=== PATIENT | male | born 1950 | race Caucasian/White ===

== ENCOUNTER → 2016-08-06 | Outpatient (REF) | payer BC, MEDICARE ==
[2016-08-06 12:27] LABS: ALBUMIN 3.8 GM/DL (3.2-5.2); ALBUMIN/GLOBULIN RATIO 1.23 (1.00-1.93); ALKALINE PHOSPHATASE 74 U/L (45-117); ALT/SGPT 28 U/L (12-78); ANION GAP 8 MEQ/L (8-16); AST/SGOT 21 U/L (15-37); BILIRUBIN,TOTAL 0.7 MG/DL (0.2-1.0); BLOOD UREA NITROGEN 15 MG/DL (7-18); CALCIUM LEVEL 9.1 MG/DL (8.8-10.2); CARBON DIOXIDE LEVEL 28 MEQ/L (21-32); CHLORIDE LEVEL 107 MEQ/L (98-107); CHOLESTEROL LEVEL 176 MG/DL (<200); CREATININE FOR GFR 0.81 MG/DL (0.70-1.30); GLOMERULAR FILTRATION RATE > 60.0 (>49); GLUCOSE, FASTING 102 MG/DL (80-110); POTASSIUM SERUM 3.8 MEQ/L (3.5-5.1); SODIUM LEVEL 143 MEQ/L (136-145); TOTAL PROTEIN 6.9 GM/DL (6.4-8.2); TRIGLYCERIDES LEVEL 75 MG/DL (<150)
[2016-08-06 12:52] LABS: BASO % 0.4 % (0.0-1.0); EOS # 0.2 K/mm3 (0.0-0.50); LARGE UNSTAINED CELL # 0.1 K/mm3 (0.0-0.4); LARGE UNSTAINED CELL % 1.9 % (0.0-4.0); LYMPH # 2.1 K/mm3 (1.5-4.5); LYMPH % 29.8 % (24.0-44.0); MEAN CORPUSCULAR HGB CONC 32.8 g/dl (32.0-36.5); MEAN CORPUSCULAR VOLUME 94.5 fl (80.0-96.0); MONO # 0.4 K/mm3 (0.0-0.8); MONO % 6.6 % (0.0-5.0); NEUTROPHILS # 3.8 K/mm3 (1.8-7.7); NEUTROPHILS % 58.3 % (36.0-66.0); PLATELET COUNT, AUTOMATED 195 k/mm3 (150-450); RED CELL DISTRIBUTION WIDTH 12.9 % (11.5-14.5); WHITE BLOOD COUNT 6.5 K/mm3 (4.0-10.0)
== END ==
LOC: M LABDRAW1 11:55
PROVIDERS: ATTEND Family Medicine
DX: R73.01 Impaired fasting glucose (principal); E78.2 Mixed hyperlipidemia; Z12.5 Encounter for screening for malignant neoplasm of prostate
CPT/HCPCS: 36415; 80053; 80061; 82550; 83036; 85025; 86140; G0103

== ENCOUNTER → 2016-09-07 | Outpatient (CLI) | payer MEDICARE ==
[~2016-09-07] VITALS: Ht 175.3 cm; Wt 83.9 kg
[~2016-09-07] MED LIST: ALEV220C2 PO; LIDOCAINE 2% INJ 100 MG/5 ML SDV (FOR ANES.) As Ordered ONE; NS 1,000 ML IV SCH; PROPOFOL 200 MG/20 ML VIAL As Ordered ONE
--- NOTE | 2016-09-07 10:54 | ROOR ---
Patient Name: Efra Wray Procedure Date: 09/07/2016 10:36 AM Date of : 1950 Age: 66 Room: [facility] Gender: Male Note Status: Finalized Procedure: Colonoscopy Indications: High risk colon cancer surveillance: Personal history of colonic polyps, Last colonoscopy: October 2010 Providers: Lloyd NAPIER MD Referring MD: Chad Muniz MD Requesting Provider: Medicines: Monitored Anesthesia Care Complications: No immediate complications. Procedure: Pre-Anesthesia Assessment: - The heart rate, respiratory rate, oxygen saturations, blood pressure, adequacy of pulmonary ventilation, and response to care were monitored throughout the procedure. The Colonoscope was introduced through the anus and advanced to the cecum, identified by appendiceal orifice and ileocecal valve. The colonoscopy was performed without difficulty. The patient tolerated the procedure well. The quality of the bowel preparation was fair. Findings: The perianal and digital rectal examinations were normal. Two sessile polyps were found in the sigmoid colon and ascending colon. The polyps were 2 to 4 mm in size. These polyps were removed with a cold snare. Resection was complete, but the polyp tissue was only partially retrieved. Multiple medium-mouthed diverticula were found in the sigmoid colon. Internal hemorrhoids were found during retroflexion. The hemorrhoids were moderate. The exam was otherwise without abnormality on direct and retroflexion views. Impression: - Preparation of the colon was fair. - Two 2 to 4 mm polyps in the sigmoid colon and in the ascending colon, removed with a cold snare. Complete resection. Partial retrieval. - Moderate diverticulosis in the sigmoid colon. - Internal hemorrhoids. - The examination was otherwise normal on direct and retroflexion views. Recommendation: - Repeat colonoscopy in 3 years for surveillance. Lloyd Napier MD Lloyd NAPIER MD 09/07/2016 10:54:32 AM This report has been signed electronically. Number of Addenda: 0 Note Initiated On: 09/07/2016 10:36 AM Estimated Blood Loss: Estimated blood loss: none.
[2016-09-07 11:25] VITALS: BP 136/84
== END | disposition home or self-care (01) ==
LOC: M OPP 08:55
PROVIDERS: ATTEND Internal Medicine Gastroenterology
DX: Z12.11 Encounter for screening for malignant neoplasm of colon (principal); D12.5 Benign neoplasm of sigmoid colon; D12.2 Benign neoplasm of ascending colon; K57.30 Diverticulosis of large intestine without perforation or abscess without bleeding; K64.8 Other hemorrhoids; M16.0 Bilateral primary osteoarthritis of hip; M19.019 Primary osteoarthritis, unspecified shoulder; M17.0 Bilateral primary osteoarthritis of knee; F17.210 Nicotine dependence, cigarettes, uncomplicated; M51.9 Unspecified thoracic, thoracolumbar and lumbosacral intervertebral disc disorder; Z88.8 Allergy status to other drugs, medicaments and biological substances; Z88.0 Allergy status to penicillin; Z88.7 Allergy status to serum and vaccine

== ENCOUNTER 2016-12-18 16:23 | Emergency (ER) | payer MEDICARE ==
[~2016-12-18] VITALS: Ht 177.8 cm; Wt 86.4 kg
[2016-12-18 16:24] VITALS: BP 162/93
== END 2016-12-18 16:54 | disposition left against medical advice (07) ==
LOC: M ED 16:23
DX: S60.212A Contusion of left wrist, initial encounter (principal); X58.XXXA Exposure to other specified factors, initial encounter; Y93.9 Activity, unspecified; Y92.9 Unspecified place or not applicable; Y99.8 Other external cause status; Z53.29 Procedure and treatment not carried out because of patient's decision for other reasons

== ENCOUNTER → 2016-12-18 | Outpatient (CLI) | payer MEDICARE ==
[~2016-12-18] MED LIST changes: -LIDOCAINE 2% INJ 100 MG/5 ML SDV (FOR ANES.) As Ordered ONE; -NS 1,000 ML IV SCH; -PROPOFOL 200 MG/20 ML VIAL As Ordered ONE
--- NOTE | 2016-12-19 09:36 | REP ---
LEFT WRIST, COMPLETE: 12/18/2016. Comparison: 08/16/2003. Clinical history: Contusion left wrist. Findings: Four views show soft tissue swelling over the dorsal aspect of the wrist. There are minimal degenerative changes of the first CMC joint and some of the tarsal articulations. No subluxation or dislocation of the wrist. Question of a small lucency proximal pole of the hamate may reflect a small bone cyst. Minor degenerative changes first CMC joint. Impression: 1. Soft tissue swelling dorsal wrist with some degenerative changes at the wrist, but no definite acute fracture or avulsion. Signed by Angel Canales MD 12/19/2016 08:08 A
== END ==
LOC: M WUC 18:58
PROVIDERS: ATTEND Physician Assistant
DX: S60.212A Contusion of left wrist, initial encounter (principal); X58.XXXA Exposure to other specified factors, initial encounter; Y93.9 Activity, unspecified; Y92.9 Unspecified place or not applicable; Y99.8 Other external cause status

== ENCOUNTER 2017-05-04 21:07 | Emergency (ER) | payer MEDICARE ==
[~2017-05-04] VITALS: Ht 175.3 cm; Wt 84.1 kg
[2017-05-04 21:08] VITALS: BP 155/91
[2017-05-04] MEDS ORDERED: TYLE325T5 PO (21:14)
[2017-05-04] MEDS ORDERED: BENZONATATE 100 MG CAP PO ONE (23:30)
[2017-05-04] MEDS ORDERED: TESS100C PO (23:30)
== END 2017-05-04 23:48 | disposition home or self-care (01) ==
LOC: M ED 21:07
DX: J20.9 Acute bronchitis, unspecified (principal); Z88.0 Allergy status to penicillin; Z88.5 Allergy status to narcotic agent; Z88.7 Allergy status to serum and vaccine; F17.210 Nicotine dependence, cigarettes, uncomplicated

== ENCOUNTER 2017-05-10 22:54 | Emergency (ER) | payer MEDICARE ==
[2017-05-11] MEDS: TUSSICAPS ER 10/8MG CAPSULE PO (00:05)
[2017-05-11 00:07] LABS: BASO # 0.1 10^3/uL (0.0-0.2); BASO % 0.6 % (0.0-1.0); EOS # 0.5 10^3/uL (0.0-0.50); EOS % 6.2 % (0.0-3.0); IMMATURE GRANULOCYTE % 0.4 % (0-0); LYMPH # 1.8 10^3/uL (1.5-4.5); LYMPH % 22.7 % (24.0-44.0); MEAN CORPUSCULAR HEMOGLOBIN 30.8 pg (27.0-33.0); MEAN CORPUSCULAR VOLUME 90.7 fl (80.0-96.0); MONO # 0.9 10^3/uL (0.0-0.8); MONO % 10.8 % (0.0-5.0); NEUTROPHILS # 4.7 10^3/uL (1.8-7.7); NEUTROPHILS % 59.3 % (36.0-66.0); PLATELET COUNT, AUTOMATED 312 10^3/uL (150-450); RED CELL DISTRIBUTION WIDTH 12.3 % (11.5-14.5); WHITE BLOOD COUNT 7.9 10^3/uL (4.0-10.0)
[2017-05-11 00:30] LABS: ANION GAP 7 MEQ/L (8-16); BLOOD UREA NITROGEN 13 MG/DL (7-18); CALCIUM LEVEL 9.2 MG/DL (8.8-10.2); CARBON DIOXIDE LEVEL 28 MEQ/L (21-32); CHLORIDE LEVEL 106 MEQ/L (98-107); CREATININE FOR GFR 0.81 MG/DL (0.70-1.30); GLOMERULAR FILTRATION RATE > 60.0 (>49); GLUCOSE, FASTING 98 MG/DL (80-110); SODIUM LEVEL 141 MEQ/L (136-145)
[2017-05-11] MEDS ORDERED: ISOVUE-370 76% 100ML VIAL (Q9967) As Ordered (00:53)
[2017-05-11] MEDS: ACETAMINOPHEN 325 MG TAB PO (02:25)
== END 2017-05-11 03:07 | disposition home or self-care (01) ==
LOC: M ED 05-11 03:07
DX: R91.1 Solitary pulmonary nodule (principal); R91.8 Other nonspecific abnormal finding of lung field; Z79.2 Long term (current) use of antibiotics; Z79.899 Other long term (current) drug therapy; Z88.5 Allergy status to narcotic agent; Z88.0 Allergy status to penicillin; Z88.7 Allergy status to serum and vaccine; Z87.891 Personal history of nicotine dependence
CPT/HCPCS: Q9967

== ENCOUNTER → 2017-05-18 | Outpatient (REF) | payer MEDICARE | LOC: M LAB REF 16:58 | DX: R91.8 Other nonspecific abnormal finding of lung field (principal) | CPT/HCPCS: 87205 ==

== ENCOUNTER 2017-05-29 20:13 | Emergency (ER) | payer MEDICARE ==
[2017-05-29 23:06] LABS: BASO # 0.1 10^3/uL (0.0-0.2); BASO % 0.6 % (0.0-1.0); EOS # 0.2 10^3/uL (0.0-0.50); EOS % 2.5 % (0.0-3.0); HEMOGLOBIN 14.7 g/dl (14.0-18.0); IMMATURE GRANULOCYTE % 0.2 % (0-0); LYMPH # 2.4 10^3/uL (1.5-4.5); LYMPH % 28.7 % (24.0-44.0); MEAN CORPUSCULAR HEMOGLOBIN 31.3 pg (27.0-33.0); MEAN CORPUSCULAR HGB CONC 34.2 g/dl (32.0-36.5); MEAN CORPUSCULAR VOLUME 91.7 fl (80.0-96.0); MONO % 12.3 % (0.0-5.0); NEUTROPHILS # 4.7 10^3/uL (1.8-7.7); NEUTROPHILS % 55.7 % (36.0-66.0); PLATELET COUNT, AUTOMATED 230 10^3/uL (150-450); RED BLOOD COUNT 4.69 10^6/uL (4.30-6.10); RED CELL DISTRIBUTION WIDTH 12.6 % (11.5-14.5); WHITE BLOOD COUNT 8.4 10^3/uL (4.0-10.0)
[2017-05-29] MEDS: IPRATROPIUM 0.5MG/ALBUTEROL 2.5MG INH SOL UD 3ML (DUONEB)(J7620) NEB (23:10)
[2017-05-29 23:27] LABS: ANION GAP 8 MEQ/L (8-16); BLOOD UREA NITROGEN 11 MG/DL (7-18); CALCIUM LEVEL 9.4 MG/DL (8.8-10.2); CARBON DIOXIDE LEVEL 25 MEQ/L (21-32); CHLORIDE LEVEL 107 MEQ/L (98-107); CREATININE FOR GFR 0.77 MG/DL (0.70-1.30); GLOMERULAR FILTRATION RATE > 60.0 (>49); GLUCOSE, FASTING 88 MG/DL (80-110); POTASSIUM SERUM 3.7 MEQ/L (3.5-5.1); SODIUM LEVEL 140 MEQ/L (136-145)
[2017-05-29 23:42] LABS: TROPONIN I < 0.02 NG/ML (< 0.10)
[2017-05-30] MEDS: BENZONATATE 100 MG CAP PO (00:22)
== END 2017-05-30 00:30 | disposition home or self-care (01) ==
LOC: M ED 05-30 00:30
DX: J44.1 Chronic obstructive pulmonary disease with (acute) exacerbation (principal); Z79.899 Other long term (current) drug therapy; Z88.0 Allergy status to penicillin; Z88.5 Allergy status to narcotic agent; Z87.891 Personal history of nicotine dependence
CPT/HCPCS: 93005

== ENCOUNTER → 2017-06-10 | Outpatient (CLI) | payer MEDICARE | LOC: M RAD 17:11 | DX: R91.8 Other nonspecific abnormal finding of lung field (principal) | CPT/HCPCS: 71250 ==

== ENCOUNTER → 2017-06-21 | Outpatient (REF) | payer MEDICARE ==
[2017-06-21 18:08] LABS: PLATELET COUNT, AUTOMATED 260 10^3/uL (150-450)
[2017-06-21 18:30] LABS: INR 0.96; PROTHROMBIN TIME 12.9 SECONDS (12.4-14.5)
[2017-06-21 18:31] LABS: PARTIAL THROMBOPLASTIN TIME 32.7 SECONDS (26.8-37.9)
== END ==
LOC: M LAB REF 17:44
DX: R91.8 Other nonspecific abnormal finding of lung field (principal); Z79.01 Long term (current) use of anticoagulants
CPT/HCPCS: 85049

== ENCOUNTER → 2017-07-09 | Outpatient (CLI) | payer MEDICARE ==
[~2017-07-09] MED LIST changes: +ACETAMINOPHEN 325 MG TAB As Ordered; -ALEV220C2 PO; +LIDOCAINE 1% MDV 20ML VIAL As Ordered
== END ==
LOC: M RADPRO 09:24
DX: R91.8 Other nonspecific abnormal finding of lung field (principal); C34.90 Malignant neoplasm of unspecified part of unspecified bronchus or lung; Z88.5 Allergy status to narcotic agent; Z88.0 Allergy status to penicillin; Z79.899 Other long term (current) drug therapy
CPT/HCPCS: 32405

== ENCOUNTER → 2017-07-21 | Outpatient (CLI) | payer MEDICARE | LOC: M CARPUL 10:36 | DX: C34.12 Malignant neoplasm of upper lobe, left bronchus or lung (principal) ==

== ENCOUNTER → 2017-07-21 | Outpatient (CLI) | payer MEDICARE | LOC: M PLARAD 08:36 | DX: C34.12 Malignant neoplasm of upper lobe, left bronchus or lung (principal) | CPT/HCPCS: 78815 ==

== ENCOUNTER → 2017-08-12 | Outpatient (CLI) | payer MEDICARE ==
[2017-08-12 12:17] LABS: HEMATOCRIT 43.7 % (42.0-52.0); HEMOGLOBIN 14.3 g/dl (13.5-17.5); MEAN CORPUSCULAR HGB CONC 32.7 g/dl (32.0-36.5); MEAN CORPUSCULAR VOLUME 91.6 fl (80.0-96.0); PLATELET COUNT, AUTOMATED 274 10^3/uL (150-450); RED BLOOD COUNT 4.77 10^6/uL (4.30-6.10); RED CELL DISTRIBUTION WIDTH 12.7 % (11.5-14.5); WHITE BLOOD COUNT 7.7 10^3/uL (4.0-10.0)
[2017-08-12 12:20] LABS: APPEARANCE, URINE CLEAR (CLEAR); BACTERIA, URINE AUTO NEGATIVE (NEGATIVE); BILIRUBIN, URINE AUTO NEGATIVE (NEGATIVE); BLOOD, URINE BLOOD NEGATIVE (NEGATIVE); COLOR, URINE YELLOW (YELLOW); GLUCOSE, URINE (UA) AUTO NEGATIVE (NEGATIVE); KETONE, URINE AUTO NEGATIVE (NEGATIVE); LEUKOCYTE ESTERASE, URINE AUTO NEGATIVE (NEGATIVE); NITRITE, URINE AUTO NEGATIVE (NEGATIVE); PROTEIN, URINE AUTO NEGATIVE (NEGATIVE); RBC, URINE AUTO 2 /HPF (0-3); SPECIFIC GRAVITY URINE AUTO 1.013 (1.002-1.035); SQUAMOUS EPITHELIAL CELL UR AU 0 /HPF (0-6); UROBILINOGEN, URINE AUTO 0.2 mg/dL (0.0-2.0); WBC, URINE AUTO 0 /HPF (0-3)
[2017-08-12 12:29] LABS: PROTHROMBIN TIME 13.3 SECONDS (12.4-14.5)
[2017-08-12 12:30] LABS: PARTIAL THROMBOPLASTIN TIME 36.4 SECONDS (26.8-37.9)
[2017-08-12 12:32] LABS: ABG BASE EXCESS -1.6 (-2.0-2.0); ABG DEVICE ROOM AIR; ABG HCO3 21.6 MEQ/L (22.0-26.0); ABG O2 SATURATION 96.5 % (95.0-99.0); ABG PARTIAL PRESSURE CO2 32.2 mmHg (35.0-45.0); ABG PARTIAL PRESSURE O2 84.8 mmHg (75.0-100.0); ABG STANDARD HCO3 23.1 MEQ/L (22.0-26.0); ABG TOTAL CO2 22.6 MEQ/L (23.0-31.0); ABG pH (ARTERIAL) 7.444 UNITS (7.350-7.450)
[2017-08-12 12:44] LABS: ANION GAP 6 MEQ/L (8-16); BLOOD UREA NITROGEN 12 MG/DL (7-18); CALCIUM LEVEL 9.5 MG/DL (8.8-10.2); CARBON DIOXIDE LEVEL 29 MEQ/L (21-32); CHLORIDE LEVEL 109 MEQ/L (98-107); CREATININE FOR GFR 0.73 MG/DL (0.70-1.30); GLOMERULAR FILTRATION RATE > 60.0 (>49); GLUCOSE, FASTING 81 MG/DL (70-100); POTASSIUM SERUM 4.3 MEQ/L (3.5-5.1); SODIUM LEVEL 144 MEQ/L (136-145)
== END ==
LOC: M ADMPAT 10:57
DX: Z01.818 Encounter for other preprocedural examination (principal); C34.92 Malignant neoplasm of unspecified part of left bronchus or lung; R94.31 Abnormal electrocardiogram [ECG] [EKG]
CPT/HCPCS: 71046

== ENCOUNTER → 2017-08-30 | Outpatient (CLI) | payer MEDICARE | LOC: M SMT 11:04 | DX: J90 Pleural effusion, not elsewhere classified (principal); C34.12 Malignant neoplasm of upper lobe, left bronchus or lung | CPT/HCPCS: 71046 ==

== ENCOUNTER → 2017-09-08 | Outpatient (REF) | payer MEDICARE ==
[2017-09-08 17:57] LABS: INR 1.01; PROTHROMBIN TIME 13.4 SECONDS (12.4-14.5)
[2017-09-08 17:58] LABS: PARTIAL THROMBOPLASTIN TIME 34.2 SECONDS (26.8-37.9)
[2017-09-10 15:08] LABS: HEPATITIS C VIRUS ABY INDEX > 11.0 INDEX (<0.8)
== END ==
LOC: M LAB REF 16:24
DX: C34.90 Malignant neoplasm of unspecified part of unspecified bronchus or lung (principal); Z79.01 Long term (current) use of anticoagulants
CPT/HCPCS: 86803

== ENCOUNTER → 2017-09-20 | Outpatient (CLI) | payer MEDICARE | LOC: M SMT 08:16 | DX: C34.12 Malignant neoplasm of upper lobe, left bronchus or lung (principal) | CPT/HCPCS: 71046 ==

== ENCOUNTER 2017-09-25 20:08 | Emergency (ER) | payer MEDICARE ==
[2017-09-25] MEDS: MORPHINE 2 MG/ML 1ML SYRINGE (J2270) IV (22:27)
[2017-09-25 22:28] LABS: BASO % 0.4 % (0.0-1.0); EOS # 0.9 10^3/uL (0.0-0.50); EOS % 11.3 % (0.0-3.0); HEMATOCRIT 41.1 % (42.0-52.0); HEMOGLOBIN 14.1 g/dl (13.5-17.5); IMMATURE GRANULOCYTE % 0.1 % (0-3.0); LYMPH # 1.9 10^3/uL (1.5-4.5); LYMPH % 24.2 % (24.0-44.0); MEAN CORPUSCULAR HEMOGLOBIN 30.3 pg (27.0-33.0); MEAN CORPUSCULAR HGB CONC 34.3 g/dl (32.0-36.5); MEAN CORPUSCULAR VOLUME 88.4 fl (80.0-96.0); MONO # 0.1 10^3/uL (0.0-0.8); MONO % 1.7 % (0.0-5.0); NEUTROPHILS # 4.8 10^3/uL (1.8-7.7); NEUTROPHILS % 62.3 % (36.0-66.0); PLATELET COUNT, AUTOMATED 205 10^3/uL (150-450); RED BLOOD COUNT 4.65 10^6/uL (4.30-6.10); RED CELL DISTRIBUTION WIDTH 13.4 % (11.5-14.5); WHITE BLOOD COUNT 7.7 10^3/uL (4.0-10.0)
[2017-09-25] MEDS: NS 1,000 ML IV (22:28)
[2017-09-25 22:47] LABS: ANION GAP 6 MEQ/L (8-16); BLOOD UREA NITROGEN 17 MG/DL (7-18); CALCIUM LEVEL 8.8 MG/DL (8.8-10.2); CARBON DIOXIDE LEVEL 27 MEQ/L (21-32); CHLORIDE LEVEL 108 MEQ/L (98-107); CREATININE FOR GFR 0.73 MG/DL (0.70-1.30); GLOMERULAR FILTRATION RATE > 60.0 (>49); GLUCOSE, FASTING 139 MG/DL (70-100); POTASSIUM SERUM 4.1 MEQ/L (3.5-5.1); SODIUM LEVEL 141 MEQ/L (136-145)
[2017-09-25 23:00] LABS: INFLUENZA A AMPLIFICATION NEGATIVE (NEGATIVE); INFLUENZA B AMPLIFICATION NEGATIVE (NEGATIVE)
[2017-09-25] MEDS: MORPHINE 4 MG/ML 1ML VIAL/SYRINGE (J2270) IV (23:07)
== END 2017-09-26 00:17 | disposition home or self-care (01) ==
LOC: M ED 09-26 00:17
DX: M25.50 Pain in unspecified joint (principal); J44.9 Chronic obstructive pulmonary disease, unspecified; B19.20 Unspecified viral hepatitis C without hepatic coma; Z92.21 Personal history of antineoplastic chemotherapy; Z87.891 Personal history of nicotine dependence
CPT/HCPCS: J2270

== ENCOUNTER → 2017-10-28 | Outpatient (REF) | payer MEDICARE ==
[2017-11-05 00:09] LABS: HEPATITIS C QUANTITATION HCV Not Detected IU/mL (.)
== END ==
LOC: M SFHCPLAZ 13:21
DX: B18.2 Chronic viral hepatitis C (principal)
CPT/HCPCS: 84460; 87522

== ENCOUNTER → 2017-11-05 | Outpatient (REF) | payer MEDICARE ==
[2017-11-09 08:06] LABS: HEPATITIS A IgG TOTAL Positive (Negative)
[2017-11-09 08:06] LABS: ALPHA 2-MACROGLOBULIN 242 mg/dL (110-276); ALT 19 IU/L (0-55); APOLIPOPROTEIN A-1 124 mg/dL (101-178); FIBROSIS SCORE 0.26 (0.00-0.21); FIBROSIS STAGE F0-F1 (.); GGT 32 IU/L (0-65); HAPTOGLOBIN 199 mg/dL (34-200); NECROINFLAM SCORE 0.07 (0.00-0.17); NECROINFLAMM GRADE A0-No activity (.); TOTAL BILIRUBIN 0.2 mg/dL (0.0-1.2)
== END ==
LOC: M LABDRAWP 16:51
DX: B18.2 Chronic viral hepatitis C (principal)
CPT/HCPCS: 84460

== ENCOUNTER → 2018-02-18 | Outpatient (CLI) | payer MEDICARE ==
[~2018-02-18] MED LIST changes: -ACETAMINOPHEN 325 MG TAB As Ordered; -LIDOCAINE 1% MDV 20ML VIAL As Ordered; +PROHANCE 279.3MG/ML 15ML VIAL (A9576) As Ordered; +PROHANCE 279.3MG/ML 5ML VIAL (A9576) As Ordered
== END ==
LOC: M RAD 12:16
DX: R51 Headache (principal); C34.90 Malignant neoplasm of unspecified part of unspecified bronchus or lung; I67.82 Cerebral ischemia
CPT/HCPCS: A9576

== ENCOUNTER → 2018-02-23 | Outpatient (CLI) | payer MEDICARE ==
[~2018-02-23] MED LIST changes: +GASTROGRAFIN SOLUTION 30ML (Q9963) As Ordered; +ISOVUE-370 76% 100ML VIAL (Q9967) As Ordered; -PROHANCE 279.3MG/ML 15ML VIAL (A9576) As Ordered; -PROHANCE 279.3MG/ML 5ML VIAL (A9576) As Ordered
== END ==
LOC: M RAD 12:17
DX: C34.90 Malignant neoplasm of unspecified part of unspecified bronchus or lung (principal); R59.0 Localized enlarged lymph nodes; R91.8 Other nonspecific abnormal finding of lung field; N28.1 Cyst of kidney, acquired; K57.90 Diverticulosis of intestine, part unspecified, without perforation or abscess without bleeding; Z90.2 Acquired absence of lung [part of]
CPT/HCPCS: Q9963

== ENCOUNTER → 2018-03-08 | Outpatient (CLI) | payer MEDICARE ==
[2018-03-08 17:34] LABS: IONIZED CALCIUM 4.9 MG/DL (4.5-5.3)
== END ==
LOC: M SMT 15:53
DX: C34.12 Malignant neoplasm of upper lobe, left bronchus or lung (principal)
CPT/HCPCS: 82330

== ENCOUNTER → 2018-03-22 | Outpatient (CLI) | payer MEDICARE | LOC: M PLARAD 14:22 | DX: C34.12 Malignant neoplasm of upper lobe, left bronchus or lung (principal) | CPT/HCPCS: 78815 ==

== ENCOUNTER → 2018-04-04 | Outpatient (REF) | payer MEDICARE ==
[2018-04-04 13:08] LABS: PLATELET COUNT, AUTOMATED 280 10^3/uL (150-450)
[2018-04-04 13:27] LABS: INR 1.02; PROTHROMBIN TIME 13.5 SECONDS (12.1-14.4)
[2018-04-04 13:28] LABS: PARTIAL THROMBOPLASTIN TIME 32.3 SECONDS (25.4-37.6)
== END ==
LOC: M LAB REF 12:51
DX: R59.0 Localized enlarged lymph nodes (principal); C34.12 Malignant neoplasm of upper lobe, left bronchus or lung
CPT/HCPCS: 85049

== ENCOUNTER → 2018-04-14 | Outpatient (CLI) | payer MEDICARE ==
[~2018-04-14] MED LIST changes: -GASTROGRAFIN SOLUTION 30ML (Q9963) As Ordered; -ISOVUE-370 76% 100ML VIAL (Q9967) As Ordered; +LIDOCAINE 1% MDV 20ML VIAL As Ordered
== END ==
LOC: M RADPRO 09:08
DX: C34.90 Malignant neoplasm of unspecified part of unspecified bronchus or lung (principal); Z88.0 Allergy status to penicillin; Z88.5 Allergy status to narcotic agent
CPT/HCPCS: 32405

== ENCOUNTER → 2018-04-26 | Outpatient (CLI) | payer MEDICARE | LOC: M SMT 10:38 | DX: C34.12 Malignant neoplasm of upper lobe, left bronchus or lung (principal); Z98.890 Other specified postprocedural states | CPT/HCPCS: 71046 ==

== ENCOUNTER → 2018-04-28 | Outpatient (CLI) | payer MEDICARE | LOC: M ONCR 08:51 | DX: C34.92 Malignant neoplasm of unspecified part of left bronchus or lung (principal) | CPT/HCPCS: G0463 ==

== ENCOUNTER 2018-04-29 05:51 | Day surgery (SDC) | payer MEDICARE ==
[2018-04-29] MEDS: VANCOMYCIN HCL 1,000 MG, VIAL MATE ADAPTER 1 EACH in D5W 250 ML IV (06:35)
[2018-04-29] MEDS: LR 1,000 ML IV (06:45)
[2018-04-29] MEDS ORDERED: PROPOFOL 200 MG/20 ML VIAL As Ordered (07:15)
[2018-04-29] MEDS ORDERED: LIDOCAINE 2% INJ 100 MG/5 ML SDV (FOR ANES.) As Ordered (07:15)
[2018-04-29] MEDS ORDERED: PROPOFOL 500 MG/50 ML VIAL As Ordered (07:15)
[2018-04-29] MEDS ORDERED: fentaNYL 100 MCG/2 ML INJECTION (J3010) As Ordered (07:16)
[2018-04-29] MEDS ORDERED: MIDAZOLAM INJ 2 MG/2 ML VIAL (J2250) As Ordered (07:16)
[2018-04-29] MEDS: MUPIROCIN 2% OINT 22 GM TUBE TOP (07:45)
[2018-04-29] MEDS: HEPARIN SOD (PORCINE) 5000 UNITS/ML VIAL As Ordered (07:55)
[2018-04-29] MEDS: LIDOCAINE 1% SDV INJ 30 ML VIAL As Ordered (08:15)
[2018-04-29] MEDS: BUPIVACAINE LIPOSOME/PF 1.3% 20ML VIAL (13.3MG/ML)(EXPAREL)(C9290 PER1MG) As Ordered (08:15)
== END 2018-04-29 10:00 | disposition home or self-care (01) ==
LOC: M SDC 05:51
DX: C34.12 Malignant neoplasm of upper lobe, left bronchus or lung (principal); Z45.2 Encounter for adjustment and management of vascular access device; J44.9 Chronic obstructive pulmonary disease, unspecified; Z87.891 Personal history of nicotine dependence; Z92.21 Personal history of antineoplastic chemotherapy; Z88.8 Allergy status to other drugs, medicaments and biological substances; Z88.1 Allergy status to other antibiotic agents
CPT/HCPCS: 36561

== ENCOUNTER → 2018-05-05 | Outpatient (CLI) | payer MEDICARE ==
[~2018-05-05] MED LIST changes: +ACET1TAB55 PO; +ALEV220C2 PO; +BENZ200C70 PO; +CEFU1TAB20 PO; +HYDR5LIQ2 PO; +LEVO500T3 PO; -LIDOCAINE 1% MDV 20ML VIAL As Ordered; +NORCOTAB PO; +ONDA8TAB7 PO; +PACLITAXEL; +PRED10TA2 PO; +PROAAER10; +PROC10TA4 PO; +SPIR12.9 INH; +TESS100C PO; +TYLE325T5 PO; +TYLE500T78 PO; +carboplatin
--- NOTE | 2018-05-05 08:54 | REP ---
Chest two views HISTORY: [id number]-Mrle placement Comparison: 04/29/2018 An ill-defined mass is present in the left suprahilar area. The right lung is clear. The heart is normal in size. The pulmonary vasculature is normal in appearance. The bony structure is intact. An Wzijca-W-Kkcy catheter is present. IMPRESSION: There is an ill-defined left suprahilar mass. Electronically Signed by Jonatan Bonner MD 05/05/2018 08:45 A
== END ==
LOC: M SMT 08:18
PROVIDERS: ATTEND Thoracic Surgery (Cardiothoracic Vascular Surgery)
DX: C34.12 Malignant neoplasm of upper lobe, left bronchus or lung (principal); Z01.818 Encounter for other preprocedural examination; Z95.9 Presence of cardiac and vascular implant and graft, unspecified; R91.8 Other nonspecific abnormal finding of lung field

== ENCOUNTER → 2018-05-16 | Outpatient (RCR) | payer MEDICARE ==
[2018-05-03 10:45] LABS: MEAN CORPUSCULAR HEMOGLOBIN 29.8 pg (27.0-33.0); MEAN CORPUSCULAR HGB CONC 32.5 g/dl (32.0-36.5); MEAN CORPUSCULAR VOLUME 91.7 fl (80.0-96.0); PLATELET COUNT, AUTOMATED 227 10^3/uL (150-450); RED BLOOD COUNT 4.36 10^6/uL (4.30-6.10); WHITE BLOOD COUNT 7.3 10^3/uL (4.0-10.0)
--- NOTE | 2018-05-04 09:13 | RADONC ---
RADIATION ONCOLOGY SIMULATION NOTE DATE: 05/04/2018 CHART NUMBER: [id number] Mr. Wray was taken to the CT scan for CT simulation of his lung field. CT was accomplished without difficulty or discomfort. Radiation treatment planning is underway and radiation treatments will begin subsequently. An immobilization device was created without difficulty or discomfort. It will be used throughout the course of treatment. I was physically present for CT simulation.
--- NOTE | 2018-05-18 14:28 | RADONC ---
RADIATION ONCOLOGY PROGRESS NOTE: DATE: 05/16/2018 CHART NUMBER: [id number] Mr. Wray is presently at a dose of 800 cGy to his mediastinum and is tolerating treatments quite well at this point with no complaints related to his radiation therapy. He is having no increased difficulty swallowing or breathing. REVIEW OF SYSTEMS: The patient's review of systems is noncontributory. Denies nausea, vomiting, fevers, chills, night sweats, diplopia, headaches, anxiety or depression, anorexia, weight loss, visual disturbances, chest pain, urinary or bowel difficulties, bone pain, or neurological problems. PHYSICAL EXAMINATION: The patient's skin is in good condition with no evidence of moist or dry desquamation. The remainder of his physical exam remains unchanged. Mr. Wray is tolerating treatments quite well and radiation will continue as scheduled.
== END ==
LOC: M ONCR 05-03 10:19
PROVIDERS: ATTEND Radiology Radiation Oncology
DX: C78.1 Secondary malignant neoplasm of mediastinum (principal); C34.12 Malignant neoplasm of upper lobe, left bronchus or lung

== ENCOUNTER 2018-06-15 07:57 | Outpatient (RCR) | payer MEDICARE ==
--- NOTE | 2018-05-31 07:17 | RADONC ---
RADIATION ONCOLOGY PROGRESS NOTE DATE: 05/30/2018 CHART #: [id number] Mr. Wray is presently at a dose of 2400 cGy to his mediastinum and is tolerating treatments quite well at this point with no significant difficulties related to his radiation therapy other than a sore throat. REVIEW OF SYSTEMS: The patient's review of systems is positive for discomfort upon swallowing but is otherwise noncontributory. Denies nausea, vomiting, fevers, chills, night sweats, diplopia, headaches, anxiety or depression, anorexia, weight loss, visual disturbances, chest pain, urinary or bowel difficulties, bone pain, or neurological problems. PHYSICAL EXAMINATION: The patient's skin is in good condition with no evidence of moist or dry desquamation. The remainder of his physical exam remains largely unchanged. Mr. Wray is tolerating treatments quite well and radiation will continue as scheduled.
--- NOTE | 2018-06-07 10:51 | RADONC ---
RADIATION ONCOLOGY PROGRESS NOTE DATE: 06/06/2018 CHART NUMBER: [id number] PROGRESS NOTE: Mr. Wray is presently a dose of 3400 cGy to his mediastinum and is tolerating treatments quite well at this point with no complaints related to his radiation therapy. He is having no urinary or bowel difficulties. No bone pain. REVIEW OF SYSTEMS: The patient's review of systems is noncontributory. Denies nausea, vomiting, fevers, chills, night sweats, diplopia, headaches, anxiety or depression, anorexia, weight loss, visual disturbances, chest pain, urinary or bowel difficulties, bone pain, or neurological problems. PHYSICAL EXAMINATION: The patient's skin is in good condition with no evidence of moist or dry desquamation. The remainder of the physical exam remains unchanged. Mr. Wray is tolerating treatments quite well and radiation will continue as scheduled.
--- NOTE | 2018-06-13 12:03 | RADONC ---
RADIATION ONCOLOGY PROGRESS NOTE DATE: 06/13/2018 CHART #: [id number] Mr. Wray is presently at a dose of 4400 cGy to his mediastinum and is tolerating his treatments fairly well with no significant difficulties related to his radiation therapy other than some mild esophagitis as well as some erythema of the skin. REVIEW OF SYSTEMS: The patient's review of systems is positive for a new painful area in the central forehead region between his eyebrows. He says this is quite sensitive to touch. 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 They have ordered MRIs of the brain and central nervous system region. Other than that, the patient's review of systems is positive for some tenderness of the skin but is otherwise noncontributory. Denies nausea, vomiting, fevers, chills, night sweats, diplopia, headaches, anxiety or depression, anorexia, weight loss, visual disturbances, chest pain, urinary or bowel difficulties, bone pain, or neurological problems. PHYSICAL EXAMINATION: The patient is a well-developed, well-nourished white male in no acute distress. There is significant acute tenderness with touching of the patient's upper nose bridge and the forehead between the eyebrows. I do not appreciate any bulging or swelling. There is no color change of the skin in that area. The skin over his treated field does show erythema and tanning present. The remainder of the physical exam remains unchanged. Mr. Wray is tolerating his treatments quite well except for erythema of the skin. He reports that his esophagitis is largely resolved and was much worse following his chemotherapy. I have sent in a prescription for Silvadene to be applied topically to the areas of discomfort of the skin. I do not suspect malignancy in his scalp tenderness, but we will continue to follow this. In the meantime, he is being followed by neurology for that and an MRI is scheduled. He had many questions with regards to the insurance coverage for his MRI, but unfortunately I do not have the answers and I have referred him back to his neurology physicians to deal with those issues. In the meantime, radiation to the lung will continue as scheduled.
[~2018-06-15 07:57] MED LIST changes: +SILV40CR EXT
== END 2018-06-16 ==
LOC: M ONCR 07:57
PROVIDERS: ATTEND Radiology Radiation Oncology
DX: C78.1 Secondary malignant neoplasm of mediastinum (principal); C34.12 Malignant neoplasm of upper lobe, left bronchus or lung

== ENCOUNTER 2018-06-30 07:53 | Outpatient (RCR) | payer MEDICARE ==
--- NOTE | 2018-06-21 11:49 | RADONC ---
RADIATION ONCOLOGY PROGRESS NOTE DATE: 06/20/2018 CHART NUMBER: [id number] Mr. Pearson is presently at a dose of 5000 cGy to his mediastinum and is tolerating his treatments quite well with no significant difficulties related to his radiation therapy, other than some tenderness of the skin. The patient's review of systems is positive for skin reaction, but is otherwise generally noncontributory. He denies nausea, vomiting, fevers, chills, night sweats, diplopia, headaches, anxiety or depression, anorexia, weight loss, visual disturbances, chest pain, urinary or bowel difficulties, bone pain, or neurological problems. PHYSICAL EXAMINATION: The patient's skin shows erythema and tanning present but, overall, is in generally good condition with no evidence of moist desquamation. The remainder of his physical exam remains unchanged. Mr. Wray is tolerating treatments quite well, and radiation will continue as scheduled.
--- NOTE | 2018-06-28 13:45 | RADONC ---
PROGRESS NOTE DATE OF SERVICE: 06/27/2018 PROGRESS NOTE: Mr. Wray with a diagnosis of left upper lobe lung cancer stage IB, now recurrent, is currently at a dose of 6000 cGy of an anticipated 6600 cGy. He has only three more fractions to complete his entire prescribed dose of radiotherapy. He is also receiving concomitant chemotherapy. In general, he is tolerating his radiotherapy quite well. He does experience some weight loss and has also noted some muscle mass loss. He denies any current nausea, vomiting, odynophagia, or dysphagia. His energy level is diminished, but he is still able to maintain many day-to-day activities without any alteration of his lifestyle. His current weight is 185.6 pounds, and he was noted to be 203 pounds at the initiation of radiotherapy. REVIEW OF SYSTEMS: The remainder of the review of systems is noncontributory, as he denies any headaches, depression, neurologic dysfunction, or abdominal issues. EXAMINATION: The skin within the irradiated volume shows brisk erythema on the anterior chest wall and some focal dry desquamation on the posterior chest wall. There is no evidence of open or moist desquamation. No lymphadenopathy is appreciated, and the lungs are clear. The remainder of the physical examination is unchanged. IMPRESSION: Tolerating radiotherapy reasonably well. PLAN: Treatments to continue. MTDD
[~2018-06-30 07:53] MED LIST changes: +K-TA1TAB PO
--- NOTE | 2018-07-04 18:58 | RADONC ---
RADIATION ONCOLOGY TREATMENT SUMMARY DATE OF SERVICE: 06/30/2018 CHART NUMBER: [id number]. DIAGNOSIS: Left upper lobe lung cancer. STAGE: IB, [id number], recurrent. ECOG PERFORMANCE STATUS: Zero. PLAN OF RADIOTHERAPY: Local regional radiotherapy for local regional control. Date radiotherapy started 05/11. Date radiotherapy completed 06/30. Dose: The patient received a total of 6600 cGy administered in 33 fractions over 50 elapsed days. Prior to treatment delivery, localization was accomplished upon our CT simulator and treatment portals defined by the use of multiple leaf collimators. The patient did receive cisplatin and etoposide chemotherapy. He received his initial 5400 cGy in 27 fractions over 42 elapsed days and the entire 6600 cGy in 33 fractions over the aforementioned 50 elapsed days. Prior to treatment delivery, localization was accomplished upon our CT simulator, were obtained by the use of multiple leaf collimators. A 3D conformal radiotherapy technique was devised for treatment planning. STATUS OF TUMOR: There was no clinical evidence of distant metastatic spread during his course of radiotherapy nor was there clinical evidence of spread of tumor locally. He will be followed by appropriate radiographic studies in the future to determine his response to his radiotherapy and chemotherapy. TOLERANCE: In general, treatments are relatively well tolerated. He denied any significant nausea, vomiting, coughing, sputum production, or hemoptysis. A skin reaction was observed. He denied significant odynophagia or dysphagia. DISPOSITION: Return to clinic in 1 month or p.r.n., and he was advised to return to his referring physicians as per their directions and instructions. Thank you again for allowing us the opportunity of participation in the management of this very fine gentleman.
[2018-07-05] MEDS ORDERED: MORP10SO PO (10:00)
[2018-07-05] MEDS ORDERED: MEGA625S PO (10:00)
[2018-07-05] MEDS ORDERED: POTA20EL PO (10:00)
[2018-07-06] MEDS ORDERED: MAGN400C PO (08:58)
[2018-07-11] MEDS ORDERED: LEVO500T3 PO (10:42)
== END 2018-07-14 ==
LOC: M ONCR 07:53
PROVIDERS: ATTEND Radiology Radiation Oncology
DX: C34.12 Malignant neoplasm of upper lobe, left bronchus or lung (principal); C78.1 Secondary malignant neoplasm of mediastinum

== ENCOUNTER 2018-07-15 09:10 | Outpatient (CLI) | payer MEDICARE ==
[~2018-07-15] VITALS: Ht 170.2 cm; Wt 83.3 kg
[~2018-07-15 09:10] MED LIST changes: -LIDOCAINE 1% MDV 20ML VIAL As Ordered ONE; +SODIUM CHLORIDE 0.9% INJ 10 ML SYR IV SCH; -XANA0.5T PO
[2018-07-15 09:15] VITALS: BP 136/79
[2018-07-15] MEDS ORDERED: ACETAMINOPHEN TAB 650MG DOSE (2X325MG) PO ONE (09:30)
[2018-07-15] MEDS ORDERED: diphenhydrAMINE 25 MG CAP PO ONE (09:30)
[2018-07-15] MEDS ORDERED: dexameTHASONE 20 MG/5 ML VIAL (J1100) IV ONE (09:30)
[2018-07-15 10:05] VITALS: BP 119/73
[2018-07-15 11:15] VITALS: BP 128/75
== END 2018-07-15 11:25 | disposition home or self-care (01) ==
LOC: M INFU 09:10
PROVIDERS: ATTEND Internal Medicine Hematology & Oncology
DX: C34.12 Malignant neoplasm of upper lobe, left bronchus or lung (principal); C78.1 Secondary malignant neoplasm of mediastinum; J34.89 Other specified disorders of nose and nasal sinuses; Z88.0 Allergy status to penicillin; Z88.5 Allergy status to narcotic agent
CPT/HCPCS: 36430; 96375; J1100; P9036

== ENCOUNTER → 2018-07-15 | Outpatient (CLI) | payer MEDICARE ==
[~2018-07-15] MED LIST changes: +LIDOCAINE 1% MDV 20ML VIAL As Ordered ONE; +MAGN400C PO; +MEGA625S PO; +MORP10SO PO; +POTA20EL PO; +XANA0.5T PO
--- NOTE | 2018-07-15 14:47 | REP ---
SOFT TISSUE ULTRASOUND FRONTAL SCALP: HISTORY: History of squamous cell lung CA with enlarging mass in the midline frontal region. The patient is referred for ultrasound-guided needle biopsy. Comparison is made with recent MRI study. FINDINGS: Scanning of the mass midline demonstrates a 3.2 x 2.7 x 4.5 cm heterogeneous solid lesion with echogenic interstices and first sees and internal blood flow. Biopsy will proceed. Electronically Signed by Corey Mcwilliams MD 07/15/2018 03:52 P
--- NOTE | 2018-07-15 17:11 | REP ---
ULTRASOUND-GUIDED FRONTAL BONE MASS BIOPSY The procedure was performed under the direct supervision of Dr. Mcwilliams. Patient has a history of squamous cell carcinoma with enlarging mass in the midline frontal region seen on a previous MRI from [facility] performed on 06/24/2018. The risks and benefits of the procedure were explained to the patient and informed consent was obtained. The frontal bone mass was localized using ultrasound guidance. The skin was prepped and draped in a sterile fashion. 1% lidocaine was used as a local anesthetic. Using ultrasound guidance a 19/20 gauge coaxial needle biopsy system was inserted and advanced into the mass. Six core biopsy samples were obtained and sent to lab. The patient tolerated the procedure well and there were no immediate complications. After the appropriate amount of monitored convalescence the patient was discharged from the department. Reviewed by ZARA Deal 07/15/2018 04:02 P Electronically Signed by Corey Mcwilliams MD 07/15/2018 05:03 P
== END ==
LOC: M RADPRO 09:09
PROVIDERS: ATTEND Otolaryngology
DX: C31.2 Malignant neoplasm of frontal sinus (principal); Z85.118 Personal history of other malignant neoplasm of bronchus and lung; Z79.899 Other long term (current) drug therapy; Z88.0 Allergy status to penicillin; Z88.5 Allergy status to narcotic agent

== ENCOUNTER → 2018-07-21 | Outpatient (CLI) | payer MEDICARE ==
[~2018-07-21] MED LIST changes: -SODIUM CHLORIDE 0.9% INJ 10 ML SYR IV SCH; +XANA0.5T PO
== END ==
LOC: M RAD 12:33
PROVIDERS: ATTEND Internal Medicine Hematology & Oncology
DX: C34.92 Malignant neoplasm of unspecified part of left bronchus or lung (principal); D61.810 Antineoplastic chemotherapy induced pancytopenia; Z79.899 Other long term (current) drug therapy; M76.891 Other specified enthesopathies of right lower limb, excluding foot; R93.7 Abnormal findings on diagnostic imaging of other parts of musculoskeletal system

== ENCOUNTER → 2018-07-25 | Outpatient (CLI) | payer MEDICARE ==
[~2018-07-25] MED LIST changes: -XANA0.5T PO
--- NOTE | 2018-07-25 17:42 | REP ---
Whole body radionuclide bone scan: There are no comparisons. The study is performed with 21.9 mCi of technetium 99m radiolabeled MDP. There is focal increased uptake in the posterior arch of the right approximate 8th rib. This may be an expansile rib lesion. There is focal increased uptake in the distal shaft and distal metaphysis of the right femur. There is a bilaterally symmetric degenerative pattern of uptake in the shoulders. Radiotracer distribution is otherwise physiologic. Impression: Focal uptake in the posterior arch of the approximate right rib. This may be an expansile lesion. The focal increased uptake in the distal right femur. Electronically Signed by Reinaldo Covington MD 07/25/2018 05:34 P
== END ==
LOC: M RAD 10:27
PROVIDERS: ATTEND Radiology Radiation Oncology
DX: C79.51 Secondary malignant neoplasm of bone (principal); C34.12 Malignant neoplasm of upper lobe, left bronchus or lung; C78.1 Secondary malignant neoplasm of mediastinum
CPT/HCPCS: 78306; A9503

== ENCOUNTER → 2018-07-29 | Outpatient (CLI) | payer MEDICARE ==
[~2018-07-29] MED LIST changes: +XANA0.5T PO
--- NOTE | 2018-07-30 06:47 | REP ---
MAXILLOFACIAL CT WITHOUT CONTRAST: HISTORY: Neoplasm. COMPARISON: MR 06/24/2018. A destructive lesion is present in the frontal sinuses. There is disruption of cortex with anterior extension into the subgaleal soft tissues and and posterior extension into the anterior cranial fossa. There is destruction of the superomedial plascencia of the orbits with extension into the orbits, greater on the left than on the right. There is destruction of the anterior cribriform plate and ryan jigar with extension into the anterior ethmoid sinus. Minimal mucosal thickening is present in the ethmoid air cells and maxillary sinuses. The sphenoid sinus is clear. Mucosal thickening involves the ostiomeatal units. The middle and inferior nasal turbinates are partially paradoxical. There is minimal deviation of the nasal septum to the left superiorly and to the right inferiorly. The optic canals are intact. The carotid canals form a segment of the posterolateral plascencia of the sphenoid sinus. IMPRESSION: There is a destructive lesion in the frontal sinuses with extension into the subgaleal soft tissue and anterior cranial fossa, medial plascencia of the orbits and ethmoid sinus. This may represent a squamous cell carcinoma, adenoid cystic carcinoma, adenocarcinoma or possibly lymphoma or plasmacytoma. Electronically Signed by Jonatan Bonner MD 07/30/2018 08:09 A
== END ==
LOC: M RAD 15:31
PROVIDERS: ATTEND Otolaryngology
DX: D38.5 Neoplasm of uncertain behavior of other respiratory organs (principal); J34.2 Deviated nasal septum

== ENCOUNTER → 2018-08-01 | Outpatient (REF) | payer MEDICARE ==
[2018-08-01 19:22] LABS: BLOOD UREA NITROGEN 18 MG/DL (7-18); CREATININE FOR GFR 0.64 MG/DL (0.70-1.30); GLOMERULAR FILTRATION RATE > 60.0 (>49)
== END ==
LOC: M LABDRAW1 18:39
PROVIDERS: ATTEND Orthopaedic Surgery
DX: M79.651 Pain in right thigh (principal)

== ENCOUNTER → 2018-08-04 | Outpatient (CLI) | payer MEDICARE ==
[~2018-08-04] MED LIST changes: +GASTROGRAFIN SOLUTION 30ML (Q9963) As Ordered ONE; +ISOVUE-370 76% 125ML VIAL (Q9967 PER ML) As Ordered ONE
--- NOTE | 2018-08-04 15:07 | REP ---
CT study of the chest with IV contrast: History: Lung carcinoma. Bone metastasis. Comparison CT study is from February 23, 2018. Comparison bone scan imaging is from July 25, 2018. CT contrast dose: 100 mL of intravenous Isovue 370. CT findings: The known left mediastinal mass again demonstrates heterogeneous predominately peripheral contrast enhancement. It has enlarged further since the February 23, 2018 study and currently measures 5.7 cm in oblique craniocaudal span by 5.1 cm medial to lateral by 5.5 cm anterior to posterior. There is a new left perivascular mediastinal lymph nodes a little more superiorly located lateral to the left common carotid artery. This lymph node measures 2.2 cm in greatest diameter. No other hilar or mediastinal mass or adenopathy is observed. The previously noted right upper lobe peripheral pulmonary nodule is again seen unchanged. There is a new right posterior rib lesion. This involves destruction of a segment of the posterior right 8th rib and corresponds to the radionuclide bone scan findings. An expansile mass is seen in the area of rib destruction measuring at least 7 cm in length by 4.2 cm anterior to posterior by 4.4 cm in craniocaudal dimension. No other bony destructive lesion is seen. No new pulmonary nodule is seen. Impression: Large mass with destruction of an elongate segment of the right posterior 8th rib. This is new from February 23, 2018. Progressive mediastinal lymphadenopathy. Stable right upper lobe pulmonary nodule. Electronically Signed by Corey Mcwilliams MD 08/04/2018 03:15 P
--- NOTE | 2018-08-04 15:27 | REP ---
CT abdomen and pelvis without and with IV and oral contrast: History: Lung carcinoma with skeletal metastasis. CT contrast dose: 100 mL of intravenous Isovue 370. Comparison CT study is from February 23, 2018. CT findings: There is a small low density nodule in the right adrenal gland with mean Hounsfield unit density of -8.5 Hounsfield units. This is consistent with a benign adrenal adenoma. It is unchanged from February 23, 2018 prior study. No focal liver lesion is seen. The left adrenal gland is a little thicker today than it was previously, 2.2 x 1.8 cm versus 1.9 x 1.1 cm. An early metastasis to the left adrenal gland cannot be excluded. There is a new enlarged periportal or celiac axis lymph node in the midline of the upper abdomen. This measures 2.9 cm in greatest diameter. A metastatic focus is suspected here. Also noted is a 2 cm new soft tissue nodule in the pericolonic fat adjacent to and lateral to the splenic flexure of the colon in the left upper quadrant of the abdomen, this is suspicious for a intra-abdominal metastasis. There are stippled calcifications again noted throughout the pancreas consistent with chronic pancreatitis. No splenic lesion is seen. No renal mass lesion is observed. There is a cyst in the anterior cortex lower pole left kidney unchanged. No retroperitoneal mass or adenopathy is seen. No pelvic or inguinal adenopathy is seen. No pelvic mass lesion is seen. Urinary bladder is intact. Prostate is somewhat prominent. Seminal vesicles are unremarkable. There is a soft tissue nodule demonstrating heterogeneous enhancement in the subcutaneous fat of the right gluteal region. This is a new finding from February 23, 2018 and is consistent with a soft tissue metastasis. This measures 2.6 cm in greatest diameter. There is another soft tissue mass in the left inguinal soft tissues which is also new. This measures 3.6 cm in greatest diameter. There is a benign bone island on left side of the L4 vertebral body unchanged. The SI joints appear to be fused. Several other smaller bone islands are present. There is no other bony destructive lesion appreciated. The right posterior 8th rib lesion is seen at the top end of the imaging field of view. Impression: There is evidence of progression in that there is a new celiac axis lymph node, suspicious thickening of the left adrenal gland, a pericolonic intra-abdominal implant in the left upper quadrant, a soft tissue implant in the right gluteal soft tissues, and another soft tissue or andrew new mass in the left inguinal soft tissues. Electronically Signed by Corey Mcwilliams MD 08/04/2018 04:11 P
== END ==
LOC: M RAD 11:41
PROVIDERS: ATTEND Radiology Radiation Oncology
DX: C79.51 Secondary malignant neoplasm of bone (principal); C34.12 Malignant neoplasm of upper lobe, left bronchus or lung; C78.1 Secondary malignant neoplasm of mediastinum; N28.1 Cyst of kidney, acquired; K86.1 Other chronic pancreatitis; R59.0 Localized enlarged lymph nodes
CPT/HCPCS: 71260; 74178; Q9963; Q9967

== ENCOUNTER 2018-08-12 10:34 | Outpatient (RCR) | payer MEDICARE ==
--- NOTE | 2018-07-28 16:16 | RADONC ---
RADIATION ONCOLOGY SIMULATION NOTE DATE: 07/28/2018 CHART NUMBER: SIMULATION NOTE: Mr. Wray was taken to the CT scan for CT simulation of his sinus as well as his right leg [place]. CTs were accomplished without difficulty or discomfort. Radiation treatment planning is underway and radiation treatments will begin subsequently. An immobilization device was created and will be used throughout the course of treatment. It was created without difficulty or discomfort. I was physically present throughout the course of the CT simulation.
--- NOTE | 2018-08-08 11:49 | RADONC ---
RADIATION ONCOLOGY SIMULATION NOTE DATE: 08/04/2018 CHART NUMBER: [id number] SIMULATION NOTE: Mr. Wray was taken to the linear accelerator today for clinical setup of his electron beam rib field. Setup was accomplished without difficulty or discomfort. Radiation treatment planning is underway, and radiation treatments will begin subsequently. I was physically present during clinical simulation [facility]
--- NOTE | 2018-08-09 08:52 | RADONC ---
RADIATION ONCOLOGY PROGRESS NOTE DATE OF SERVICE: 08/08/2018 CHART NUMBER: [id number]. PROGRESS NOTE: Mr. Wray is presently a dose of 900 cGy to his right femur, 500 cGy to his skull, and has not yet begun his rib radiation. The patient presents today reporting that generally he is doing okay with no complaints at this time related to his radiation therapy. He reports that he has had viral-type symptoms with a cough and sinus issues. Other than that, he has no new complaints. REVIEW OF SYSTEMS: The patient's review of systems is positive for new cough and feeling of flu- or cold-like symptoms. It is otherwise noncontributory. He denies nausea, vomiting, fevers, chills, night sweats, diplopia, headaches, anxiety or depression, anorexia, weight loss, visual disturbances, chest pain, urinary or bowel difficulties, bone pain, or neurological problems. PHYSICAL EXAMINATION: The patient's skin is in good condition with no evidence of radiation change present. The remainder of his physical exam remains unchanged. ASSESSMENT: Mr. Wray is tolerating his treatments well. I have obtained his CT scan results, which show progression of disease. I have spoken with his about the possibility of hospice, but they do not seem interested in that at this point. In light of that, radiation will continue as scheduled.
[~2018-08-12 10:34] MED LIST changes: -GASTROGRAFIN SOLUTION 30ML (Q9963) As Ordered ONE; -ISOVUE-370 76% 125ML VIAL (Q9967 PER ML) As Ordered ONE
[2018-08-14] MEDS ORDERED: DOXY100C37 PO (02:38)
[2018-08-14] MEDS ORDERED: ALBU17IN2 INH (02:47)
== END 2018-08-14 ==
LOC: M ONCR 10:34
PROVIDERS: ATTEND Radiology Radiation Oncology
DX: C78.1 Secondary malignant neoplasm of mediastinum (principal); C79.51 Secondary malignant neoplasm of bone; C34.12 Malignant neoplasm of upper lobe, left bronchus or lung

== ENCOUNTER 2018-08-14 00:59 | Emergency (ER) | payer MEDICARE ==
[~2018-08-14] VITALS: Ht 175.3 cm; Wt 80.9 kg
[~2018-08-14 00:59] MED LIST changes: +HYDR-3715 PO; -NORCOTAB PO
[2018-08-14 02:31] LABS: INFLUENZA A AMPLIFICATION NEGATIVE (NEGATIVE); INFLUENZA B AMPLIFICATION NEGATIVE (NEGATIVE)
[2018-08-14] MEDS ORDERED: DOXY100C37 PO (02:38)
[2018-08-14] MEDS ORDERED: DOXYCYCLINE HYCLATE 100 MG TAB PO ONE (02:45)
[2018-08-14] MEDS ORDERED: ALBU17IN2 INH (02:47)
[2018-08-14] MEDS ORDERED: ALBUTEROL 90 MCG/ACT 8GM HFA INHALER INH ONE (03:00)
[2018-08-14 03:05] VITALS: BP 141/81
--- NOTE | 2018-08-14 09:15 | REP ---
Clinical: Cough . Comparison: 05/05/2018 . Technique: PA and lateral. Findings: The mediastinum and cardiac silhouette are normal. [id number] with tip in the SVC/right atrium remain stable. Postsurgical changes involving left hemithorax noted along with elevation to the left hemidiaphragm. No obvious acute consolidation, effusion, or pneumothorax. Skeletal structures intact. Impression: 1. No acute cardiopulmonary process. Electronically Signed by Mark Su MD 08/14/2018 09:07 A
== END 2018-08-14 03:06 | disposition home or self-care (01) ==
LOC: M ED 00:59
DX: J06.9 Acute upper respiratory infection, unspecified (principal); J44.9 Chronic obstructive pulmonary disease, unspecified; C34.90 Malignant neoplasm of unspecified part of unspecified bronchus or lung; C79.9 Secondary malignant neoplasm of unspecified site; Z87.891 Personal history of nicotine dependence; Z88.0 Allergy status to penicillin; Z88.5 Allergy status to narcotic agent

== ENCOUNTER 2018-08-24 11:57 | Outpatient (RCR) | payer MEDICARE ==
--- NOTE | 2018-08-16 14:50 | RADONC ---
RADIATION ONCOLOGY PROGRESS NOTE: DATE: 08/15/2018 CHART NUMBER: [id number] Mr. Wray has received a dose of 2000 cGy to his right ribs, 1750 cGy to his skull and 2400 cGy to his right femur. The patient reports marked improvement in the leg pain. He also has improvement in his vision today. The patient reports that he had been coughing and presented to the ER to be placed on antibiotics for bronchitis. This I believe has caused him to have no improvement in the rib pain. PHYSICAL EXAMINATION: The patient's skin is in good condition with no evidence of radiation change present. There is no moist or dry desquamation. The remainder of his physical exam remains unchanged. Mr. Wray is tolerating treatments quite well and radiation will continue as scheduled.
--- NOTE | 2018-08-22 11:44 | RADONC ---
RADIATION ONCOLOGY PROGRESS NOTE DATE: 08/22/2018 CHART NUMBER: [id number] Mr. Wray is thus far completed a course of 3000 cGy to his right femur in 2000 cGy to his right ribs. He is thus far at a dose of 3000 cGy to his skull mass. The patient has tolerated the treatments to the ribs and the femur and reports some improvement in the discomfort in both areas. With regards to the forehead the patient has some periorbital swelling and swelling of his eyelids, but no discomfort. He reports that his headaches have improved. The patient's review of systems is positive for some swelling of his eye lids and periorbital edema but is otherwise noncontributory except for some residual pain in the femur area and rib area. He denies nausea, vomiting, fevers, chills, night sweats, diplopia, headaches, anxiety or depression, anorexia, weight loss, visual disturbances, chest pain, urinary or bowel difficulties, bone pain, or neurological problems. PHYSICAL EXAMINATION: The patient's skin is in good condition with no evidence of moist or dry desquamation. The remainder of his physical exam remains unchanged. ASSESSMENT: The patient continues to overall deteriorate. I do believe we achieve some palliative effects to his femur and rib. His skull lesion had not visibly change much although he does report improvement in his headaches. I think these are some signs of optimism. A CT scan done in mid July however showed progression of his lung masses following radiation. This of course is quite worrisome. He is now however on immunotherapy and hopefully he can achieve some response with that. In the meantime I have set him up for a consultation with our palliative care service. Radiation will continue as scheduled.
[~2018-08-24 11:57] MED LIST changes: +ALBU17IN2 INH; +DOXY100C37 PO
--- NOTE | 2018-08-25 07:54 | RADONC ---
RADIATION ONCOLOGY TREATMENT SUMMARY: DATE: 08/24/2018 CHART NUMBER: [id number] DIAGNOSIS: Left upper lobe lung cancer. STAGE: I B, T2a, N0, M0 now metastatic. ECOG PERFORMANCE STATUS: 2 Mr. Wray is a 68-year-old white male with the diagnosis of widely metastatic moderate to poorly differentiated squamous cell carcinoma of the left upper lobe who presented to us for consideration of palliative radiation therapy to several spots. We treated the patient to his right ribs for a dose of 2000 cGy delivered in five fractions of 400 cGy each from 08/09/2018 through 08/15/2018. The patient's right ribs were treated on a linear accelerator utilizing a 9 MEV electron beam prescribed to the 90% isodose line via and en face technique. In addition, we treated the patient to his right distal femur for a dose of 3000 cGy delivered in 10 fractions of 300 cGy each over 13 elapsed days from 08/04/2018 through 08/17/2018. The patient's right femur was treated on a linear accelerator utilizing a 6 MV photon beam via anterior and posterior parallel opposed payton. In addition, we treated the patient's anterior skull and sinuses for a dose of 3500 cGy delivered in 14 fractions of 250 cGy each from 08/05/2018 through 08/24/2018. The patient's skull was treated on the linear accelerator utilizing a 6 MV photon beam via right anterior and left anterior oblique payton with 1 cm of tissue equivalent bolus placed over the payton. Mr. Wray tolerated his treatments quite well with a good response with regards to his pain in his right femur and ribs. He also seemed to have a response to the discomfort in his skull. The patient is scheduled to see me again in 1 month for further followup. She will also continue to be followed by her other physicians as well. Thank you for allowing us to participate in the care of this very pleasant gentleman. If I could be of any further assistance please free to contact me anytime. As always warm regards, cc: MD Paulie Anglin DO [facility] MD Chad Skinner MD
[2018-08-26] MEDS ORDERED: LEVA1TAB2 PO (20:24)
[2018-08-26] MEDS ORDERED: TESS100C PO (20:24)
[2018-08-26] MEDS ORDERED: MEDR4PAK PO (20:24)
[2018-09-08] MEDS ORDERED: DEXA2TA PO (13:44)
[2018-09-08] MEDS ORDERED: MAGN400T2 PO (20:28)
[2018-09-28] MEDS ORDERED: POTA20TA6 PO (11:08)
[2018-09-28] MEDS ORDERED: NITR0.4S14 SL (11:39)
[2018-09-28] MEDS ORDERED: SULF10SO13 OS (11:48)
== END 2018-09-13 ==
LOC: M ONCR 11:57
PROVIDERS: ATTEND Radiology Radiation Oncology
DX: C78.02 Secondary malignant neoplasm of left lung (principal); C79.51 Secondary malignant neoplasm of bone; C34.12 Malignant neoplasm of upper lobe, left bronchus or lung

== ENCOUNTER 2018-08-26 19:29 | Emergency (ER) | payer MEDICARE ==
[~2018-08-26] VITALS: Ht 177.8 cm; Wt 81.4 kg
[2018-08-26] MEDS ORDERED: methylPREDNISolone INJ 125 MG/2 ML VIAL (J2930) IV ONE (20:15)
[2018-08-26] MEDS ORDERED: MEDR4PAK PO (20:24)
[2018-08-26] MEDS ORDERED: TESS100C PO (20:24)
[2018-08-26] MEDS ORDERED: LEVA1TAB2 PO (20:24)
[2018-08-26] MEDS ORDERED: BENZONATATE 100 MG CAP PO ONE (20:30)
[2018-08-26] MEDS ORDERED: LevoFLOXacin 500 MG TABLET PO ONE (20:30)
[2018-08-26 21:00] VITALS: BP 114/68
== END 2018-08-26 21:20 | disposition home or self-care (01) ==
LOC: M ED 19:29
DX: J40 Bronchitis, not specified as acute or chronic (principal); J44.9 Chronic obstructive pulmonary disease, unspecified; Z85.118 Personal history of other malignant neoplasm of bronchus and lung; Z88.0 Allergy status to penicillin; Z88.5 Allergy status to narcotic agent
CPT/HCPCS: 93041; 94760; 96374; 99284; J2930

== ENCOUNTER → 2018-09-14 | Outpatient (CLI) | payer MEDICARE ==
[~2018-09-14] MED LIST changes: +DEXA2TA PO; +LEVA1TAB2 PO; +MAGN400T2 PO; +MEDR4PAK PO
--- NOTE | 2018-09-15 11:30 | RADONC ---
RADIATION ONCOLOGY FOLLOWUP NOTE DATE: 09/14/2018 CHART NUMBER: [id number] DIAGNOSIS: Left upper lobe lung cancer. STAGE: I B, T2a, N0, M0, now metastatic. ECOG PERFORMANCE STATUS: 2 FOLLOWUP NOTE: Mr. 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 The patient presents today reporting that he is doing quite well with no complaints at this time related to his radiation therapy or disease. His left femur pain has totally resolved as has his rib pain. Indeed, he is in no pain whatsoever at this point. The patient reports that his forehead lesion has decreased in size markedly, and although I have difficulty appreciating it, the patient feels a big difference. The pain is now gone. REVIEW OF SYSTEMS: The patient's review of systems is noncontributory except for difficulty opening his eyelid on the left side. Denies nausea, vomiting, fevers, chills, night sweats, diplopia, headaches, anxiety or depression, anorexia, weight loss, visual disturbances, chest pain, urinary or bowel difficulties, bone pain, or neurological problems. PHYSICAL EXAMINATION: The patient is a well-developed, well-nourished white male in no acute distress. HEENT: Exam is positive for the large mass over his frontal sinus region and the bridge of his nose, which does appear somewhat reduced in size. He continues have some swelling in his left upper eyelid, which is largely closed. There is no palpable cervical, supraclavicular, infraclavicular or axillary lymphadenopathy present. His lungs are clear to auscultation and percussion. His heart has regular rate and rhythm. His abdomen is benign with no evidence splenomegaly, masses or tenderness. Neurologic exam is grossly intact as is the remainder of the physical examination. ASSESSMENT: The patient has tolerated treatments quite well. He was seen by Reece Edward MD of orthopedic surgery to evaluate him on whether or not he needs to have stabilization of his right femur undertaken. The MRI done on 09/09/2018 showed a 5.8 cm x 3.9 cm x 6.1 cm mixed enhancing bone mass, which was causing a pathologic fracture as well as cortical and trabecular bone destruction. There was hypersignal in those muscles to varying degrees of enhancement. We have contacted Dr. Edward's office and apparently, he had already referred the patient to Dr. Randell Kyle of the orthopedic surgeon in [place]. We called Dr. Kyle's office to also expedite the appointment. Apparently, Dr. Kyle's office has had trouble reaching the gentleman to set up an appointment for possible pinning. I had a very lengthy discussion with this patient and reported to him clearly in no uncertain terms that he needs to keep weight off that leg and that he is at risk for a pathologic fracture. I let him know that once the bone fractures he will be laid up and his quality of life could deteriorate significantly. The patient is being seen every 3 weeks in medical oncology as well for his Keytruda treatments. In light of this, I have not set up a followup in our office at this time except on a p.r.n. basis. The patient has my cell phone number and office number. If he has any difficulty getting in to see Dr. Kyle or if I could be of any assistance in the meantime I have asked him to feel free and contact us. In addition, I let him know that this tumor is radiation responsive and should he develop new pain in any areas he can feel free to call and we would glad to evaluate him for further radiation. In addition, should his medical oncologist, Dr. Moore decide that we could be of benefit to him she will refer him back to us as well. cc: MD Reece Yadav MD Robert Johnson, MD Sara McGee, MD Rory Sears, [facility] Chad Muniz MD
== END ==
LOC: M ONCR 10:23
PROVIDERS: ATTEND Radiology Radiation Oncology
DX: M84.551A Pathological fracture in neoplastic disease, right femur, initial encounter for fracture (principal); C34.12 Malignant neoplasm of upper lobe, left bronchus or lung; C78.1 Secondary malignant neoplasm of mediastinum; C79.51 Secondary malignant neoplasm of bone

== ENCOUNTER → 2018-09-28 | Outpatient (REF) | payer MEDICARE ==
[~2018-09-28] MED LIST changes: +NITR0.4S14 SL; +POTA20TA6 PO; +SULF10SO13 OS
[2018-09-28 12:00] LABS: INR 1.13; PARTIAL THROMBOPLASTIN TIME 37.9 SECONDS (25.4-37.6); PROTHROMBIN TIME 14.7 SECONDS (12.1-14.4)
[2018-09-28 13:36] LABS: HEMOGLOBIN A1c 5.9 %
== END ==
LOC: M ONCM 11:21 → M LAB REF 11:21
PROVIDERS: ATTEND Family Medicine
DX: Z01.818 Encounter for other preprocedural examination (principal); C34.92 Malignant neoplasm of unspecified part of left bronchus or lung; E87.6 Hypokalemia; R73.01 Impaired fasting glucose

== ENCOUNTER → 2018-10-19 | Outpatient (CLI) | payer MEDICARE ==
[~2018-10-19] MED LIST changes: +AZIT-12 PO; +ISOVUE-370 76% 100ML VIAL (Q9967) As Ordered ONE; +METH8TAB4 PO
--- NOTE | 2018-10-19 15:24 | REP ---
CT ANGIOGRAM CHEST: TECHNIQUE: Axial contrast enhanced images from the thoracic inlet to the upper abdomen using 100 mL Isovue 370 intravenous contrast material with multiplanar reformations. COMPARISON: 08/04/2018 The study is limited by patient motion. I do not see evidence of a definite pulmonary embolism. There is no thoracic aortic aneurysm or dissection. The heart is normal in size. There is no pericardial effusion. There is a small left pleural effusion which has increased since prior study. There are new left upper lobe infiltrates diffusely. Left superior mediastinal mass has slightly decreased in size now measuring 5.2 x 4.3 cm, previously 5.9 x 4.7 cm. Right anterior mediastinal nodule measures 1.2 cm in diameter, essentially new. There is a right posterior chest wall mass invading and destroying the posterior right 8th rib. This appears slightly increased in size. A left subdiaphragmatic soft tissue mass has increased in size measuring approximately 3.2 cm in diameter, just lateral to the splenic flexure of the colon. At least two new liver nodules are present. One at the dome measures 2 cm in diameter and another in the posterior segment of the right lobe more inferiorly measures about 2.6 cm in maximum diameter. The patient has had a prior cholecystectomy. There is a left adrenal mass which has significantly increased in size since prior study measuring 4 cm in diameter. An oval right adrenal nodule is unchanged since the prior study. There is a soft tissue mass just above the head of the pancreas which has increased since prior study, now measuring 3.7 cm in diameter. There are degenerative changes of the spine. IMPRESSION: New diffuse patchy infiltrate left upper lobe with a small left pleural effusion. No evidence of pulmonary embolism. The study is somewhat limited due to patient motion. The previously noted left superior mediastinal mass has mildly decreased in size. However, there is a new right anterior mediastinal nodule. Also the right posterior chest wall mass has slightly increased in size. There is a left subdiaphragmatic soft tissue mass, a left adrenal mass and a soft tissue mass in the vijay hepatis just above the pancreatic head which have all increased in size. There are at least two new liver nodules present as described above. Electronically Signed by Reinaldo Castro MD 10/20/2018 09:14 A
== END ==
LOC: M RAD 13:45
PROVIDERS: ATTEND Internal Medicine Hematology & Oncology
DX: R06.02 Shortness of breath (principal); R00.0 Tachycardia, unspecified

== ENCOUNTER 2018-11-05 21:29 | Inpatient (IN) | payer MEDICARE ==
[~2018-11-05] VITALS: Ht 175.3 cm; Wt 77.6 kg
[~2018-11-05 21:29] MED LIST changes: -ISOVUE-370 76% 100ML VIAL (Q9967) As Ordered ONE
[2018-11-05] MEDS ORDERED: KEYT1INJ IV (21:48)
[2018-11-05] MEDS ORDERED: RA T500C2 PO (21:48)
[2018-11-05 22:19] LABS: BASO % 0.2 % (0.0-1.0); EOS % 0.5 % (0.0-3.0); HEMATOCRIT 26.9 % (42.0-52.0); HEMOGLOBIN 8.1 g/dl (13.5-17.5); LYMPH # 0.5 10^3/uL (1.5-4.5); LYMPH % 7.6 % (24.0-44.0); MEAN CORPUSCULAR HEMOGLOBIN 25.2 pg (27.0-33.0); MEAN CORPUSCULAR HGB CONC 30.1 g/dl (32.0-36.5); MEAN CORPUSCULAR VOLUME 83.8 fl (80.0-96.0); MONO # 0.7 10^3/uL (0.0-0.8); MONO % 9.9 % (0.0-5.0); NEUTROPHILS # 5.4 10^3/uL (1.8-7.7); NEUTROPHILS % 81.6 % (36.0-66.0); PLATELET COUNT, AUTOMATED 223 10^3/uL (150-450); RED BLOOD COUNT 3.21 10^6/uL (4.30-6.10); WHITE BLOOD COUNT 6.6 10^3/uL (4.0-10.0)
[2018-11-05 22:22] LABS: VENOUS BASE EXCESS -0.2 (-2.0-2.0); VENOUS HCO3 21.7 MEQ/L (23.0-27.0); VENOUS O2 SATURATION 96.3 % (60.0-80.0); VENOUS PARTIAL PRESSURE CO2 26.5 mmHg (38.0-50.0); VENOUS PH 7.532 UNITS (7.330-7.430); VENOUS STANDARD HCO3 24.3 MEQ/L; VENOUS TOTAL CO2 22.6 MEQ/L (24.0-28.0)
[2018-11-05 22:30] LABS: INR 1.26; PROTHROMBIN TIME 15.5 SECONDS (11.8-14.0)
[2018-11-05 22:31] LABS: PARTIAL THROMBOPLASTIN TIME 34.3 SECONDS (25.0-38.4)
[2018-11-05 22:36] LABS: ABG BASE EXCESS 0.1 (-2.0-2.0); ABG HCO3 21.8 MEQ/L (22.0-26.0); ABG O2 SATURATION 98.3 % (95.0-99.0); ABG PARTIAL PRESSURE CO2 25.6 mmHg (35.0-45.0); ABG PARTIAL PRESSURE O2 99.7 mmHg (75.0-100.0); ABG STANDARD HCO3 24.6 MEQ/L (22.0-26.0); ABG TOTAL CO2 22.6 MEQ/L (23.0-31.0); ABG pH (ARTERIAL) 7.549 UNITS (7.350-7.450)
[2018-11-05 22:51] LABS: BLOOD UREA NITROGEN 16 MG/DL (7-18); CARBON DIOXIDE LEVEL 22 MEQ/L (21-32); CHLORIDE LEVEL 102 MEQ/L (98-107); CK-MB VALUE MASS < 1.0 NG/ML (<3.6); CPK CREATINE PHOSPHOKINASE 14 U/L (39-308); GLOMERULAR FILTRATION RATE > 60.0 (>49); GLUCOSE, FASTING 188 MG/DL (70-100); MB/CK RELATIVE INDEX 7.14 (< OR =4); POTASSIUM SERUM 3.6 MEQ/L (3.5-5.1); SODIUM LEVEL 135 MEQ/L (136-145); TROPONIN I < 0.02 NG/ML (< 0.10)
[2018-11-05] MEDS ORDERED: NS 500 ML IV ONE (23:00)
[2018-11-05] MEDS ORDERED: KETOROLAC 30 MG/ML VIAL (J1885) IV ONE (23:00)
[2018-11-05] MEDS ORDERED: ISOVUE-370 76% 100ML VIAL (Q9967) As Ordered ONE (23:09)
[2018-11-05] MEDS ORDERED: ACET-683 PO (23:43)
[2018-11-05] MEDS ORDERED: ECOT81TA5 PO (23:43)
[2018-11-05] MEDS ORDERED: NITR0.4S14 SL (23:43)
[2018-11-05] MEDS ORDERED: MAGN400T2 PO (23:43)
[2018-11-05] MEDS ORDERED: PROL60SO SC (23:49)
[2018-11-06] VITALS (7 sets, daily range): BP systolic 112–139; BP diastolic 60–76
[2018-11-06] MEDS ORDERED: LevoFLOXacin IV 500 MG in APPROPRIATE DILUENT 1 EA IV ONE ×2
--- NOTE | 2018-11-06 00:57 | REPVR ---
EXAM: CT Angiography Chest With Contrast EXAM DATE/TIME: 11/05/2018 11:31 PM CLINICAL HISTORY: 68 years old, male; Dyspnea; Chest pain; Prior surgery; Surgery date: 6+ months TECHNIQUE: Imaging protocol: Axial computed tomographic angiography images of the chest with intravenous contrast using CT angiography protocol. Coronal and sagittal reformatted images were created and reviewed. 3D rendering: MIP reconstructed images were created and reviewed. Radiation optimization: All CT scans at this facility use at least one of these dose optimization techniques: automated exposure control; mA and/or kV adjustment per patient size (includes targeted exams where dose is matched to clinical indication); or iterative reconstruction. Contrast material: ISOVUE 370; Contrast volume: 75 ml; Contrast route: IV; COMPARISON: CT ANGIO CHEST 10/19/2018 2:28 PM FINDINGS: Pulmonary arteries: No pulmonary embolism is identified. Aorta: There is no thoracic aortic aneurysm, pseudoaneurysm, penetrating atherosclerotic ulcer, or dissection. There are moderate atherosclerotic calcifications. Lungs: There are surgical clips and suture material in the left hilar region related to a partial lung resection. There are air space opacities in the left upper lung, without significant change compared to the prior CT scan on 10/19/2018. There is mild dependent atelectasis in the right lower lobe. Pleural space: There is a trace water density left pleural effusion that is similar in size compared to the prior CT scan on 10/19/2018. Heart: No cardiomegaly. No pericardial effusion. The ratio of the diameter of the right ventricle to the diameter of the left ventricle measures less than 1, which is within normal limits and there is no evidence for a right ventricular strain. There are coronary artery calcifications. Mediastinum: There is a left superior mediastinal mass measuring up to 5.2 cm, which is unchanged compared to the prior CT scan on 10/19/2018. Liver: There are hypodense masses in the right hepatic lobe, which have increased in size compared to the prior CT scan on 10/19/2018, the largest measuring 3.7 cm. The liver was not fully imaged. Pancreas: There are multiple calcifications in the pancreas, which are the sequela of chronic pancreatitis. There is a 4.7 cm mass in the superior aspect of the body of the pancreas, which has increased in size from 3.7 cm since the prior CT scan on 10/19/2018. The pancreas was not fully imaged. Adrenals: There is a 4.6 cm left adrenal mass that has increased in size from 4 cm since the prior CT scan on 10/19/2018 and measures approximately 33 Hounsfield units. There is a 2 cm right adrenal nodule that measures -5 Hounsfield units and is compatible with a benign adrenal adenoma that is stable compared to the prior CT scan on 10/19/2018. The adrenal glands were not fully imaged in this study. Upper abdomen: There is a 3.2 cm mass in the left upper quadrant of the abdomen just lateral to the splenic flexure of the colon, which is unchanged compared to the prior CT scan on 10/19/2018. Lymph nodes: There is a 1.2 cm enlarged right paracardiac lymph node, which is unchanged compared to the prior CT scan on 10/19/2018. Bones/joints: There is a 10.1 cm lytic lesion destroying the right posterior eighth rib that has a soft tissue component that protudues into the right pleural space and is similar in appearance compared to the prior CT scan on 10/19/2018. No acute fracture is noted. There are endplate spurs in the thoracic spine. Soft tissues: Unremarkable. IMPRESSION: 1. No pulmonary embolism. 2. Left superior mediastinal mass measuring up to 5.2 cm, which is unchanged compared to the prior CT scan on 10/19/2018 and most compatible with malignancy 3. Air space opacities in the left upper lung, without significant change compared to the prior CT scan on 10/19/2018 and may represent neoplasm or pneumonia. 4. Hypodense masses in the right hepatic lobe, which have increased in size compared to the prior CT scan on 10/19/2018, the largest measuring 3.7 cm, which likely represent metastatic disease. 5. 4.7 cm mass in the superior aspect of the body of the pancreas, which has increased in size from 3.7 cm since the prior CT scan on 10/19/2018 and is suspicious for malignancy. 6. 4.6 cm left adrenal mass that has increased in size from 4 cm since the prior CT scan on 10/19/2018 and may represent a metastatic deposit. 7. 3.2 cm mass in the left upper quadrant of the abdomen just lateral to the splenic flexure of the colon, which is unchanged compared to the prior CT scan on 10/19/2018 and may represent a metastasis. 8. 10.1 cm lytic lesion destroying the right posterior eighth rib that has a soft tissue component that protudues into the right pleural space and is similar in appearance compared to the prior CT scan on 10/19/2018 and most compatible with a metastatic deposit. 9. 1.2 cm enlarged right paracardiac lymph node, which is unchanged compared to the prior CT scan on 10/19/2018. 10. Trace left pleural effusion that is similar in size compared to the prior CT scan on 10/19/2018. Electronically signed by: Brian Platt On 11/06/2018 00:56:30 AM
[2018-11-06] MEDS ORDERED: VANCOMYCIN HCL 1,000 MG, VIAL MATE ADAPTER 1 EACH in D5W 250 ML IV SCH (01:15)
[2018-11-06] MEDS: NS 1,000 ML IV SCH ×2 (01:38→11:15)
[2018-11-06] MEDS ORDERED: VANCOMYCIN HCL 1,000 MG, VIAL MATE ADAPTER 1 EACH in D5W 250 ML IV ONE (01:45)
[2018-11-06] MEDS ORDERED: VANCOMYCIN HCL 500 MG in D5W MINI-BAG PLUS 100 ML IV ONE (03:45)
--- NOTE | 2018-11-06 04:08 | HPEPDOC ---
General Date of Admission 11/06/18 Date of Service: Nov 06, 2018 Chief Complaint The patient is a 68-year-old male admitted with a reason for visit of SOB. Source: Patient, Family, RN/MD, Old records Exam Limitations: No limitations Severity: Moderate Associated Symptoms: Shortness of breath, Weakness History of Present Illness 68 year old male with metastatic squamous cell carcinoma of the lung diagnosed i n august 2017, with mets to bone ( ribs, femur, forehead bone)and lymph nodes, with liver masses, left adrenal mass , pancreatic body mass, s/p Left upper lobe lobectomy in August 2017 , RT, CT with recurrence, palliative RT to ribs and femur, Now on immunotherapy, had surgery of right femur with erika and cement placement for bone metastasis and prevent pathological fracture on 10/07 has been having progressively increasing exertional SOB for the past 3 weeks. He had a CT angio of the chest done on 10/19/18 which shows PAMELA infiltrates felt to be either pneumonia or radiation pneumonitis . He was treated with t 5 day course of antibiotics and steroids without improvement. Over the past 1 week his breathing has really worsened. It is exertional Dyspnea, when he is lying of sitting he is ok but minimal exertion like walking to the bathroom is making him become severely short of breath. This is not accompanied by any cough or phlegm production. He denied any orthopnea or PMD or chest pain. His ABG showed respiratory alkalosis, He Had CT angio of chest done which did not show any Pulmonary embolism but showed Left superior mediastinal mass measuring up to 5.2 cm, which is unchanged compared to the prior CT scan on 10/19/2018 and most compatible with malignancy. Air space opacities in the left upper lung, without significant change compared to the prior CT scan on 10/19/2018 and may represent neoplasm or pneumonia. He is admitted for pneumonia and possible sepsis. Home Medications Scheduled Aspirin (Ecotrin) 81 Mg Tablet.dr, 81 MG PO DAILY, (Reported) Denosumab Injection (Prolia) 60 Mg/1 Ml Syringe, 120 MG SC Q6WKS, (Reported) Magnesium Oxide (Magnesium Oxide) 400 Mg Tablet, 400 MG PO DAILY, (Reported) Nitroglycerin (Nitroglycerin) 0.4 Mg Tab.subl, 0.4 MG SL ASDIRECTED for chest pain, (Reported) 1st sign of attack; may repeat every 5 mins; if pain persists after 3 in 15 min, medical attention is recommended Pembrolizumab (Keytruda) 100 Mg/4 Ml Vial, 200 MG IV [id number], (Reported) Potassium Chloride (Potassium Chloride) 20 Meq Tab.er.prt, 20 MEQ PO DAILY, (Re ported) Turmeric Root Extract (Turmeric) 500 Mg Capsule, 500 MG PO DAILY, (Reported) Scheduled PRN Acetaminophen (Acetaminophen) 500 Mg Tablet, 1,000 MG PO Q6H PRN for PAIN / FEVER, (Reported) Allergies Coded Allergies: Penicillins (Verified Allergy, Intermediate, swelling, 08/10/18) codeine (Verified Adverse Reaction, Mild, abdominal pain, 08/10/18) Past Medical History Medical History BILATERAL KNEE OSTEOARTHRITIS HISTORY OF HEPATITIS C STATUS POST TREATMENT-DECEMBER 2005 DEPRESSION MIGRAINE HEADACHES, 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 2009 MRI OF THE BRAIN SMALL HIATAL HERNIA, MINIMAL GASTRITIS, H PYLORI in 2011 ADENOCARCINOMA OF LUNG, PAMELA SP LOBECTOMY/KEYTRUDA C RECURRENCE THEREFORE, XRT/CISPLAT/ETOPOSIDE STARTING 04/2018-06/2018 STOPPE 2 PENIAS Surgical History Left upper lobectomy in 2017 Femur surgery on september 2018 cholecystectomy appendectomy as a child double hernia surgery Family History Patient [place] so does not know any family history Social History * Smoker: former Smoker, quit greater than 1 year Alcohol: Denies Drugs: denies A-FIB/CHADSVASC A-FIB History Current/History of A-Fib/PAF?: No Review of Systems Constitutional: Reports: Weakness, Fatigue; Denies: Chills, Fever, Night Sweats Eyes: Denies: Pain, Vision change ENT: Denies: Head Aches, Ear Pain, Dysphagia Skin: Denies: Rash, Lesions, Breakdown Pulmonary: Reports: Dyspnea Cardiovascular: Denies: Chest Pain, Palpitations, Orthopnea, Paroxysmal Noc. Dyspnea, Lt Headedness Gastrointestinal: Denies: Nausea, Vomiting, Abdominal Pain, Diarrhea Genitourinary: Denies: Dysuria, Frequency, Incontinence, Retention Musculoskeletal: Reports: Leg Pain; Denies: Neck Pain, Back Pain, Joint Pain, Muscle Pain, Spasms Neurological: Reports: Weakness Physical Examination General Exam: Positive: Alert, Cooperative, Mild Distress Eye Exam: Positive: PERRLA, Conjunctiva & lids normal, EOMI; Negative: Sclera icteric ENT Exam: Positive: Atraumatic, Mucous membr. moist/pink, Pharynx Normal Chest Exam: Positive: Normal air movement, Rales (in te left upper part on the back) Heart Exam: Positive: Rate Normal, Regular Rhythm, Normal S1, Normal S2; Negative: Murmurs, Rubs Telemetry: Positive: No significant arrhythmia Abdomen Exam: Positive: Normal bowel sounds, Soft; Negative: Tenderness, Hepatospenomegaly Extremity Exam: Positive: Normal pulses; Negative: Clubbing, Cyanosis, Edema Skin Exam: Positive: Nl turgor and temperature; Negative: Breakdown, Lesion Psych Exam: Positive: Mental status NL, Mood NL, Oriented x 3 Vital Signs Vital Signs Date Time Temp Pulse Resp B/P (MAP) Pulse Ox O2 Delivery O2 Flow Rate FiO2 11/05/18 21:35 99.0 127 30 102/57 100 Room Air Laboratory Data Labs 24H Laboratory Tests 2 11/05/18 21:55: Prothrombin Time 15.5H, Prothromb Time International Ratio 1.26, Activated Partial Thromboplast Time 34.3, Anion Gap 11, Glomerular Filtration Rate > 60.0, Blood Urea Nitrogen 16, Creatinine 0.70, Sodium Level 135L, Potassium Level 3.6, Chloride Level 102, Carbon Dioxide Level 22, Calcium Level 9.0, Total Creatine Kinase 14L, Creatine Kinase MB < 1.0, Creatine Kinase MB Relative Index 7.14H, Troponin I < 0.02 11/05/18 21:57: Immature Granulocyte % (Auto) 0.2, White Blood Count 6.6, Red Blood Count 3.21L, Hemoglobin 8.1L, Hematocrit 26.9L, Mean Corpuscular Volume 83.8, Mean Corpuscular Hemoglobin 25.2L, Mean Corpuscular Hemoglobin Concent 30.1L, Red Cell Distribution Width 18.6H, Platelet Count 223, Neutrophils (%) (Auto) 81.6H, Lymphocytes (%) (Auto) 7.6L, Monocytes (%) (Auto) 9.9H, Eosinophils (%) (Auto) 0.5, Basophils (%) (Auto) 0.2, Neutrophils # (Auto) 5.4, Lymphocytes # (Auto) 0.5L, Monocytes # (Auto) 0.7, Eosinophils # (Auto) 0.0, Basophils # (Auto) 0.0, Nucleated Red Blood Cells % (auto) 0.0, Blood Gas Bicarbonate Standard 24.3, Venous Blood pH 7.532H, Venous Blood Partial Pressure CO2 26.5L, Venous Blood Partial Pressure O2 80.0H, Venous Blood Total Carbon Dioxide 22.6L, Venous Blood HCO3 21.7L, Venous Blood Oxygen Saturation 96.3H, Venous Blood Base Excess -0.2 11/05/18 22:21: Blood Gas Bicarbonate Standard 24.6, Arterial Blood pH 7.549H, Arterial Blood Partial Pressure CO2 25.6L, Arterial Blood Partial Pressure O2 99.7, Arterial Blood Total CO2 22.6L, Arterial Blood HCO3 21.8L, Arterial Blood Base Excess 0.1, Arterial Blood Oxygen Saturation 98.3 CBC/BMP Laboratory Tests 11/05/18 21:55 Calcium Level 9.0, Total Creatine Kinase 14 L 11/05/18 21:57 Red Blood Count 3.21 L, Mean Corpuscular Volume 83.8, Mean Corpuscular Hemoglobin 25.2 L, Mean Corpuscular Hemoglobin Concent 30.1 L, Red Cell Distribution Width 18.6 H, Neutrophils (%) (Auto) 81.6 H, Lymphocytes (%) (Auto) 7.6 L, Monocytes (%) (Auto) 9.9 H, Eosinophils (%) (Auto) 0.5, Basophils (%) (Auto) 0.2, Neutrophils # (Auto) 5.4, Lymphocytes # (Auto) 0.5 L, Monocytes # (Auto) 0.7, Eosinophils # (Auto) 0.0, Basophils # (Auto) 0.0 Microbiology Microbiology 11/05/18 Blood Culture, Received Pending Assessment/Plan 68 year old male with metastatic squamous cell carcinoma of the lung diagnosed in august 2017, with mets to bone ( ribs, femur, forehead bone)and lymph nodes, with liver masses, left adrenal mass , pancreatic body mass, s/p Left upper lobe lobectomy in August 2017 , RT, CT with recurrence, palliative RT to ribs and femur, Now on immunotherapy, had surgery of right femur with erika and cement placement for bone metastasis and prevent pathological fracture on 10/07 has been having progressively increasing exertional SOB for the past 3 weeks. He had a CT angio of the chest done on 10/19/18 which shows PAMELA infiltrates felt to be either pneumonia or radiation pneumonitis . He was treated with t 5 day course of antibiotics and steroids without improvement. Over the past 1 week his breathing has really worsened. It is exertional Dyspnea, when he is lying of sitting he is ok but minimal exertion like walking to the bathroom is making him become severely short of breath. This is not accompanied by any cough or phlegm production. He denied any orthopnea or PMD or chest pain. His ABG showed respiratory alkalosis, He Had CT angio of chest done which did not show any Pulmonary embolism but showed Left superior mediastinal mass measuring up to 5.2 cm, which is unchanged compared to the prior CT scan on 10/19/2018 and most compatible with malignancy. Air space opacities in the left upper lung, without significant change compared to the prior CT scan on 10/19/2018 and may represent neoplasm or pneumonia. He is admitted for pneumonia and possible sepsis. Pneumonia left upper lobe could be post obstructive will give zosyn and vanco his has documented penicillin allergy But i spoke with him and he said he took penicillin in his 20s when he had whole body swelling and redness. however he said he has taken amoxicillin before with no problem. Possible Sepsis patient was tachypneic, tachycardic on arrival will check lactate continue as above Possible Radiation pneumonitis This was a differential when last seen by oncologist and Dr Ingram about 2 weeks ago and the consideration is about starting steroids will place patient on methyl pred will consult Dr Ingram Metastatic SCC of the lung outpatient oncology follow up Hepatitis C treated Plan / VTE VTE Prophylaxis Ordered?: Yes SARAH BOB MD Nov 06, 2018 00:24
[2018-11-06 04:29] LABS: BASO % 0.2 % (0.0-1.0); EOS # 0.1 10^3/uL (0.0-0.50); EOS % 1.6 % (0.0-3.0); HEMATOCRIT 23.2 % (42.0-52.0); LYMPH # 0.5 10^3/uL (1.5-4.5); LYMPH % 10.3 % (24.0-44.0); MEAN CORPUSCULAR HEMOGLOBIN 24.7 pg (27.0-33.0); MEAN CORPUSCULAR HGB CONC 29.3 g/dl (32.0-36.5); MEAN CORPUSCULAR VOLUME 84.4 fl (80.0-96.0); MONO # 0.5 10^3/uL (0.0-0.8); MONO % 10.5 % (0.0-5.0); NEUTROPHILS # 3.9 10^3/uL (1.8-7.7); PLATELET COUNT, AUTOMATED 196 10^3/uL (150-450); RED BLOOD COUNT 2.75 10^6/uL (4.30-6.10)
[2018-11-06] MEDS: methylPREDNISolone INJ 40 MG/1 ML VIAL (J2920) IV SCH ×3 (04:29→20:01)
[2018-11-06 04:31] LABS: HEMOGLOBIN 6.8 g/dl (13.5-17.5)
[2018-11-06 04:50] LABS: BLOOD UREA NITROGEN 17 MG/DL (7-18); CALCIUM LEVEL 8.8 MG/DL (8.8-10.2); CARBON DIOXIDE LEVEL 26 MEQ/L (21-32); CHLORIDE LEVEL 102 MEQ/L (98-107); CREATININE FOR GFR 0.59 MG/DL (0.70-1.30); GLOMERULAR FILTRATION RATE > 60.0 (>49); GLUCOSE, FASTING 137 MG/DL (70-100); POTASSIUM SERUM 3.2 MEQ/L (3.5-5.1); SODIUM LEVEL 136 MEQ/L (136-145)
[2018-11-06] MEDS ORDERED: POTASSIUM CHLORIDE 10 MEQ SR TABLET PO ONE (05:15)
--- NOTE | 2018-11-06 05:31 | PHACANCOPD ---
PHARMACY VANCOMYCIN DOSING Pt Demographics Demographics Patient Age:68 , Weight:74.600 , Gender: male Adjusted Body Weight Date: 11/06/18, Adjusted Body Weight: 71.512 Events Past 24 Hours Events Past 24 Hours: YES: Other Vancomycin Vancomycin Target Ranges: 15-20 mcg/ml Vancomycin Load Y/N: Yes Load Dose Date Time Vancomycin Load Dose: 1500MG (1G GIVEN @0300 AND 500MG @0429) FOR TOTAL OF 8 DOSES Vancomycin Dose Date: 11/06/18. Current Vancomycin Dose: 1G Q12H Intermittent Dosing?: No Labs Micro Microbiology 11/06/18 Blood Culture, Received Pending 11/05/18 Blood Culture, Received Pending 11/06/18 MRSA Screen, Received Pending Creatinine Clearance Laboratory Tests 11/05/18 21:55 Calcium Level 9.0, Total Creatine Kinase 14 L 11/05/18 21:57 Red Blood Count 3.21 L, Mean Corpuscular Volume 83.8, Mean Corpuscular Hemoglobin 25.2 L, Mean Corpuscular Hemoglobin Concent 30.1 L, Red Cell Distribution Width 18.6 H, Neutrophils (%) (Auto) 81.6 H, Lymphocytes (%) (Auto) 7.6 L, Monocytes (%) (Auto) 9.9 H, Eosinophils (%) (Auto) 0.5, Basophils (%) (Auto) 0.2, Neutrophils # (Auto) 5.4, Lymphocytes # (Auto) 0.5 L, Monocytes # (Auto) 0.7, Eosinophils # (Auto) 0.0, Basophils # (Auto) 0.0 11/06/18 04:06 Calcium Level 8.8, Red Blood Count 2.75 L, Mean Corpuscular Volume 84.4, Mean Corpuscular Hemoglobin 24.7 L, Mean Corpuscular Hemoglobin Concent 29.3 L, Red Cell Distribution Width 18.8 H, Neutrophils (%) (Auto) 77.0 H, Lymphocytes (%) (Auto) 10.3 L, Monocytes (%) (Auto) 10.5 H, Eosinophils (%) (Auto) 1.6, Basophi ls (%) (Auto) 0.2, Neutrophils # (Auto) 3.9, Lymphocytes # (Auto) 0.5 L, Monocytes # (Auto) 0.5, Eosinophils # (Auto) 0.1, Basophils # (Auto) 0.0 Date:11/06/18. Creatinine Clearance: . Assessment and Plan Maintaining Current Dose?: Yes Reason for dose change: No Dose Change Pharmacist Note Pharmacist Note Date: 11/06/18. Pharmacist note: Patient has no prior history of vancomyicin here at [facility]. Patient admitted for pneumonia and sepsis. Also receiving zosyn 3.375 mg q6h. BC pending and MRSA screen pending. CrCl calculated to be 72.5. I loaded the patient with 1500mg IV vancomycin (1g at 0300 and 500mg @0429) and then placed the patient on a maintenance dose of 1g q12h starting at @1500. I scheduled trough before the 4th dose. I will continue to monitor the paitient and adjust as needed. GURINDER [facility] Nov 06, 2018 05:08
[2018-11-06] MEDS: PIPERACILLIN/TAZOBACTAM SOD 3.375 GM in D5W MINI-BAG PLUS 50 ML IV SCH ×3 (06:03→20:02)
[2018-11-06 06:58] LABS: HEMATOCRIT 24.4 % (42.0-52.0); HEMOGLOBIN 7.4 g/dl (13.5-17.5)
--- NOTE | 2018-11-06 07:05 | ECGEPIP ---
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
--- NOTE | 2018-11-06 08:03 | REP ---
Portable chest, 10:03 p.m., single AP view with the patient sitting: Comparison is 08/14/2018. There is a large left upper lobe infiltrate as an interval change. There is chronic elevation of the left hemidiaphragm, unchanged. Right lung is clear. Cardiac size appears normal. There is a left subclavian Ixjlnw-P-Fpgo catheter with the tip at the confluence of the superior vena cava and right atrium, unchanged. Impression: New large left upper lobe infiltrate. Electronically Signed by Reinaldo Covington MD 11/06/2018 07:55 A
[2018-11-06] MEDS: ASPIRIN 81 MG ENTERIC TAB PO SCH (08:07)
[2018-11-06] MEDS: MAGNESIUM OXIDE 400 MG TAB (MAG-OX) PO SCH (08:08)
[2018-11-06] MEDS: ACETAMINOPHEN 500 MG TAB PO PRN ×2 (08:09→20:59)
[2018-11-06] MEDS: ENOXAPARIN 40 MG/0.4 ML SYRINGE (J1650) SC SCH (08:10)
[2018-11-06] MEDS: VANCOMYCIN HCL 1,000 MG, VIAL MATE ADAPTER 1 EACH in D5W 250 ML IV SCH (15:43)
--- NOTE | 2018-11-06 22:55 | IPNPDOC ---
Subjective Date Seen The patient was seen on 11/06/18. Subjective Chief Complaint/HPI Reviewed chest CT with Dr. Ingram and Dr. Mehta, both of whom have been previously involved in the patient's care. Patient reports being fairly c omfortable until he is moving around, at which time he becomes dyspneic. He does note occasionally some RUQ discomfort, which comes and goes. Constitutional: Denies: Chills, Fever Pulmonary: Reports: Dyspnea, Cough Cardiovascular: Denies: Chest Pain Gastrointestinal: Reports: Abdominal Pain; Denies: Nausea, Vomiting, Diarrhea, Constipation Objective Physical Examination General Exam: Positive: Alert, Cooperative, Mild Distress Eye Exam: Positive: PERRLA, Conjunctiva & lids normal, EOMI; Negative: Sclera icteric ENT Exam: Positive: Atraumatic, Mucous membr. moist/pink, Pharynx Normal Chest Exam: Positive: Normal air movement, Rales (in te left upper part on the back) Heart Exam: Positive: Rate Normal, Regular Rhythm, Normal S1, Normal S2; Negative: Murmurs, Rubs Telemetry: Positive: No significant arrhythmia Abdomen Exam: Positive: Normal bowel sounds, Soft; Negative: Tenderness, Hepatospenomegaly Extremity Exam: Positive: Normal pulses; Negative: Clubbing, Cyanosis, Edema Skin Exam: Positive: Nl turgor and temperature; Negative: Breakdown, Lesion Psych Exam: Positive: Mental status NL, Mood NL, Oriented x 3 Assessment /Plan Problems (1) Dyspnea on exertion Problem Text: This is the chief complaint, and the etiology is currently somewhat unclear. Probably a portion of it is secondary to symptomatic anemia. Pneumonia vs pneumonitis remains in the differential, and he is currently being treated with vancomycin, Zosyn, and steroids. Dr. Ingram does request that rambo roids be continued until patient follows up with her in the office after discharge. (2) Anemia Problem Text: 2 units PRBCs ordered. This appears to be worsening of the patient's chronic anemia and likely secondary to cancer treatment, though I did check a stool for occult blood. (3) Cancer of upper lobe of left lung Status: Acute Problem Text: He follows with oncology and Dr. Ingram, status post partial pneumonectomy. He has known bony metastases. Imaging reviewed with Dr. Ingram, and she is confident that there is no postobstructive pneumonia. (4) Metastasis Problem Text: Patient has some known areas of bony metastasis, including his fe mur (recently tx with cement and erika to prevent pathologic fracture), posterior rib, and frontal sinuses. CT angio also notes some areas of possible or likely metastasis, including L superior mediastinal mass, R hepatic lobe, pancreatic lesion, adrenal mass, LUQ (close to splenic flexure). The right posterior rib was noted, but previously identified. The hepatic lesions, pancreatic lesion, and adrenal mass have increased in size since last CT 2.5 weeks ago. Patient denies previous knowledge of these, and when his condition improves these should at least be followed with oncology; some of them may be amenable to biopsy. Plan/VTE VTE Prophylaxis Ordered?: Yes VS, I&O, 24H, Fishbone Vital Signs/I&O Vital Signs Date Time Temp Pulse Resp B/P (MAP) Pulse Ox O2 Delivery O2 Flow Rate FiO2 11/06/18 20:00 96.8 91 18 123/71 (88) 99 11/05/18 21:35 Room Air Laboratory Data 24H LABS Laboratory Tests 2 11/06/18 01:14: Lactic Acid Level 1.0 11/06/18 04:06: Immature Granulocyte % (Auto) 0.4, White Blood Count 5.0, Red Blood Count 2.75L, Hemoglobin 6.8*L, Hematocrit 23.2L, Mean Corpuscular Volume 84.4, Mean Corpuscular Hemoglobin 24.7L, Mean Corpuscular Hemoglobin Concent 29.3L, Red Cell Distribution Width 18.8H, Platelet Count 196, Neutrophils (%) (Auto) 77.0H, Lymphocytes (%) (Auto) 10.3L, Monocytes (%) (Auto) 10.5H, Eosinophils (%) (Auto) 1.6, Basophils (%) (Auto) 0.2, Neutrophils # (Auto) 3.9, Lymphocytes # (Auto) 0.5L, Monocytes # (Auto) 0.5, Eosinophils # (Auto) 0.1, Basophils # (Auto) 0.0, Nucleated Red Blood Cells % (auto) 0.0, Anion Gap 8, Glomerular Filtration Rate > 60.0, Blood Urea Nitrogen 17, Creatinine 0.59L, Sodium Level 136, Potassium Level 3.2L, Chloride Level 102, Carbon Dioxide Level 26, Calcium Level 8.8, Procalcitonin 0.13 CBC/BMP Laboratory Tests 11/06/18 04:06 Red Blood Count 2.75 L, Mean Corpuscular Volume 84.4, Mean Corpuscular Hemoglobin 24.7 L, Mean Corpuscular Hemoglobin Concent 29.3 L, Red Cell Distribution Width 18.8 H, Neutrophils (%) (Auto) 77.0 H, Lymphocytes (%) (Auto) 10.3 L, Monocytes (%) (Auto) 10.5 H, Eosinophils (%) (Auto) 1.6, Basophils (%) (Auto) 0.2, Neutrophils # (Auto) 3.9, Lymphocytes # (Auto) 0.5 L, Monocytes # (Auto) 0.5, Eosinophils # (Auto) 0.1, Basophils # (Auto) 0.0, Calcium Level 8.8 11/06/18 06:48 Microbiology Microbiology 11/06/18 Blood Culture, Received Pending 11/05/18 Blood Culture - Preliminary, Resulted No growth after 24 hours . All specim... 11/06/18 Stool Occult Blood (ERICKA) - Final, Complete 11/06/18 MRSA Screen, Received Pending MELANY SMILEY DO Nov 06, 2018 22:55
[2018-11-07] MEDS: PIPERACILLIN/TAZOBACTAM SOD 3.375 GM in D5W MINI-BAG PLUS 50 ML IV SCH ×2 (00:42→05:53)
[2018-11-07] MEDS: methylPREDNISolone INJ 40 MG/1 ML VIAL (J2920) IV SCH ×2 (02:59→11:46)
[2018-11-07] MEDS: VANCOMYCIN HCL 1,000 MG, VIAL MATE ADAPTER 1 EACH in D5W 250 ML IV SCH (03:02)
[2018-11-07 04:00] VITALS: BP 121/77
[2018-11-07 06:17] LABS: BASO % 0.1 % (0.0-1.0); HEMATOCRIT 28.8 % (42.0-52.0); HEMOGLOBIN 8.9 g/dl (13.5-17.5); LYMPH # 0.3 10^3/uL (1.5-4.5); LYMPH % 2.2 % (24.0-44.0); MEAN CORPUSCULAR HEMOGLOBIN 25.6 pg (27.0-33.0); MEAN CORPUSCULAR HGB CONC 30.9 g/dl (32.0-36.5); MONO # 0.4 10^3/uL (0.0-0.8); MONO % 3.2 % (0.0-5.0); NEUTROPHILS # 11.3 10^3/uL (1.8-7.7); NEUTROPHILS % 93.8 % (36.0-66.0); PLATELET COUNT, AUTOMATED 200 10^3/uL (150-450); RED BLOOD COUNT 3.47 10^6/uL (4.30-6.10)
[2018-11-07 06:39] LABS: BLOOD UREA NITROGEN 13 MG/DL (7-18); CALCIUM LEVEL 9.3 MG/DL (8.8-10.2); CARBON DIOXIDE LEVEL 25 MEQ/L (21-32); CHLORIDE LEVEL 102 MEQ/L (98-107); CREATININE FOR GFR 0.56 MG/DL (0.70-1.30); GLOMERULAR FILTRATION RATE > 60.0 (>49); GLUCOSE, FASTING 261 MG/DL (70-100); POTASSIUM SERUM 3.8 MEQ/L (3.5-5.1); SODIUM LEVEL 134 MEQ/L (136-145)
[2018-11-07 08:00] VITALS: BP 122/73
[2018-11-07] MEDS: ASPIRIN 81 MG ENTERIC TAB PO SCH (08:02)
[2018-11-07] MEDS: MAGNESIUM OXIDE 400 MG TAB (MAG-OX) PO SCH (08:02)
[2018-11-07] MEDS: ENOXAPARIN 40 MG/0.4 ML SYRINGE (J1650) SC SCH (08:03)
[2018-11-07] MEDS ORDERED: PNEUMOCOCCAL VACCINE 0.5ML SYRINGE(90732) PNEUMOVAX 23 IM ONE (09:00)
[2018-11-07] MEDS ORDERED: LEVO750T13 PO (10:28)
[2018-11-07] MEDS ORDERED: MEDR10TA PO (10:28)
--- NOTE | 2018-11-07 18:58 | DSES ---
DATE OF ADMISSION: 11/06/2018 DATE OF DISCHARGE: 11/07/2018 REASON FOR ADMISSION: Efra was admitted by the hospitalist, Dr. Olsen, on 11/06/2017 with shortness of breath and weakness. CT angiogram of the chest in the emergency department (ED) did not show pulmonary embolus but did show a left superior mediastinal mass up to 5.2, cm unchanged, airspace opacities in the left upper lobe consistent with pneumonia. CT was reviewed by Dr. Ingram. She agreed that pneumonia was likely. However cultures were negative and in fact procalcitonin was also low arguing against a bacterial process. Nonetheless, he was treated with IV antibiotics initially with Zosyn and vancomycin. He improved clinically with reduction in heart rate. His white blood cell count was not elevated at 6.6 on admission and he was up to 12.0 at discharge, possibly the result of IV steroids. Hemoglobin was 8.1 when admitted, dropped to 6.8 on 11/06/2018, and then on 11/07/2018 at day of discharge he is 6.9 after receiving two units packed red blood cells (RBCs). Imaging studies included a CT angiography which showed evidence of metastatic disease in the right eighth rib, a 10.1 cm lytic lesion, and large right pericardiac lymph nodes unchanged compared to 10/19/2018 CT, 4.6 cm left adrenal mass which is larger than 10/19/2018 CT, 4.7 cm mass in the superior aspect of the pancreas which is increased in size by 1 cm from the study on 10/19/2018, hypodense masses in the right hepatic lobe which have also increased in size since 10/19/2018, and airspace opacities in the left upper lung which were interpreted as representing neoplasm or pneumonia. Because of his clinical improvement with steroids and IV antibiotics and despite the negative cultures and procalcitonin which was low, he will be sent home on oral levofloxacin 750 by mouth daily for five days. He will also be on methylprednisolone 20 mg daily for five days, then 10 mg daily for five days, then 5 mg daily for 10 more days with followup with his primary care provider in one week, followup as scheduled with his medical oncologist, and followup with Dr. Ingram per her recommendation. He currently has an appointment in four months and it might be reasonable for him to be seen sooner than that date. DISCHARGE DIAGNOSES: 1. Clinical impression consistent with left upper pneumonia versus neoplasm, clinical response to treatment suggestive of pneumonia. 2. Anemia, probably multifactorial, but certainly some contribution from iron deficiency. Iron was not measured during his hospital stay but he did have microcytic anemia and microcytic indices with mean corpuscular hemoglobin (MCH) of 25.6, mean corpuscular hemoglobin at 30.9, although mean corpuscular volume (MCV) was normal. It is also possible that he has chemotherapy-related anemia. White count was normal, platelet count was in normal range. Culture results negative methicillin-resistant Staphylococcus aureus (MRSA) screen, blood cultures negative, and hemoccult was negative. He will be discharged with diet as tolerated. Continue his usual preadmission medication including: - Tylenol for pain - aspirin 81 mg daily - Prolia 120 mg subcutaneous every six weeks - magnesium oxide 400 mg daily - nitroglycerin 0.4 mg sublingual as needed for chest pain - Keytruda 200 mg IV every three weeks - potassium chloride 20 mEq daily - turmeric root extract 500 mg daily NEW PRESCRIPTIONS: - levofloxacin 500 mg daily for five days - medroxyprogesterone tapering as mentioned above
== END 2018-11-07 12:12 | disposition home or self-care (01) | DRG 811 ==
LOC: M ED 21:29 → M ED INP 11-06 01:04 → M PCU 11-06 02:18
PROVIDERS: ADMIT Family Medicine; ATTEND Family Medicine
PROC: 30233N1 Transfusion of Nonautologous Red Blood Cells into Peripheral Vein, Percutaneous Approach (ICD-10-PCS; principal; 2018-11-06)
DX: D50.9 Iron deficiency anemia, unspecified (principal); J18.9 Pneumonia, unspecified organism; C34.12 Malignant neoplasm of upper lobe, left bronchus or lung; C79.51 Secondary malignant neoplasm of bone; C78.1 Secondary malignant neoplasm of mediastinum; C78.7 Secondary malignant neoplasm of liver and intrahepatic bile duct; C78.39 Secondary malignant neoplasm of other respiratory organs; C78.89 Secondary malignant neoplasm of other digestive organs; C79.70 Secondary malignant neoplasm of unspecified adrenal gland; D64.81 Anemia due to antineoplastic chemotherapy; Z79.82 Long term (current) use of aspirin; Z79.899 Other long term (current) drug therapy; Z88.0 Allergy status to penicillin; Z88.5 Allergy status to narcotic agent; G43.909 Migraine, unspecified, not intractable, without status migrainosus; K44.9 Diaphragmatic hernia without obstruction or gangrene; M17.2 Bilateral post-traumatic osteoarthritis of knee; B18.2 Chronic viral hepatitis C; F32.9 Major depressive disorder, single episode, unspecified

== ENCOUNTER → 2018-11-14 | Outpatient (CLI) | payer MEDICARE ==
[~2018-11-14] MED LIST changes: +ACET-683 PO; +ACET1TAB16 PO; -ALBU17IN2 INH; +ALBU83IN INH; +BUDE0.5S6 INH; +BUDE0.5S6 PO; +COLA100C5 PO; +ECOT81TA5 PO; +ERYT1OIN26 OD; +FLUC10TA PO; +ISOVUE-370 76% 100ML VIAL (Q9967) As Ordered ONE; +KEYT1INJ IV; +LEVO750T13 PO; +MAG400TA PO; +MEDR10TA PO; +METH4TAB8 PO; +MORP-69 PO; +MORP20SOL PO; +ONDA8TAB10 PO; -ONDA8TAB7 PO; +PROL60SO SC; +PROV108A INH; +RA T500C2 PO; +VENTAER INH
--- NOTE | 2018-11-14 09:30 | REP ---
Clinical: Lung cancer. Technique: Axial pre and postcontrast images from the skull base to the vertex using 100 ml Isovue 370 intravenous contrast material. Comparison: Maxillofacial CT dated 07/29/2018. Findings: Mass lesion arising from the region of the frontal sinuses extending into the visualized ethmoid sinuses, medial plascencia of the bilateral orbits, and anterior cranial fossa remains unchanged. The ventricles, sulci, and cisterns are symmetric and normal. Castro-white differentiation is maintained. Vasculature appears symmetric and normal including pilot station of Lewis and the visualized vertebrobasilar system. No evidence for intracranial hemorrhage or extraaxial fluid collection. No obvious enhancing mass lesion identified. Impression: 1. No new destructive soft tissue lesion presumed to arise from the frontal sinuses with extension along the medial orbital plascencia, ethmoid sinus and anterior cranial fossa unchanged compared to 07/29/2018. 2. No obvious acute intracranial hemorrhage, mass/mass effect or metastatic focus identified. If there is continued concern, MRI may be more sensitive for subtle lesions. 3. Intracranial vasculature appears to be within normal limits. Electronically Signed by Mark Su MD 11/14/2018 09:22 A
== END ==
LOC: M RAD 08:02
PROVIDERS: ATTEND Internal Medicine
DX: R93.7 Abnormal findings on diagnostic imaging of other parts of musculoskeletal system (principal); C31.2 Malignant neoplasm of frontal sinus; C34.92 Malignant neoplasm of unspecified part of left bronchus or lung; C79.51 Secondary malignant neoplasm of bone
CPT/HCPCS: 70470; Q9967

== ENCOUNTER → 2018-11-16 | Outpatient (REF) | payer MEDICARE ==
[~2018-11-16] MED LIST changes: -ACET1TAB16 PO; +ALBU17IN2 INH; -ALBU83IN INH; -BUDE0.5S6 INH; -BUDE0.5S6 PO; -COLA100C5 PO; -ERYT1OIN26 OD; -ISOVUE-370 76% 100ML VIAL (Q9967) As Ordered ONE; -MAG400TA PO; +METH4TAB28 PO; -METH4TAB8 PO; +MORP-38 PO; -MORP-69 PO; -ONDA8TAB10 PO; +ONDA8TAB7 PO; -PROV108A INH
[2018-11-16 12:24] LABS: IRON (FE) 23 UG/DL (65-175); MAGNESIUM LEVEL 1.4 MG/DL (1.8-2.4); PERCENT SATURATION 12.2 % (19.7-50.0); TOTAL IRON BINDING CAPACITY 189 UG/DL (250-450)
[2018-11-16 13:32] LABS: H PYLORI QUALITATIVE IgG NEGATIVE (NEGATIVE)
== END ==
LOC: M SFHCPLAZ 11:22
PROVIDERS: ATTEND Family Medicine
DX: N18.9 Chronic kidney disease, unspecified (principal); D63.1 Anemia in chronic kidney disease

== ENCOUNTER → 2018-11-29 | Outpatient (CLI) | payer MEDICARE ==
[~2018-11-29] MED LIST changes: +ALBU83IN INH; +BUDE0.5S6 PO
--- NOTE | 2018-11-29 13:55 | RADONC ---
RADIATION ONCOLOGY CONSULTATION NOTE DATE: 11/29/2018 CHART NUMBER: [id number] DIAGNOSIS: Left upper lobe lung cancer. STAGE: I B, T2a, N0, M0, recurrent, now widely metastatic. ECOG PERFORMANCE STATUS: 3. CONSULTATION NOTE: Mr. Wray is a 68-year-old white male with the diagnosis of widely metastatic moderate to poorly differentiated squamous cell carcinoma of the left upper lobe who is well-known to our department and has been treated with palliative radiation therapy to multiple sites in the past. The patient is now presenting to us complaining of right posterior rib pain with a recent CT scan done on 11/05/2018, which showed a large 10.1 cm lytic destructive mass in the right posterior 8th rib with a soft tissue component protruding into the right pleural space. Once again the patient is presenting to us for discussion of palliative radiation therapy to this area. PAST MEDICAL HISTORY: The patient's past medical history is positive for arthritis, bronchitis, hepatitis, and emphysema. He had a cholecystectomy and appendectomy in the past. The patient has had lung surgery and subsequent lymph node recurrence and radiation to multiple sites. He has also been seen by medical oncology and has been treated with Taxol and carboplatin in December of 2017. He has had CONTROL MANAGER-16 and cis-[place] and [place] [employer] from April 2018 to June 2018. ALLERGIES: The patient is allergic to PENICILLIN and CODEINE. SOCIAL HISTORY: The patient has smoked one pack of cigarettes per day for 53 years. He quit drinking alcohol in the 1970s. FAMILY HISTORY: The patient's family history is negative for lung cancer or other malignancies. REVIEW OF SYSTEMS: The patient's review of systems is positive for physical limitations secondary to end-stage cancer. He is quite weak and is having rib pain. He denies nausea, vomiting, fevers, chills, night sweats, diplopia, or neurological problems. PHYSICAL EXAMINATION: The patient is a chronically ill, cachectic male who is generally weak. HEENT exam is normocephalic, atraumatic. There is a marked improvement in his bulging upper nose frontal sinus mass, although there is still some radiation change of the skin and some slight bulging near the orbital areas. There is no palpable lymphadenopathy present. His lungs have diffuse rales bilaterally. Heart has regular rate and rhythm. ASSESSMENT: The patient is presenting for consideration of palliative radiation therapy to a huge posterior right rib mass. This is causing him a lot of pain. Clearly, he is a candidate for this treatment and I have so informed him. We have discussed with the patient in detail the potential benefits as well as possible acute and chronic sequelae of external beam radiation therapy. We discussed logistics of treatment planning, simulation and subsequent fractionated daily radiation treatments. I am planning 10 fractions of 300 cGy each for a dose of 3000 cGy. I have reviewed his previous [place] and there should be no overlap with the lung field, especially in the spinal cord. We will further follow that closely to make sure we are not passing tolerance limits on any of his normal structures. The patient is under palliative care at this time. Considering his overall condition I think palliative care is reasonable and I suspect we are approaching the time when hospice should be considered. The patient is scheduled to see medical oncology immediately after this consultation to discuss his options as well. Once again, after viewing this patient's overall condition, I think palliative treatment and perhaps hospice would be the most reasonable thing. However, I will defer to his choice with his medical oncologist. cc: MD Paulie Anglin DO [facility] Lorrie Brian MD
== END ==
LOC: M ONCR 08:46
PROVIDERS: ATTEND Radiology Radiation Oncology
DX: C34.12 Malignant neoplasm of upper lobe, left bronchus or lung (principal)

== ENCOUNTER 2018-11-30 10:57 | Outpatient (CLI) | payer MEDICARE ==
[~2018-11-30] VITALS: Ht 170.2 cm; Wt 72.8 kg
[~2018-11-30 10:57] MED LIST changes: +ACETAMINOPHEN TAB 650MG DOSE (2X325MG) PO SCH; -ALBU83IN INH; -BUDE0.5S6 PO; +SODIUM CHLORIDE 0.9% INJ 10 ML SYR IV SCH
[2018-11-30 11:15] VITALS: BP 119/74
[2018-11-30 15:30] VITALS: BP 113/70
[2018-11-30 16:00] VITALS: BP 108/66
== END 2018-11-30 16:05 | disposition home or self-care (01) ==
LOC: M INFU 10:57
PROVIDERS: ATTEND Internal Medicine Hematology & Oncology
DX: D64.9 Anemia, unspecified (principal)
CPT/HCPCS: 36430; 86920; P9016

== ENCOUNTER → 2018-12-02 | Outpatient (CLI) | payer MEDICARE ==
[~2018-12-02] MED LIST changes: -ACETAMINOPHEN TAB 650MG DOSE (2X325MG) PO SCH; +ALBU83IN INH; +BUDE0.5S6 PO; +PROHANCE 279.3MG/ML 15ML VIAL (A9576) As Ordered ONE; -SODIUM CHLORIDE 0.9% INJ 10 ML SYR IV SCH
== END ==
LOC: M RAD 16:07
PROVIDERS: ATTEND Internal Medicine
DX: C79.31 Secondary malignant neoplasm of brain (principal)

== ENCOUNTER → 2018-12-14 | Outpatient (RCR) | payer MEDICARE ==
--- NOTE | 2018-12-01 15:58 | MEDONC ---
OUTPATIENT CANCER CENTER PROGRESS NOTE DATE OF SERVICE: 11/29/2018 Date of : 1950 Age: 68 PRIMARY PHYSICIAN: Dr. Chad Muniz RADIATION ONCOLOGIST: Dr. Reinaldo Gross. REASON FOR VISIT Followup of metastatic non small cell lung cancer. Please see prior note from September 28, 2018 for details. The patient also was seen more recently on December 13, [address] Yordy Anderson. The patient has been Keytruda/pembrolizumab which was held by Dr. Dietrich and Dr. Anderson because of a question of pneumonitis. The patient came alone today. 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 PRIMARY DIAGNOSIS Moderate to poorly differentiated squamous cell carcinoma left upper lung with extensive necrosis within the tumor, status post left upper lobectomy August 2017. Pathological stage PT 2A, PN0, MX originally thought to be possibly stage I B. Received adjuvant chemotherapy with Carboplatin and Taxol through Dr. Zara Bolanos 4 cycles starting September 22, 2017 and completing them November 29, 2017. PET scan from March 2018 showed progression of disease, mediastinal adenopathy, biopsy consistent with the same primary tumor as above with a PD-L1 of 90% TPS. ALT, EGFR, BRAF mutations all negative. ROS1 very weak signal, could not be interpreted or read according to [facility]ology. Radiation with chemotherapy consisting of Cis-newhalen and Etoposide begun in April [address] Zara Bolanos, completed treatment June 27, 2018 with significant cytopenias. June 2018 the patient had lost a lot of weight, felt very weak and complained of pounding headache in the front of his face on the frontal bone area, like somebody was stapling or nailing a wooden board. The patient found to have large metastatic lesion in the same region, also had rib metastasis and the patient was palliated with radiation and begun on Keytruda and Xgeva. The protuberant tumor mass on the frontal bone midline did shrink significantly so it was felt that the combination of the radiation and the Keytruda had helped. Then the patient was found to have pain in the right femur lower lateral aspect and had a large lytic lesion there and had to have prophylactic stabilization, open biopsy, curettage and cementing at [facility] October 06, 2018 through [facility]. Since then patient is now independently ambulatory with a single prong cane and doing well with that. CURRENT THERAPY The patient got Keytruda September 28, 2018 and then November 02, 2018 and has not had any since. The Xgeva last dose patient received was September 29, 2018 of 120 mg. CONCURRENT DIAGNOSIS Other than the above, not much else has changed. FAMILY AND SOCIAL HISTORY: Are the same. ALLERGIES: PENICILLIN, CODEINE. No new allergies developed. REVIEW OF SYSTEMS The patient says he is depressed. He is in a lot of pain. He took his morphine, the extended release or the MS Contin around 7 o'clock this morning. It is supposed to work for 12 hours. The patient knows this and he says it is only 11:35 now in the morning and his pain is at level 7 already, and the pain is in the ribcage. The one that he already got radiated. There is some pain in the right femur, not much pain in the frontal bone. Apparently the patient thinks it is the rib, it could be the abdomen, he is not quite certain. The patient says he is getting tired and mixed up with all these medications and medication changes. The patient also complains of being more and more short of breath and feeling very weak and tired. No energy. No pep. No fever or any chills. No burning in the urine. No diarrhea. No swallowing problems. No mouth sores like he had before; all that has gone away, but his tongue is sore. Feels cruddy. The patient's appetite is fair. No headaches or double vision. PHYSICAL EXAMINATION: Mr. Martinez does look really run down, but he is awake and alert, oriented to place, person and time. Tachycardiac at 120 heart beats per minute at rest. Blood pressure 127 x 83, 99% oxygen saturation on room air. Weight is surprisingly stable. Patient's performance status would be 2 to 3 on a scale of 4 by ECOG. The patient has an ashen complexion almost today. Conjunctiva pale. Sclera do not appear icteric. The patient has slight protuberance just above the bridge of his nose where originally he literally he had a golf ball there. Buccal mucosa shows pallor and the tongue is full of kendell. The left buccal cheek is full of kendell and fungus yeast infection. No adenopathy neck. No jugular venous distension. No axillary adenopathy. Lungs: Appear emphysematous. There is some decreased air entry left upper and left lower lung, but no dullness to percussion of significance. Cardiovascular system with significant tachycardia and a soft systolic murmur heard today. Rhythm was sinus rhythm. No gallops or rubs. Abdomen: Examined as best as we could sitting in the chair. There was no guarding or rigidity. No ascites clinically. No pedal edema. No cyanosis. Skin: Turgor is very dry and speech is normal. The patient is ambulatory independently with the cane, single prong. LABS: Reviewed with Mr. Wray. The patient's CBC shows a hemoglobin of 8.6. MCV is 80, white count 7000, platelets adequate. Differential shows 86.5% neutrophils, stable at that level. Chemistry: Calcium is at 10.7 with an albumin of 3, so the corrected calcium is even higher. GFR is more than 60, fortunately. Blood sugar was 272. ALT is elevated at 32, AST is normal at 23, alk phos is normal. Total protein 7.3 but the albumin is down 3.0 and this is with the patient taking three protein cans a day of Ensure or Boost. He does not remember exactly the name. Thyroid function was checked because of the significant tachycardia and the TSH was 1.31. In the recent past we have already checked the patient's B12, folate, ferritin, iron TIBC; all of them have been checked this year and the B12 folate were normal. Ferritin was quite high in the range of 796 and the iron TIBC were both low along with the low saturation suggesting chronic disease. Recent CT angio suggested significant progression of disease, disease in the abdomen, in the chest, etc. We went over this with Mr. Hartman. Apparently Dr. Anderson must have discussed with him already because he knew about it. The patient called the on the phone, we shared all this with her also and suggested as below. IMPRESSION 1. Mr. Wray appears to have progression of his lung cancer, unfortunately. He has not received his Keytruda wince November 02, 2018 because of a question of possible pneumonitis. Clinically, the patient is not febrile, but he is very, very short of breath and he is very tachycardiac and very tired. He has symptomatic anemia, with a Hgb of 8 gms. We suggested hold off on the Keytruda today, but we would like to resume it and theoretically with a 90% PD-L1 TPS he is supposed to respond to it. he has only had 2 treatments. In the interim, we will get a PET scan as soon as possible and the patient to return next week day after the PET scan accompanied by his . The CT angio did not show any PE and it was done on November 05, 2018. The patient had a left superior mediastinal mass, which was unchanged. He had left upper lung mass air space opacities, unchanged from October 19 again. The 4.7 cm mass in the body of the pancreas, which was increasing in size and suspicious for cancer. There was also a mass in the left adrenal, a mass in the left upper quadrant, and a 10.1 cm lesion in the right 8th rib, enlarged right paracardiac nodes and a tiny left pleural effusion. 2. Hypercalcemia which needs addressed. The patient appears dehydrated also, so we ordered IV fluids today, asked the patient to stop his oral calcium supplements that he is on and resume the Xgeva today at 120 mg. He has not had any Xgeva since September 29, 2018 either. 3. The patient also has oral significant candidiasis probably as a result of the steroids that he was given on a trial basis for questionable pneumonitis from Keytruda. Anyway his sugars are elevated which the patient will followup with Dr. Chad Muniz for and we scripted Diflucan for the patient already and suggested switch over from Boost or Ensure to Glucerna and eat some more egg whites to improve his albumin. PLAN As above. IV fluids ordered. Diet changes made. Diflucan scripted. Blood transfusions ordered and because the pain was out of control the MS Contin was doubled up from 15 mg every 12 hours to 30 mg every 12 hours. The patient has enough adequate pain pills for breakthrough pain. Return in 1 week; have CBC diff, CMP done that day and come back with the . This was quite a complex visit with a lot of medical decision making. Electronically Signed by Lorrie Brian MD 12/04/2018 06:42 P DD: Lorrie Brian MD 11/30/2018 07:32 A DT: star 12/01/2018 03:10 P CC: MD Chad Colón MD
--- NOTE | 2018-12-05 10:02 | RADONC ---
RADIATION ONCOLOGY SIMULATION NOTE DATE: 12/01/2018 SIMULATION NOTE: Mr. Wray was taken to the CT scan for CT simulation of his spinal field. CT was accomplished without difficulty or discomfort. Radiation treatment planning is underway and radiation treatments will begin subsequently. An immobilization device was created without difficulty or discomfort. It will be used throughout the course of treatment. I was physically present throughout the course of CT simulation.
--- NOTE | 2018-12-13 11:25 | RADONC ---
RADIATION ONCOLOGY PROGRESS NOTE DATE: 12/12/2018 CHART #: [id number] Mr. Wray underwent his first fraction of radiation today to his right posterior ribs for a dose of 300 cGy. His radiation to the ribs was well tolerated without difficulty or discomfort. REVIEW OF SYSTEMS: The patient's review of systems remained unchanged with his right posterior rib pain. PHYSICAL EXAMINATION: The patient's skin clearly showed no evidence of radiation change present and the remainder of his physical exam remained unchanged as well. Mr. Wray tolerated his treatments without difficulty and radiation will continue as scheduled.
[~2018-12-14] MED LIST changes: +ACET1TAB16 PO; -ALBU17IN2 INH; +BUDE0.5S6 INH; +COLA100C5 PO; +ERYT1OIN26 OD; +MAG400TA PO; -METH4TAB28 PO; +METH4TAB8 PO; -MORP-38 PO; +MORP-69 PO; +ONDA8TAB10 PO; -ONDA8TAB7 PO; -PROHANCE 279.3MG/ML 15ML VIAL (A9576) As Ordered ONE; +PROV108A INH
== END ==
LOC: M ONCR 12-01 13:37
PROVIDERS: ATTEND Radiology Radiation Oncology
DX: C79.51 Secondary malignant neoplasm of bone (principal); C34.12 Malignant neoplasm of upper lobe, left bronchus or lung

== ENCOUNTER 2018-12-15 12:41 | Inpatient (IN) | payer MEDICARE ==
[~2018-12-15] VITALS: Ht 175.3 cm; Wt 70.4 kg
[~2018-12-15 12:41] MED LIST changes: -ACET1TAB16 PO; +ALBU17IN2 INH; -BUDE0.5S6 INH; -COLA100C5 PO; -ERYT1OIN26 OD; -MAG400TA PO; +METH4TAB28 PO; -METH4TAB8 PO; +MORP-38 PO; -MORP-69 PO; -ONDA8TAB10 PO; +ONDA8TAB7 PO; -PROV108A INH
--- NOTE | 2018-12-15 13:21 | REP ---
Clinical: Confusion Comparison: 11/14/2018 Findings: Mass involving the the frontal sinuses with extension into the visualized ethmoid sinuses, medial bilateral orbits, and anterior cranial fossa with destructive changes and scattered calcification is again identified and likely represents metastatic focus unchanged from prior examination. Castro-white differentiation is maintained. The ventricles, sulci, and cisterns are symmetric and normal. No acute intracranial hemorrhage or mass/mass effect noted. No extra-axial fluid collection. Excluding the above-mentioned mass lesion, the calvarium and osseous structures appear otherwise normal. Impression: 1. Large destructive mass lesion involving the frontal sinus and surrounding structures as described above and unchanged from prior examination consistent with metastatic focus. 2. No acute intracranial pathology otherwise appreciated. Electronically Signed by Mark Su MD 12/15/2018 01:11 P
[2018-12-15] MEDS ORDERED: NS 1,000 ML IV ONE (13:45)
--- NOTE | 2018-12-15 14:21 | REP ---
Clinical: Fatigue. Comparison: 11/05/2018. Findings: Pleuroparenchymal changes involving left hemithorax including large irregular area of opacity in the left upper lung zone with spiculated margins as well as tenting to the diaphragmatic surface are again noted. Superimposed acute process cannot be excluded. Right hemithorax is clear. Cardiac silhouette is stable. [id number]-Fcym again identified with tip in the SVC/right atrium. Impression: Pleuroparenchymal changes involving left hemithorax similar to prior examination. Subtle superimposed acute process cannot be excluded. Electronically Signed by Mark Su MD 12/15/2018 02:12 P
[2018-12-15] MEDS ORDERED: PRED10TA2 PO (15:09)
[2018-12-15] MEDS: SODIUM CHLORIDE 0.9% INJ 10 ML SYR IV PRN (15:19)
[2018-12-15] MEDS ORDERED: ALBUTEROL SULFATE 2.5 MG/0.5 ML INH NEB SOLN INH PRN (16:30)
[2018-12-15] MEDS ORDERED: MORPHINE 10MG/0.5ML ORAL CONCENTRATE SOLUTION U/D PO PRN (16:30)
[2018-12-15] MEDS ORDERED: ACETAMINOPHEN 500 MG TAB PO PRN (16:30)
--- NOTE | 2018-12-15 16:57 | HPEPDOC ---
General Date of Admission 12.15.18 Date of Service: Dec 15, 2018 Primary Care Physician: Chad Muniz M.D. Chief Complaint The patient is a 68-year-old male admitted with a reason for visit of Weakness. History of Present Illness 68m with hx of metastatic non small cell lung ca, currently on radiation and keytruda, who was sent to the ED by his oncologist for tachycardia. Pt states he has been more lethargic recently and not eating as much. He has been taking ensure. He also has been taking higher doses of his MS contin at home. He denies any constipation. His Keytruda was started two weeks ago after being off it for about 6 months. He remains independent, walking with a cane and reports voiding and moving his bowels regularly. Denies fevers, dysuria, diarrhea, cough. Home Medications Scheduled Budesonide (Budesonide) 0.5 Mg/2 Ml Ampul.neb, 0.5 MG PO BID, (Reported) Denosumab Injection (Prolia) 60 Mg/1 Ml Syringe, 120 MG SC Q6WKS, (Reported) Magnesium Oxide (Magnesium Oxide) 400 Mg Tablet, 400 MG PO DAILY, (Reported) Nitroglycerin (Nitroglycerin) 0.4 Mg Tab.subl, 0.4 MG SL ASDIRECTED for chest pain, (Reported) 1st sign of attack; may repeat every 5 mins; if pain persists after 3 in 15 min, medical attention is recommended Pembrolizumab (Keytruda) 100 Mg/4 Ml Vial, 200 MG IV Q1BPRVD, (Reported) Potassium Chloride (Potassium Chloride) 20 Meq Tab.er.prt, 20 MEQ PO DAILY, (Reported) Prednisone (Prednisone) 10 Mg Tablet, 10 MG PO DAILY, (Reported) Turmeric Root Extract (Turmeric) 500 Mg Capsule, 500 MG PO DAILY, (Reported) Scheduled PRN Acetaminophen (Acetaminophen) 500 Mg Tablet, 1,000 MG PO Q6H PRN for PAIN / FEVER, (Reported) Albuterol Sulf (Albuterol Sulfate) 2.5 Mg/3 Ml Vial.neb, 2.5 MG INH QID PRN for SHORTNESS OF BREATH, (Reported) Albuterol Sulfate (Ventolin Hfa) 18 Gm Hfa.aer.ad, 2 PUFF INH Q4-6HP PRN for SOB/WHEEZING, (Reported) Morphine Sulfate (Morphine Sulfate Concentrate) 100 Mg/5 Ml Solution, 0.25 ML PO Q4H PRN for PAIN, (Reported) Morphine Sulfate (Morphine Sulfate ER) 15 Mg Tablet.er, 30 MG PO BID PRN for PAIN, (Reported) Allergies Coded Allergies: Penicillins (Verified Allergy, Intermediate, swelling, 08/10/18) codeine (Verified Adverse Reaction, Mild, abdominal pain, 08/10/18) Past Medical History Medical History NSCLC-squamous type Surgical History NC Family History Significant Family History: No pertinent family hx Social History * Smoker: former Smoker Alcohol: Denies Drugs: denies A-FIB/CHADSVASC A-FIB History Current/History of A-Fib/PAF?: No Current PO Anticoag Therapy: No Age/Risk Factor Scoring CHADSVASC: CHADSVASC Response (Comments) Value Age Risk Factor Age 65-74 years old 1 Gender Risk Factor Male 0 Hx of CHF No 0 Hx of HTN No 0 Hx of Stroke/TIA/or VTE No 0 Hx of Diabetes No 0 Hx of Vascular Disease No 0 Total 1 Treatment Treatment ordered: NONE Review of Systems Constitutional: Reports: Weakness, Fatigue, Lethargy Eyes: Denies: Pain, Vision change ENT: Denies: Head Aches, Ear Pain, Dysphagia Skin: Denies: Rash, Lesions, Breakdown Pulmonary: Denies: Dyspnea, Cough Cardiovascular: Denies: Chest Pain, Palpitations, Orthopnea, Paroxysmal Noc. Dyspnea, Lt Headedness Gastrointestinal: Denies: Nausea, Vomiting, Abdominal Pain, Diarrhea Genitourinary: Denies: Dysuria, Frequency, Incontinence, Retention Hematologic: Denies: Bruising, Bleeding Excessively Neurological: Denies: Weakness, Numbness, Change in speech, Confusion Psych: Reports: Mood Normal; Denies: Depression, Memory Issues Physical Examination General Exam: Positive: Alert, Cooperative, No Acute Distress Eye Exam: Positive: PERRLA, Conjunctiva & lids normal, EOMI; Negative: Sclera icteric ENT Exam: Positive: Atraumatic, Mucous membr. moist/pink, Pharynx Normal Neck Exam: Positive: Supple; Negative: JVD, thyromegaly Chest Exam: Positive: Clear to auscultation, Normal air movement Heart Exam: Positive: Rate Normal, Regular Rhythm, Normal S1, Normal S2; Negative: Murmurs, Rubs Abdomen Exam: Positive: Normal bowel sounds, Soft; Negative: Tenderness, Hepatospenomegaly Extremity Exam: Positive: Normal pulses; Negative: Clubbing, Cyanosis, Edema Skin Exam: Positive: Nl turgor and temperature; Negative: Breakdown, Lesion Neuro Exam: Positive: Normal Gait, Normal Speech, Cranial Nerves 3-12 NL, Reflexes 2+ Psych Exam: Positive: Mental status NL, Mood NL, Oriented x 3 Vital Signs Vital Signs Date Time Temp Pulse Resp B/P (MAP) Pulse Ox O2 Delivery O2 Flow Rate FiO2 12/15/18 16:30 86 16 109/68 (82) 96 Room Air 12/15/18 12:57 96.3 Laboratory Data Labs 24H Laboratory Tests 2 12/15/18 15:26: Ammonia 25 Assessment/Plan 68m with metastatic NSCLC lethargy multifactorial mildly hypercalcemic dehydration metastatic lung ca radiation and keytruda increasing morphine usage not orthostatic no evidence of acute infection will continue iv hydration continue boost oncology to evaluate Lung Ca progression of disease while off keytruda per onc notes resuming keytruda and considering chemo oncology consulted pain will continue ms contin and IR morphine monitor for constipation continue prednisone Plan / VTE VTE Prophylaxis Ordered?: Yes TINY ZAMBRANO MD Dec 15, 2018 16:57
[2018-12-15] MEDS: NS 1,000 ML IV SCH (17:31)
[2018-12-15 18:46] VITALS: BP 133/84
[2018-12-15 22:00] VITALS: BP 112/59
[2018-12-15] MEDS: MORPHINE 30 MG SA TAB PO SCH (22:07)
[2018-12-16] MEDS: BUDESONIDE 0.5 MG/2 ML INHALATION SUSPENSION INH SCH ×3 (00:52→20:28)
[2018-12-16] MEDS: NS 1,000 ML IV SCH ×3 (03:47→22:45)
[2018-12-16 06:00] VITALS: BP 103/57
[2018-12-16 06:10] LABS: HEMATOCRIT 25.1 % (42.0-52.0); HEMOGLOBIN 7.3 g/dl (13.5-17.5); MEAN CORPUSCULAR HEMOGLOBIN 25.3 pg (27.0-33.0); MEAN CORPUSCULAR HGB CONC 29.1 g/dl (32.0-36.5); MEAN CORPUSCULAR VOLUME 86.9 fl (80.0-96.0); PLATELET COUNT, AUTOMATED 187 10^3/uL (150-450); RED BLOOD COUNT 2.89 10^6/uL (4.30-6.10); WHITE BLOOD COUNT 7.3 10^3/uL (4.0-10.0)
[2018-12-16 06:40] LABS: ALBUMIN 1.5 GM/DL (3.2-5.2); ALT/SGPT 54 U/L (12-78); BILIRUBIN,TOTAL 0.5 MG/DL (0.2-1.0); BLOOD UREA NITROGEN 15 MG/DL (7-18); CALCIUM LEVEL 10.1 MG/DL (8.8-10.2); CARBON DIOXIDE LEVEL 28 MEQ/L (21-32); CHLORIDE LEVEL 103 MEQ/L (98-107); CREATININE FOR GFR 0.38 MG/DL (0.70-1.30); GLOMERULAR FILTRATION RATE > 60.0 (>49); GLUCOSE, FASTING 94 MG/DL (70-100); POTASSIUM SERUM 3.4 MEQ/L (3.5-5.1); SODIUM LEVEL 138 MEQ/L (136-145); TOTAL PROTEIN 6.4 GM/DL (6.4-8.2)
[2018-12-16] MEDS: DOCUSATE SODIUM 100 MG CAP PO SCH ×2 (09:00→20:13)
--- NOTE | 2018-12-16 09:00 | IPNPDOC ---
Subjective Date Seen The patient was seen on 12/16/18. Subjective Chief Complaint/HPI Patient sitting upright in bed as I entered the room. He reports to be feeling about the same. He has continued fatigue and weakness. He reports decreased appetite Constitutional: Reports: Weakness, Fatigue; Denies: Chills, Fever Pulmonary: Reports: Dyspnea; Denies: Cough, Pleuritic Chest Pain Cardiovascular: Denies: Chest Pain, Palpitations, Orthopnea, Edema Gastrointestinal: Denies: Nausea, Vomiting, Abdominal Pain, Melena, Hematochezia Psych: Reports: Mood Normal Objective Physical Examination General Exam: Positive: Alert, Cooperative, No Acute Distress Eye Exam: Positive: PERRLA, Conjunctiva & lids normal, EOMI; Negative: Sclera icteric ENT Exam: Positive: Atraumatic, Mucous membr. moist/pink, Pharynx Normal Neck Exam: Positive: Supple; Negative: JVD, thyromegaly Chest Exam: Positive: Clear to auscultation, Diminished (Right lower lung ); Negative: Rales, Rhonchi Heart Exam: Positive: Rate Normal, Regular Rhythm, Normal S1, Normal S2; Negative: Murmurs, Rubs Abdomen Exam: Positive: Normal bowel sounds, Soft; Negative: Tenderness, Hepatospenomegaly Extremity Exam: Positive: Normal pulses; Negative: Clubbing, Cyanosis, Edema Skin Exam: Positive: Nl turgor and temperature, Other skin issue (Surgical scar noted left posterior chest ); Negative: Breakdown, Lesion Neuro Exam: Positive: Normal Gait, Normal Speech, Cranial Nerves 3-12 NL, Reflexes 2+ Psych Exam: Positive: Mental status NL, Mood NL, Oriented x 3 Assessment /Plan Problems (1) Hypercalcemia of malignancy Status: Acute Response to Treatment: Improving Problem Text: Seems to have corrected with hydration. He is on small prednisone dose. Consider bisphosphonate. (2) Dehydration Status: Acute Problem Text: 12/16/18: NS at 100/hr. We will continue to monitor. Appetite remains poor (3) Anemia Status: Acute Problem Text: 12/16/18: This is most likely anemia of chronic disease. Hgb 7.3. Baseline Hgb ~ 9-10. 7 Iron 23, TIBC 189. Repeat iron studies today. 2 units PRBC today. Consent signed (4) Metastatic lung carcinoma Status: Chronic Problem Specific Plan: Consult Specialist Problem Text: 12/16/18: Patient with left lung adenocarcinoma stage 4, metastatic disease. Oncology has been consulted. Oncology discussed restarting Keytruda at his sast visit to oncology on 12/08/18. Patient received radiation to his right posterior ribs on 12/12/18 (5) Lethargy Status: Acute Problem Text: 12/16/18: Most likely secondary to anemia, dehydration, metastatic disease (6) Pneumonitis Status: Acute Response to Treatment: Stable Problem Text: 12/16/18: Patient was seen by pulmonary on 11/28/18 and was started on Prednisone 10mg po daily. Office note from that visit placed in patient's chart (7) History of lobectomy of lung Status: Chronic Problem Text: 12/16/18: Left upper lobectomy 08/2017 (8) Nutritional deficiency Status: Chronic Problem Specific Plan: Monitor Clinically Problem Text: Low Albumin 1.5. Consider addition of nutritional supplements if acceptable. Plan/VTE VTE Prophylaxis Ordered?: Yes (Lovenox) VS, I&O, 24H, Fishbone Vital Signs/I&O Vital Signs Date Time Temp Pulse Resp B/P (MAP) Pulse Ox O2 Delivery O2 Flow Rate FiO2 12/16/18 06:00 98.0 91 18 103/57 (72) 95 12/15/18 18:30 Room Air I&O- Last 24 Hours up to 6 AM 12/16/18 06:00 Intake Total 2150 ml Output Total 0 ml Balance 2150 ml Laboratory Data 24H LABS Laboratory Tests 2 12/15/18 15:26: Ammonia 25 12/15/18 18:24: Parathyroid Hormone (Intact) 8.3L 12/16/18 05:47: Nucleated Red Blood Cells % (auto) 0.0, Anion Gap 7L, Glomerular Filtration Rate > 60.0, Blood Urea Nitrogen 15, Creatinine 0.38L, Sodium Level 138, Potassium Level 3.4L, Chloride Level 103, Carbon Dioxide Level 28, Calcium Level 10.1, Aspartate Amino Transf (AST/SGOT) 50H, Alanine Aminotransferase (ALT/SGPT) 54, Alkaline Phosphatase 116, Total Bilirubin 0.5, Total Protein 6.4, Albumin 1.5L, Albumin/Globulin Ratio 0.31L CBC/BMP Laboratory Tests 12/16/18 05:47 Red Blood Count 2.89 L, Mean Corpuscular Volume 86.9, Mean Corpuscular Hemoglobin 25.3 L, Mean Corpuscular Hemoglobin Concent 29.1 L, Red Cell Distribution Width 17.4 H, Calcium Level 10.1, Aspartate Amino Transf (AST/SGOT) 50 H, Alanine Aminotransferase (ALT/SGPT) 54, Alkaline Phosphatase 116, Total Bilirubin 0.5, Total Protein 6.4, Albumin 1.5 L STEPHANIE REHMAN Dec 16, 2018 09:00 Chalo Simmons MD Dec 16, 2018 12:31
[2018-12-16] MEDS: MAGNESIUM OXIDE 400 MG TAB (MAG-OX) PO SCH (09:30)
[2018-12-16] MEDS: POTASSIUM CHLORIDE 10 MEQ SR TABLET PO SCH (09:30)
[2018-12-16] MEDS: predniSONE 10 MG TAB PO SCH (09:30)
[2018-12-16] MEDS: MORPHINE 30 MG SA TAB PO SCH ×2 (09:31→20:15)
[2018-12-16] MEDS: ENOXAPARIN 40 MG/0.4 ML SYRINGE (J1650) SC SCH (09:31)
[2018-12-16 09:50] LABS: IRON (FE) 23 UG/DL (65-175); PERCENT SATURATION 21.1 % (19.7-50.0); TOTAL IRON BINDING CAPACITY 109 UG/DL (250-450)
[2018-12-16] MEDS ORDERED: POTASSIUM CHLORIDE 10 MEQ SR TABLET PO ONE (10:00)
[2018-12-16] MEDS ORDERED: MOM 30ML SUSPENSION UDC PO PRN (11:15)
--- NOTE | 2018-12-16 14:27 | REP ---
Clinical: Pain and swelling. Technique: AP and lateral views of right humerus. Findings: No acute fracture or dislocation. Skeletal structures, joint spaces, and surrounding soft tissues are normal. Impression: Normal right humerus. Electronically Signed by Mark Su MD 12/16/2018 02:19 P
--- NOTE | 2018-12-16 14:28 | REP ---
Clinical: Pain and swelling. Technique: AP and lateral views of the right forearm. Findings: No acute fracture or dislocation. Skeletal structures, joint spaces, and surrounding soft tissues are essentially normal for age. No subcutaneous emphysema or radiodense foreign body. Impression: No acute fracture dislocation. Electronically Signed by Mark Su MD 12/16/2018 02:19 P
--- NOTE | 2018-12-16 19:44 | REP ---
Clinical: Left upper extremity pain and swelling . Technique: Castro scale and color Doppler evaluation using linear high frequency transducer. Findings: Ultrasound examination of the left upper extremity deep venous structures from the including jugular, subclavian, axillary, brachial, basilic, and cephalic veins demonstrates normal compressibility flow and wave patterns in response to respiration and augmentation. There is no evidence for deep venous thrombosis. Impression: No evidence for deep venous thrombosis. Electronically Signed by Mark Su MD 12/16/2018 07:36 P
[2018-12-16 20:00] VITALS: BP 110/60
--- NOTE | 2018-12-16 21:50 | ECGEPIP ---
[facility] - ED Test Date: 2018-12-15 Pat Name: DORIS FRANCE Department: Room: - Gender: Male Operations Support Specialist: alize : 1950 Requested By: Chivo Pringle Order Number: [id number] Reading MD: Chivo Veronica Measurements Intervals Bryce Rate: 102 P: 21 CA: 129 QRS: -38 QRSD: 100 T: 59 QT: 313 QTc: 408 Interpretive Statements SINUS TACHYCARDIA LEFT AXIS DEVIATION PATTERN CONSISTENT WITH PULMONARY DISEASE SIMILAR TO 11/05/18 Electronically Signed on 12-16-2018 21:49:55 EDT by Chivo Veronica
[2018-12-17 06:00] VITALS: BP 104/68
[2018-12-17 06:49] LABS: HEMATOCRIT 30.5 % (42.0-52.0); MEAN CORPUSCULAR HEMOGLOBIN 26.6 pg (27.0-33.0); MEAN CORPUSCULAR HGB CONC 30.5 g/dl (32.0-36.5); MEAN CORPUSCULAR VOLUME 87.1 fl (80.0-96.0); PLATELET COUNT, AUTOMATED 178 10^3/uL (150-450); WHITE BLOOD COUNT 7.1 10^3/uL (4.0-10.0)
[2018-12-17 06:51] LABS: HEMOGLOBIN 9.3 g/dl (13.5-17.5)
[2018-12-17 07:14] LABS: ALBUMIN 1.5 GM/DL (3.2-5.2); ALT/SGPT 84 U/L (12-78); BILIRUBIN,TOTAL 2.1 MG/DL (0.2-1.0); BLOOD UREA NITROGEN 8 MG/DL (7-18); CALCIUM LEVEL 10.2 MG/DL (8.8-10.2); CARBON DIOXIDE LEVEL 31 MEQ/L (21-32); CHLORIDE LEVEL 100 MEQ/L (98-107); CREATININE FOR GFR 0.38 MG/DL (0.70-1.30); GLOMERULAR FILTRATION RATE > 60.0 (>49); GLUCOSE, FASTING 87 MG/DL (70-100); POTASSIUM SERUM 3.4 MEQ/L (3.5-5.1); SODIUM LEVEL 135 MEQ/L (136-145); TOTAL PROTEIN 6.3 GM/DL (6.4-8.2)
[2018-12-17] MEDS: BUDESONIDE 0.5 MG/2 ML INHALATION SUSPENSION INH SCH ×2 (07:30→21:06)
[2018-12-17] MEDS ORDERED: ACETAMINOPH W/CODEINE #3 TAB UD PO PRN (08:30)
--- NOTE | 2018-12-17 08:46 | IPNPDOC ---
Subjective Date Seen The patient was seen on 12/17/18. Subjective Chief Complaint/HPI no appetite, frequently confused per . ENT: Denies: Head Aches, Dysphagia Pulmonary: Denies: Dyspnea, Cough Cardiovascular: Denies: Chest Pain, Palpitations Gastrointestinal: Denies: Nausea, Abdominal Pain Hematologic: Denies: Bruising Objective Physical Examination General Exam: Positive: Alert, Cooperative, No Acute Distress Eye Exam: Positive: PERRLA, Conjunctiva & lids normal, EOMI; Negative: Sclera icteric ENT Exam: Positive: Atraumatic, Mucous membr. moist/pink, Pharynx Normal, Other ENT (frontal swelling creating Leonine facies. ) Neck Exam: Positive: Supple; Negative: JVD, thyromegaly Chest Exam: Positive: Clear to auscultation, Diminished (Right lower lung ); Negative: Rales, Rhonchi Heart Exam: Positive: Rate Normal, Regular Rhythm, Normal S1, Normal S2; Negative: Murmurs, Rubs Abdomen Exam: Positive: Normal bowel sounds, Soft; Negative: Tenderness, Hepatospenomegaly Extremity Exam: Positive: Normal pulses; Negative: Clubbing, Cyanosis, Edema Skin Exam: Positive: Nl turgor and temperature, Other skin issue (Surgical scar noted left posterior chest ); Negative: Breakdown, Lesion Neuro Exam: Positive: Normal Gait, Cranial Nerves 3-12 NL, Reflexes 2+, Other (he is slow and a bit clumsy but no deficit.) Psych Exam: Positive: Mental status NL, Mood NL, Oriented x 3 Assessment /Plan Problems (1) Hypercalcemia of malignancy Status: Acute Response to Treatment: Improving Problem Text: 12/17: still WNL but po intake inadequate, still on IV fluids which can be reduced a bit today. Waiting for consult from Oncology. Seems to have corrected with hydration. He is on small prednisone dose. Consider bisphosphonate. (2) Dehydration Status: Acute Problem Text: 12/17: po intake is poor. observes that since routine MS Contin was started about 2 weeks ago his appetite has plummeted and he has been less active and frequently confused and would like for us to reduce his dose. Will change to T#3, 1-2 q4h prn. Codeine is listed under allergy but he had nausea not "allergy". If side effects are recurrent, consider hydrocodone/apap. 12/16/18: NS at 100/hr. We will continue to monitor. Appetite remains poor (3) Anemia Status: Acute Problem Text: 12/17/18: stable since transfusion. no bruising or bleeding. 12/16/18: This is most likely anemia of chronic disease. Hgb 7.3. Baseline Hgb ~ 9-10. 11/16/18 Iron 23, TIBC 189. Repeat iron studies today. 2 units PRBC today. Consent signed (4) Metastatic lung carcinoma Status: Chronic Problem Specific Plan: Consult Specialist Problem Text: 12/16/18: Patient with left lung adenocarcinoma stage 4, metastatic disease. Oncology has been consulted. Oncology discussed restarting Keytruda at his sast visit to oncology on 12/08/18. Patient received radiation to his right posterior ribs on 12/12/18 (5) Lethargy Status: Acute Problem Text: 12/17: also likely significant contribution from narcotic analgesics 12/16/18: Most likely secondary to anemia, dehydration, metastatic disease (6) Pneumonitis Status: Acute Response to Treatment: Stable Problem Text: 12/17: reviewed status with Dr. Mccauley from pulmonary office yesterday. 12/16/18: Patient was seen by pulmonary on 11/28/18 and was started on Prednisone 10mg po daily. 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 Consider addition of nutritional supplements if acceptable. Plan/VTE VTE Prophylaxis Ordered?: Yes (Lovenox) Plan Anticipated Discharge: Home VS, I&O, 24H, Fishbone Vital Signs/I&O Vital Signs Date Time Temp Pulse Resp B/P (MAP) Pulse Ox O2 Delivery O2 Flow Rate FiO2 12/17/18 06:00 97.2 94 16 104/68 (80) 95 12/15/18 18:30 Room Air I&O- Last 24 Hours up to 6 AM 12/17/18 06:00 Intake Total 2760 ml Output Total 625 ml Balance 2135 ml Laboratory Data 24H LABS Laboratory Tests 2 12/16/18 10:01: Reticulocyte # (auto) 30.2, Differential Slide Review Report, Peripheral Blood Smear Path Consult PERIPHERAL SMEAR, Percent Reticulocyte Count 1.0, Reticulocyte Hemoglobin Equivalent 24.6, Haptoglobin 409H, Lactate Dehydrogenase 274H 12/17/18 05:54: Nucleated Red Blood Cells % (auto) 0.0, Anion Gap 4L, Glomerular Filtration Rate > 60.0, Blood Urea Nitrogen 8, Creatinine 0.38L, Sodium Level 135L, Potassium Level 3.4L, Chloride Level 100, Carbon Dioxide Level 31, Calcium Level 10.2, Aspartate Amino Transf (AST/SGOT) 82H, Alanine Aminotransferase (ALT/SGPT) 84H, Alkaline Phosphatase 129H, Total Bilirubin 2.1#H, Total Protein 6.3L, Albumin 1.5L, Albumin/Globulin Ratio 0.31L CBC/BMP Laboratory Tests 12/17/18 05:54 Red Blood Count 3.50 L, Mean Corpuscular Volume 87.1, Mean Corpuscular Hemoglobin 26.6 L, Mean Corpuscular Hemoglobin Concent 30.5 L, Red Cell Distribution Width 16.6 H, Calcium Level 10.2, Aspartate Amino Transf (AST/SGOT) 82 H, Alanine Aminotransferase (ALT/SGPT) 84 H, Alkaline Phosphatase 129 H, Total Bilirubin 2.1 #H, Total Protein 6.3 L, Albumin 1.5 L Chalo Simmons MD Dec 17, 2018 08:46
[2018-12-17] MEDS: POTASSIUM CHLORIDE 10 MEQ SR TABLET PO SCH (09:34)
[2018-12-17] MEDS: ENOXAPARIN 40 MG/0.4 ML SYRINGE (J1650) SC SCH (09:35)
[2018-12-17] MEDS: predniSONE 10 MG TAB PO SCH (09:35)
[2018-12-17] MEDS: DOCUSATE SODIUM 100 MG CAP PO SCH ×2 (09:35→22:14)
[2018-12-17] MEDS: MAGNESIUM OXIDE 400 MG TAB (MAG-OX) PO SCH (09:35)
[2018-12-17 10:00] VITALS: BP 120/70
[2018-12-17] MEDS: ACETAMINOPH W/CODEINE #3 TAB UD PO PRN (11:56)
[2018-12-17 14:00] VITALS: BP 122/64
--- NOTE | 2018-12-17 14:13 | CR ---
DATE OF CONSULTATION: 12/17/2018 REASON FOR CONSULTATION: 1. Follow-up in a patient with history of non-small cell lung cancer on Keytruda admitted to the hospital for altered mental status. 2. Squamous cell carcinoma of the lung. 3. Pembrolizumab therapy on hold due to questionable pneumonitis. HISTORY OF PRESENT ILLNESS: This is a 68-year-old male with a history of metastatic squamous cell carcinoma of the lung. Pembrolizumab therapy was on hold to rule out a pneumonitis. The patient performance status is 2-3. The patient was admitted to the hospital with altered mental status. It was suspected that either the patient was admitted for hypercalcemia or metastasis to the brain or overdose with morphine. The patient, upon presentation of the ER on 12/15/2018, was referred by oncologist for tachycardia. The patient stated that he was more lethargic recently and has not been eating. He has been two Ensure per day; however, he was on a high dose of MS Contin prescribed by palliative. He denies any constipation. His Keytruda was restarted two weeks ago after being off for a while. The patient remains independent and he was accompanied by his spouse. He is walking with a cane and he reports voiding and moving his bowels regularly. Denies any nausea or vomiting. No blood in his stool. No fever, dysuria, diarrhea or cough. Past medical, social and surgical history are reviewed. ALLERGIES: As per EMR: 1. PENICILLIN. 2. CODEINE. Family history and social history are unchanged. Medications reconciled, reviewed and updated in the EMR. PHYSICAL EXAMINATION: Patient on 12/17/2018 was awake, alert, oriented, not in acute distress. Vital signs: Temperature 96.7, heart rate reported 109, during the examination was 95, respiratory rate 20, blood pressure 120/70, pulse oximetry 95. Pulmonary: Bilaterally decreased breath sounds. HEENT: Conjunctiva injected, clear, anicteric. Neck: Supple. No jugular venous distention (JVD). Cardiac: S1, S2 regular rhythm and rate. No added sounds. Abdomen: Bowel sounds positive. Nontender. No organomegaly noted. Extremities: No cyanosis, clubbing or edema. Pulse normal. Skin: No rashes. No lesions. Neuro: Unremarkable. Cranial nerves, speech and motor exams were done. Gait was not checked. Psych: At the time of the examination on 12/17/2018 was unremarkable. LABORATORY DATA: 12/17/2018 CBC unremarkable except for a hemoglobin of 9.3. Haptoglobin 408. Peripheral blood smear was done on 12/16/2018. Peripheral blood smear noted chronic normocytic anemia with no abnormal immature leukocytes, normal platelets. Chemistries were unremarkable except for potassium of 3.4, direct bilirubin 2.1, AST 82, ALT 84, alkaline phosphatase 129, total protein 6.3 and PTH was 8.3. Ammonia level was 25. IMAGING: Vascular ultrasound was done. No evidence of deep vein thrombosis (DVT). US x-ray no evidence of DVT. 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 No acute intracranial pathology. ASSESSMENT/PLAN: This is a 68-year-old male with a history of metastatic squamous cell of the lung. The patient was on Keytruda, but it is on hold. 1. Altered mental status. The patient appeared to have an overdose of morphine. Morphine was stopped on 12/17/2018 and was switched to codeine and Tylenol. 2. Electrolyte. Previous hypercalcemia improved on hydration. 3. Hypokalemia. Recommend supplementation with potassium. 4. Anemia, normochromic, chronic. Likely due to anemia of inflammatory disease. Ordered iron studies, B12 and folate. 5. Metastatic lung carcinoma. The patient will upon his discharged. 6. Pulmonary. Pulmonary had seen the patient on 11/28/2018 and started the patient on prednisone 10 mg by mouth daily. 7. Other morbid conditions are managed by the hospitalist service. 8. 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 The patient's case will be discussed with radiation oncology should he be a candidate for radiation therapy to this lesion. 9. Radiation oncology has started radiation to the ribs and appears to have improvement of the pain. He will continue a total of 10 days of radiation. I spent 55 minutes doing this consultation with counseling the patient and his spouse face to face more than 50% of the time. The patient voiced understanding of the plan and agreed to proceed with the above.
[2018-12-17] MEDS: NS 1,000 ML IV SCH ×2 (16:30→18:45)
[2018-12-17 18:00] VITALS: BP 124/76
[2018-12-17 22:00] VITALS: BP 126/76
[2018-12-18] MEDS: ACETAMINOPH W/CODEINE #3 TAB UD PO PRN ×2 (01:37→19:49)
[2018-12-18] MEDS: NS 1,000 ML IV SCH ×2 (01:45→11:57)
[2018-12-18 06:00] VITALS: BP 120/70
[2018-12-18 06:37] LABS: HEMATOCRIT 32.7 % (42.0-52.0); MEAN CORPUSCULAR HEMOGLOBIN 25.8 pg (27.0-33.0); MEAN CORPUSCULAR HGB CONC 30.6 g/dl (32.0-36.5); MEAN CORPUSCULAR VOLUME 84.3 fl (80.0-96.0); PLATELET COUNT, AUTOMATED 197 10^3/uL (150-450); RED BLOOD COUNT 3.88 10^6/uL (4.30-6.10); WHITE BLOOD COUNT 8.8 10^3/uL (4.0-10.0)
[2018-12-18 06:57] LABS: ALBUMIN 1.5 GM/DL (3.2-5.2); ALT/SGPT 75 U/L (12-78); BILIRUBIN,TOTAL 1.1 MG/DL (0.2-1.0); BLOOD UREA NITROGEN 6 MG/DL (7-18); CALCIUM LEVEL 9.6 MG/DL (8.8-10.2); CARBON DIOXIDE LEVEL 29 MEQ/L (21-32); CHLORIDE LEVEL 100 MEQ/L (98-107); CREATININE FOR GFR 0.42 MG/DL (0.70-1.30); GLOMERULAR FILTRATION RATE > 60.0 (>49); GLUCOSE, FASTING 100 MG/DL (70-100); POTASSIUM SERUM 3.2 MEQ/L (3.5-5.1); SODIUM LEVEL 136 MEQ/L (136-145); TOTAL PROTEIN 6.6 GM/DL (6.4-8.2)
[2018-12-18] MEDS: BUDESONIDE 0.5 MG/2 ML INHALATION SUSPENSION INH SCH ×2 (07:09→19:46)
[2018-12-18] MEDS ORDERED: POTASSIUM CHLORIDE 10 MEQ SR TABLET PO ONE (08:00)
[2018-12-18] MEDS: POTASSIUM CHLORIDE 10 MEQ SR TABLET PO SCH (09:00)
[2018-12-18] MEDS: ENOXAPARIN 40 MG/0.4 ML SYRINGE (J1650) SC SCH (09:01)
[2018-12-18] MEDS: MAGNESIUM OXIDE 400 MG TAB (MAG-OX) PO SCH (09:01)
[2018-12-18] MEDS: predniSONE 10 MG TAB PO SCH (09:01)
[2018-12-18] MEDS: DOCUSATE SODIUM 100 MG CAP PO SCH ×2 (09:01→21:44)
--- NOTE | 2018-12-18 09:52 | IPNPDOC ---
Subjective Date Seen The patient was seen on 12/18/18. Subjective Chief Complaint/HPI more alert, able to drink and eat a little. Constitutional: Denies: Chills Pulmonary: Reports: Dyspnea (with exertion); Denies: Cough Cardiovascular: Denies: Chest Pain, Orthopnea Gastrointestinal: Denies: Vomiting, Abdominal Pain Hematologic: Denies: Bruising Neurological: Reports: Other Symptoms (more alert and improved mental clarity); Denies: Weakness Objective Physical Examination General Exam: Positive: Alert, Cooperative, No Acute Distress Eye Exam: Positive: PERRLA, Conjunctiva & lids normal, EOMI; Negative: Sclera icteric ENT Exam: Positive: Atraumatic, Mucous membr. moist/pink, Pharynx Normal, Other ENT (frontal swelling creating Leonine facies especiall prominent right) Neck Exam: Positive: Supple; Negative: JVD, thyromegaly Chest Exam: Positive: Clear to auscultation, Diminished (Right lower lung ); Negative: Rales, Rhonchi Heart Exam: Positive: Rate Normal, Regular Rhythm, Normal S1, Normal S2; Negative: Murmurs, Rubs Abdomen Exam: Positive: Normal bowel sounds, Soft; Negative: Tenderness, Hepatospenomegaly Extremity Exam: Positive: Normal pulses; Negative: Clubbing, Cyanosis, Edema Skin Exam: Positive: Nl turgor and temperature, Other skin issue (Surgical scar noted left posterior chest ); Negative: Breakdown, Lesion Neuro Exam: Positive: Normal Gait, Cranial Nerves 3-12 NL, Reflexes 2+, Other (more alert, speech clear) Psych Exam: Positive: Mental status NL, Mood NL, Oriented x 3 Assessment /Plan Problems (1) Hypercalcemia of malignancy Status: Resolved Response to Treatment: Improving Problem Text: 12/17: still WNL but po intake inadequate, still on IV fluids which can be reduced a bit today. Waiting for consult from Oncology. Seems to have corrected with hydration. He is on small prednisone dose. Consider bisphosphonate. (2) Dehydration Status: Resolved Problem Text: 12/17: po intake is poor. observes that since routine MS Contin was started about 2 weeks ago his appetite has plummeted and he has been less active and frequently confused and would like for us to reduce his dose. Will change to T#3, 1-2 q4h prn. Codeine is listed under allergy but he had nausea not "allergy". If side effects are recurrent, consider hydrocodone/apap. 12/16/18: NS at 100/hr. We will continue to monitor. Appetite remains poor (3) Anemia Status: Acute Response to Treatment: Improving Problem Text: 12/17/18: stable since transfusion. no bruising or bleeding. 12/16/18: This is most likely anemia of chronic disease. Hgb 7.3. Baseline Hgb ~ 9-10. 11/16/18 Iron 23, TIBC 189. Repeat iron studies today. 2 units PRBC today. Consent signed (4) Metastatic lung carcinoma Status: Chronic Problem Specific Plan: Consult Specialist Problem Text: 12/16/18: Patient with left lung adenocarcinoma stage 4, metastatic disease. Oncology has been consulted. Oncology discussed restarting Keytruda at his sast visit to oncology on 12/08/18. Patient received radiation to his right posterior ribs on 12/12/18 (5) Lethargy Status: Acute Problem Text: 12/18: improved. if po intake is adequate he can stop IV and be discharged in am. 12/17: also likely significant contribution from narcotic analgesics 12/16/18: Most likely secondary to anemia, dehydration, metastatic disease (6) Pneumonitis Status: Acute Response to Treatment: Stable Problem Text: 12/17: reviewed status with Dr. Mccauley from pulmonary office yesterday. 12/16/18: Patient was seen by pulmonary on 11/28/18 and was started on Prednisone 10mg po daily. 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 Low Albumin 1.5. Consider addition of nutritional supplements if acceptable. Plan/VTE VTE Prophylaxis Ordered?: Yes (Lovenox) Plan Anticipated Discharge: Home VS, I&O, 24H, Fishbone Vital Signs/I&O Vital Signs Date Time Temp Pulse Resp B/P (MAP) Pulse Ox O2 Delivery O2 Flow Rate FiO2 12/18/18 06:00 96.7 89 16 120/70 (87) 97 12/15/18 18:30 Room Air I&O- Last 24 Hours up to 6 AM 12/18/18 06:00 Intake Total 1500 ml Output Total 1795 ml Balance -295 ml Laboratory Data 24H LABS Laboratory Tests 2 12/18/18 06:21: Nucleated Red Blood Cells % (auto) 0.0, Anion Gap 7L, Glomerular Filtration Rate > 60.0, Blood Urea Nitrogen 6L, Creatinine 0.42L, Sodium Level 136, Potassium Level 3.2L, Chloride Level 100, Carbon Dioxide Level 29, Calcium Level 9.6, Aspartate Amino Transf (AST/SGOT) 64H, Alanine Aminotransferase (ALT/SGPT) 75, Alkaline Phosphatase 134H, Total Bilirubin 1.1H, Total Protein 6.6, Albumin 1.5L, Albumin/Globulin Ratio 0.29L CBC/BMP Laboratory Tests 12/18/18 06:21 Red Blood Count 3.88 L, Mean Corpuscular Volume 84.3, Mean Corpuscular Hemoglobin 25.8 L, Mean Corpuscular Hemoglobin Concent 30.6 L, Red Cell Distr ibution Width 16.7 H, Calcium Level 9.6, Aspartate Amino Transf (AST/SGOT) 64 H, Alanine Aminotransferase (ALT/SGPT) 75, Alkaline Phosphatase 134 H, Total Bilirubin 1.1 H, Total Protein 6.6, Albumin 1.5 L Chalo Simmons MD Dec 18, 2018 09:52
[2018-12-18 14:00] VITALS: BP 116/62
[2018-12-18 22:00] VITALS: BP 119/65
[2018-12-19] MEDS: NS 1,000 ML IV SCH (04:45)
[2018-12-19 05:33] LABS: HEMATOCRIT 34.3 % (42.0-52.0); HEMOGLOBIN 10.4 g/dl (13.5-17.5); MEAN CORPUSCULAR HEMOGLOBIN 25.6 pg (27.0-33.0); MEAN CORPUSCULAR HGB CONC 30.3 g/dl (32.0-36.5); MEAN CORPUSCULAR VOLUME 84.5 fl (80.0-96.0); PLATELET COUNT, AUTOMATED 208 10^3/uL (150-450); RED BLOOD COUNT 4.06 10^6/uL (4.30-6.10); WHITE BLOOD COUNT 8.8 10^3/uL (4.0-10.0)
[2018-12-19 06:00] VITALS: BP 121/67
[2018-12-19 06:01] LABS: ALBUMIN 1.7 GM/DL (3.2-5.2); ALT/SGPT 65 U/L (12-78); BILIRUBIN,TOTAL 0.9 MG/DL (0.2-1.0); BLOOD UREA NITROGEN 5 MG/DL (7-18); CALCIUM LEVEL 10.5 MG/DL (8.8-10.2); CARBON DIOXIDE LEVEL 29 MEQ/L (21-32); CHLORIDE LEVEL 99 MEQ/L (98-107); CREATININE FOR GFR 0.47 MG/DL (0.70-1.30); GLOMERULAR FILTRATION RATE > 60.0 (>49); GLUCOSE, FASTING 95 MG/DL (70-100); POTASSIUM SERUM 3.5 MEQ/L (3.5-5.1); SODIUM LEVEL 135 MEQ/L (136-145); TOTAL PROTEIN 7.1 GM/DL (6.4-8.2)
[2018-12-19] MEDS: BUDESONIDE 0.5 MG/2 ML INHALATION SUSPENSION INH SCH ×2 (07:49→20:01)
[2018-12-19] MEDS: predniSONE 10 MG TAB PO SCH (09:00)
[2018-12-19] MEDS: DOCUSATE SODIUM 100 MG CAP PO SCH ×2 (09:00→21:21)
[2018-12-19] MEDS: ENOXAPARIN 40 MG/0.4 ML SYRINGE (J1650) SC SCH (09:00)
[2018-12-19] MEDS: POTASSIUM CHLORIDE 10 MEQ SR TABLET PO SCH (09:01)
[2018-12-19] MEDS: ACETAMINOPH W/CODEINE #3 TAB UD PO PRN ×2 (09:01→21:21)
[2018-12-19] MEDS: MAGNESIUM OXIDE 400 MG TAB (MAG-OX) PO SCH (09:01)
--- NOTE | 2018-12-19 09:18 | IPNPDOC ---
Subjective Date Seen The patient was seen on 12/19/18. Subjective Chief Complaint/HPI hypercalcemia Events since last encounter Patient has improved with po intake. Remains with IVF at 60 cc per hour. No BM x several days. Denies n/v. pain controlled with Tylenol #3 Constitutional: Denies: Chills, Fever, Night Sweats Cardiovascular: Denies: Chest Pain, Palpitations, Orthopnea, Paroxysmal Noc. Dyspnea, Lt Headedness Gastrointestinal: Reports: Constipation; Denies: Nausea, Vomiting, Abdominal Pain, Diarrhea Psych: Reports: Mood Normal; Denies: Depression, Memory Issues Objective Physical Examination General Exam: Positive: Alert, Cooperative, No Acute Distress Eye Exam: Positive: PERRLA, EOMI; Negative: Conjunctiva & lids normal (drianage and mild swelling), Sclera icteric ENT Exam: Positive: Atraumatic, Mucous membr. moist/pink, Pharynx Normal, Other ENT (frontal swelling creating Leonine facies especiall prominent right) Neck Exam: Positive: Supple; Negative: JVD, thyromegaly Chest Exam: Positive: Clear to auscultation, Diminished (Right lower lung ); Negative: Rales, Rhonchi Heart Exam: Positive: Rate Normal, Regular Rhythm, Normal S1, Normal S2; Negative: Murmurs, Rubs Abdomen Exam: Positive: Normal bowel sounds, Soft; Negative: Tenderness, Hepatospenomegaly Extremity Exam: Positive: Normal pulses; Negative: Clubbing, Cyanosis, Edema Skin Exam: Positive: Nl turgor and temperature, Other skin issue (Surgical scar noted left posterior chest ); Negative: Breakdown, Lesion Neuro Exam: Positive: Normal Gait, Cranial Nerves 3-12 NL, Reflexes 2+, Other (more alert, speech clear) Psych Exam: Positive: Mental status NL, Mood NL, Oriented x 3 Assessment /Plan Problems (1) Hypercalcemia of malignancy Status: Resolved Response to Treatment: Improving Problem Text: 12/19/18: Ca back to 10.5; therefore, +ZA 4 x 1 remains stable. Will DC IVF and see how he does with po intake. Potential DC home in am. 12/17: still WNL but po intake inadequate, still on IV fluids which can be reduced a bit today. Waiting for consult from Oncology. Seems to have corrected with hydration. He is on small prednisone dose. Consider bisphosphonate. (2) Anemia Status: Acute Response to Treatment: Improving Problem Text: 12/17/18: stable since transfusion. no bruising or bleeding. 12/16/18: This is most likely anemia of chronic disease. Hgb 7.3. Baseline Hgb ~ 9-10. 11/16/18 Iron 23, TIBC 189. Repeat iron studies today. 2 units PRBC today. Consent signed (3) Metastatic lung carcinoma Status: Chronic Problem Specific Plan: Consult Specialist Problem Text: 12/16/18: Patient with left lung adenocarcinoma stage 4, metastatic disease. Oncology has been consulted. Oncology discussed restarting Keytruda at his sast visit to oncology on 12/08/18. Patient received radiation to his right posterior ribs on 12/12/18 (4) Lethargy Status: Acute Problem Text: 12/19/18: DC IVF. Anticipate DC home in am. 12/18: improved. if po intake is adequate he can stop IV and be discharged in am. 12/17: also likely significant contribution from narcotic analgesics 12/16/18: Most likely secondary to anemia, dehydration, metastatic disease (5) Pneumonitis Status: Acute Response to Treatment: Stable Problem Text: 12/17: reviewed status with Dr. Mccauley from pulmonary office yesterday. 12/16/18: Patient was seen by pulmonary on 11/28/18 and was started on Prednisone 10mg po daily. 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 Low Albumin 1.5. Consider addition of nutritional supplements if acceptable. (8) Dehydration Status: Resolved Problem Text: 12/17: po intake is poor. observes that since routine MS Contin was started about 2 weeks ago his appetite has plummeted and he has been less active and frequently confused and would like for us to reduce his dose. Will change to T#3, 1-2 q4h prn. Codeine is listed under allergy but he had nausea not "allergy". If side effects are recurrent, consider hydrocodone/apap. 12/16/18: NS at 100/hr. We will continue to monitor. Appetite remains poor Plan/VTE VTE Prophylaxis Ordered?: Yes (Lovenox) Plan Anticipated Discharge: Home VS, I&O, 24H, Fishbone Vital Signs/I&O Vital Signs Date Time Temp Pulse Resp B/P (MAP) Pulse Ox O2 Delivery O2 Flow Rate FiO2 12/19/18 09:01 20 12/19/18 06:00 97.9 71 121/67 (85) 99 12/15/18 18:30 Room Air I&O- Last 24 Hours up to 6 AM 12/19/18 06:00 Intake Total 2250 ml Output Total 1750 ml Balance 500 ml Laboratory Data 24H LABS Laboratory Tests 2 12/19/18 05:13: Nucleated Red Blood Cells % (auto) 0.0, Anion Gap 7L, Glomerular Filtration Rate > 60.0, Blood Urea Nitrogen 5L, Creatinine 0.47L, Sodium Level 135L, Potassium Level 3.5, Chloride Level 99, Carbon Dioxide Level 29, Calcium Level 10.5H, Aspartate Amino Transf (AST/SGOT) 45H, Alanine Aminotransferase (ALT/SGPT) 65, Alkaline Phosphatase 131H, Total Bilirubin 0.9, Total Protein 7.1, Albumin 1.7L, Albumin/Globulin Ratio 0.31L CBC/BMP Laboratory Tests 12/19/18 05:13 Red Blood Count 4.06 L, Mean Corpuscular Volume 84.5, Mean Corpuscular Hemoglobin 25.6 L, Mean Corpuscular Hemoglobin Concent 30.3 L, Red Cell Distribution Width 17.0 H, Calcium Level 10.5 H, Aspartate Amino Transf (AST/SGOT) 45 H, Alanine Aminotransferase (ALT/SGPT) 65, Alkaline Phosphatase 131 H, Total Bilirubin 0.9, Total Protein 7.1, Albumin 1.7 L Tricia Wolfe Dec 19, 2018 09:18 Chad Muniz M.D. Dec 19, 2018 17:31
[2018-12-19] MEDS: ERYTHROMYCIN OPHTH OINT OD SCH ×3 (10:30→23:45)
[2018-12-19 14:00] VITALS: BP 110/77
[2018-12-19] MEDS ORDERED: ZOLEDRONIC ACID 5 MG in APPROPRIATE DILUENT 1 EA IV ONE (20:00)
[2018-12-19 22:00] VITALS: BP 127/79
[2018-12-20 06:00] VITALS: BP 120/75
[2018-12-20] MEDS: BUDESONIDE 0.5 MG/2 ML INHALATION SUSPENSION INH SCH (07:31)
[2018-12-20] MEDS: ENOXAPARIN 40 MG/0.4 ML SYRINGE (J1650) SC SCH (09:00)
[2018-12-20] MEDS ORDERED: ERYT1OIN26 OD (09:18)
[2018-12-20] MEDS ORDERED: ACET1TAB16 PO (09:18)
[2018-12-20] MEDS: DOCUSATE SODIUM 100 MG CAP PO SCH (09:28)
[2018-12-20] MEDS: ERYTHROMYCIN OPHTH OINT OD SCH (09:28)
[2018-12-20] MEDS: predniSONE 10 MG TAB PO SCH (09:28)
[2018-12-20] MEDS: MAGNESIUM OXIDE 400 MG TAB (MAG-OX) PO SCH (09:28)
[2018-12-20] MEDS: POTASSIUM CHLORIDE 10 MEQ SR TABLET PO SCH (09:28)
[2018-12-20 10:13] VITALS: BP 124/62
[2018-12-20] MEDS: SODIUM CHLORIDE 0.9% INJ 10 ML SYR IV PRN (12:55)
--- NOTE | 2018-12-20 15:07 | DSES ---
DATE OF ADMISSION: 12/19/2018 DATE OF DISCHARGE: 12/20/2018 PRIMARY CARE PROVIDER: Chad Muniz MD ATTENDING PHYSICIAN: Chad Muniz MD HISTORY OF PRESENT ILLNESS: This is a 68-year-old gentleman with a history of metastatic non small lung cancer, who presented to the emergency department as recommended by his oncologist for tachycardia at his appointment. The patient had noted to have significant lethargy and poor oral intake and had been using higher doses of MS-Contin at home, which his contributed to constipation and poor oral intake. The patient was subsequently admitted to family medicine service. HOSPITAL COURSE: Mr. Wray was noted to have some hypokalemia, which was subsequently corrected. His medications for pain were adjusted from MS-Contin to Tylenol #3 with relief of his pain, as well as improvement in his oral intake. The patient was also noted to have some mild hypercalcemia, however, that corrected with IV hydration. The patient passed physical therapy (PT) evaluation due to some weakness and has been deemed safe for discharge to home. PHYSICAL EXAMINATION: Vital signs are stable. HEENT: Neck is supple without lymphadenopathy or jugular venous distention (JVD). CARDIOVASCULAR: Heart rate and rhythm are regular. PULMONARY: Lungs are clear to auscultation bilaterally. ABDOMEN: Soft and nontender. EXTREMITIES: Bilateral lower extremities without any edema. Positive pedal pulses bilaterally. ASSESSMENT: 1. Hypercalcemia. 2. Non small cell lung cancer. 3. Debility and weakness. 4. Chronic anemia. 5. History of pneumonitis. 6. Hypoalbuminemia. 7. Right eye acute conjunctivitis. PLAN: The patient will be discharged to home. Diet is as tolerated. Activity is as tolerated. The patient will take Tylenol with codeine one tablet every 4 hours as needed for pain. He also will take erythromycin ophthalmic ointment to the right eye three times a day for some conjunctivitis that developed during the hospitalization. Other medications include: - albuterol nebulizer four times a day as needed - albuterol HFA two puffs every 4 to 6 hours as needed - budesonide 0.5 mg per 2 mL inhalation twice a day - Prolia 120 mg subcutaneous every 6 weeks - magnesium oxide 400 mg by mouth daily - Roxanol 0.25 mL by mouth every 4 hours as needed for pain - nitroglycerin tablet as needed for chest pain - Keytruda continued per oncology recommendations - potassium chloride 20 mEq by mouth daily - prednisone 10 mg by mouth daily - tumeric 500 mg by mouth daily The patient is status post oncology consultation with Dr. Anderson from the oncology service as well. The patient is discharged in stable and satisfactory condition with no further questions at the time of discharge.
== END 2018-12-20 12:59 | disposition home health service (06) | DRG 641 ==
LOC: M ED 12:41 → M ED INP 12:42 → M MSPAV 18:46 → OBSVTOIN 12-19 16:53
PROVIDERS: ADMIT Hospitalist; ATTEND Family Medicine
PROC: 30233N1 Transfusion of Nonautologous Red Blood Cells into Peripheral Vein, Percutaneous Approach (ICD-10-PCS; principal; 2018-12-16)
DX: E83.52 Hypercalcemia (principal); C34.92 Malignant neoplasm of unspecified part of left bronchus or lung; E86.0 Dehydration; R53.83 Other fatigue; D63.0 Anemia in neoplastic disease; G89.3 Neoplasm related pain (acute) (chronic); E88.09 Other disorders of plasma-protein metabolism, not elsewhere classified; E87.6 Hypokalemia; H10.31 Unspecified acute conjunctivitis, right eye; R41.82 Altered mental status, unspecified; T40.2X1A Poisoning by other opioids, accidental (unintentional), initial encounter; Z79.52 Long term (current) use of systemic steroids; Z79.899 Other long term (current) drug therapy; Z88.0 Allergy status to penicillin; Z88.5 Allergy status to narcotic agent; Z87.891 Personal history of nicotine dependence; Z90.2 Acquired absence of lung [part of]; Z79.891 Long term (current) use of opiate analgesic

== ENCOUNTER 2018-12-22 11:08 | Inpatient (IN) | payer MEDICARE ==
[~2018-12-22] VITALS: Ht 177.8 cm; Wt 68.2 kg
[~2018-12-22 11:08] MED LIST changes: +ACET1TAB16 PO; -ALBU17IN2 INH; +ERYT1OIN26 OD; -METH4TAB28 PO; +METH4TAB8 PO; -MORP-38 PO; +MORP-69 PO; +ONDA8TAB10 PO; -ONDA8TAB7 PO; +PROV108A INH
[2018-12-22 11:57] LABS: BASO % 0.3 % (0.0-1.0); EOS % 0.3 % (0.0-3.0); HEMATOCRIT 33.4 % (42.0-52.0); HEMOGLOBIN 10.4 g/dl (13.5-17.5); LYMPH % 2.4 % (24.0-44.0); MEAN CORPUSCULAR HEMOGLOBIN 26.8 pg (27.0-33.0); MEAN CORPUSCULAR HGB CONC 31.1 g/dl (32.0-36.5); MEAN CORPUSCULAR VOLUME 86.1 fl (80.0-96.0); MONO # 0.7 10^3/uL (0.0-0.8); MONO % 8.7 % (0.0-5.0); NEUTROPHILS # 6.7 10^3/uL (1.8-7.7); NEUTROPHILS % 87.9 % (36.0-66.0); PLATELET COUNT, AUTOMATED 171 10^3/uL (150-450); RED BLOOD COUNT 3.88 10^6/uL (4.30-6.10); WHITE BLOOD COUNT 7.6 10^3/uL (4.0-10.0)
[2018-12-22] MEDS ORDERED: NS 1,000 ML IV ONE (12:00)
[2018-12-22 12:09] LABS: INR 1.33; PROTHROMBIN TIME 16.2 SECONDS (11.8-14.0)
[2018-12-22 12:27] LABS: LYMPH # 0.2 10^3/uL (1.5-4.5)
[2018-12-22 12:36] LABS: ALBUMIN 1.8 GM/DL (3.2-5.2); ALT/SGPT 54 U/L (12-78); BILIRUBIN,DIRECT 0.3 MG/DL (0.0-0.2); BILIRUBIN,TOTAL 0.6 MG/DL (0.2-1.0); BLOOD UREA NITROGEN 19 MG/DL (7-18); CALCIUM LEVEL 9.9 MG/DL (8.8-10.2); CARBON DIOXIDE LEVEL 23 MEQ/L (21-32); CHLORIDE LEVEL 99 MEQ/L (98-107); CK-MB VALUE MASS < 1.0 NG/ML (<3.6); CPK CREATINE PHOSPHOKINASE 9 U/L (39-308); CREATININE FOR GFR 0.59 MG/DL (0.70-1.30); GLOMERULAR FILTRATION RATE > 60.0 (>49); GLUCOSE, FASTING 223 MG/DL (70-100); LIPASE 62 U/L (73-393); MAGNESIUM LEVEL 1.1 MG/DL (1.8-2.4); MB/CK RELATIVE INDEX 11.11 (< OR =4); NT-PRO BNP 306 PG/ML (<125); PHOSPHORUS LEVEL 1.5 MG/DL (2.5-4.9); POTASSIUM SERUM 3.9 MEQ/L (3.5-5.1); SODIUM LEVEL 133 MEQ/L (136-145); TOTAL PROTEIN 5.9 GM/DL (6.4-8.2); TROPONIN I < 0.02 NG/ML (< 0.10)
[2018-12-22] MEDS ORDERED: MAG SULF 1GM/100ML (MAG RUN) 1 GM in IV 1 EA IV ONE ×2 (13:15→14:30)
--- NOTE | 2018-12-22 13:21 | REP ---
CHEST, PORTABLE: AP portable of the chest is performed and compared to a prior study of 12/15/2018. Pleural and parenchymal densities on the left are stable. There are no new parenchymal opacities identified. The cardiomediastinal silhouette is unchanged. A central venous catheter is seen with the tip in the right atrium. IMPRESSION: Stable exam. Electronically Signed by Reinaldo Castro MD 12/22/2018 03:20 P
[2018-12-22 13:58] LABS: OSMOLALITY SERUM 285 MOSM/KG (280-301)
[2018-12-22] MEDS ORDERED: ACETAMINOPH W/CODEINE #3 TAB UD PO ONE (14:00)
[2018-12-22] MEDS ORDERED: ONDANSETRON 4MG/2ML VIAL (J2405) IV ONE (14:00)
[2018-12-22] MEDS ORDERED: MORPHINE 2 MG/ML 1ML VIAL (J2270) IV PRN (14:00)
--- NOTE | 2018-12-22 14:15 | REP ---
CT HEAD WITHOUT CONTRAST: HISTORY: Altered mental status. COMPARISON: 12/15/2018. Areas of decreased attentuation are present in the periventricular white matter. This represents small vessel ischemic disease. There is no intraparenchymal hemorrhage or midline shift. The ventricular system and cortical sulci are dilated consistent with mild volume loss. There is no extracerebral collection. A mass lesion is present in the frontal sinuses. There is destruction of the anterior and posterior cortex of the frontal sinuses. There is posterior extension into the ethmoid sinuses and anterior cranial fossa. There is lateral extension into the medial aspects of the orbits. The mass appears unchanged compared to the previous study. IMPRESSION: 1. Small vessel ischemic disease. 2. Mild volume loss. 3. There has been no change in size of the destructive lesion present in the frontal sinuses_. Electronically Signed by Jonatan Bonner MD 12/22/2018 02:46 P
[2018-12-22] MEDS: NS 1,000 ML IV SCH (14:30)
[2018-12-22] MEDS ORDERED: ALBUTEROL 90 MCG/ACT 8GM HFA INHALER INH PRN (14:30)
--- NOTE | 2018-12-22 14:52 | HPEPDOC ---
General Date of Admission Dec 22, 2018 at 14:28 Date of Service: Dec 22, 2018 Attending Physician: Chad Muniz M.D. Chief Complaint The patient is a 68-year-old male admitted with a reason for visit of Lethargy. 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 Apparently, the patient's heart rate was noted to be in the 150s at the cancer center. He was sent to the ER for further evaluation. At this time, he denies any complaints of fevers, chills, chest pain, palpitations, abdominal pain, or any nausea/vomiting/diarrhea. The patient does endorse that he has had a si gnificant decrease in his by mouth intake during this time, and has been generally weak. He will be admitted to the [facility] for further evaluation and management. Home Medications Scheduled Budesonide (Budesonide) 0.5 Mg/2 Ml Ampul.neb, 0.5 MG PO BID, (Reported) Denosumab Injection (Prolia) 60 Mg/1 Ml Syringe, 120 MG SC Q6WKS, (Reported) DUE TO RECEIVE NEXT DOSE 12/29/18 Erythromycin Base (Erythromycin) 1 Gm Oint...g., 1 DOSE OD TID Magnesium Oxide (Magnesium Oxide) 400 Mg Tablet, 400 MG PO DAILY, (Reported) Pembrolizumab (Keytruda) 100 Mg/4 Ml Vial, 200 MG IV [id number], (Reported) DUE TO RECEIVE 12/29/18 Potassium Chloride (Potassium Chloride) 20 Meq Tab.er.prt, 20 MEQ PO DAILY, (Reported) Prednisone (Prednisone) 10 Mg Tablet, 10 MG PO DAILY, (Reported) Turmeric Root Extract (Turmeric) 500 Mg Capsule, 500 MG PO DAILY, (Reported) Scheduled PRN Acetaminophen with Codeine (Acetaminophen-Cod #3 Tablet) 1 Each Tablet, 1 EA PO Q4HP PRN for MILD PAIN (PS 1-4) Albuterol Sulf (Albuterol Sulfate) 2.5 Mg/3 Ml Vial.neb, 2.5 MG INH QID PRN for SHORTNESS OF BREATH, (Reported) Albuterol Sulfate (Ventolin Hfa) 18 Gm Hfa.aer.ad, 2 PUFF INH Q4-6HP PRN for SOB/WHEEZING, (Reported) Nitroglycerin (Nitroglycerin) 0.4 Mg Tab.subl, 0.4 MG SL Q5MP PRN for CHEST PAIN, (Reported) Allergies Coded Allergies: Penicillins (Verified Allergy, Intermediate, swelling, 08/10/18) codeine (Verified Adverse Reaction, Mild, abdominal pain, 12/22/18) SPOKE WITH PATIENT - STATED ABOUT 30 TO 35 YEARS AGO HE EXPERIENCED ABDOMINAL PAIN. HE IS CURRENTLY TAKING TYLENOL #3 AND HASN'T HAD ANY ISSUES. Past Medical History Medical History As noted in HPI. Social History * Smoker: former Smoker Alcohol: Denies Drugs: denies Review of Systems Other systems 10 point review of systems negative unless otherwise specified in HPI. Physical Examination General Exam: Positive: Cooperative, Other (patient cachectic appearing with bitemporal wasting.) ENT Exam: Positive: Atraumatic; Negative: Mucous membr. moist/pink (dry mucous membranes) Chest Exam: Positive: Diminished; Negative: Rales Heart Exam: Positive: Tachycardic, Normal S1, Normal S2 Telemetry: Positive: Sinus Abdomen Exam: Positive: Soft; Negative: Tenderness Extremity Exam: Negative: Tenderness, Swelling Psych Exam: Positive: Oriented x 3 Vital Signs Vital Signs Date Time Temp Pulse Resp B/P (MAP) Pulse Ox O2 Delivery O2 Flow Rate FiO2 12/22/18 14:15 111 18 112/68 (83) 98 Room Air 12/22/18 11:28 98.2 Laboratory Data Labs 24H Laboratory Tests 2 12/22/18 11:29: Immature Granulocyte % (Auto) 0.4, White Blood Count 7.6, Red Blood Count 3.88L, Hemoglobin 10.4L, Hematocrit 33.4L, Mean Corpuscular Volume 86.1, Mean Corpuscu lar Hemoglobin 26.8L, Mean Corpuscular Hemoglobin Concent 31.1L, Red Cell Distribution Width 17.0H, Platelet Count 171, Neutrophils (%) (Auto) 87.9H, Lymphocytes (%) (Auto) 2.4L, Monocytes (%) (Auto) 8.7H, Eosinophils (%) (Auto) 0.3, Basophils (%) (Auto) 0.3, Neutrophils # (Auto) 6.7, Lymphocytes # (Auto) 0.2L, Monocytes # (Auto) 0.7, Eosinophils # (Auto) 0.0, Basophils # (Auto) 0.0, Nucleated Red Blood Cells % (auto) 0.0, Prothrombin Time 16.2H, Prothromb Time International Ratio 1.33, Anion Gap 11, Glomerular Filtration Rate > 60.0, Osmolality 285, Calcium Level 9.9, Phosphorus Level 1.5L, Magnesium Level 1.1L, Aspartate Amino Transf (AST/SGOT) 49H, Alanine Aminotransferase (ALT/SGPT) 54, Alkaline Phosphatase 132H, Total Bilirubin 0.6, Direct Bilirubin 0.3H, Total Creatine Kinase 9L, Creatine Kinase MB < 1.0, Creatine Kinase MB Relative Index 11.11H, Troponin I < 0.02, CW-Nnt-X-Type Natriuretic Peptide 306H, Total Protein 5.9L, Albumin 1.8L, Albumin/Globulin Ratio 0.44L, Lipase 62L, Thyroid Stimulating Hormone (TSH) 1.540 12/22/18 13:00: Ammonia 25 12/22/18 13:01: Whole Blood Ionized Calcium 5.3 CBC/BMP Laboratory Tests 12/22/18 11:29 Red Blood Count 3.88 L, Mean Corpuscular Volume 86.1, Mean Corpuscular Hemoglobin 26.8 L, Mean Corpuscular Hemoglobin Concent 31.1 L, Red Cell Distribution Width 17.0 H, Neutrophils (%) (Auto) 87.9 H, Lymphocytes (%) (Auto) 2.4 L, Monocytes (%) (Auto) 8.7 H, Eosinophils (%) (Auto) 0.3, Basophils (%) (Auto) 0.3, Neutrophils # (Auto) 6.7, Lymphocytes # (Auto) 0.2 L, Monocytes # (Auto) 0.7, Eosinophils # (Auto) 0.0, Basophils # (Auto) 0.0 Plan / VTE VTE Prophylaxis Ordered?: Yes Plan Plan Failure to Thrive, Dehydration, and Electrolyte Abnormalities 2/2 Decreased PO Intake, underlying Malignancy IVF Hydration ordered PO Intake encouraged I 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
[2018-12-22 15:58] LABS: BLOOD UREA NITROGEN 17 MG/DL (7-18); CALCIUM LEVEL 9.8 MG/DL (8.8-10.2); CARBON DIOXIDE LEVEL 30 MEQ/L (21-32); CHLORIDE LEVEL 102 MEQ/L (98-107); CREATININE FOR GFR 0.35 MG/DL (0.70-1.30); GLOMERULAR FILTRATION RATE > 60.0 (>49); GLUCOSE, FASTING 107 MG/DL (70-100); POTASSIUM SERUM 4.2 MEQ/L (3.5-5.1); SODIUM LEVEL 135 MEQ/L (136-145)
[2018-12-22] MEDS: ACETAMINOPHEN TAB 650MG DOSE (2X325MG) PO PRN (16:08)
[2018-12-22] MEDS: K-PHOS NEUTRAL 250MG TABLET (SOD.PHOSPHATE/POT.PHOSPHATE) PO SCH ×2 (17:56→20:50)
[2018-12-22] MEDS: HEPARIN SOD (PORCINE) 5000 UNITS/ML VIAL SQ SCH (20:23)
[2018-12-22 21:16] LABS: BLOOD UREA NITROGEN 16 MG/DL (7-18); CALCIUM LEVEL 10.3 MG/DL (8.8-10.2); CARBON DIOXIDE LEVEL 29 MEQ/L (21-32); CHLORIDE LEVEL 101 MEQ/L (98-107); CREATININE FOR GFR 0.44 MG/DL (0.70-1.30); GLOMERULAR FILTRATION RATE > 60.0 (>49); GLUCOSE, FASTING 153 MG/DL (70-100); POTASSIUM SERUM 3.7 MEQ/L (3.5-5.1); SODIUM LEVEL 135 MEQ/L (136-145)
[2018-12-23] MEDS: NS 1,000 ML IV SCH (00:31)
[2018-12-23 03:12] LABS: BLOOD UREA NITROGEN 14 MG/DL (7-18); CALCIUM LEVEL 9.6 MG/DL (8.8-10.2); CARBON DIOXIDE LEVEL 27 MEQ/L (21-32); CHLORIDE LEVEL 101 MEQ/L (98-107); CREATININE FOR GFR 0.38 MG/DL (0.70-1.30); GLOMERULAR FILTRATION RATE > 60.0 (>49); GLUCOSE, FASTING 105 MG/DL (70-100); POTASSIUM SERUM 3.7 MEQ/L (3.5-5.1); SODIUM LEVEL 135 MEQ/L (136-145)
[2018-12-23 06:54] LABS: HEMATOCRIT 29.3 % (42.0-52.0); MEAN CORPUSCULAR HEMOGLOBIN 26.8 pg (27.0-33.0); MEAN CORPUSCULAR HGB CONC 30.7 g/dl (32.0-36.5); MEAN CORPUSCULAR VOLUME 87.2 fl (80.0-96.0); PLATELET COUNT, AUTOMATED 168 10^3/uL (150-450); RED BLOOD COUNT 3.36 10^6/uL (4.30-6.10); WHITE BLOOD COUNT 6.9 10^3/uL (4.0-10.0)
[2018-12-23 07:14] LABS: MAGNESIUM LEVEL 1.3 MG/DL (1.8-2.4)
[2018-12-23 07:50] LABS: BLOOD UREA NITROGEN 12 MG/DL (7-18); CALCIUM LEVEL 8.8 MG/DL (8.8-10.2); CARBON DIOXIDE LEVEL 27 MEQ/L (21-32); CHLORIDE LEVEL 102 MEQ/L (98-107); CREATININE FOR GFR 0.33 MG/DL (0.70-1.30); GLOMERULAR FILTRATION RATE > 60.0 (>49); GLUCOSE, FASTING 99 MG/DL (70-100); POTASSIUM SERUM 3.5 MEQ/L (3.5-5.1); SODIUM LEVEL 136 MEQ/L (136-145)
[2018-12-23] MEDS: predniSONE 10 MG TAB PO SCH (09:36)
[2018-12-23] MEDS: K-PHOS NEUTRAL 250MG TABLET (SOD.PHOSPHATE/POT.PHOSPHATE) PO SCH ×2 (09:36→19:42)
[2018-12-23] MEDS: MAGNESIUM OXIDE 400 MG TAB (MAG-OX) PO SCH (09:36)
[2018-12-23] MEDS: POTASSIUM CHLORIDE 10 MEQ SR TABLET PO SCH (09:37)
[2018-12-23] MEDS: HEPARIN SOD (PORCINE) 5000 UNITS/ML VIAL SQ SCH ×2 (09:50→21:35)
--- NOTE | 2018-12-23 10:37 | IPNPDOC ---
Subjective Date Seen The patient was seen on 12/23/18. Subjective Chief Complaint/HPI Pt this morning states that he is feeling alright. He is discouraged. He states that he was told by Dr Anderson yesterday that he has about 2 weeks to live. Pt would like to cont with immunotherapy. He isn't really sure what Dr Anderson's thoughts are on that. He states that he would like to get recommendations from another oncologist about his treatment. His is in agreement. General: Reports: Fatigue Constitutional: Denies: Chills, Fever Pulmonary: Denies: Dyspnea, Cough Cardiovascular: Denies: Chest Pain, Palpitations Gastrointestinal: Denies: Nausea, Vomiting Neurological: Reports: Weakness Psych: Reports: Mood Normal Objective Physical Examination General Exam: Positive: Alert, Cooperative, No Acute Distress, Other (patient cachectic appearing with bitemporal wasting.) ENT Exam: Positive: Atraumatic, Mucous membr. moist/pink Chest Exam: Positive: Diminished; Negative: Rales Heart Exam: Positive: Tachycardic (90s at rest, mininal exertion in bed rate increased to 120s.), Normal S1, Normal S2 Telemetry: Positive: Sinus Abdomen Exam: Positive: Soft; Negative: Tenderness Extremity Exam: Negative: Edema, Tenderness, Swelling Psych Exam: Positive: Mood NL, Oriented x 3 Assessment /Plan Problems (1) Metastatic lung carcinoma Status: Chronic Response to Treatment: Stable Problem Specific Plan: Consult Specialist, Monitor Clinically Problem Text: 12/22/18 long dw patient who prefers to build up strength and restart Keytruda/XRT on 12/2612/08/18 Dr. Brian offered retry of Keytruda given high PD expression and good response to only 2 treatments (held 2 ? 2 pneumonitis) T3 q4H prn pain 12/06/18 CT/PET: The previously identified uptake in mediastinal lymph nodes has decreased and some of these nodes now demonstrate central necrosis. However, there is new uptake in the chest in an expansile lesion in the posterior arch of the right eighth rib and in a mediastinal node anterior to the heart. In the abdomen, there are multiple new hypermetabolic foci in the liver, left adrenal, head of the pancreas, adjacent to the spleen, precaval mesenteric nodes. In the pelvis. There is new uptake in internal iliac nodes bilaterally and in enlarged left femoral nodes. 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 (6) Hypercalcemia of malignancy Status: Resolved Problem Text: 12/23 Ca 9.7 12/18 sp ZA 4 mg x 1 Plan/VTE VTE Prophylaxis Ordered?: Yes VS, I&O, 24H, Fishbone Vital Signs/I&O Vital Signs Date Time Temp Pulse Resp B/P (MAP) Pulse Ox O2 Delivery O2 Flow Rate FiO2 12/23/18 09:02 116/79 (91) 12/23/18 08:15 107 18 95 Room Air 12/23/18 07:30 97.9 Laboratory Data 24H LABS Laboratory Tests 2 12/22/18 11:29: Immature Granulocyte % (Auto) 0.4, White Blood Count 7.6, Red Blood Count 3.88L, Hemoglobin 10.4L, Hematocrit 33.4L, Mean Corpuscular Volume 86.1, Mean Corpuscular Hemoglobin 26.8L, Mean Corpuscular Hemoglobin Concent 31.1L, Red Cell Distribution Width 17.0H, Platelet Count 171, Neutrophils (%) (Auto) 87.9H, Lymphocytes (%) (Auto) 2.4L, Monocytes (%) (Auto) 8.7H, Eosinophils (%) (Auto) 0.3, Basophils (%) (Auto) 0.3, Neutrophils # (Auto) 6.7, Lymphocytes # (Auto) 0.2L, Monocytes # (Auto) 0.7, Eosinophils # (Auto) 0.0, Basophils # (Auto) 0.0, Nucleated Red Blood Cells % (auto) 0.0, Prothrombin Time 16.2H, Prothromb Time International Ratio 1.33, Anion Gap 11, Glomerular Filtration Rate > 60.0, Osmolality 285, Calcium Level 9.9, Phosphorus Level 1.5L, Magnesium Level 1.1L, Aspartate Amino Transf (AST/SGOT) 49H, Alanine Aminotransferase (ALT/SGPT) 54, Alkaline Phosphatase 132H, Total Bilirubin 0.6, Direct Bilirubin 0.3H, Total Creatine Kinase 9L, Creatine Kinase MB < 1.0, Creatine Kinase MB Relative Index 11.11H, Troponin I < 0.02, UX-Ajq-M-Type Natriuretic Peptide 306H, Total Protein 5.9L, Albumin 1.8L, Albumin/Globulin Ratio 0.44L, Lipase 62L, Thyroid Stimul ating Hormone (TSH) 1.540 12/22/18 13:00: Ammonia 25 12/22/18 13:01: Whole Blood Ionized Calcium 5.3 12/22/18 15:23: Anion Gap 3L, Glomerular Filtration Rate > 60.0, Calcium Level 9.8, Blood Urea Nitrogen 17, Creatinine 0.35L, Sodium Level 135L, Potassium Level 4.2, Chloride Level 102, Carbon Dioxide Level 30 12/22/18 20:13: Anion Gap 5L, Glomerular Filtration Rate > 60.0, Blood Urea Nitrogen 16, Creatinine 0.44L, Sodium Level 135L, Potassium Level 3.7, Chloride Level 101, Carbon Dioxide Level 29, Calcium Level 10.3H 12/23/18 02:36: Anion Gap 7L, Glomerular Filtration Rate > 60.0, Blood Urea Nitrogen 14, Creatinine 0.38L, Sodium Level 135L, Potassium Level 3.7, Chloride Level 101, Carbon Dioxide Level 27, Calcium Level 9.6 12/23/18 06:40: Anion Gap 7L, Glomerular Filtration Rate > 60.0, Blood Urea Nitrogen 12, Creatinine 0.33L, Sodium Level 136, Potassium Level 3.5, Chloride Level 102, Carbon Dioxide Level 27, Calcium Level 8.8, Nucleated Red Blood Cells % (auto) 0.0, Magnesium Level 1.3L CBC/BMP Laboratory Tests 12/22/18 11:29 Red Blood Count 3.88 L, Mean Corpuscular Volume 86.1, Mean Corpuscular Hemoglobin 26.8 L, Mean Corpuscular Hemoglobin Concent 31.1 L, Red Cell Distribution Width 17.0 H, Neutrophils (%) (Auto) 87.9 H, Lymphocytes (%) (Auto) 2.4 L, Monocytes (%) (Auto) 8.7 H, Eosinophils (%) (Auto) 0.3, Basophils (%) (Auto) 0.3, Neutrophils # (Auto) 6.7, Lymphocytes # (Auto) 0.2 L, Monocytes # (Auto) 0.7, Eosinophils # (Auto) 0.0, Basophils # (Auto) 0.0 12/22/18 15:23 Calcium Level 9.8 12/22/18 20:13 Calcium Level 10.3 H 12/23/18 02:36 Calcium Level 9.6 12/23/18 06:40 Red Blood Count 3.36 L, Mean Corpuscular Volume 87.2, Mean Corpuscular H emoglobin 26.8 L, Mean Corpuscular Hemoglobin Concent 30.7 L, Red Cell Distribution Width 17.2 H, Calcium Level 8.8 MARCIO GABRIEL PA-C Dec 23, 2018 10:37 Chad Muniz M.D. Dec 23, 2018 16:26
[2018-12-23 13:01] VITALS: BP 163/78
[2018-12-23] MEDS: MAG SULF 1GM/100ML (MAG RUN) 1 GM in IV 1 EA IV SCH ×2 (13:08→14:49)
[2018-12-23] MEDS: ALBUTEROL SULFATE 2.5 MG/0.5 ML INH NEB SOLN INH PRN ×2 (13:17→17:41)
[2018-12-23 14:10] LABS: BLOOD UREA NITROGEN 10 MG/DL (7-18); CALCIUM LEVEL 9.7 MG/DL (8.8-10.2); CARBON DIOXIDE LEVEL 26 MEQ/L (21-32); CHLORIDE LEVEL 99 MEQ/L (98-107); CREATININE FOR GFR 0.39 MG/DL (0.70-1.30); GLOMERULAR FILTRATION RATE > 60.0 (>49); GLUCOSE, FASTING 153 MG/DL (70-100); POTASSIUM SERUM 3.7 MEQ/L (3.5-5.1); SODIUM LEVEL 132 MEQ/L (136-145)
[2018-12-23 16:00] VITALS: BP 114/80
[2018-12-23] MEDS: ACETAMINOPHEN TAB 650MG DOSE (2X325MG) PO PRN ×2 (19:42→23:37)
[2018-12-23 20:00] VITALS: BP 110/57
[2018-12-23 20:52] LABS: BLOOD UREA NITROGEN 9 MG/DL (7-18); CALCIUM LEVEL 9.5 MG/DL (8.8-10.2); CARBON DIOXIDE LEVEL 28 MEQ/L (21-32); CHLORIDE LEVEL 98 MEQ/L (98-107); CREATININE FOR GFR 0.42 MG/DL (0.70-1.30); GLOMERULAR FILTRATION RATE > 60.0 (>49); GLUCOSE, FASTING 177 MG/DL (70-100); POTASSIUM SERUM 3.6 MEQ/L (3.5-5.1); SODIUM LEVEL 132 MEQ/L (136-145)
[2018-12-23 23:59] VITALS: BP 137/62
[2018-12-24 02:50] LABS: HEMATOCRIT 29.5 % (42.0-52.0); HEMOGLOBIN 9.1 g/dl (13.5-17.5); MEAN CORPUSCULAR HEMOGLOBIN 26.8 pg (27.0-33.0); MEAN CORPUSCULAR HGB CONC 30.8 g/dl (32.0-36.5); PLATELET COUNT, AUTOMATED 170 10^3/uL (150-450); RED BLOOD COUNT 3.39 10^6/uL (4.30-6.10); WHITE BLOOD COUNT 7.7 10^3/uL (4.0-10.0)
[2018-12-24 03:07] LABS: BLOOD UREA NITROGEN 7 MG/DL (7-18); CALCIUM LEVEL 9.2 MG/DL (8.8-10.2); CARBON DIOXIDE LEVEL 30 MEQ/L (21-32); CHLORIDE LEVEL 99 MEQ/L (98-107); CREATININE FOR GFR 0.35 MG/DL (0.70-1.30); GLOMERULAR FILTRATION RATE > 60.0 (>49); GLUCOSE, FASTING 102 MG/DL (70-100); POTASSIUM SERUM 3.6 MEQ/L (3.5-5.1); SODIUM LEVEL 134 MEQ/L (136-145)
[2018-12-24 04:00] VITALS: BP 133/59
--- NOTE | 2018-12-24 07:41 | ECGEPIP ---
[facility] - ED Test Date: 2018-12-22 Pat Name: DORIS FRANCE Department: Room: - Gender: Male [employer]: alize : 1950 Requested By: Susan Dukes Order Number: [id number] Reading MD: Susan Dukes Measurements Intervals [place] Rate: 125 P: 22 [place]: 123 QRS: -31 QRSD: 79 T: 68 QT: 285 QTc: 412 Interpretive Statements SINUS TACHYCARDIA MARKED LEFT AXIS DEVIATION PATTERN CONSISTENT WITH PULMONARY DISEASE INCREASED RATE 12/15/18 Electronically Signed on 12-24-2018 7:41:31 EDT by Susan Dukes
[2018-12-24] MEDS: ACETAMINOPHEN TAB 650MG DOSE (2X325MG) PO PRN (07:53)
[2018-12-24 08:00] VITALS: BP 130/75
[2018-12-24] MEDS: predniSONE 10 MG TAB PO SCH (09:19)
[2018-12-24] MEDS: POTASSIUM CHLORIDE 10 MEQ SR TABLET PO SCH ×2 (09:19→21:45)
[2018-12-24] MEDS: MAGNESIUM OXIDE 400 MG TAB (MAG-OX) PO SCH ×2 (09:20→21:45)
[2018-12-24] MEDS: HEPARIN SOD (PORCINE) 5000 UNITS/ML VIAL SQ SCH ×2 (09:20→21:46)
[2018-12-24 10:00] LABS: BLOOD UREA NITROGEN 8 MG/DL (7-18); CALCIUM LEVEL 8.9 MG/DL (8.8-10.2); CARBON DIOXIDE LEVEL 26 MEQ/L (21-32); CHLORIDE LEVEL 100 MEQ/L (98-107); CREATININE FOR GFR 0.26 MG/DL (0.70-1.30); GLOMERULAR FILTRATION RATE > 60.0 (>49); GLUCOSE, FASTING 111 MG/DL (70-100); MAGNESIUM LEVEL 1.4 MG/DL (1.8-2.4); POTASSIUM SERUM 3.6 MEQ/L (3.5-5.1); SODIUM LEVEL 134 MEQ/L (136-145)
[2018-12-24 12:00] VITALS: BP 126/81
--- NOTE | 2018-12-24 12:11 | IPNPDOC ---
Subjective Date Seen The patient was seen on 12/24/18. Subjective Chief Complaint/HPI improved weakness Constitutional: Denies: Chills Eyes: Denies: Pain ENT: Denies: Head Aches Skin: Denies: Rash Pulmonary: Denies: Dyspnea, Cough Cardiovascular: Denies: Chest Pain, Palpitations Gastrointestinal: Denies: Nausea, Vomiting Objective Physical Examination General Exam: Positive: Alert, Cooperative, No Acute Distress, Other (patient cachectic appearing with bitemporal wasting.) ENT Exam: Positive: Atraumatic, Mucous membr. moist/pink Chest Exam: Positive: Diminished; Negative: Rales Heart Exam: Positive: Tachycardic (90s at rest, mininal exertion in bed rate i ncreased to 120s.), Normal S1, Normal S2 Telemetry: Positive: Sinus Abdomen Exam: Positive: Soft; Negative: Tenderness Extremity Exam: Negative: Edema, Tenderness, Swelling Psych Exam: Positive: Mood NL, Oriented x 3 Assessment /Plan Problems (1) Metastatic lung carcinoma Status: Chronic Response to Treatment: Stable Problem Specific Plan: Consult Specialist, Monitor Clinically Problem Text: 12/22/18 long dw patient who prefers to build up strength and restart Keytruda/XRT on 12/2612/08/18 Dr. Brian offered retry of Keytruda given high PD expression and good response to only 2 treatments (held 2 ? 2 pneumonitis) T3 q4H prn pain 12/06/18 CT/PET: The previously identified uptake in mediastinal lymph nodes has decreased and some of these nodes now demonstrate central necrosis. However, there is new uptake in the chest in an expansile lesion in the posterior arch of the right eighth rib and in a mediastinal node anterior to the heart. In the abdomen, there are multiple new hypermetabolic foci in the liver, left adrenal, head of the pancreas, adjacent to the spleen, precaval mesenteric nodes. In the pelvis. There is new uptake in internal iliac nodes bilaterally and in enlarged left femoral nodes. 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 (6) Hypercalcemia of malignancy Status: Resolved Problem Text: 12/24 8.9 12/22 11.2, 12/19 sp ZA 4 mg x 1 Plan/VTE VTE Prophylaxis Ordered?: Yes VS, I&O, 24H, Fishbone Vital Signs/I&O Vital Signs Date Time Temp Pulse Resp B/P (MAP) Pulse Ox O2 Delivery O2 Flow Rate FiO2 12/24/18 08:00 98.1 115 18 130/75 (93) 96 12/23/18 12:32 Room Air I&O- Last 24 Hours up to 6 AM 12/24/18 06:00 Intake Total 1740 ml Output Total 0 ml Balance 1740 ml Laboratory Data 24H LABS Laboratory Tests 2 12/23/18 13:39: Anion Gap 7L, Glomerular Filtration Rate > 60.0, Blood Urea Nitrogen 10, Creatinine 0.39L, Sodium Level 132L, Potassium Level 3.7, Chloride Level 99, Carbon Dioxide Level 26, Calcium Level 9.7 12/23/18 20:16: Anion Gap 6L, Glomerular Filtration Rate > 60.0, Blood Urea Nitrogen 9, Creatinine 0.42L, Sodium Level 132L, Potassium Level 3.6, Chloride Level 98, Carbon Dioxide Level 28, Calcium Level 9.5 12/24/18 02:44: Anion Gap 5L, Glomerular Filtration Rate > 60.0, Blood Urea Nitrogen 7, Creatinine 0.35L, Sodium Level 134L, Potassium Level 3.6, Chloride Level 99, Carbon Dioxide Level 30, Calcium Level 9.2, Nucleated Red Blood Cells % (auto) 0.0 12/24/18 09:12: Anion Gap 8, Glomerular Filtration Rate > 60.0, Blood Urea Nitrogen 8, Creatinine 0.26L, Sodium Level 134L, Potassium Level 3.6, Chloride Level 100, Carbon Dioxide Level 26, Calcium Level 8.9, Magnesium Level 1.4L CBC/BMP Laboratory Tests 12/23/18 13:39 Calcium Level 9.7 12/23/18 20:16 Calcium Level 9.5 12/24/18 02:44 Calcium Level 9.2, Red Blood Count 3.39 L, Mean Corpuscular Volume 87.0, Mean Corpuscular Hemoglobin 26.8 L, Mean Corpuscular Hemoglobin Concent 30.8 L, Red Cell Distribution Width 17.1 H 12/24/18 09:12 Calcium Level 8.9 Chad Muniz M.D. Dec 24, 2018 12:11
[2018-12-24 16:00] VITALS: BP 130/77
[2018-12-24] MEDS ORDERED: SODIUM CHLORIDE 0.9% INJ 10 ML SYR IV PRN (16:45)
[2018-12-24 20:00] VITALS: BP 135/84
[2018-12-24] MEDS: ACETAMINOPH W/CODEINE #3 TAB UD PO PRN (21:44)
[2018-12-24 23:59] VITALS: BP 131/81
[2018-12-25 04:00] VITALS: BP 102/54
[2018-12-25 06:08] LABS: HEMATOCRIT 30.9 % (42.0-52.0); HEMOGLOBIN 9.5 g/dl (13.5-17.5); MEAN CORPUSCULAR HEMOGLOBIN 26.8 pg (27.0-33.0); MEAN CORPUSCULAR HGB CONC 30.7 g/dl (32.0-36.5); MEAN CORPUSCULAR VOLUME 87.3 fl (80.0-96.0); PLATELET COUNT, AUTOMATED 190 10^3/uL (150-450); RED BLOOD COUNT 3.54 10^6/uL (4.30-6.10); WHITE BLOOD COUNT 7.8 10^3/uL (4.0-10.0)
[2018-12-25 06:28] LABS: ALBUMIN 1.7 GM/DL (3.2-5.2); BLOOD UREA NITROGEN 9 MG/DL (7-18); CALCIUM LEVEL 8.9 MG/DL (8.8-10.2); CARBON DIOXIDE LEVEL 26 MEQ/L (21-32); CHLORIDE LEVEL 101 MEQ/L (98-107); CREATININE FOR GFR 0.34 MG/DL (0.70-1.30); GLOMERULAR FILTRATION RATE > 60.0 (>49); GLUCOSE, FASTING 100 MG/DL (70-100); MAGNESIUM LEVEL 1.3 MG/DL (1.8-2.4); SODIUM LEVEL 136 MEQ/L (136-145)
[2018-12-25 08:00] VITALS: BP 133/81
[2018-12-25] MEDS: MAG SULF 1GM/100ML (MAG RUN) 1 GM in IV 1 EA IV SCH ×2 (08:13→09:23)
[2018-12-25] MEDS: predniSONE 10 MG TAB PO SCH (08:13)
[2018-12-25] MEDS: POTASSIUM CHLORIDE 10 MEQ SR TABLET PO SCH ×2 (08:14→20:37)
[2018-12-25] MEDS: SODIUM CHLORIDE 0.9% INJ 10 ML SYR IV SCH (08:14)
[2018-12-25] MEDS: HEPARIN SOD (PORCINE) 5000 UNITS/ML VIAL SQ SCH ×2 (08:14→20:36)
[2018-12-25] MEDS: MAGNESIUM OXIDE 400 MG TAB (MAG-OX) PO SCH ×2 (08:14→20:37)
--- NOTE | 2018-12-25 10:22 | IPNPDOC ---
Subjective Date Seen The patient was seen on 12/25/18. Subjective Chief Complaint/HPI slowly improving strength Constitutional: Denies: Chills Eyes: Denies: Pain ENT: Denies: Head Aches, Ear Pain Skin: Denies: Rash, Lesions Pulmonary: Denies: Dyspnea, Cough Cardiovascular: Denies: Chest Pain, Palpitations Gastrointestinal: Denies: Nausea, Vomiting Objective Physical Examination General Exam: Positive: Alert, Cooperative, No Acute Distress, Other (patient cachectic appearing with bitemporal wasting.) ENT Exam: Positive: Atraumatic, Mucous membr. 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 Ingram-who agreed c restarting pembrolizumab) 12/22 stable CXR (2) Metastatic lung carcinoma Status: Chronic Response to Treatment: Stable Problem Specific Plan: Consult Specialist, Monitor Clinically Problem Text: 12/22/18 long dw patient who prefers to build up strength and restart Keytruda/XRT inpatient 12/08/18 Dr. Brian offered retry of pembrolizumab given high PD expression and good response to only 2 treatments (held 2 ? 2 pneumonitis) 12/01/[address] performed CT mapping for further XRT T3 q4H prn pain 12/06/18 CT/PET: The previously identified uptake in mediastinal lymph nodes has decreased and some of these nodes now demonstrate central necrosis. However, there is new uptake in the chest in an expansile lesion in the posterior arch of the right eighth rib and in a mediastinal node anterior to the heart. In the abdomen, there are multiple new hypermetabolic foci in the liver, left adrenal, head of the pancreas, adjacent to the spleen, precaval mesenteric nodes. In the pelvis. There is new uptake in internal iliac nodes bilaterally and in enlarged left femoral nodes. (3) Hypomagnesemia Status: Acute Problem Text: chronic hypoK/Mg 12/25 4.0/1.3 + Mg runs x 2 12/24 3.6/1.4; increased to K 20 BID, MOX 800 BID 12/17 3.5, 1.3 on HD K 20, MOX 400 (4) Dehydration Status: Resolved Response to Treatment: Stable Problem Specific Plan: Monitor Clinically Problem Text: resolved c IVF (5) Physical deconditioning Status: Chronic Problem Text: 12/23 PT not safe to dc home (6) Hypercalcemia of malignancy Status: Resolved Problem Text: 12/25 8.9 12/22 11.2, 12/19 sp ZA 4 mg x 1 (7) Protein calorie malnutrition Status: Chronic Problem Text: continue Boost TID 12/25 alb 1.7 Plan/VTE VTE Prophylaxis Ordered?: Yes VS, I&O, 24H, Fishbone Vital Signs/I&O Vital Signs Date Time Temp Pulse Resp B/P (MAP) Pulse Ox O2 Delivery O2 Flow Rate FiO2 12/25/18 08:00 97.6 100 18 133/81 (98) 95 12/23/18 12:32 Room Air I&O- Last 24 Hours up to 6 AM 12/25/18 06:00 Intake Total 1480 ml Output Total 100 ml Balance 1380 ml Laboratory Data 24H LABS Laboratory Tests 2 12/25/18 05:23: Nucleated Red Blood Cells % (auto) 0.0, Blood Urea Nitrogen 9, Creatinine 0.34L, Sodium Level 136, Potassium Level 4.0, Chloride Level 101, Carbon Dioxide Level 26, Anion Gap 9, Glomerular Filtration Rate > 60.0, Calcium Level 8.9, Phosphoru s Level 2.0#L, Magnesium Level 1.3L, Albumin 1.7L CBC/BMP Laboratory Tests 12/25/18 05:23 Red Blood Count 3.54 L, Mean Corpuscular Volume 87.3, Mean Corpuscular Hemoglobin 26.8 L, Mean Corpuscular Hemoglobin Concent 30.7 L, Red Cell Distribution Width 17.0 H, Anion Gap 9 Chad Muniz M.D. Dec 25, 2018 10:22
[2018-12-25 14:45] VITALS: BP 150/91
[2018-12-25] MEDS: ALBUTEROL SULFATE 2.5 MG/0.5 ML INH NEB SOLN INH PRN (15:22)
[2018-12-25] MEDS: ERYTHROMYCIN OPHTH OINT OD SCH ×2 (18:02→20:38)
[2018-12-25] MEDS: ACETAMINOPH W/CODEINE #3 TAB UD PO PRN (20:38)
[2018-12-25 22:00] VITALS: BP 141/87
[2018-12-26 06:00] VITALS: BP 132/81
[2018-12-26 06:34] LABS: HEMATOCRIT 31.2 % (42.0-52.0); HEMOGLOBIN 9.4 g/dl (13.5-17.5); MEAN CORPUSCULAR HEMOGLOBIN 26.2 pg (27.0-33.0); MEAN CORPUSCULAR HGB CONC 30.1 g/dl (32.0-36.5); MEAN CORPUSCULAR VOLUME 86.9 fl (80.0-96.0); PLATELET COUNT, AUTOMATED 197 10^3/uL (150-450); RED BLOOD COUNT 3.59 10^6/uL (4.30-6.10); WHITE BLOOD COUNT 8.1 10^3/uL (4.0-10.0)
[2018-12-26 07:04] LABS: ALBUMIN 1.6 GM/DL (3.2-5.2); BLOOD UREA NITROGEN 12 MG/DL (7-18); CARBON DIOXIDE LEVEL 27 MEQ/L (21-32); CHLORIDE LEVEL 100 MEQ/L (98-107); CREATININE FOR GFR 0.38 MG/DL (0.70-1.30); GLOMERULAR FILTRATION RATE > 60.0 (>49); GLUCOSE, FASTING 115 MG/DL (70-100); MAGNESIUM LEVEL 1.6 MG/DL (1.8-2.4); PHOSPHORUS LEVEL 1.7 MG/DL (2.5-4.9); POTASSIUM SERUM 4.1 MEQ/L (3.5-5.1); SODIUM LEVEL 134 MEQ/L (136-145)
[2018-12-26] MEDS ORDERED: MAG SULF 1GM/100ML (MAG RUN) 1 GM in IV 1 EA IV ONE (08:45)
--- NOTE | 2018-12-26 08:45 | IPNPDOC ---
Subjective Date Seen The patient was seen on 12/26/18. Subjective Chief Complaint/HPI Pt this morning without new concerns. He states that his breathing feels alright, he is sleeping alright and he feels steady when out of bed. He states Dr Muniz told him he would be starting Ketuda today. General: Reports: Night Sweats, Fatigue; Denies: Normal Appetite Constitutional: Denies: Chills, Fever Pulmonary: Reports: Dyspnea; Denies: Cough Cardiovascular: Denies: Chest Pain, Palpitations Gastrointestinal: Denies: Nausea, Vomiting, Abdominal Pain Neurological: Reports: Weakness Psych: Reports: Mood Normal Objective Physical Examination General Exam: Positive: Alert, Cooperative, No Acute Distress, Other (patient cachectic appearing with bitemporal wasting.) ENT Exam: Positive: Atraumatic, Mucous membr. moist/pink Chest Exam: Positive: Diminished; Negative: Rales, Wheezing Heart Exam: Positive: Rate Normal, Normal S1, Normal S2 Abdomen Exam: Positive: Normal bowel sounds, Soft; Negative: Tenderness Extremity Exam: Negative: Edema, Tenderness, Swelling Psych Exam: Positive: Mood NL, Oriented x 3 Assessment /Plan Problems (1) Metastatic lung carcinoma Status: Chronic Response to Treatment: Stable Problem Specific Plan: Consult Specialist, Monitor Clinically Problem Text: 12/26 Pt would like to be able to return home, not yet safe per PT. He would like to restart Keytruda while inpt. Will address with attending. I put in call to med onc requesting f/u 12/22/18 long dw patient who prefers to build up strength and restart Keytruda/XRT inpatient 12/08/18 Dr. Brian offered retry of pembrolizumab given high PD expression and good response to only 2 treatments (held 2 ? 2 pneumonitis) 12/01/[address] performed [address] mapping for further XRT T3 q4H prn pain 12/06/18 CT/PET: The previously identified uptake in mediastinal lymph nodes has decreased and some of these nodes now demonstrate central necrosis. However, there is new uptake in the chest in an expansile lesion in the posterior arch of the right eighth rib and in a mediastinal node anterior to the heart. In the abdomen, there are multiple new hypermetabolic foci in the liver, left adrenal, head of the pancreas, adjacent to the spleen, precaval mesenteric nodes. In the pelvis. There is new uptake in internal iliac nodes bilaterally and in enlarged left femoral nodes. (2) Radiation pneumonitis Status: Acute Response to Treatment: Controlled Problem Text: 12/26 Resp status stable. 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 Ingram-who agreed c restarting pembrolizumab) 12/22 stable CXR (3) Hypomagnesemia Status: Acute Problem Text: 12/26 Mag 1.6, Magrun x1 today, cont with PO replacement chronic hypoK/Mg 12/25 4.0/1.3 + Mg runs x 2 12/24 3.6/1.4; increased to K 20 BID, MOX 800 BID 12/17 3.5, 1.3 on HD K 20, MOX 400 (4) Dehydration Status: Resolved Response to Treatment: Stable Problem Specific Plan: Monitor Clinically Problem Text: resolved c IVF (5) Physical deconditioning Status: Chronic Problem Text: 12/23 PT not safe to dc home (6) Hypercalcemia of malignancy Status: Resolved Problem Text: 12/25 8.9 12/22 11.2, 12/19 sp ZA 4 mg x 1 (7) Protein calorie malnutrition Status: Chronic Problem Text: continue Boost TID 12/25 alb 1.7 Plan/VTE VTE Prophylaxis Ordered?: Yes VS, I&O, 24H, Fishbone Vital Signs/I&O Vital Signs Date Time Temp Pulse Resp B/P (MAP) Pulse Ox O2 Delivery O2 Flow Rate FiO2 12/26/18 06:00 99.7 108 18 132/81 (98) 94 12/23/18 12:32 Room Air I&O- Last 24 Hours up to 6 AM 12/26/18 06:00 Intake Total 1340 ml Output Total 0 ml Balance 1340 ml Laboratory Data 24H LABS Laboratory Tests 2 12/26/18 06:09: Nucleated Red Blood Cells % (auto) 0.0, Blood Urea Nitrogen 12, Creatinine 0.38L, Sodium Level 134L, Potassium Level 4.1, Chloride Level 100, Carbon Dioxide Level 27, Anion Gap 7L, Glomerular Filtration Rate > 60.0, Calcium Level 10.0, Phosphorus Level 1.7L, Magnesium Level 1.6L, Albumin 1.6L CBC/BMP Laboratory Tests 12/26/18 06:09 Red Blood Count 3.59 L, Mean Corpuscular Volume 86.9, Mean Corpuscular Hemoglobin 26.2 L, Mean Corpuscular Hemoglobin Concent 30.1 L, Red Cell Distribution Width 17.1 H, Anion Gap 7 L MARCIO GABRIEL PA-C Dec 26, 2018 08:44 Chalo Simmons MD Dec 26, 2018 13:11
[2018-12-26] MEDS: POTASSIUM CHLORIDE 10 MEQ SR TABLET PO SCH ×2 (10:13→20:46)
[2018-12-26] MEDS: predniSONE 10 MG TAB PO SCH (10:14)
[2018-12-26] MEDS: SODIUM CHLORIDE 0.9% INJ 10 ML SYR IV SCH (10:14)
[2018-12-26] MEDS: HEPARIN SOD (PORCINE) 5000 UNITS/ML VIAL SQ SCH ×2 (10:14→20:45)
[2018-12-26] MEDS: MAGNESIUM OXIDE 400 MG TAB (MAG-OX) PO SCH ×2 (10:14→20:46)
[2018-12-26] MEDS: ERYTHROMYCIN OPHTH OINT OD SCH ×3 (10:15→20:45)
[2018-12-26 14:00] VITALS: BP 127/83
[2018-12-26] MEDS: ACETAMINOPHEN TAB 650MG DOSE (2X325MG) PO PRN (15:08)
[2018-12-26 17:27] LABS: APPEARANCE, URINE CLEAR (CLEAR); BACTERIA, URINE AUTO NEGATIVE (NEGATIVE); BILIRUBIN, URINE AUTO NEGATIVE (NEGATIVE); BLOOD, URINE BLOOD NEGATIVE (NEGATIVE); COLOR, URINE YELLOW (YELLOW); GLUCOSE, URINE (UA) AUTO NEGATIVE (NEGATIVE); KETONE, URINE AUTO NEGATIVE (NEGATIVE); LEUKOCYTE ESTERASE, URINE AUTO NEGATIVE (NEGATIVE); MUCUS, URINE SMALL (NEGATIVE); NITRITE, URINE AUTO NEGATIVE (NEGATIVE); PROTEIN, URINE AUTO 1+ mg/dL (NEGATIVE); RBC, URINE AUTO 4 /HPF (0-3); SPECIFIC GRAVITY URINE AUTO 1.015 (1.002-1.035); SQUAMOUS EPITHELIAL CELL UR AU 0 /HPF (0-6); WBC, URINE AUTO 1 /HPF (0-3)
[2018-12-26] MEDS: ACETAMINOPH W/CODEINE #3 TAB UD PO PRN (18:37)
[2018-12-26 22:00] VITALS: BP 117/79
[2018-12-27] MEDS: ACETAMINOPHEN TAB 650MG DOSE (2X325MG) PO PRN (04:38)
[2018-12-27 06:00] VITALS: BP 117/77
[2018-12-27 06:41] LABS: HEMATOCRIT 31.3 % (42.0-52.0); HEMOGLOBIN 9.6 g/dl (13.5-17.5); MEAN CORPUSCULAR HEMOGLOBIN 25.9 pg (27.0-33.0); MEAN CORPUSCULAR HGB CONC 30.7 g/dl (32.0-36.5); MEAN CORPUSCULAR VOLUME 84.4 fl (80.0-96.0); PLATELET COUNT, AUTOMATED 215 10^3/uL (150-450); RED BLOOD COUNT 3.71 10^6/uL (4.30-6.10)
[2018-12-27] MEDS: ALBUTEROL SULFATE 2.5 MG/0.5 ML INH NEB SOLN INH PRN ×2 (08:16→17:34)
[2018-12-27] MEDS: HEPARIN SOD (PORCINE) 5000 UNITS/ML VIAL SQ SCH ×2 (08:48→21:46)
[2018-12-27] MEDS: SODIUM CHLORIDE 0.9% INJ 10 ML SYR IV SCH (08:48)
[2018-12-27] MEDS: POTASSIUM CHLORIDE 10 MEQ SR TABLET PO SCH ×2 (08:49→21:47)
[2018-12-27] MEDS: MAGNESIUM OXIDE 400 MG TAB (MAG-OX) PO SCH ×2 (08:49→21:47)
[2018-12-27] MEDS: ERYTHROMYCIN OPHTH OINT OD SCH ×3 (08:49→21:47)
[2018-12-27] MEDS: predniSONE 10 MG TAB PO SCH (08:49)
--- NOTE | 2018-12-27 09:12 | IPNPDOC ---
Subjective Date Seen The patient was seen on 12/27/18. Subjective Chief Complaint/HPI Pt states that someone from [facility] came to see him yesterday, he isn't sure who it was. There are no notes on the chart. He states that he was told he wouldn't be able to restart Keytruda until he was d/c. He refused PT yesterday bc he wanted to be available to start Keytruda. He states that for the last several weeks he hasn't really been eating much. States that eating solid food made him nauseous and he has difficulty swallowing them. He is drinking liquids, including 2-3 cans of a drink supplement daily, eats some applesauce and ice cream. General: Reports: Fatigue Constitutional: Denies: Chills, Fever ENT: Denies: Head Aches Pulmonary: Denies: Dyspnea, Cough Cardiovascular: Denies: Chest Pain, Palpitations Gastrointestinal: Reports: Nausea (when eating); Denies: Vomiting, Abdominal Pain Neurological: Reports: Weakness Psych: Reports: Mood Normal Objective Physical Examination General Exam: Positive: Alert, Cooperative, No Acute Distress, Other (patient cachectic appearing with bitemporal wasting.) ENT Exam: Positive: Atraumatic, Mucous membr. moist/pink Chest Exam: Positive: Diminished; Negative: Rales, Wheezing Heart Exam: Positive: Rate Normal, Normal S1, Normal S2 Abdomen Exam: Positive: Normal bowel sounds, Soft; Negative: Tenderness Extremity Exam: Negative: Edema, Tenderness, Swelling Psych Exam: Positive: Mood NL, Oriented x 3 Assessment /Plan Problems (1) Metastatic lung carcinoma Status: Chronic Response to Treatment: Stable Problem Specific Plan: Consult Specialist, Monitor Clinically Problem Text: 12/27 pt reports Onc came to see him yest, no notes on the chart. We talked about our goal needs to be to get him home safely as soon as possible for f/u with cancer treatment. He expressed understanding. Today he tells me that he has been having increased diffficulty swallowing recently and therefore a ST eval has been ordered. I also enc him to participate with PT. 12/26 Pt would like to be able to return home, not yet safe per PT. He would like to restart Keytruda while inpt. Will address with attending. I put in call to med onc requesting f/u 12/22/18 long dw patient who prefers to build up strength and restart Keytruda/XRT inpatient 12/08/18 Dr. Brian offered retry of pembrolizumab given high PD expression and good response to only 2 treatments (held 2 ? 2 pneumonitis) 12/01/[address] performed CT mapping for further XRT T3 q4H prn pain 12/06/18 CT/PET: The previously identified uptake in mediastinal lymph nodes has decreased and some of these nodes now demonstrate central necrosis. However, there is new uptake in the chest in an expansile lesion in the posterior arch of the right eighth rib and in a mediastinal node anterior to the heart. In the abdomen, there are multiple new hypermetabolic foci in the liver, left adrenal, head of the pancreas, adjacent to the spleen, precaval mesenteric nodes. In the pelvis. There is new uptake in internal iliac nodes bilaterally and in enlarged left femoral nodes. (2) Radiation pneumonitis Status: Acute Response to Treatment: Controlled Problem Text: 12/26 Resp status stable. 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 Ingram-who agreed c restarting pembrolizumab) 12/22 stable CXR (3) Hypomagnesemia Status: Acute Problem Text: 12/26 Mag 1.6, Magrun x1 today, cont with PO replacement chronic hypoK/Mg 12/25 4.0/1.3 + Mg runs x 2 12/24 3.6/1.4; increased to K 20 BID, MOX 800 BID 12/17 3.5, 1.3 on HD K 20, MOX 400 (4) Dehydration Status: Resolved Response to Treatment: Stable Problem Specific Plan: Monitor Clinically Problem Text: resolved c IVF (5) Physical deconditioning Status: Chronic Problem Text: 12/23 PT not safe to dc home (6) Hypercalcemia of malignancy Status: Resolved Problem Text: 12/25 8.9 12/22 11.2, 12/19 sp ZA 4 mg x 1 (7) Protein calorie malnutrition Status: Chronic Problem Text: continue Boost TID 12/25 alb 1.7 (8) Fever Status: Acute Response to Treatment: Stable Problem Text: elevated temp to 101 yesterday. cultures of venous and port blood sampled, urine negative. no new cough, no increased dyspnea. Plan/VTE VTE Prophylaxis Ordered?: Yes VS, I&O, 24H, Fishbone Vital Signs/I&O Vital Signs Date Time Temp Pulse Resp B/P (MAP) Pulse Ox O2 Delivery O2 Flow Rate FiO2 12/27/18 06:00 100.1 114 16 117/77 (90) 95 12/23/18 12:32 Room Air I&O- Last 24 Hours up to 6 AM 12/27/18 05:59 Intake Total 1320 ml Output Total 350 ml Balance 970 ml Laboratory Data 24H LABS Laboratory Tests 2 12/26/18 17:04: Urine Appearance CLEAR, Urine Color YELLOW, Urine pH 9.0, Urine Specific Henderson 1.015, Urine Protein 1+H, Urine Glucose (UA) NEGATIVE, Urine Ketones NEGATIVE, Urine Urobilinogen 2.0H, Urine Bilirubin NEGATIVE, Urine Leukocyte Esterase NEGATIVE, Urine Blood NEGATIVE, Urine Nitrite NEGATIVE, Urine WBC (Auto) 1, Urine RBC (Auto) 4H, Urine Hyaline Casts (Auto) 0, Urine Bacteria (Auto) NEGATIVE, Urine Squamous Epithelial Cells 0, Urine Mucus (Auto) SMALL, Urine Sperm (Auto) 12/27/18 06:26: Nucleated Red Blood Cells % (auto) 0.0 12/27/18 08:46: CBC/BMP Laboratory Tests 12/27/18 06:26 Red Blood Count 3.71 L, Mean Corpuscular Volume 84.4, Mean Corpuscular Hemoglobin 25.9 L, Mean Corpuscular Hemoglobin Concent 30.7 L, Red Cell Distribution Width 17.1 H Microbiology Microbiology 12/26/18 Blood Culture, Received Pending 12/26/18 Blood Culture, Received Pending 12/26/18 Urine Culture, Received Pending MARCIO GABRIEL PA-C Dec 27, 2018 09:12 Chalo Simmons MD Dec 27, 2018 12:44
[2018-12-27 09:48] LABS: ALBUMIN 1.8 GM/DL (3.2-5.2); BLOOD UREA NITROGEN 16 MG/DL (7-18); CALCIUM LEVEL 10.1 MG/DL (8.8-10.2); CARBON DIOXIDE LEVEL 26 MEQ/L (21-32); CHLORIDE LEVEL 99 MEQ/L (98-107); CREATININE FOR GFR 0.43 MG/DL (0.70-1.30); GLOMERULAR FILTRATION RATE > 60.0 (>49); GLUCOSE, FASTING 119 MG/DL (70-100); PHOSPHORUS LEVEL 2.3 MG/DL (2.5-4.9); POTASSIUM SERUM 4.3 MEQ/L (3.5-5.1); SODIUM LEVEL 135 MEQ/L (136-145)
[2018-12-27 11:21] LABS: MAGNESIUM LEVEL 1.4 MG/DL (1.8-2.4)
[2018-12-27 14:30] VITALS: BP 131/91
[2018-12-27 22:00] VITALS: BP 130/90
[2018-12-28 05:32] LABS: HEMOGLOBIN 9.8 g/dl (13.5-17.5); MEAN CORPUSCULAR HEMOGLOBIN 25.9 pg (27.0-33.0); MEAN CORPUSCULAR HGB CONC 30.6 g/dl (32.0-36.5); MEAN CORPUSCULAR VOLUME 84.7 fl (80.0-96.0); PLATELET COUNT, AUTOMATED 242 10^3/uL (150-450); RED BLOOD COUNT 3.78 10^6/uL (4.30-6.10); WHITE BLOOD COUNT 10.3 10^3/uL (4.0-10.0)
[2018-12-28 05:58] VITALS: BP 130/89
[2018-12-28 06:00] VITALS: BP 130/89
[2018-12-28] MEDS: MAGNESIUM OXIDE 400 MG TAB (MAG-OX) PO SCH ×2 (10:00→20:00)
[2018-12-28] MEDS: POTASSIUM CHLORIDE 10 MEQ SR TABLET PO SCH ×2 (10:00→20:00)
[2018-12-28] MEDS ORDERED: PROMETHAZINE 25 MG TAB PO PRN (10:00)
[2018-12-28] MEDS: predniSONE 10 MG TAB PO SCH (10:00)
[2018-12-28] MEDS: ONDANSETRON 4MG/2ML VIAL (J2405) IV PRN ×2 (10:01→14:39)
[2018-12-28] MEDS: SODIUM CHLORIDE 0.9% INJ 10 ML SYR IV SCH (10:01)
[2018-12-28] MEDS: ERYTHROMYCIN OPHTH OINT OD SCH ×3 (10:01→20:07)
[2018-12-28] MEDS: HEPARIN SOD (PORCINE) 5000 UNITS/ML VIAL SQ SCH ×2 (10:01→20:00)
--- NOTE | 2018-12-28 10:34 | IPNPDOC ---
Subjective Date Seen The patient was seen on 12/28/18. Subjective Chief Complaint/HPI nausea this am. he reports this is a problem that he has from time to time. ENT: Denies: Head Aches Pulmonary: Reports: Dyspnea (after emesis he was transiently breathless. ); Denies: Pleuritic Chest Pain Cardiovascular: Denies: Chest Pain, Orthopnea Gastrointestinal: Reports: Nausea, Vomiting (emesis X1 this am); Denies: Abdominal Pain Psych: Reports: Mood Normal Objective Physical Examination General Exam: Positive: Alert, Cooperative, No Acute Distress, Other (patient cachectic appearing with bitemporal wasting.) ENT Exam: Positive: Atraumatic, Mucous membr. moist/pink Chest Exam: Positive: Diminished; Negative: Rales, Wheezing Heart Exam: Positive: Rate Normal, Normal S1, Normal S2 Abdomen Exam: Positive: Normal bowel sounds, Soft; Negative: Tenderness Extremity Exam: Negative: Edema, Tenderness, Swelling Skin Exam: Positive: Nl turgor and temperature Psych Exam: Positive: Mood NL, Oriented x 3 Assessment /Plan Problems (1) Metastatic lung carcinoma Status: Chronic Response to Treatment: Stable Problem Specific Plan: Consult Specialist, Monitor Clinically Problem Text: 12/28 had localized radiotherapy yesterday. if PT performance is adequate then home today. 12/27 pt reports Onc came to see him yest, no notes on the chart. We talked about our goal needs to be to get him home safely as soon as possible for f/u with cancer treatment. He expressed understanding. Today he tells me that he has been having increased diffficulty swallowing recently and therefore a ST eval has been ordered. I also enc him to participate with PT. 12/26 Pt would like to be able to return home, not yet safe per PT. He would like to restart Keytruda while inpt. Will address with attending. I put in call to med onc requesting f/u 12/22/18 long dw patient who prefers to build up strength and restart Keytruda/XRT inpatient 12/08/18 Dr. Brian offered retry of pembrolizumab given high PD expression and good response to only 2 treatments (held 2 ? 2 pneumonitis) 12/01/[address] performed CT mapping for further XRT T3 q4H prn pain 12/06/18 CT/PET: The previously identified uptake in mediastinal lymph nodes has decreased and some of these nodes now demonstrate central necrosis. However, there is new uptake in the chest in an expansile lesion in the posterior arch of the right eighth rib and in a mediastinal node anterior to the heart. In the abdomen, there are multiple new hypermetabolic foci in the liver, left adrenal, head of the pancreas, adjacent to the spleen, precaval mesenteric nodes. In the pelvis. There is new uptake in internal iliac nodes bilaterally and in enlarged left femoral nodes. (2) Radiation pneumonitis Status: Acute Response to Treatment: Controlled Problem Text: 12/26 Resp status stable. 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 Ingram-who agreed c restarting pembrolizumab) 12/22 stable CXR (3) Hypomagnesemia Status: Acute Problem Text: 12/26 Mag 1.6, Magrun x1 today, cont with PO replacement chronic hypoK/Mg 12/25 4.0/1.3 + Mg runs x 2 12/24 3.6/1.4; increased to K 20 BID, MOX 800 BID 12/17 3.5, 1.3 on HD K 20, MOX 400 (4) Dehydration Status: Resolved Response to Treatment: Stable Problem Specific Plan: Monitor Clinically Problem Text: resolved c IVF (5) Physical deconditioning Status: Chronic Problem Text: 12/28: yesterday's Pt note still reports "not safe" 12/23 PT not safe to dc home (6) Hypercalcemia of malignancy Status: Resolved Problem Text: 12/28 with today's nausea will repeat BMP to see if his Ca is higher. 12/25 8.9 12/22 11.2, 12/19 sp ZA 4 mg x 1 (7) Protein calorie malnutrition Status: Chronic Problem Text: continue Boost TID 12/25 alb 1.7 (8) Fever Status: Resolved Response to Treatment: Stable Problem Text: elevated temp to 101 yesterday. cultures of venous and port blood sampled, urine negative. no new cough, no increased dyspnea. Plan/VTE VTE Prophylaxis Ordered?: Yes VS, I&O, 24H, Fishbone Vital Signs/I&O Vital Signs Date Time Temp Pulse Resp B/P (MAP) Pulse Ox O2 Delivery O2 Flow Rate FiO2 12/28/18 06:00 98.1 117 17 130/89 (103) 96 12/23/18 12:32 Room Air I&O- Last 24 Hours up to 6 AM 12/28/18 06:00 Intake Total 720 ml Output Total 100 ml Balance 620 ml Laboratory Data 24H LABS Laboratory Tests 2 12/28/18 05:03: Nucleated Red Blood Cells % (auto) 0.0, Magnesium Level 1.7L CBC/BMP Laboratory Tests 12/28/18 05:03 Red Blood Count 3.78 L, Mean Corpuscular Volume 84.7, Mean Corpuscular Hemoglobin 25.9 L, Mean Corpuscular Hemoglobin Concent 30.6 L, Red Cell Distribution Width 17.2 H Microbiology Microbiology 12/26/18 Blood Culture - Preliminary, Resulted No growth after 24 hours . All specim... 12/26/18 Blood Culture - Preliminary, Resulted No growth after 24 hours . All specim... 12/26/18 Urine Culture - Final, Complete Chalo Simmons MD Dec 28, 2018 10:34
[2018-12-28 11:57] LABS: BLOOD UREA NITROGEN 18 MG/DL (7-18); CARBON DIOXIDE LEVEL 26 MEQ/L (21-32); CHLORIDE LEVEL 99 MEQ/L (98-107); GLOMERULAR FILTRATION RATE > 60.0 (>49); GLUCOSE, FASTING 128 MG/DL (70-100); POTASSIUM SERUM 4.3 MEQ/L (3.5-5.1); SODIUM LEVEL 134 MEQ/L (136-145)
[2018-12-28 14:32] VITALS: BP 157/92
[2018-12-28 14:34] VITALS: BP 157/92
[2018-12-28 22:31] VITALS: BP 149/85
[2018-12-28] MEDS: ACETAMINOPH W/CODEINE #3 TAB UD PO PRN (23:01)
[2018-12-29 07:06] VITALS: BP 126/90
[2018-12-29 07:59] LABS: ALBUMIN 1.8 GM/DL (3.2-5.2); ALT/SGPT 55 U/L (12-78); BILIRUBIN,TOTAL 0.8 MG/DL (0.2-1.0); BLOOD UREA NITROGEN 19 MG/DL (7-18); CALCIUM LEVEL 10.8 MG/DL (8.8-10.2); CARBON DIOXIDE LEVEL 27 MEQ/L (21-32); CHLORIDE LEVEL 99 MEQ/L (98-107); GLOMERULAR FILTRATION RATE > 60.0 (>49); GLUCOSE, FASTING 109 MG/DL (70-100); MAGNESIUM LEVEL 1.7 MG/DL (1.8-2.4); POTASSIUM SERUM 4.2 MEQ/L (3.5-5.1); SODIUM LEVEL 133 MEQ/L (136-145); TOTAL PROTEIN 7.3 GM/DL (6.4-8.2)
[2018-12-29 08:07] LABS: HEMATOCRIT 30.9 % (42.0-52.0); HEMOGLOBIN 9.2 g/dl (13.5-17.5); MEAN CORPUSCULAR HEMOGLOBIN 26.2 pg (27.0-33.0); MEAN CORPUSCULAR HGB CONC 29.8 g/dl (32.0-36.5); PLATELET COUNT, AUTOMATED 209 10^3/uL (150-450); RED BLOOD COUNT 3.51 10^6/uL (4.30-6.10); WHITE BLOOD COUNT 8.8 10^3/uL (4.0-10.0)
--- NOTE | 2018-12-29 08:49 | IPNPDOC ---
Subjective Date Seen The patient was seen on 12/29/18. Subjective Chief Complaint/HPI Pt this morning without new concerns. He states that he has resumed RT with his first treatment in hospital yesterday, scheduled for today again. He is also scheduled for Endoscopy this morning. General: Reports: Fatigue Constitutional: Denies: Chills, Fever Pulmonary: Denies: Dyspnea, Cough Cardiovascular: Denies: Chest Pain, Palpitations Gastrointestinal: Denies: Nausea, Vomiting Neurological: Reports: Weakness Psych: Reports: Mood Normal Objective Physical Examination General Exam: Positive: Alert, Cooperative, No Acute Distress, Other (patient cachectic appearing with bitemporal wasting.) ENT Exam: Positive: Atraumatic, Mucous membr. moist/pink Chest Exam: Positive: Diminished; Negative: Rales, Wheezing Heart Exam: Positive: Rate Normal, Normal S1, Normal S2 Abdomen Exam: Positive: Normal bowel sounds, Soft; Negative: Tenderness Extremity Exam: Negative: Edema, Tenderness, Swelling Skin Exam: Positive: Nl turgor and temperature Psych Exam: Positive: Mood NL, Oriented x 3 Assessment /Plan Problems (1) Metastatic lung carcinoma Status: Chronic Response to Treatment: Stable Problem Specific Plan: Consult Specialist, Monitor Clinically Problem Text: 12/29 RT D#3 in hospital. Refused PT yesterday again x2, stressed importance of participation to get home. 12/28 had localized radiotherapy yesterday. if PT performance is adequate then home today. 12/27 pt reports Onc came to see him yest, no notes on the chart. We talked abo ut our goal needs to be to get him home safely as soon as possible for f/u with cancer treatment. He expressed understanding. Today he tells me that he has been having increased diffficulty swallowing recently and therefore a ST eval has been ordered. I also enc him to participate with PT. 12/26 Pt would like to be able to return home, not yet safe per PT. He would like to restart Keytruda while inpt. Will address with attending. I put in call to med onc requesting f/u 12/22/18 long dw patient who prefers to build up strength and restart Keytruda/XRT inpatient 12/08/18 Dr. Brian offered retry of pembrolizumab given high PD expression and good response to only 2 treatments (held 2 ? 2 pneumonitis) 12/01/[address] performed CT mapping for further XRT T3 q4H prn pain 12/06/18 CT/PET: The previously identified uptake in mediastinal lymph nodes has decreased and some of these nodes now demonstrate central necrosis. However, there is new uptake in the chest in an expansile lesion in the posterior arch of the right eighth rib and in a mediastinal node anterior to the heart. In the abdomen, there are multiple new hypermetabolic foci in the liver, left adrenal, head of the pancreas, adjacent to the spleen, precaval mesenteric nodes. In the pelvis. There is new uptake in internal iliac nodes bilaterally and in enlarged left femoral nodes. (2) Protein calorie malnutrition Status: Chronic Problem Text: 12/29 ST evaluation on 12/27, pt tolerated thin liquids, refused to try any food beyond pureed. Rec diet is Pureed with thin liquids. Has endoscopy scheduled for today. continue Boost TID 12/25 alb 1.7 (3) Radiation pneumonitis Status: Acute Response to Treatment: Controlled Problem Text: 12/26 Resp status stable. 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 Ingram-who agreed c restarting pembrolizumab) 12/22 stable CXR (4) Hypomagnesemia Status: Acute Problem Text: 12/26 Mag 1.6, Magrun x1 today, cont with PO replacement chronic hypoK/Mg 12/25 4.0/1.3 + Mg runs x 2 12/24 3.6/1.4; increased to K 20 BID, MOX 800 BID 12/17 3.5, 1.3 on HD K 20, MOX 400 (5) Dehydration Status: Resolved Response to Treatment: Stable Problem Specific Plan: Monitor Clinically Problem Text: resolved c IVF (6) Physical deconditioning Status: Chronic Problem Text: 12/28: yesterday's Pt note still reports "not safe" 12/23 PT not safe to dc home (7) Hypercalcemia of malignancy Status: Resolved Problem Text: 12/28 with today's nausea will repeat BMP to see if his Ca is higher. 12/25 8.9 12/22 11.2, 12/19 sp ZA 4 mg x 1 (8) Fever Status: Resolved Response to Treatment: Stable Problem Text: elevated temp to 101 yesterday. cultures of venous and port blood sampled, urine negative. no new cough, no increased dyspnea. Plan/VTE VTE Prophylaxis Ordered?: Yes VS, I&O, 24H, Fishbone Vital Signs/I&O Vital Signs Date Time Temp Pulse Resp B/P (MAP) Pulse Ox O2 Delivery O2 Flow Rate FiO2 12/29/18 07:06 97.6 126 20 126/90 (102) 96 12/23/18 12:32 Room Air I&O- Last 24 Hours up to 6 AM 12/29/18 06:00 Intake Total 860 ml Output Total 0 ml Balance 860 ml Laboratory Data 24H LABS Laboratory Tests 2 12/28/18 11:03: Anion Gap 9, Glomerular Filtration Rate > 60.0, Blood Urea Nitrogen 18, Creatinine 0.40L, Sodium Level 134L, Potassium Level 4.3, Chloride Level 99, Carbon Dioxide Level 26, Calcium Level 10.0 12/29/18 05:27: Anion Gap 7L, Glomerular Filtration Rate > 60.0, Blood Urea Nitrogen 19H, Creatinine 0.40L, Sodium Level 133L, Potassium Level 4.2, Chloride Level 99, Carbon Dioxide Level 27, Calcium Level 10.8H, Nucleated Red Blood Cells % (auto) 0.0, Aspartate Amino Transf (AST/SGOT) 40H, Alanine Aminotransferase (ALT/SGPT) 55, Alkaline Phosphatase 138H, Total Bilirubin 0.8, Total Protein 7.3, Albumin 1.8L, Magnesium Level 1.7L, Albumin/Globulin Ratio 0.33L CBC/BMP Laboratory Tests 12/28/18 11:03 Calcium Level 10.0 12/29/18 05:27 Calcium Level 10.8 H, Red Blood Count 3.51 L, Mean Corpuscular Volume 88.0, Mean Corpuscular Hemoglobin 26.2 L, Mean Corpuscular Hemoglobin Concent 29.8 L, Red Cell Distribution Width 17.2 H, Aspartate Amino Transf (AST/SGOT) 40 H, Alanine Aminotransferase (ALT/SGPT) 55, Alkaline Phosphatase 138 H, Total Bilirubin 0.8, Total Protein 7.3, Albumin 1.8 L Microbiology Microbiology 12/26/18 Blood Culture - Preliminary, Resulted No Growth after 48 hours. All Specime... 12/26/18 Blood Culture - Preliminary, Resulted No Growth after 48 hours. All Specime... 12/26/18 Urine Culture - Final, Complete MARCIO GABRIEL PA-C Dec 29, 2018 08:48
[2018-12-29] MEDS: predniSONE 10 MG TAB PO SCH (08:54)
[2018-12-29] MEDS: ERYTHROMYCIN OPHTH OINT OD SCH ×3 (08:54→21:38)
[2018-12-29] MEDS: POTASSIUM CHLORIDE 10 MEQ SR TABLET PO SCH ×2 (08:54→21:38)
[2018-12-29] MEDS: HEPARIN SOD (PORCINE) 5000 UNITS/ML VIAL SQ SCH ×2 (08:54→21:38)
[2018-12-29] MEDS: MAGNESIUM OXIDE 400 MG TAB (MAG-OX) PO SCH ×2 (08:54→21:38)
[2018-12-29] MEDS: SODIUM CHLORIDE 0.9% INJ 10 ML SYR IV SCH (08:55)
[2018-12-29] MEDS ORDERED: OXYMETAZOLINE NASAL SPRAY (AFRIN) PRN (09:00)
[2018-12-29] MEDS ORDERED: E-Z-PAQUE 96% w/w SUSP 176GM BTL As Ordered ONE (11:15)
[2018-12-29] MEDS ORDERED: VARIBAR PUDDING 40% w/v 230ML TUBE As Ordered ONE (11:15)
[2018-12-29] MEDS ORDERED: VARIBAR NECTAR 40% w/v 240ML SUSP BTL As Ordered ONE (11:15)
[2018-12-29] MEDS ORDERED: BARIUM SULFATE 700 MG TABLET (E-Z-DISK) As Ordered ONE (11:16)
[2018-12-29] MEDS ORDERED: NS 1,000 ML IV SCH (14:15)
[2018-12-29 14:26] VITALS: BP 128/88
[2018-12-29] MEDS: ACETAMINOPH W/CODEINE #3 TAB UD PO PRN (14:29)
[2018-12-29 14:50] VITALS: BP 128/88
--- NOTE | 2018-12-29 15:57 | REP ---
Examination Requested: Cookie Swallow Reason For Exam: Difficulty swallowing The procedure was performed by ZARA Blake, under the direct supervision of Dr. Anderson. The procedure was performed with Rupinder Cosme from speech pathology present. 5 ml aliquots of thin, pudding, mixed fruit, nectar and pill consistency barium was administered. Penetration was visualized with thin consistency barium, and flash penetration was visualized with nectar thick consistency barium. The detailed report of this examination will be provided by speech pathology. 1.7 minutes of fluoroscopy time was utilized for this procedure. Reviewed by ZARA Mobley 12/29/2018 12:00 P Electronically Signed by Vaughn Anderson DO 12/29/2018 03:49 P
[2018-12-29 21:50] VITALS: BP 120/72
[2018-12-30 06:55] LABS: BASO % 0.1 % (0.0-1.0); HEMATOCRIT 29.2 % (42.0-52.0); HEMOGLOBIN 8.9 g/dl (13.5-17.5); LYMPH % 2.6 % (24.0-44.0); MEAN CORPUSCULAR HGB CONC 30.5 g/dl (32.0-36.5); MEAN CORPUSCULAR VOLUME 85.4 fl (80.0-96.0); MONO # 0.9 10^3/uL (0.0-0.8); MONO % 10.1 % (0.0-5.0); NEUTROPHILS # 7.9 10^3/uL (1.8-7.7); NEUTROPHILS % 86.5 % (36.0-66.0); PLATELET COUNT, AUTOMATED 193 10^3/uL (150-450); RED BLOOD COUNT 3.42 10^6/uL (4.30-6.10); WHITE BLOOD COUNT 9.1 10^3/uL (4.0-10.0)
[2018-12-30 07:00] VITALS: BP 96/60
[2018-12-30 07:13] LABS: LYMPH # 0.2 10^3/uL (1.5-4.5)
[2018-12-30 07:22] LABS: BLOOD UREA NITROGEN 17 MG/DL (7-18); CALCIUM LEVEL 11.2 MG/DL (8.8-10.2); CARBON DIOXIDE LEVEL 26 MEQ/L (21-32); CHLORIDE LEVEL 99 MEQ/L (98-107); CREATININE FOR GFR 0.44 MG/DL (0.70-1.30); GLOMERULAR FILTRATION RATE > 60.0 (>49); GLUCOSE, FASTING 124 MG/DL (70-100); POTASSIUM SERUM 3.9 MEQ/L (3.5-5.1); SODIUM LEVEL 133 MEQ/L (136-145)
[2018-12-30] MEDS: HEPARIN SOD (PORCINE) 5000 UNITS/ML VIAL SQ SCH ×2 (09:14→20:59)
[2018-12-30] MEDS: MAGNESIUM OXIDE 400 MG TAB (MAG-OX) PO SCH ×2 (09:14→20:58)
[2018-12-30] MEDS: predniSONE 10 MG TAB PO SCH (09:15)
[2018-12-30] MEDS: ERYTHROMYCIN OPHTH OINT OD SCH ×3 (09:15→20:59)
[2018-12-30] MEDS: SODIUM CHLORIDE 0.9% INJ 10 ML SYR IV SCH (09:15)
[2018-12-30] MEDS: POTASSIUM CHLORIDE 10 MEQ SR TABLET PO SCH ×2 (09:15→20:59)
[2018-12-30] MEDS ORDERED: ZOLEDRONIC ACID 4 MG in D5W 100 ML IV ONE (11:00)
[2018-12-30 14:00] VITALS: BP_SYST 117; BP_SYST 126; BP_DIAS 71; BP_DIAS 82
[2018-12-30] MEDS: guaiFENesin DM LIQ 10ML UD PO PRN (16:51)
[2018-12-30] MEDS: ACETAMINOPH W/CODEINE #3 TAB UD PO PRN (21:00)
[2018-12-30 22:00] VITALS: BP 131/85
[2018-12-30] MEDS: ALBUTEROL SULFATE 2.5 MG/0.5 ML INH NEB SOLN INH PRN ×2 (22:01→22:54)
[2018-12-31 06:00] VITALS: BP 130/70
[2018-12-31] MEDS: ACETAMINOPHEN TAB 650MG DOSE (2X325MG) PO PRN (06:35)
[2018-12-31] MEDS: guaiFENesin DM LIQ 10ML UD PO PRN ×2 (06:43→13:29)
[2018-12-31] MEDS: POTASSIUM CHLORIDE 10 MEQ SR TABLET PO SCH (08:52)
[2018-12-31] MEDS: MAGNESIUM OXIDE 400 MG TAB (MAG-OX) PO SCH (08:52)
[2018-12-31] MEDS: predniSONE 10 MG TAB PO SCH (08:53)
[2018-12-31] MEDS: ERYTHROMYCIN OPHTH OINT OD SCH (08:53)
[2018-12-31] MEDS: SODIUM CHLORIDE 0.9% INJ 10 ML SYR IV SCH (08:53)
[2018-12-31] MEDS: HEPARIN SOD (PORCINE) 5000 UNITS/ML VIAL SQ SCH (08:53)
[2018-12-31 11:37] LABS: ALBUMIN 1.7 GM/DL (3.2-5.2); BLOOD UREA NITROGEN 15 MG/DL (7-18); CALCIUM LEVEL 9.9 MG/DL (8.8-10.2); CARBON DIOXIDE LEVEL 28 MEQ/L (21-32); CHLORIDE LEVEL 96 MEQ/L (98-107); CREATININE FOR GFR 0.45 MG/DL (0.70-1.30); GLOMERULAR FILTRATION RATE > 60.0 (>49); GLUCOSE, FASTING 140 MG/DL (70-100); PHOSPHORUS LEVEL 2.2 MG/DL (2.5-4.9); POTASSIUM SERUM 4.3 MEQ/L (3.5-5.1); SODIUM LEVEL 132 MEQ/L (136-145)
--- NOTE | 2018-12-31 12:03 | IPN ---
DATE: 12/31/2018 Efra is seen on [address]. He was cleared yesterday by physical therapy to go home. His calcium was elevated. I do not have his note back yet from yesterday, but it looks like he received Zometa 5 mg IV. He had previously received this on 12/19/2018 also. On physical exam, vital signs are stable. Lungs clear. Heart regular rhythm. Abdomen soft and nontender. IMPRESSION: Hypercalcemia. PLAN: I will get a calcium level and will proceed from there to figure out disposition.
[2018-12-31] MEDS: ALBUTEROL SULFATE 2.5 MG/0.5 ML INH NEB SOLN INH PRN (13:57)
--- NOTE | 2019-01-20 14:58 | DSES ---
DATE OF ADMISSION: 12/22/2018 DATE OF DISCHARGE: 12/31/2018 PRINCIPAL DIAGNOSES: 1. Left-sided lung cancer with malignant hypercalcemia. 2. Hypomagnesemia. 3. Radiation pneumonitis. 4. Protein calorie malnutrition. 5. Dehydration. 6. Fever secondary to malignancy. HISTORY: The patient has metastatic lung cancer receiving therapy as an outpatient with poor progress. He was admitted severe hypercalcemia. HOSPITAL COURSE: The patient was admitted to a medical bed. He was hydrated, treated with Zometa times two with a good response to treatment. His calcium on admission 11.2. It was 9.9 on discharge. The patient had consultations with his oncologist and the family wanted him discharged on 12/31/2018 so he could get a chemo treatment. Day of discharge, vital signs were stable. Lungs clear. Heart regular rate and rhythm. Abdomen soft, nontender. Complete blood count (CBC) was unremarkable. His calcium was down to 9.9. DISPOSITION: The patient was discharged home. Followup with primary care provider in a week. Followup with oncology on the day of discharge. Medicines were Keytruda and albuterol inhaler. Regular diet and activity as tolerated.
== END 2018-12-31 14:35 | disposition home or self-care (01) | DRG 641 ==
LOC: M ED 11:08 → M ED INP 14:28 → M PCU 12-23 12:42 → M MS5PR 12-25 14:20
PROVIDERS: ADMIT Internal Medicine; ATTEND Family Medicine
DX: E83.51 Hypocalcemia (principal); C34.12 Malignant neoplasm of upper lobe, left bronchus or lung; J70.0 Acute pulmonary manifestations due to radiation; E46 Unspecified protein-calorie malnutrition; J44.1 Chronic obstructive pulmonary disease with (acute) exacerbation; C79.9 Secondary malignant neoplasm of unspecified site; Z79.899 Other long term (current) drug therapy; Z88.0 Allergy status to penicillin; Z88.5 Allergy status to narcotic agent; E83.52 Hypercalcemia; E86.0 Dehydration; E83.42 Hypomagnesemia; Z87.891 Personal history of nicotine dependence

== ENCOUNTER 2018-12-30 11:15 | Outpatient (RCR) | payer MEDICARE ==
[2019-01-02] MEDS ORDERED: ACET1TAB16 PO (12:38)
[2019-01-02] MEDS ORDERED: ERYT1OIN26 OD (12:38)
--- NOTE | 2019-01-04 08:36 | RADONC ---
RADIATION ONCOLOGY THERAPY TREATMENT SUMMARY DATE: 12/30/2018 CHART NUMBER: [id number]. DIAGNOSIS: Left upper lobe lung cancer. STAGE: I B, T2a, N0, M0, recurrent and now widely metastatic. ECOG PERFORMANCE STATUS: 3. SUMMARY: Plan of radiotherapy palliative local regional radiotherapy to involve the right posterior rib with a recent CT scan performed on 11/05/2018 showing a large 10.1 cm lytic destructive mass in the right posterior 8th rib with a soft tissue component protruding into the pleural space. The plan of radiotherapy was primarily palliation of pain. Date radiotherapy started 12/12/2018. Date radiotherapy completed 12/30/2018. Dose: The patient received a total of 3000 centigray administered in 10 fractions over 19 elapsed days. Combination of a 6 and 10 MV photon beam 100 cm SAD via three-dimensional conformal technique. Prior to treatment delivery localization was accomplished upon our CT simulator and treatment portals defined by the use of multileaf collimators. Status of tumor: The patient had an excellent palliative response in the area which was treated. He did have clinical evidence of progressive disease in areas which have already been treated and could not receive additional therapy, including the area of the skull. Tolerance: In general, the treatments were quite well tolerated, denying any nausea, vomiting, coughing, sputum production, but he experienced multiple comorbidities not related to the radiation such as renal disease requiring hospitalization. I believe the patient had other comorbidities as well again related to overall general infectious processes and unrelated to his radiation therapy requiring hospitalization. These hospitalizations resulted in significant interruptions of the treatment and delaying the overall completion of his radiotherapy. DISPOSITION: Return to clinic in 1 month for post radiotherapy visitation and skin check, and he was requested to return to his referring physicians as per their directions and instructions. Thank you for allowing us the opportunity of participation in the management of this patient. cc: MD Paulie Anglin, [facility]
[2019-01-06] MEDS ORDERED: MAG400TA PO (09:43)
[2019-01-06] MEDS ORDERED: BUDE0.5S6 INH (09:43)
[2019-01-06] MEDS ORDERED: POTA20EL PO ×2 (09:43→13:22)
[2019-01-06] MEDS ORDERED: COLA100C5 PO (09:43)
[2019-01-06] MEDS ORDERED: PRED10TA2 PO (09:43)
== END 2019-01-14 ==
LOC: M ONCR 11:15
PROVIDERS: ATTEND Radiology Radiation Oncology
DX: C79.51 Secondary malignant neoplasm of bone (principal)

== ENCOUNTER 2019-01-02 11:34 | Inpatient (IN) | payer MEDICARE ==
[~2019-01-02] VITALS: Ht 175.3 cm; Wt 70.5 kg
[2019-01-02] MEDS: predniSONE 10 MG TAB PO SCH (09:00)
[~2019-01-02 11:34] MED LIST changes: +METH4TAB28 PO; -METH4TAB8 PO; -ONDA8TAB10 PO; +ONDA8TAB7 PO; +POTASSIUM CHLORIDE 10 MEQ SR TABLET PO SCH
[2019-01-02 12:30] LABS: BASO % 0.1 % (0.0-1.0); HEMOGLOBIN 10.2 g/dl (13.5-17.5); LYMPH % 2.3 % (24.0-44.0); MEAN CORPUSCULAR HEMOGLOBIN 25.6 pg (27.0-33.0); MEAN CORPUSCULAR VOLUME 85.2 fl (80.0-96.0); MONO # 0.9 10^3/uL (0.0-0.8); MONO % 9.1 % (0.0-5.0); NEUTROPHILS # 8.9 10^3/uL (1.8-7.7); NEUTROPHILS % 87.8 % (36.0-66.0); PLATELET COUNT, AUTOMATED 218 10^3/uL (150-450); RED BLOOD COUNT 3.99 10^6/uL (4.30-6.10); WHITE BLOOD COUNT 10.1 10^3/uL (4.0-10.0)
[2019-01-02] MEDS ORDERED: ACET1TAB16 PO (12:38)
[2019-01-02] MEDS ORDERED: ERYT1OIN26 OD (12:38)
[2019-01-02 12:49] LABS: LYMPH # 0.2 10^3/uL (1.5-4.5)
[2019-01-02 12:58] LABS: ALBUMIN 1.9 GM/DL (3.2-5.2); ALT/SGPT 70 U/L (12-78); BILIRUBIN,DIRECT 0.4 MG/DL (0.0-0.2); BILIRUBIN,TOTAL 0.9 MG/DL (0.2-1.0); CK-MB VALUE MASS < 1.0 NG/ML (<3.6); CPK CREATINE PHOSPHOKINASE 13 U/L (39-308); MB/CK RELATIVE INDEX 7.69 (< OR =4); NT-PRO BNP 707 PG/ML (<125); TOTAL PROTEIN 8.3 GM/DL (6.4-8.2); TROPONIN I < 0.02 NG/ML (< 0.10)
[2019-01-02] MEDS ORDERED: ISOVUE-370 76% 100ML VIAL (Q9967) As Ordered ONE (13:16)
[2019-01-02] MEDS ORDERED: NS 1,000 ML IV ONE (13:30)
[2019-01-02 13:56] LABS: PHOSPHORUS LEVEL 1.3 MG/DL (2.5-4.9)
--- NOTE | 2019-01-02 15:11 | REP ---
CT of the chest with IV contrast, pulmonary embolus protocol for chest pain and dyspnea. Comparison is 11/05/2018. There are no emboli in the pulmonary trunk or central pulmonary arteries. There are no emboli in the pulmonary lobe or segment branches. The thoracic aorta is unremarkable. Cardiac size is upper normal. There is no pericardial effusion. There is a 1.5 cm pericardial lymph node on the right measuring short axis. This measured 1.1 cm short axis previously. There is a superior mediastinal mass. to the left of midline today measuring up to 5.5 centimeters. This previously measured up to 5.2 cm. There is increased radiodensity in the left hilus. This is unchanged and could represent tumor extension or confluent adenopathy. This is unchanged. There is diffuse pleural thickening in the apex of the left hemithorax adjacent to the mediastinal mass. This is unchanged. There is a small left pleural effusion. This has increased slightly. There is an infiltrate in the upper lobe of the left lung. This is unchanged. No mediastinal or right hilar adenopathy is identified. This is unchanged. There is a large expansile lytic lesion in the posterior arch of the right eighth rib. This is unchanged. There are multiple hypodense masses in the visualized hepatic parenchyma that have increased in size, compatible with metastases. There is a mass in the head of the pancreas as previously. There are multiple pancreatic calcifications as previously. There is a large left adrenal mass measuring up to 6.0 cm and has increased in size. This measured 4.6 cm on the prior study. There is a 5.2 cm mass anterior to the splenic upper pole . This measured 3.2 cm previously. Electronically Signed by Reinaldo Covington MD 01/02/2019 03:02 P
[2019-01-02 15:27] LABS: BLOOD UREA NITROGEN 22 MG/DL (7-18); CALCIUM LEVEL 11.9 MG/DL (8.8-10.2); CARBON DIOXIDE LEVEL 22 MEQ/L (21-32); CHLORIDE LEVEL 96 MEQ/L (98-107); CREATININE FOR GFR 0.67 MG/DL (0.70-1.30); GLOMERULAR FILTRATION RATE > 60.0 (>49); GLUCOSE, FASTING 136 MG/DL (70-100); POTASSIUM SERUM 3.8 MEQ/L (3.5-5.1); SODIUM LEVEL 131 MEQ/L (136-145)
[2019-01-02] MEDS ORDERED: AZITHROMYCIN INJ 500 MG, VIAL MATE ADAPTER 1 EACH in D5W 250 ML IV ONE (15:30)
[2019-01-02] MEDS ORDERED: AZTREONAM 2 GM in D5W MINI-BAG PLUS 50 ML IV ONE (15:30)
--- NOTE | 2019-01-02 15:44 | REP ---
CT of the abdomen and pelvis with IV contrast, without bowel contrast: Comparison is the abdomen pelvis CT dated 08/04/2018. Within the visualized lung payton there is an expansile lytic lesion in the posterior arch of the right eighth rib that has increased in size. There is a small left pleural effusion, not present previously. There is increased density in the visualized portion of the left hilus, compatible with confluent adenopathy or tumor extension. There are multiple hypodense hepatic lesions involving both lobes of the liver, not present previously, compatible with metastatic disease. There are surgical clips in the gallbladder fossa. This is unchanged. There is a 5.7 cm mass in the head of the pancreas as an interval change. There are multiple pancreatic calcifications compatible with previous pancreatitis, unchanged. There is a left adrenal mass measuring 6.1 the centimeters. This previously measured 2.2 cm. There is a right adrenal mass measuring 2.1 cm. This previously measured 2.0 cm. There is a mesenteric mass anterior to the splenic upper pole measuring 5.6 cm. This previously measured 1.4 cm. There is a 1.9 cm Bosniak type 1 left renal cyst anteriorly at the lower pole, not significantly changed. There is a low-density left renal mass at the mid pole medially measuring 2.7 cm. This measured 1.5 cm previously. There is no periaortic adenopathy or mass. There is a 3.1 cm mesenteric mass extending to the peritoneum posterior to the lower pole of the right kidney. There is a smaller mesenteric mass measuring 0.8 cm medial to this. Pelvis: There is a mesenteric mass on the right measuring 4.2 cm and the second mesenteric mass on the right measuring 4.0 cm. These were not present previously. There is a 5.7 cm subcutaneous mass in the right gluteal area. This measured 2.6 cm previously. There are two midline pelvic masses, one measuring 3.2 cm and the other 3.7 cm, not deftly present previously. There is confluent right iliac adenopathy measuring up to 3.4 cm, not present previously. There is a 2.0 cm mass left lateral to the rectosigmoid colon, not present previously. There is confluent left inguinal adenopathy measuring up to 4.7 cm. This measured 2.8 cm previously. There is internal fixation of the right hip as an interval change. There are hyper densities in the L4-L5 vertebral bodies. These were also present previously and may represent blastic metastases or bone islands. There are also unchanged from 02/23/2018. Impression: Multiple masses and lymphadenopathy compatible with progressive metastatic disease. There has been interim internal fixation of the right hip. Electronically Signed by Reinaldo Covington MD 01/02/2019 03:35 P
[2019-01-02] MEDS: KCL 20MEQ in NS 1000ML 1,000 ML IV SCH (16:59)
--- NOTE | 2019-01-02 17:12 | HPEPDOC ---
General Date of Admission 01/02/19 Date of Service: Jan 02, 2019 Primary Care Physician: Chad Muniz M.D. Attending Physician: MERLINE REEVES DO Chief Complaint The patient is a 68-year-old male admitted with a reason for visit of Gen [facility]. 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 Hospital patient was recently admitted a few days ago with dehydration. Patient receiving treatment for lung cancer with Keytruda every 3 weeks. Today in oncology office patient developed tachycardia wheezing and shortness of breath. Patient was transferred emergency room and he was found to have a white blood count of 10.1. Chest CTA was negative for PE, positive for multiple metastasis and lymphadenopathy. Patient received IV fluid resuscitation and antibiotic therapy. Patient signed MOLST for DNR/DNI. Home Medications Scheduled Budesonide (Budesonide) 0.5 Mg/2 Ml Ampul.neb, 0.5 MG PO BID, (Reported) Denosumab Injection (Prolia) 60 Mg/1 Ml Syringe, 120 MG SC Q6WKS, (Reported) PATIENT WAS DUE TO RECEIVE NEXT DOSE 12/29/18. PATIENT DID NOT RECEIVE. Erythromycin Base (Erythromycin) 1 Gm Oint...g., 1 APLCT OD TID, (Reported) TO USE X 10 DAYS. PICKED UP FROM PHARMACY ON 12/20/18. PATIENT STATES HE STILL USES. Magnesium Oxide (Magnesium Oxide) 400 Mg Tablet, 400 MG PO DAILY, (Reported) Pembrolizumab (Keytruda) 100 Mg/4 Ml Vial, 200 MG IV [id number], (Reported) PATIENT WAS DUE TO RECEIVE 12/29/18. PATIENT DID NOT RECEIVE. Potassium Chloride (Potassium Chloride) 20 Meq Tab.er.prt, 20 MEQ PO DAILY, (Reported) Prednisone (Prednisone) 10 Mg Tablet, 10 MG PO DAILY, (Reported) Turmeric Root Extract (Turmeric) 500 Mg Capsule, 500 MG PO DAILY, (Reported) Scheduled PRN Acetaminophen with Codeine (Acetaminophen-Cod #3 Tablet) 1 Each Tablet, 1 TAB PO Q4H PRN for PAIN, (Reported) Albuterol Sulf (Albuterol Sulfate) 2.5 Mg/3 Ml Vial.neb, 2.5 MG INH QID PRN for SHORTNESS OF BREATH, (Reported) Allergies Coded Allergies: Penicillins (Verified Allergy, Intermediate, swelling, 08/10/18) Past Medical History Medical History Metastatic lung squamous cell carcinoma, radiation pneumonitis, COPD, cachexia, malignant hypercalcemia Family History Significant Family History: No pertinent family hx Social History * Smoker: former Smoker Alcohol: Denies Drugs: denies A-FIB/CHADSVASC A-FIB History Current/History of A-Fib/PAF?: No Current PO Anticoag Therapy: No Review of Systems Constitutional: Reports: Malaise, Weakness, Fatigue, Weight Loss Eyes: Denies: Vision change, Conjunctivae inflammation ENT: Denies: Sinus Congestion Skin: Denies: Rash, Lesions Pulmonary: Reports: Dyspnea, Cough Cardiovascular: Denies: Chest Pain, Palpitations Gastrointestinal: Denies: Nausea, Vomiting, Abdominal Pain Genitourinary: Denies: Dysuria Hematologic: Denies: Bruising Endocrine: Denies: Polydipsia, Polyphagia Musculoskeletal: Denies: Neck Pain Neurological: Denies: Weakness, Numbness Psych: Reports: Mood Normal Physical Examination General Exam: Positive: Alert, Cooperative Eye Exam: Positive: PERRLA, Conjunctiva & lids normal ENT Exam: Positive: Atraumatic Neck Exam: Positive: Supple; Negative: JVD Chest Exam: Positive: Diminished Heart Exam: Positive: Tachycardic; Negative: Rate Normal Telemetry: Positive: Tachycardia Abdomen Exam: Positive: BS Hypoactive Extremity Exam: Negative: Edema Skin Exam: Negative: Nl turgor and temperature Neuro Exam: Positive: Cranial Nerves 3-12 NL Psych Exam: Positive: Mental status NL Vital Signs Vital Signs Date Time Temp Pulse Resp B/P (MAP) Pulse Ox O2 Delivery O2 Flow Rate FiO2 01/02/19 12:46 96.7 127 34 86/51 (63) 98 Room Air 01/02/19 12:46 15.0 100 Laboratory Data Labs 24H Laboratory Tests 2 01/02/19 12:11: Immature Granulocyte % (Auto) 0.7, White Blood Count 10.1H, Red Blood Count 3.99L, Hemoglobin 10.2L, Hematocrit 34.0L, Mean Corpuscular Volume 85.2, Mean Corpuscular Hemoglobin 25.6L, Mean Corpuscular Hemoglobin Concent 30.0L, Red Cell Distribution Width 17.2H, Platelet Count 218, Neutrophils (%) (Auto) 87.8H, Lymphocytes (%) (Auto) 2.3L, Monocytes (%) (Auto) 9.1H, Eosinophils (%) (Auto) 0.0, Basophils (%) (Auto) 0.1, Neutrophils # (Auto) 8.9H, Lymphocytes # (Auto) 0.2L, Monocytes # (Auto) 0.9H, Eosinophils # (Auto) 0.0, Basophils # (Auto) 0.0, Nucleated Red Blood Cells % (auto) 0.0, D-Dimer, Quantitative 3674.46H, Anion Gap 13, Glomerular Filtration Rate > 60.0, Lactic Acid Level 3.6*H, Calcium Level 11.9#H, Phosphorus Level 1.3#L, Aspartate Amino Transf (AST/SGOT) 74H, Alanine Aminotransferase (ALT/SGPT) 70, Alkaline Phosphatase 174H, Total Bilirubin 0.9, Direct Bilirubin 0.4H, Total Creatine Kinase 13L, Creatine Kinase MB < 1.0, Creatine Kinase MB Relative Index 7.69H, Troponin I < 0.02, MB-Opf-M-Type Natriuretic Peptide 707H, Total Protein 8.3H, Albumin 1.9L, Albumin/Globulin Ratio 0.30L, Thyroid Stimulating Hormone (TSH) 1.700 01/02/19 13:56: Whole Blood Ionized Calcium 5.2 01/02/19 15:03: Urine Color YELLOW, Urine Appearance CLEAR, Urine pH 6.0, Urine Specific Coy 1.053, Urine Protein NEGATIVE, Urine Glucose (UA) NEGATIVE, Urine Ketones NEGATIVE, Urine Blood NEGATIVE, Urine Nitrite NEGATIVE, Urine Bilirubin NEGATIVE, Urine Urobilinogen 0.2, Urine Leukocyte Esterase NEGATIVE, Urine WBC (Auto) 1, Urine RBC (Auto) 2, Urine Hyaline Casts (Auto) 0, Urine Bacteria (Auto) NEGATIVE, Urine Squamous Epithelial Cells 0, Urine Mucus (Auto) SMALL, Urine Sperm (Auto) 01/02/19 16:40: CBC/BMP Laboratory Tests 01/02/19 12:11 Red Blood Count 3.99 L, Mean Corpuscular Volume 85.2, Mean Corpuscular Hemoglobin 25.6 L, Mean Corpuscular Hemoglobin Concent 30.0 L, Red Cell Distribution Width 17.2 H, Neutrophils (%) (Auto) 87.8 H, Lymphocytes (%) (Auto) 2.3 L, Monocytes (%) (Auto) 9.1 H, Eosinophils (%) (Auto) 0.0, Basophils (%) (Auto) 0.1, Neutrophils # (Auto) 8.9 H, Lymphocytes # (Auto) 0.2 L, Monocytes # (Auto) 0.9 H, Eosinophils # (Auto) 0.0, Basophils # (Auto) 0.0 Microbiology Microbiology 01/02/19 Blood Culture, Received Pending 01/02/19 Blood Culture, Received Pending 01/02/19 Respiratory Virus Panel (PCR) (ERICKA) - Final, Complete Assessment/Plan Patient is 68 years old male with past medical history 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 Patient was transferred emergency room and he was found to have a white blood count of 10.1. Chest CTA was negative for PE, positive for multiple metastasis and lymphadenopathy. Patient received IV fluid resuscitation and antibiotic therapy. Patient signed MOLST for DNR/DNI. Problems (1) COPD exacerbation Status: Acute Problem Text: Patient has long-standing COPD Steroids Azithromycin IV Incentive spirometry (2) Dehydration Status: Resolved Problem Text: Secondary to poor oral intake IV fluid (3) Tachycardia Status: Acute Problem Text: Most likely secondary to dehydration Continue volume expansion (4) Lung cancer Problem Text: Follow-up with oncologist Palliative care consult to define goals of treatment (5) Metastatic lung carcinoma Status: Chronic Problem Text: See above (6) Radiation pneumonitis Status: Acute Problem Text: continue treatment with steroids (7) Nutritional deficiency Status: Chronic Problem Text: Special Education Assistant consult High-protein diet Plan / VTE VTE Prophylaxis Ordered?: Yes MERLINE REEVES DO Jan 02, 2019 17:12
[2019-01-02] MEDS ORDERED: ALBUTEROL SULFATE 2.5 MG/0.5 ML INH NEB SOLN INH PRN (17:15)
[2019-01-02] MEDS: MAGNESIUM OXIDE 400 MG TAB (MAG-OX) PO SCH (17:26)
--- NOTE | 2019-01-02 18:06 | REP ---
REASON: Chest pain. PRIORS: Multiple, the latest 12/22/2018. The large abnormal irregular left upper lobe opacity seen on multiple prior examinations is essentially unchanged. Acute disease superimposed over this chronic area can not be ruled out. The left upper lobe postoperative change is status quo. Tenting of the left and the diaphragm status quo. Left sided subclavian central venous catheter unchanged. No new abnormal findings in the right lung. The right pleural angles are again seen to be sharp. The technique utilized in obtaining the radiograph has magnified the cardiac silhouette and accentuated the interstitial markings. No change in the osseous structures. IMPRESSION: Essentially stable appearing chronic changes. Electronically Signed by Vaughn Anderson DO 01/03/2019 11:22 A
[2019-01-02] MEDS: D5W/0.9% SODIUM CHLORIDE 1,000 ML IV SCH (20:11)
[2019-01-02] MEDS: DOCUSATE SODIUM 100 MG CAP PO SCH (21:18)
[2019-01-02] MEDS: HEPARIN SOD (PORCINE) 5000 UNITS/ML VIAL SC SCH (21:18)
[2019-01-02 21:53] VITALS: BP 142/92
[2019-01-03] MEDS: KCL 20MEQ in NS 1000ML 1,000 ML IV SCH ×4 (00:01→18:15)
[2019-01-03 05:40] VITALS: BP 102/69
[2019-01-03] MEDS: D5W/0.9% SODIUM CHLORIDE 1,000 ML IV SCH (06:00)
[2019-01-03 06:51] LABS: ALBUMIN 1.3 GM/DL (3.2-5.2); ALT/SGPT 76 U/L (12-78); BILIRUBIN,TOTAL 0.7 MG/DL (0.2-1.0); BLOOD UREA NITROGEN 9 MG/DL (7-18); CALCIUM LEVEL 8.6 MG/DL (8.8-10.2); CARBON DIOXIDE LEVEL 24 MEQ/L (21-32); CHLORIDE LEVEL 104 MEQ/L (98-107); CREATININE FOR GFR 0.37 MG/DL (0.70-1.30); GLOMERULAR FILTRATION RATE > 60.0 (>49); GLUCOSE, FASTING 139 MG/DL (70-100); MAGNESIUM LEVEL 1.5 MG/DL (1.8-2.4); POTASSIUM SERUM 2.9 MEQ/L (3.5-5.1); SODIUM LEVEL 137 MEQ/L (136-145); TOTAL PROTEIN 5.7 GM/DL (6.4-8.2)
[2019-01-03] MEDS: BUDESONIDE 180MCG INHALER (PULMICORT FLEXHALER) INH SCH ×2 (08:00→20:00)
--- NOTE | 2019-01-03 08:28 | IPNPDOC ---
Subjective Date Seen The patient was seen on 01/03/19. Subjective Chief Complaint/HPI No SOB today. No new complaints other than poor appetite and generalized weakness Constitutional: Denies: Chills, Fever Pulmonary: Denies: Dyspnea, Cough Cardiovascular: Denies: Chest Pain, Palpitations Gastrointestinal: Denies: Nausea, Vomiting, Abdominal Pain, Diarrhea, Constipation Objective Physical Examination General Exam: Positive: Alert, Cooperative, Other (Thin) Neck Exam: Positive: Supple; Negative: JVD Chest Exam: Positive: Diminished, Other (Right CTA, Left diminished breath sounds at base.); Negative: Rhonchi, Wheezing Heart Exam: Positive: Tachycardic (HR 100 - 110), Regular Rhythm; Negative: Rate Normal, Murmurs Telemetry: Positive: Tachycardia Abdomen Exam: Positive: Soft; Negative: Tenderness Extremity Exam: Negative: Edema Skin Exam: Negative: Nl turgor and temperature Neuro Exam: Positive: Normal Speech Psych Exam: Positive: Mental status NL Assessment /Plan Problems (1) COPD (chronic obstructive pulmonary disease) Status: Chronic Response to Treatment: Stable Problem Text: Dyspnea mostly chronic related, COPD, Lung cancer with Left lung mass/adenopathy/chronic infiltrate (post-obstructive - causingdiminished lung sounds left base on exam) Also related to deconditioning cont usual inhalers Cont Azactam and Zithromax for now (2) Hypercalcemia Status: Resolved Problem Text: Improved with IVF s/p Zometa lat admission on 12/29 (3) Dehydration Status: Resolved Problem Text: Secondary to poor oral intake IV fluid Had Dysphagia evaluated with Cookie Swallow last admission showing some penetration - I am unable to find ST note to determine recommendations regarding safe liquid/food consistency I will ask them to give recommendations also give Ensure if possible as this is something he states he likes (4) Tachycardia Status: Acute Problem Text: Most likely secondary to dehydration Continue volume expansion (5) Lung cancer Problem Text: Need to d/w Oncology plan for further tx - states she is not ready for palliative care - She wants to try to build up his strength so he can continue with Keytruda (6) Metastatic lung carcinoma Status: Chronic Problem Text: See above (7) Radiation pneumonitis Status: Acute Problem Text: continue treatment with steroids (8) Hypomagnesemia Status: Acute Problem Text: Give mag runs (9) Hypokalemia Status: Acute Problem Text: Give K runs (10) Severe protein-calorie malnutrition Status: Chronic Problem Text: Get nutrition consult Plan/VTE VTE Prophylaxis Ordered?: Yes (SQ heparin) Plan Therapy: PT, OT Disposition MOLST completed DNR/DNI VS, I&O, 24H, Fishbone Vital Signs/I&O Vital Signs Date Time Temp Pulse Resp B/P (MAP) Pulse Ox O2 Delivery O2 Flow Rate FiO2 01/03/19 05:40 99.1 114 18 102/69 (80) 95 01/02/19 18:19 Room Air 01/02/19 12:46 15.0 100 I&O- Last 24 Hours up to 6 AM 01/03/19 06:00 Intake Total 1680 ml Output Total 675 ml Balance 1005 ml Laboratory Data 24H LABS Laboratory Tests 2 01/02/19 12:11: Immature Granulocyte % (Auto) 0.7, White Blood Count 10.1H, Red Blood Count 3.99L, Hemoglobin 10.2L, Hematocrit 34.0L, Mean Corpuscular Volume 85.2, Mean Corpuscular Hemoglobin 25.6L, Mean Corpuscular Hemoglobin Concent 30.0L, Red Cell Distribution Width 17.2H, Platelet Count 218, Neutrophils (%) (Auto) 87.8H, Lymphocytes (%) (Auto) 2.3L, Monocytes (%) (Auto) 9.1H, Eosinophils (%) (Auto) 0.0, Basophils (%) (Auto) 0.1, Neutrophils # (Auto) 8.9H, Lymphocytes # (Auto) 0.2L, Monocytes # (Auto) 0.9H, Eosinophils # (Auto) 0.0, Basophils # (Auto) 0.0, Nucleated Red Blood Cells % (auto) 0.0, D-Dimer, Quantitative 3674.46H, Anion Gap 13, Glomerular Filtration Rate > 60.0, Lactic Acid Level 3.6*H, Calcium Level 11.9#H, Phosphorus Level 1.3#L, Aspartate Amino Transf (AST/SGOT) 74H, Alanine Aminotransferase (ALT/SGPT) 70, Alkaline Phosphatase 174H, Total Bilirubin 0.9, Direct Bilirubin 0.4H, Total Creatine Kinase 13L, Creatine Kinase MB < 1.0, Creatine Kinase MB Relative Index 7.69H, Troponin I < 0.02, UU-Xte-T-Type Natriuretic Peptide 707H, Total Protein 8.3H, Albumin 1.9L, Albumin/Globulin Ratio 0.30L, Thyroid Stimulating Hormone (TSH) 1.700 01/02/19 13:56: Whole Blood Ionized Calcium 5.2 01/02/19 15:03: Urine Color YELLOW, Urine Appearance CLEAR, Urine pH 6.0, Urine Specific [place] 1.053, Urine Protein NEGATIVE, Urine Glucose (UA) NEGATIVE, Urine Ketones NEGATIVE, Urine Blood NEGATIVE, Urine Nitrite NEGATIVE, Urine Bilirubin NEGATIVE, Urine Urobilinogen 0.2, Urine Leukocyte Esterase NEGATIVE, Urine WBC (Auto) 1, Urine RBC (Auto) 2, Urine Hyaline Casts (Auto) 0, Urine Bacteria (Auto) NEGATIVE, Urine Squamous Epithelial Cells 0, Urine Mucus (Auto) SMALL, Urine Sperm (Auto) 01/02/19 16:40: Lactic Acid Followup at 4 Hours 1.1 01/02/19 20:13: Lactic Acid Level 1.4 01/03/19 05:52: Anion Gap 9, Glomerular Filtration Rate > 60.0, Blood Urea Nitrogen 9#, Creatinine 0.37L, Sodium Level 137, Potassium Level 2.9#*L, Chloride Level 104, Carbon Dioxide Level 24, Calcium Level 8.6#L, Aspartate Amino Transf (AST/SGOT) 96H, Alanine Aminotransferase (ALT/SGPT) 76, Alkaline Phosphatase 136H, Total Bilirubin 0.7, Total Protein 5.7#L, Albumin 1.3#L, Magnesium Level 1.5L, Albumin/Globulin Ratio 0.30L CBC/BMP Laboratory Tests 01/02/19 12:11 Red Blood Count 3.99 L, Mean Corpuscular Volume 85.2, Mean Corpuscular Hemoglobin 25.6 L, Mean Corpuscular Hemoglobin Concent 30.0 L, Red Cell Distribution Width 17.2 H, Neutrophils (%) (Auto) 87.8 H, Lymphocytes (%) (Auto) 2.3 L, Monocytes (%) (Auto) 9.1 H, Eosinophils (%) (Auto) 0.0, Basophils (%) (Auto) 0.1, Neutrophils # (Auto) 8.9 H, Lymphocytes # (Auto) 0.2 L, Monocytes # (Auto) 0.9 H, Eosinophils # (Auto) 0.0, Basophils # (Auto) 0.0 01/03/19 05:52 Calcium Level 8.6 #L, Aspartate Amino Transf (AST/SGOT) 96 H, Alanine Aminotransferase (ALT/SGPT) 76, Alkaline Phosphatase 136 H, Total Bilirubin 0.7, Total Protein 5.7 #L, Albumin 1.3 #L Microbiology Microbiology 01/02/19 Blood Culture, Received Pending 01/02/19 Blood Culture, Received Pending 01/02/19 Respiratory Virus Panel (PCR) (ERICKA) - Final, Complete FRANCIA DUFF PA-C Jan 03, 2019 08:28
[2019-01-03 08:48] LABS: HEMATOCRIT 24.1 % (42.0-52.0); MEAN CORPUSCULAR HEMOGLOBIN 26.3 pg (27.0-33.0); MEAN CORPUSCULAR HGB CONC 29.5 g/dl (32.0-36.5); MEAN CORPUSCULAR VOLUME 89.3 fl (80.0-96.0); PLATELET COUNT, AUTOMATED 160 10^3/uL (150-450); WHITE BLOOD COUNT 7.5 10^3/uL (4.0-10.0)
[2019-01-03 08:59] LABS: HEMOGLOBIN 7.1 g/dl (13.5-17.5)
[2019-01-03] MEDS: HEPARIN SOD (PORCINE) 5000 UNITS/ML VIAL SC SCH ×2 (09:00→20:34)
[2019-01-03] MEDS: DOCUSATE SODIUM 100 MG CAP PO SCH ×2 (09:00→20:34)
[2019-01-03] MEDS ORDERED: MAG SULF 1GM/100ML (MAG RUN) 1 GM in APPROPRIATE DILUENT 1 EA IV ONE (09:00)
--- NOTE | 2019-01-03 10:19 | ECGEPIP ---
[facility] - ED Test Date: 2019-01-02 Pat Name: DORIS FRANCE Department: Room: - Gender: Male Manager Legal: PMO : 1950 Requested By: ANGELIKA Madison Order Number: [id number] Reading MD: Susan Dukes Measurements Intervals Clubb Rate: 132 P: 37 TX: 128 QRS: -10 QRSD: 89 T: 94 QT: 267 QTc: 397 Interpretive Statements SINUS TACHYCARDIA NONSPECIFIC ST & T-WAVE ABNORMALITY LOW VOLTAGE LIMB PRWP DECREASED RATE 12/22/18 Electronically Signed on 01-03-2019 10:18:39 EDT by Susan Dukes
[2019-01-03] MEDS: predniSONE 10 MG TAB PO SCH (11:39)
[2019-01-03] MEDS: MAGNESIUM OXIDE 400 MG TAB (MAG-OX) PO SCH (11:39)
[2019-01-03] MEDS: ERYTHROMYCIN OPHTH OINT OU SCH ×3 (11:40→17:22)
[2019-01-03] MEDS: KCL 10MEQ/100ML SWI (KRUN) 10 MEQ in APPROPRIATE DILUENT 1 EA IV SCH ×4 (11:41→21:00)
[2019-01-03 14:00] VITALS: BP 107/71
[2019-01-03] MEDS: AZITHROMYCIN INJ 500 MG, VIAL MATE ADAPTER 1 EACH in D5W 250 ML IV SCH (17:22)
[2019-01-03] MEDS ORDERED: KCL 10MEQ/100ML SWI (KRUN) 10 MEQ in APPROPRIATE DILUENT 1 EA IV SCH (20:30)
[2019-01-03 20:57] VITALS: BP 117/75
[2019-01-03] MEDS: ACETAMINOPH W/CODEINE #3 TAB UD PO PRN (21:51)
[2019-01-04 05:37] LABS: HEMATOCRIT 23.2 % (42.0-52.0); MEAN CORPUSCULAR HEMOGLOBIN 25.9 pg (27.0-33.0); MEAN CORPUSCULAR HGB CONC 30.2 g/dl (32.0-36.5); MEAN CORPUSCULAR VOLUME 85.9 fl (80.0-96.0); PLATELET COUNT, AUTOMATED 145 10^3/uL (150-450); WHITE BLOOD COUNT 6.8 10^3/uL (4.0-10.0)
[2019-01-04 06:02] LABS: ALBUMIN 1.4 GM/DL (3.2-5.2); ALT/SGPT 82 U/L (12-78); BILIRUBIN,TOTAL 0.7 MG/DL (0.2-1.0); BLOOD UREA NITROGEN 6 MG/DL (7-18); CALCIUM LEVEL 8.1 MG/DL (8.8-10.2); CARBON DIOXIDE LEVEL 26 MEQ/L (21-32); CHLORIDE LEVEL 103 MEQ/L (98-107); CREATININE FOR GFR 0.24 MG/DL (0.70-1.30); GLOMERULAR FILTRATION RATE > 60.0 (>49); GLUCOSE, FASTING 99 MG/DL (70-100); MAGNESIUM LEVEL 1.5 MG/DL (1.8-2.4); POTASSIUM SERUM 3.4 MEQ/L (3.5-5.1); SODIUM LEVEL 136 MEQ/L (136-145)
[2019-01-04 06:07] VITALS: BP 136/61
--- NOTE | 2019-01-04 08:19 | CR.PDOC ---
General Date of Consultation: Jan 04, 2019 Referring Provider: Michel Nielson MD Consultation I&O- Last 24 Hours up to 6 AM 01/04/19 06:00 Intake Total 1560 ml Output Total 1275 ml Balance 285 ml REASON FOR CONSULTATION/CHIEF COMPLAINT: . The patient is here on [address] with extensive NSCLCA with osseous mets . His is at the bedside He was admitted with COPD exacerbation as well as hypomagnesemia , anemia and hypokalemia . This is a 68-year-old male with the above diagnosis. The patient has left upper lobectomy in August 2017 with adjuvant carboplatin four cycles given in December 2017. The concurrent chemo RT on cisplatin from April 2018 to June 2017. Palliative radiation to the ribs and femur in October 2017. The patient has been on pembrolizumab and Xgeva. The pembrolizumab was on hold. The patient h as recently been hospitalized and he was discharged. He has been readmitted since for the second time. The patient did not have any ASE ( adverse side effects ) from the pembrolizumab . Of concern is the expanding bone met in the frontal area of the skull no visual defects are reported. He reports generalized weakness fatigue and has been OOB in to the chair . He now present s with anemia as well as electrolyte imbalance Allergies Coded Allergies Penicillins (Verified Allergy, Intermediate, swelling, 08/10/18) Current Medications Medications (Trade) Dose Ordered Sig/Juanis Route PRN Reason Start Time Stop Time Status Last Admin Dose Admin Acetaminophen/ Codeine Phosphate (Tylenol/Codeine #3 Tablet) 1 ea Q4H PRN PO PAIN 01/02/19 17:15 01/03/19 21:51 Albuterol Sulfate (Proventil Neb) 2.5 mg QID PRN INH SHORTNESS OF BREATH 01/02/19 17:15 Azithromycin 500 mg/IV Miscellaneous Supplies 1 each/ Dextrose 255 ml @ 255 mls/hr Q24H IV 01/03/19 17:00 01/03/19 17:22 Budesonide (Pulmicort Flexhaler) 2 puff RBID INH 01/03/19 08:00 Denosumab (Prolia) 120 mg Q6WKS SC 02/13/19 09:00 02/13/19 09:00 DC Dextrose/Sodium Chloride 1,000 ml @ 100 mls/hr Q10H IV 01/02/19 17:30 01/03/19 08:28 DC 01/03/19 06:00 Docusate Sodium (Colace) 100 mg BID PO 01/02/19 21:00 01/03/19 20:34 Erythromycin (Ilotycin) 1 CM RIBBON TID OU 01/03/19 09:00 01/03/19 17:22 Heparin Sodium (Porcine) (Heparin) 5,000 units Q12H SC 01/02/19 21:00 01/03/19 20:34 Home Med (Med Rec Complete!) ASDIRECTED XX 01/02/19 12:45 01/02/19 12:45 DC Magnesium Oxide (Mag-Ox) 400 mg DAILY PO 01/02/19 09:00 01/03/19 11:39 Potassium Chloride 10 meq/ IV Miscellaneous Supplies 100 ml @ 100 mls/hr Q1H IV 01/03/19 10:00 01/03/19 13:59 DC 01/03/19 15:56 Potassium Chloride 10 meq/ IV Miscellaneous Supplies 100 ml @ 100 mls/hr Q1H IV 01/03/19 20:30 01/03/19 21:29 DC 01/03/19 20:26 Potassium Chloride/Sodium Chloride 1,000 ml @ 100 mls/hr Q10H IV 01/03/19 08:15 01/03/19 11:39 Potassium Chloride/Sodium Chloride 1,000 ml @ 125 mls/hr Q8H IV 01/02/19 15:45 01/03/19 08:28 DC 01/03/19 00:01 Potassium Chloride (Micro-K Extencaps) 20 meq DAILY PO 01/02/19 09:00 01/03/19 08:28 DC Prednisone (Deltasone) 10 mg DAILY PO 01/02/19 09:00 01/03/19 11:39 I&O- Last 24 Hours up to 6 AM 01/04/19 06:00 Intake Total 1560 ml Output Total 1275 ml Balance 285 ml Laboratory Tests 2 01/04/19 05:05: Nucleated Red Blood Cells % (auto) 0.0, Anion Gap 7L, Glomerular Filtration Rate > 60.0, Blood Urea Nitrogen 6L, Creatinine 0.24L, Sodium Level 136, Potassium Level 3.4L, Chloride Level 103, Carbon Dioxide Level 26, Calcium Level 8.1L, Aspartate Amino Transf (AST/SGOT) 68H, Alanine Aminotransferase (ALT/SGPT) 82H, Alkaline Phosphatase 129H, Total Bilirubin 0.7, Total Protein 5.0L, Albumin 1.4L, Magnesium Level 1.5L, Albumin/Globulin Ratio 0.39L Assessment 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 the patient has had an interruption in his therapy After discussions with the patient and the , they would like to proceed with immunotherapy . They are not open to palliative or hospice care at this time. Plan COrrect electrolyte abnormalities , transfuse 2 untis of PRBC's if all corrected , then will give Keytruda in the hosptial thank you Alla Moore MD Vital Signs/I&O Laboratory Tests 01/02/19 12:11 Red Blood Count 3.99 L, Mean Corpuscular Volume 85.2, Mean Corpuscular Hemoglobin 25.6 L, Mean Corpuscular Hemoglobin Concent 30.0 L, Red Cell Distribution Width 17.2 H, Neutrophils (%) (Auto) 87.8 H, Lymphocytes (%) (Auto) 2.3 L, Monocytes (%) (Auto) 9.1 H, Eosinophils (%) (Auto) 0.0, Basophils (%) (Auto) 0.1, Neutrophils # (Auto) 8.9 H, Lymphocytes # (Auto) 0.2 L, Monocytes # (Auto) 0.9 H, Eosinophils # (Auto) 0.0, Basophils # (Auto) 0.0 01/03/19 05:47 Red Blood Count 2.70 L, Mean Corpuscular Volume 89.3, Mean Corpuscular Hemoglobin 26.3 L, Mean Corpuscular Hemoglobin Concent 29.5 L, Red Cell Distribution Width 17.3 H 01/03/19 05:52 Calcium Level 8.6 #L, Aspartate Amino Transf (AST/SGOT) 96 H, Alanine Aminotransferase (ALT/SGPT) 76, Alkaline Phosphatase 136 H, Total Bilirubin 0.7, Total Protein 5.7 #L, Albumin 1.3 #L 01/04/19 05:05 Red Blood Count 2.70 L, Mean Corpuscular Volume 85.9, Mean Corpuscular Hemoglobin 25.9 L, Mean Corpuscular Hemoglobin Concent 30.2 L, Red Cell Distribution Width 17.6 H, Calcium Level 8.1 L, Aspartate Amino Transf (AST/SGOT) 68 H, Alanine Aminotransferase (ALT/SGPT) 82 H, Alkaline Phosphatase 129 H, Total Bilirubin 0.7, Total Protein 5.0 L, Albumin 1.4 L Vital Signs Date Time Temp Pulse Resp B/P (MAP) Pulse Ox O2 Delivery O2 Flow Rate FiO2 01/04/19 06:07 99.1 107 16 136/61 (86) 94 01/02/19 18:19 Room Air 01/02/19 12:46 15.0 100 I&O- Last 24 Hours up to 6 AM 01/04/19 06:00 Intake Total 1560 ml Output Total 1275 ml Balance 285 ml Laboratory Data Labs 24H Laboratory Tests 2 01/04/19 05:05: Nucleated Red Blood Cells % (auto) 0.0, Anion Gap 7L, Glomerular Filtration Rate > 60.0, Blood Urea Nitrogen 6L, Creatinine 0.24L, Sodium Level 136, Potassium Level 3.4L, Chloride Level 103, Carbon Dioxide Level 26, Calcium Level 8.1L, Aspartate Amino Transf (AST/SGOT) 68H, Alanine Aminotransferase (ALT/SGPT) 82H, Alkaline Phosphatase 129H, Total Bilirubin 0.7, Total Protein 5.0L, Albumin 1.4L, Magnesium Level 1.5L, Albumin/Globulin Ratio 0.39L CBC/BMP Laboratory Tests 01/04/19 05:05 Red Blood Count 2.70 L, Mean Corpuscular Volume 85.9, Mean Corpuscular Hemoglobin 25.9 L, Mean Corpuscular Hemoglobin Concent 30.2 L, Red Cell Distribution Width 17.6 H, Calcium Level 8.1 L, Aspartate Amino Transf (AST/SGOT) 68 H, Alanine Aminotransferase (ALT/SGPT) 82 H, Alkaline Phosphatase 129 H, Total Bilirubin 0.7, Total Protein 5.0 L, Albumin 1.4 L Microbiology Microbiology 01/02/19 Blood Culture - Preliminary, Resulted No growth after 24 hours . All specim... 01/02/19 Blood Culture - Preliminary, Resulted No growth after 24 hours . All specim... 01/02/19 Respiratory Virus Panel (PCR) ([facility]) - Final, Complete Allergies Coded Allergies: Penicillins (Verified Allergy, Intermediate, swelling, 08/10/18) Home Medications Scheduled Budesonide (Budesonide) 0.5 Mg/2 Ml Ampul.neb, 0.5 MG PO BID, (Reported) Denosumab Injection (Prolia) 60 Mg/1 Ml Syringe, 120 MG SC Q6WKS, (Reported) PATIENT WAS DUE TO RECEIVE NEXT DOSE 12/29/18. PATIENT DID NOT RECEIVE. Erythromycin Base (Erythromycin) 1 Gm Oint...g., 1 APLCT OD TID, (Reported) TO USE X 10 DAYS. PICKED UP FROM PHARMACY ON 12/20/18. PATIENT STATES HE STILL USES. Magnesium Oxide (Magnesium Oxide) 400 Mg Tablet, 400 MG PO DAILY, (Reported) Pembrolizumab (Keytruda) 100 Mg/4 Ml Vial, 200 MG IV [id number], (Reported) PATIENT WAS DUE TO RECEIVE 12/29/18. PATIENT DID NOT RECEIVE. Potassium Chloride (Potassium Chloride) 20 Meq Tab.er.prt, 20 MEQ PO DAILY, (Reported) Prednisone (Prednisone) 10 Mg Tablet, 10 MG PO DAILY, (Reported) Turmeric Root Extract (Turmeric) 500 Mg Capsule, 500 MG PO DAILY, (Reported) Scheduled PRN Acetaminophen with Codeine (Acetaminophen-Cod #3 Tablet) 1 Each Tablet, 1 TAB PO Q4H PRN for PAIN, (Reported) Albuterol Sulf (Albuterol Sulfate) 2.5 Mg/3 Ml Vial.neb, 2.5 MG INH QID PRN for SHORTNESS OF BREATH, (Reported) Alla Moore MD Jan 04, 2019 08:10
[2019-01-04] MEDS: predniSONE 10 MG TAB PO SCH (08:49)
[2019-01-04] MEDS: ACETAMINOPH W/CODEINE #3 TAB UD PO PRN (08:49)
[2019-01-04] MEDS: DOCUSATE SODIUM 100 MG CAP PO SCH ×2 (08:50→22:03)
[2019-01-04] MEDS: MAGNESIUM OXIDE 400 MG TAB (MAG-OX) PO SCH ×2 (08:50→22:03)
[2019-01-04] MEDS: HEPARIN SOD (PORCINE) 5000 UNITS/ML VIAL SC SCH ×2 (08:50→22:03)
[2019-01-04] MEDS: ERYTHROMYCIN OPHTH OINT OU SCH ×3 (08:50→22:04)
[2019-01-04] MEDS ORDERED: diphenhydrAMINE 25 MG CAP PO ONE ×2 (09:00→13:30)
[2019-01-04] MEDS ORDERED: FUROSEMIDE 20 MG/2 ML VIAL (J1940) IV ONE ×2 (09:00→13:30)
[2019-01-04] MEDS ORDERED: ACETAMINOPHEN TAB 650MG DOSE (2X325MG) PO ONE ×2 (09:00→13:30)
[2019-01-04] MEDS: BUDESONIDE 180MCG INHALER (PULMICORT FLEXHALER) INH SCH (09:15)
--- NOTE | 2019-01-04 09:35 | IPNPDOC ---
Subjective Date Seen The patient was seen on 01/04/19. Subjective Chief Complaint/HPI Still SOB at times with any exertion. no CP. Drinking liquids well and taking Ensure Constitutional: Denies: Chills, Fever Pulmonary: Reports: Dyspnea, Cough Cardiovascular: Denies: Chest Pain, Palpitations Gastrointestinal: Denies: Nausea, Vomiting, Abdominal Pain, Diarrhea, Constipation Objective Physical Examination General Exam: Positive: Alert, Cooperative, Other (Thin) Eye Exam: Positive: Other Eye Symptoms (Both eyes crusted- slight drainage BL) Neck Exam: Positive: Supple; Negative: JVD Chest Exam: Positive: Diminished, Other (Right CTA, Left diminished breath sounds at base.); Negative: Rhonchi, Wheezing Heart Exam: Positive: Tachycardic (HR 100 - 110), Regular Rhythm; Negative: Rate Normal, Murmurs Telemetry: Positive: Tachycardia Abdomen Exam: Positive: Soft; Negative: Tenderness Extremity Exam: Negative: Edema Skin Exam: Negative: Nl turgor and temperature Neuro Exam: Positive: Normal Speech Psych Exam: Positive: Mental status NL Assessment /Plan Problems (1) Anemia Status: Acute Problem Text: hgb has dropped - may be related to dilution and acute illness Get iron studies, B12, etc check occult blood Transfusion ordered by Oncology (2) Acute and chronic respiratory failure with hypoxia Status: Acute Response to Treatment: Improving Problem Text: O2 sats improved. Cont nebs and oxygen Encourage IS On chronic prednisone Resp panel neg B/C neg (3) COPD (chronic obstructive pulmonary disease) Status: Chronic Response to Treatment: Stable Problem Text: Dyspnea mostly chronic related, COPD, Lung cancer with Left lung mass/adenopathy/chronic infiltrate/s/p left lobectomy - (Also related to deconditioning and anemia) cont usual inhalers Not sure there is a role for antibiotics at this time - Azactam stopped Stop Zithromax? cont Prednisone (4) Hypercalcemia Status: Resolved Problem Text: Improved with IVF s/p Zometa lat admission on 12/29 (5) Dehydration Status: Resolved Problem Text: 01/04 - d/c IVF today - taking po liquids fairly well now Cont ensure Secondary to poor oral intake IV fluid Had Dysphagia evaluated with Cookie Swallow last admission showing some penetration - I am unable to find ST note to determine recommendations regarding safe liquid/food consistency I will ask them to give recommendations also give Ensure if possible as this is something he states he likes (6) Tachycardia Status: Acute Problem Text: Most likely secondary to dehydration & anemia Continue volume expansion, blood transfusion ordered (7) Lung cancer Problem Text: Need to d/w Oncology plan for further tx - states she is not ready for palliative care - She wants to try to build up his strength so he can continue with Keytruda (8) Metastatic lung carcinoma Status: Chronic Problem Text: See above (9) Radiation pneumonitis Status: Acute Problem Text: continue treatment with steroids (10) Hypomagnesemia Status: Acute Problem Text: Give mag runs (11) Hypokalemia Status: Acute Response to Treatment: Improving Problem Text: Give K runs (12) Severe protein-calorie malnutrition Status: Chronic Problem Text: Per nutrition consult, cont Ensure TID Plan/VTE VTE Prophylaxis Ordered?: Yes (SQ heparin) Plan Therapy: PT, OT VS, I&O, 24H, Fishbone Vital Signs/I&O Vital Signs Date Time Temp Pulse Resp B/P (MAP) Pulse Ox O2 Delivery O2 Flow Rate FiO2 01/04/19 08:49 18 01/04/19 06:07 99.1 107 136/61 (86) 94 01/02/19 18:19 Room Air 01/02/19 12:46 15.0 100 I&O- Last 24 Hours up to 6 AM 01/04/19 06:00 Intake Total 1560 ml Output Total 1275 ml Balance 285 ml Laboratory Data 24H LABS Laboratory Tests 2 01/04/19 05:05: Nucleated Red Blood Cells % (auto) 0.0, Anion Gap 7L, Glomerular Filtration Rate > 60.0, Blood Urea Nitrogen 6L, Creatinine 0.24L, Sodium Level 136, Potassium Level 3.4L, Chloride Level 103, Carbon Dioxide Level 26, Calcium Level 8.1L, Aspartate Amino Transf (AST/SGOT) 68H, Alanine Aminotransferase (ALT/SGPT) 82H, Alkaline Phosphatase 129H, Total Bilirubin 0.7, Total Protein 5.0L, Albumin 1.4L, Magnesium Level 1.5L, Albumin/Globulin Ratio 0.39L CBC/BMP Laboratory Tests 01/04/19 05:05 Red Blood Count 2.70 L, Mean Corpuscular Volume 85.9, Mean Corpuscular H emoglobin 25.9 L, Mean Corpuscular Hemoglobin Concent 30.2 L, Red Cell Distribution Width 17.6 H, Calcium Level 8.1 L, Aspartate Amino Transf (AST/SGOT) 68 H, Alanine Aminotransferase (ALT/SGPT) 82 H, Alkaline Phosphatase 129 H, Total Bilirubin 0.7, Total Protein 5.0 L, Albumin 1.4 L Microbiology Microbiology 01/02/19 Blood Culture - Preliminary, Resulted No growth after 24 hours . All specim... 01/02/19 Blood Culture - Preliminary, Resulted No growth after 24 hours . All specim... 01/02/19 Respiratory Virus Panel (PCR) ([facility]) - Final, Complete FRANCIA DUFF PA-C Jan 04, 2019 09:35
[2019-01-04] MEDS ORDERED: MAG SULF 1GM/100ML (MAG RUN) 1 GM in APPROPRIATE DILUENT 1 EA IV ONE (10:00)
[2019-01-04] MEDS: KCL 10MEQ/100ML SWI (KRUN) 10 MEQ in APPROPRIATE DILUENT 1 EA IV SCH ×4 (10:27→11:40)
[2019-01-04 11:19] LABS: FOLATE 7.5 NG/ML (>5.4); PERCENT SATURATION 14.2 % (19.7-50.0)
[2019-01-04] MEDS: BUDESONIDE 0.5 MG/2 ML INHALATION SUSPENSION INH SCH ×2 (11:57→21:04)
[2019-01-04] MEDS: NS 1,000 ML IV SCH (13:29)
[2019-01-04 14:00] VITALS: BP 124/76
[2019-01-04] MEDS ORDERED: MAGNESIUM OXIDE 400 MG TAB (MAG-OX) PO SCH (14:00)
[2019-01-04] MEDS: AZITHROMYCIN INJ 500 MG, VIAL MATE ADAPTER 1 EACH in D5W 250 ML IV SCH (16:57)
[2019-01-04 22:00] VITALS: BP 118/70
[2019-01-05 06:00] VITALS: BP 125/77
[2019-01-05 07:02] LABS: HEMATOCRIT 30.1 % (42.0-52.0); HEMOGLOBIN 9.8 g/dl (13.5-17.5); MEAN CORPUSCULAR HEMOGLOBIN 27.8 pg (27.0-33.0); MEAN CORPUSCULAR HGB CONC 32.6 g/dl (32.0-36.5); MEAN CORPUSCULAR VOLUME 85.3 fl (80.0-96.0); PLATELET COUNT, AUTOMATED 145 10^3/uL (150-450); RED BLOOD COUNT 3.53 10^6/uL (4.30-6.10); WHITE BLOOD COUNT 9.6 10^3/uL (4.0-10.0)
[2019-01-05 07:28] LABS: ALBUMIN 1.5 GM/DL (3.2-5.2); ALT/SGPT 69 U/L (12-78); BILIRUBIN,TOTAL 1.5 MG/DL (0.2-1.0); BLOOD UREA NITROGEN 6 MG/DL (7-18); CALCIUM LEVEL 8.9 MG/DL (8.8-10.2); CARBON DIOXIDE LEVEL 26 MEQ/L (21-32); CHLORIDE LEVEL 98 MEQ/L (98-107); CREATININE FOR GFR 0.34 MG/DL (0.70-1.30); GLOMERULAR FILTRATION RATE > 60.0 (>49); GLUCOSE, FASTING 103 MG/DL (70-100); MAGNESIUM LEVEL 1.4 MG/DL (1.8-2.4); SODIUM LEVEL 133 MEQ/L (136-145); TOTAL PROTEIN 6.2 GM/DL (6.4-8.2)
[2019-01-05] MEDS: BUDESONIDE 0.5 MG/2 ML INHALATION SUSPENSION INH SCH ×2 (07:35→20:39)
[2019-01-05] MEDS ORDERED: POTASSIUM CHLORIDE 10 MEQ SR TABLET PO SCH (07:45)
[2019-01-05] MEDS ORDERED: MAG SULF 1GM/100ML (MAG RUN) 1 GM in APPROPRIATE DILUENT 1 EA IV ONE (08:00)
[2019-01-05] MEDS: ACETAMINOPH W/CODEINE #3 TAB UD PO PRN ×2 (08:20→18:01)
[2019-01-05 09:00] VITALS: BP 127/79
[2019-01-05] MEDS: DOCUSATE SODIUM 100 MG CAP PO SCH ×2 (10:07→21:22)
[2019-01-05] MEDS: predniSONE 10 MG TAB PO SCH (10:08)
[2019-01-05] MEDS: MAGNESIUM OXIDE 400 MG TAB (MAG-OX) PO SCH ×2 (10:08→21:22)
[2019-01-05] MEDS: KCL 10MEQ/100ML SWI (KRUN) 10 MEQ in APPROPRIATE DILUENT 1 EA IV SCH ×4 (10:09→13:48)
[2019-01-05] MEDS: HEPARIN SOD (PORCINE) 5000 UNITS/ML VIAL SC SCH ×2 (10:09→21:23)
[2019-01-05] MEDS: ERYTHROMYCIN OPHTH OINT OU SCH ×3 (10:11→21:23)
--- NOTE | 2019-01-05 11:08 | IPNPDOC ---
Subjective Date Seen The patient was seen on 01/05/19. Subjective Chief Complaint/HPI Taking liquids and Ensure well. Still does not eat much solid food - only jello and cream of wheat Constitutional: Denies: Chills, Fever Pulmonary: Denies: Dyspnea, Cough Cardiovascular: Denies: Chest Pain Gastrointestinal: Denies: Nausea, Vomiting, Abdominal Pain, Diarrhea, Constipation Objective Physical Examination General Exam: Positive: Alert, Cooperative, Other (Thin) Eye Exam: Positive: Other Eye Symptoms (Both eyes crusted- slight drainage BL) Neck Exam: Positive: Supple; Negative: JVD Chest Exam: Positive: Diminished, Other (Right CTA, Left diminished breath sounds at base.); Negative: Rhonchi, Wheezing Heart Exam: Positive: Tachycardic (HR 100 - 110), Regular Rhythm; Negative: Rate Normal, Murmurs Telemetry: Positive: Tachycardia Abdomen Exam: Positive: Soft; Negative: Tenderness Extremity Exam: Negative: Edema Skin Exam: Negative: Nl turgor and temperature Neuro Exam: Positive: Normal Speech Psych Exam: Positive: Mental status NL Assessment /Plan Problems (1) Anemia Status: Acute Problem Text: 01/05 - Hgb improved after 2 units PRBCs 01/04. Wkup suggests ACD (2) Acute and chronic respiratory failure with hypoxia Status: Resolved Response to Treatment: Improving Problem Text: O2 sats improved. Cont nebs and oxygen Encourage IS On chronic prednisone Resp panel neg B/C neg D/C Zithromax as I don't see any reason for this - patient refused yesterday and today due to hope of getting Keytruda (3) COPD (chronic obstructive pulmonary disease) Status: Chronic Response to Treatment: Stable Problem Text: Dyspnea mostly chronic related, COPD, Lung cancer with Left lung mass/adenopathy/chronic infiltrate/s/p left lobectomy - (Also related to deconditioning and anemia) cont usual inhalers Not sure there is a role for antibiotics at this time - Azactam stopped Stop Zithromax? cont Prednisone (4) Hypercalcemia Status: Resolved Problem Text: 01/05 - will monitor trend with d/c of IVF. s/p Zometa lat admission on 12/29 (5) Dehydration Status: Resolved Problem Text: 01/04 - d/c IVF today - taking po liquids fairly well now Cont ensure Secondary to poor oral intake IV fluid Had Dysphagia evaluated with Cookie Swallow last admission showing some penetration - I am unable to find ST note to determine recommendations regarding safe liquid/food consistency I will ask them to give recommendations also give Ensure if possible as this is something he states he likes (6) Tachycardia Status: Acute Problem Text: Most likely secondary to dehydration & anemia Continue volume expansion, blood transfusion ordered (7) Lung cancer Problem Text: Need to d/w Oncology plan for further tx - states she is not ready for palliative care - She wants to try to build up his strength so he can continue with Keytruda (8) Metastatic lung carcinoma Status: Chronic Problem Text: See above (9) Radiation pneumonitis Status: Acute Problem Text: continue treatment with steroids (10) Hypomagnesemia Status: Acute Problem Text: Give mag runs (11) Hypokalemia Status: Acute Response to Treatment: Improving Problem Text: Give K runs (12) Severe protein-calorie malnutrition Status: Chronic Problem Text: Per nutrition consult, cont Ensure TID Plan/VTE VTE Prophylaxis Ordered?: Yes (SQ heparin) Plan Therapy: PT, OT Disposition Probable d/c home tomorrow so patient can get Keytruda at 12:45 at oncology ( wants him discharged to restart Keytruda) We will try to get electrolytes normalized by then VS, I&O, 24H, Fishbone Vital Signs/I&O Vital Signs Date Time Temp Pulse Resp B/P (MAP) Pulse Ox O2 Delivery O2 Flow Rate FiO2 01/05/19 09:55 16 01/05/19 09:00 98.6 105 127/79 (95) 94 01/02/19 18:19 Room Air 01/02/19 12:46 15.0 100 I&O- Last 24 Hours up to 6 AM 01/05/19 06:00 Intake Total 1810 ml Output Total 1920 ml Balance -110 ml Laboratory Data 24H LABS Laboratory Tests 2 01/05/19 06:38: Nucleated Red Blood Cells % (auto) 0.0, Anion Gap 9, Glomerular Filtration Rate > 60.0, Blood Urea Nitrogen 6L, Creatinine 0.34L, Sodium Level 133L, Potassium Level 3.0L, Chloride Level 98, Carbon Dioxide Level 26, Calcium Level 8.9, Aspartate Amino Transf (AST/SGOT) 44H, Alanine Aminotransferase (ALT/SGPT) 69, Alkaline Phosphatase 129H, Total Bilirubin 1.5#H, Total Protein 6.2#L, Albumin 1.5L, Magnesium Level 1.4L, Albumin/Globulin Ratio 0.32L CBC/BMP Laboratory Tests 01/05/19 06:38 Red Blood Count 3.53 L, Mean Corpuscular Volume 85.3, Mean Corpuscular Hemoglobin 27.8, Mean Corpuscular Hemoglobin Concent 32.6, Red Cell Distribution Width 16.3 H, Calcium Level 8.9, Aspartate Amino Transf (AST/SGOT) 44 H, Alanine Aminotransferase (ALT/SGPT) 69, Alkaline Phosphatase 129 H, Total Bilirubin 1.5 #H, Total Protein 6.2 #L, Albumin 1.5 L Microbiology Microbiology 01/02/19 Blood Culture - Preliminary, Resulted No Growth after 48 hours. All Specime... 01/02/19 Blood Culture - Preliminary, Resulted No Growth after 48 hours. All Specime... 01/02/19 Respiratory Virus Panel (PCR) ([facility]) - Final, Complete FRANCIA DUFF PA-C Jan 05, 2019 11:08
[2019-01-05] MEDS: NS 1,000 ML IV SCH (13:48)
[2019-01-05 16:44] LABS: BLOOD UREA NITROGEN 6 MG/DL (7-18); CALCIUM LEVEL 8.5 MG/DL (8.8-10.2); CARBON DIOXIDE LEVEL 26 MEQ/L (21-32); CHLORIDE LEVEL 98 MEQ/L (98-107); CREATININE FOR GFR 0.25 MG/DL (0.70-1.30); GLOMERULAR FILTRATION RATE > 60.0 (>49); GLUCOSE, FASTING 116 MG/DL (70-100); MAGNESIUM LEVEL 1.7 MG/DL (1.8-2.4); POTASSIUM SERUM 3.7 MEQ/L (3.5-5.1); SODIUM LEVEL 132 MEQ/L (136-145)
[2019-01-05] MEDS ORDERED: ONDANSETRON 4 MG TAB (S0181) PO PRN (17:45)
[2019-01-05 21:40] VITALS: BP 122/78
[2019-01-06 06:30] VITALS: BP 138/65
[2019-01-06] MEDS: ACETAMINOPH W/CODEINE #3 TAB UD PO PRN (06:51)
[2019-01-06 07:24] LABS: HEMATOCRIT 31.5 % (42.0-52.0); HEMOGLOBIN 9.9 g/dl (13.5-17.5); MEAN CORPUSCULAR HEMOGLOBIN 27.1 pg (27.0-33.0); MEAN CORPUSCULAR HGB CONC 31.4 g/dl (32.0-36.5); MEAN CORPUSCULAR VOLUME 86.3 fl (80.0-96.0); PLATELET COUNT, AUTOMATED 141 10^3/uL (150-450); RED BLOOD COUNT 3.65 10^6/uL (4.30-6.10); WHITE BLOOD COUNT 9.7 10^3/uL (4.0-10.0)
[2019-01-06] MEDS: BUDESONIDE 0.5 MG/2 ML INHALATION SUSPENSION INH SCH (07:46)
[2019-01-06 07:52] LABS: ALBUMIN 1.5 GM/DL (3.2-5.2); ALT/SGPT 56 U/L (12-78); BLOOD UREA NITROGEN 8 MG/DL (7-18); CALCIUM LEVEL 8.9 MG/DL (8.8-10.2); CARBON DIOXIDE LEVEL 27 MEQ/L (21-32); CHLORIDE LEVEL 97 MEQ/L (98-107); CREATININE FOR GFR 0.38 MG/DL (0.70-1.30); GLOMERULAR FILTRATION RATE > 60.0 (>49); GLUCOSE, FASTING 113 MG/DL (70-100); POTASSIUM SERUM 3.2 MEQ/L (3.5-5.1); SODIUM LEVEL 133 MEQ/L (136-145); TOTAL PROTEIN 6.5 GM/DL (6.4-8.2)
[2019-01-06 08:29] LABS: MAGNESIUM LEVEL 1.7 MG/DL (1.8-2.4)
[2019-01-06] MEDS: ERYTHROMYCIN OPHTH OINT OU SCH (08:53)
[2019-01-06] MEDS: HEPARIN SOD (PORCINE) 5000 UNITS/ML VIAL SC SCH (08:53)
[2019-01-06] MEDS: MAGNESIUM OXIDE 400 MG TAB (MAG-OX) PO SCH (08:53)
[2019-01-06] MEDS: POTASSIUM CHLORIDE 10% LIQ 20 MEQ/15 ML UDC PO SCH ×2 (08:53→10:21)
[2019-01-06] MEDS: predniSONE 10 MG TAB PO SCH (08:54)
[2019-01-06] MEDS: DOCUSATE SODIUM 100 MG CAP PO SCH (08:54)
[2019-01-06] MEDS ORDERED: PRED10TA2 PO (09:43)
[2019-01-06] MEDS ORDERED: MAG400TA PO (09:43)
[2019-01-06] MEDS ORDERED: COLA100C5 PO (09:43)
[2019-01-06] MEDS ORDERED: POTA20EL PO ×2 (09:43→13:22)
[2019-01-06] MEDS ORDERED: BUDE0.5S6 INH (09:43)
[2019-01-06] MEDS ORDERED: MAG SULF 1GM/100ML (MAG RUN) 1 GM in APPROPRIATE DILUENT 1 EA IV ONE (10:00)
--- NOTE | 2019-01-31 20:37 | DSES ---
DATE OF ADMISSION: 01/03/2019 DATE OF DISCHARGE: 01/06/2019 BRIEF HISTORY AND PHYSICAL: The patient is a 68-year-old patient with a history of stage IV metastatic lung disease who presented with increased shortness of breath, tachycardia, and poor oral intake. He has been receiving treatment for his lung cancer with Keytruda every 3 weeks. Today he was at the oncology office. He developed tachycardia, wheezing, shortness of breath and transferred to the emergency room. White count was 10. CT of the chest was negative for pulmonary embolism (PE). He had metastases and lymphadenopathy. PAST MEDICAL HISTORY: Significant for: 1. Metastatic lung squamous cell carcinoma with metastatic disease to the face in the periorbital/skeletal region. 2. Radiation pneumonitis. 3. Chronic obstructive pulmonary disease (COPD). 4. Cachexia. 5. Malignant hypercalcemia. PERTINENT LABORATORIES ON ADMISSION: White count 10, hemoglobin 10.2, platelets 218,000. Sodium 136, potassium 3.4, BUN 6, creatinine 0.24, magnesium 1.5, calcium 8.1. AST 68, ALT 82, alkaline phosphatase 129, albumin 1.4. HOSPITAL COURSE: 1. The patient was admitted for acute on chronic respiratory failure with hypoxemia, initially treated with antibiotics, oxygen, and nebulized bronchodilators as well as his chronic prednisone. Respiratory panel was negative. Blood cultures were negative. The patient refused Zithromax in hopes of getting Keytruda. 2. Dehydration. He was given intravenous (IV) fluids. He was starting to take some orals a little bit better. He had dysphagia evaluated with a cookie swallow last admission, showing some penetration. They did give us some guidance as far as his consistency, and he was encouraged to take Ensure and other things to see if he could boost his nutrition, as he did have significant hypoalbuminemia as well from severe protein calorie malnutrition. 3. Tachycardia, most likely secondary to dehydration and anemia. This resolved with volume expansion and blood transfusion. 4. Anemia. His hemoglobin dropped significantly. Workup suggested anemia of chronic disease. He was given 2 units of red packed red blood cells on 01/04/2019. 5. Radiation pneumonitis. He was treated with steroids. 6. Hypomagnesemia. He was given magnesium runs. 7. Hypokalemia. He was given IV magnesium. His electrolytes improved, and he was given further potassium and magnesium on the date of discharge. The patient and wanted to be discharged in order for him to be able to get his Keytruda, and so although his electrolytes were not fully normalized, she wanted to make sure that he was able to go and get his next Keytruda treatment, and so further magnesium and potassium were given. Followup labs were not obtained prior to discharge, but the patient left to go get his Keytruda. The risk of that was discussed, but the felt that she wanted to make sure he got his next Keytruda treatment for his cancer. DISPOSITION: He is discharged. Followup to get his Keytruda and then followup with his primary care physician (PCP). MEDICATIONS: - budesonide 0.5 mg nebulized twice a day - Colace 100 mg twice a day - magnesium 800 mg twice - potassium 20 mEq per 15 mL, 15 mL twice a day - prednisone 10 mg daily - acetaminophen with codeine every 4 hours as needed - albuterol nebulizers four times a day - Keytruda today DISCHARGE DIAGNOSES: 1 Acute on chronic anemia requiring transfusion. 2. Dehydration. 3. Hypokalemia. 4. Hypomagnesemia. 5. Severe protein calorie malnutrition. 6. Acute respiratory failure with hypoxemia. 7. Radiation pneumonitis. 8. Metastatic squamous cell lung disease.
[2019-02-13] MEDS ORDERED: DENOSUMAB 60MG/1ML SYRINGE (PROLIA) (J0897 PER 1MG) (FOR ONCOLOGY) SC SCH (09:00)
== END 2019-01-06 12:15 | disposition home health service (06) | DRG 189 ==
LOC: M ED 11:34 → M ED INP 16:52 → M MS5PR 21:50 → OBSVTOIN 01-03 14:39
PROVIDERS: ADMIT Internal Medicine; ATTEND Family Medicine
PROC: 30233N1 Transfusion of Nonautologous Red Blood Cells into Peripheral Vein, Percutaneous Approach (ICD-10-PCS; principal; 2019-01-04)
DX: J96.21 Acute and chronic respiratory failure with hypoxia (principal); E43 Unspecified severe protein-calorie malnutrition; J44.1 Chronic obstructive pulmonary disease with (acute) exacerbation; J70.0 Acute pulmonary manifestations due to radiation; R64 Cachexia; E86.0 Dehydration; D64.9 Anemia, unspecified; R00.0 Tachycardia, unspecified; E87.6 Hypokalemia; Z66 Do not resuscitate; E83.42 Hypomagnesemia; E83.52 Hypercalcemia; Z79.52 Long term (current) use of systemic steroids; Z79.899 Other long term (current) drug therapy; Z90.2 Acquired absence of lung [part of]; Z92.3 Personal history of irradiation

== ENCOUNTER 2019-01-06 12:22 | Outpatient (RCR) | payer MEDICARE ==
[2018-03-01 14:44] VITALS: BP 140/90
--- NOTE | 2018-03-02 14:06 | MEDONC ---
REVIEW PATIENT FOLLOWUP DATE OF SERVICE: 03/01/2018 DIAGNOSIS: Left lung squamous cell carcinoma. TREATMENT SUMMARY: 1. Left upper lobectomy 08/18/2017 with pathology showing a pT2aN0 moderate to poorly differentiated squamous cell carcinoma with extensive necrosis, 3.5 cm in largest dimension, 0/3 peribronchial lymph node, 0/1 anthracotic lymph node involved. Lymphovascular invasion not identified. 2. Started postoperative carboplatin/paclitaxel chemotherapy 09/2017.Completed November 2017. HISTORY OF PRESENT ILLNESS: Mr. Wray reports a good appetite. He has been gaining weight. He reports that he has joint achiness and also pain on his fingers, for which he takes Tylenol. He was advised gabapentin, but he did not want to start this as he was worried about potential side effects. He also reports that he has had upper respiratory infection symptoms which started recently, but these have been improving. He reports no fevers. On physical examination, he weighed 94 kg. Blood pressure 140/90. Oxygen saturation 98% on room air. Temperature 98 degrees Fahrenheit. Pulse rate 91 per minute. He was ambulatory, not in distress. Lungs were clear. S1 and S2 regular. Extremities - no calf swelling, no calf tenderness. IMPRESSION AND PLAN: Mr. Wray had an MRI of the brain for headaches and this showed no evidence of metastatic disease. He also had an abdominal CT which showed a 2.4 cm right adrenal lesion which was considered nonspecific. A CT of the chest showed an enlarged pathologic lymph node measuring 3.1 cm and a small noncalcified density in the right upper lobe which had increased to 8 mm. I discussed the above results with him. I suggested a referral to Dr. Ingram for an assessment of this enlarged lymph node. Alternatively, we could send him for a PET scan but after our discussion it was agreed that he would be referred back to Dr. Ingram at this time. Office visit in six weeks. Electronically Signed by Zara Bolanos MD, FACP 03/02/2018 06:04 P DD: Zara Bolanos MD, FACP 03/01/2018 05:43 P DT: [facility] 03/02/2018 01:57 P CC: MD Paulie Anglin, [facility] Chad Muniz MD
[2018-04-21 14:35] VITALS: BP 142/89
[2018-04-21 14:47] LABS: HEMATOCRIT 42.6 % (37.0-51.0); LYMPH % 25.7 % (10.0-58.5); MEAN CORPUSCULAR HEMOGLOBIN 31.3 pg (26.0-32.0); MEAN CORPUSCULAR HGB CONC 32.9 g/dl (31.0-36.0); NEUTROPHILS # 5.5 10^3/uL (2.0-7.8); NEUTROPHILS % 65.8 % (37.0-92.0); RED BLOOD COUNT 4.48 10^6/uL (4.2-6.3); WHITE BLOOD COUNT 8.3 10^3/uL (4.1-10.9)
[2018-04-21 15:07] LABS: ALBUMIN 4.4 GM/DL (3.5-5.2); BLOOD UREA NITROGEN 14 MG/DL (6-20); CALCIUM LEVEL 9.8 MG/DL (8.5-10.2); CARBON DIOXIDE LEVEL 26 MEQ/L (23-31); CHLORIDE LEVEL 104 MMOL/L (98-107); CREATININE FOR GFR 1.03 MG/DL (0.90-1.30); GLOMERULAR FILTRATION RATE > 60.0 (>49); GLUCOSE, FASTING 87 MG/DL (70-105); SODIUM LEVEL 139 MMOL/L (136-145); TOTAL PROTEIN 7.2 GM/DL (6.4-8.3)
--- NOTE | 2018-04-25 11:14 | MEDONC ---
REVIEW PATIENT FOLLOWUP DATE OF SERVICE: 04/21/2018 DIAGNOSIS: Left lung squamous cell carcinoma. TREATMENT SUMMARY: 1. Left upper lobectomy 08/18/2017 with pathology showing a pT2aN0 moderate to poorly differentiated squamous cell carcinoma with extensive necrosis, 3.5 cm in largest dimension, 0/3 peribronchial lymph node, 0/1 anthracotic lymph node involved. Lymphovascular invasion not identified. 2. Started postoperative carboplatin/paclitaxel chemotherapy 09/2017.Completed November 2017. 3. PET scan from 03/2018 showing hypermetabolic mediastinal lymphadenopathy. FNA of mediastinal lymph node showing fragments of necrotic non small cell carcinoma consistent with previously diagnosed squamous cell of lung primary. HISTORY OF PRESENT ILLNESS: Mr. Wray was referred to Dr. Ingram as a CT of the chest showed enlarged pathologic lymph node in the aortic arch. He was sent for a PET scan and this showed hypermetabolic mediastinal lymphadenopathy consistent with metastatic disease. No pulmonary parenchymal hypermetabolic uptake was seen. He had an FNA prior to the PET scan, which showed fragments of necrotic non-small cell carcinoma, consistent with previously diagnosed squamous cell of lung primary. He was here today for a followup appointment. Symptom martin, Mr. Wray reports a fair appetite. He has been gaining weight. No fevers. No night sweats. 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 He reports headaches and once in a while he feels lightheaded. He did have a brain MRI back in February, which did not show any evidence of metastatic disease. He reports chest pain on his surgical side on the chest, for which he takes Tylenol at times. He has had a cough, which is usually dry, but sometimes he has clear phlegm with the cough. No nausea. No vomiting. He occasionally has band-like abdominal pains once in a while. He has occasional diarrhea. No urinary problems. No easy bruising. No rectal bleeding. No peripheral edema. PHYSICAL EXAMINATION: On physical examination, he weighed 92.8 kg, temperature 98 degrees Fahrenheit, pulse rate 95 per minute, blood pressure 142/89, oxygen saturation 97% on room air. He had pinkish conjunctivae, anicteric sclerae. No oral mucosal lesions. No palpable cervical nodes. LUNGS: Clear. No rales, no rhonchi, no wheeze. HEART: S1, S2 regular. ABDOMEN: Soft, nontender. No guarding. EXTREMITIES - No calf swelling, no calf tenderness, and no pedal edema. IMPRESSION AND PLAN: I discussed with Mr. Wray that most recent workup is consistent with a recurrence of lung cancer to mediastinal nodes. The ideal treatment for this would be concurrent chemo RT. There are two chemotherapy options that we use for this, one is with carboplatin/ paclitaxel chemotherapy or cisplatin/ etoposide chemotherapy. Since he progressed while on carboplatin/ paclitaxel chemotherapy, it would be reasonable for him to go on cisplatin/ etoposide chemotherapy. Risks include nausea, vomiting, bone marrow suppression, fatigue, hearing loss, peripheral neuropathy, as well as kidney dysfunction, among others. He was given printed information on the chemotherapy drugs. He is scheduled to see Dr. Gross next week and we await Dr. Gross's opinion. I also preliminarily discussed that after four cycles of chemotherapy, he can start on durvalumab maintenance immunotherapy. We briefly discussed potential complications from immunotherapy. He has agreed to start chemotherapy at this point. Electronically Signed by Zara Bolanos MD, FACP 05/08/2018 04:02 P DD: Zara Bolanos MD, FACP 04/21/2018 05:23 P DT: [facility] 04/25/2018 11:02 A CC: MD Paulie Colón DO [facility] Chad Muniz MD
[2018-05-23 08:15] VITALS: BP 139/93
[2018-05-23 08:17] LABS: HEMATOCRIT 40.9 % (42.0-52.0); HEMOGLOBIN 13.1 g/dl (13.5-17.5); LYMPH % 16.5 % (24.0-44.0); MEAN CORPUSCULAR HEMOGLOBIN 29.6 pg (27.0-33.0); MEAN CORPUSCULAR VOLUME 92.6 fl (80.0-96.0); NEUTROPHILS # 4.8 10^3/uL (1.8-7.7); NEUTROPHILS % 76.9 % (36.0-66.0); RED BLOOD COUNT 4.42 10^6/uL (4.30-6.10); WHITE BLOOD COUNT 6.3 10^3/uL (4.0-10.0)
[2018-05-23 08:34] LABS: ALBUMIN 4.1 GM/DL (3.5-5.2); BLOOD UREA NITROGEN 13 MG/DL (6-20); CARBON DIOXIDE LEVEL 29 MEQ/L (23-31); CHLORIDE LEVEL 103 MMOL/L (98-107); CREATININE FOR GFR 0.83 MG/DL (0.90-1.30); GLUCOSE, FASTING 187 MG/DL (70-105); POTASSIUM SERUM 3.6 MMOL/L (3.5-5.1); SODIUM LEVEL 140 MMOL/L (136-145); TOTAL PROTEIN 7.2 GM/DL (6.4-8.3)
[2018-05-23 08:35] LABS: GLOMERULAR FILTRATION RATE > 60.0 (>49)
--- NOTE | 2018-05-23 12:47 | MEDONC ---
REVIEW PATIENT FOLLOWUP DATE OF SERVICE: 05/23/2018 DIAGNOSIS: Left lung squamous cell carcinoma. TREATMENT SUMMARY: 1. Left upper lobectomy 08/18/2017 with pathology showing a pT2aN0 moderate to poorly differentiated squamous cell carcinoma with extensive necrosis, 3.5 cm in largest dimension, 0/3 peribronchial lymph node, 0/1 anthracotic lymph node involved. Lymphovascular invasion not identified. 2. Started postoperative carboplatin/paclitaxel chemotherapy 09/2017.Completed November 2017. 3. PET scan from 03/2018 showing hypermetabolic mediastinal lymphadenopathy. FNA of mediastinal lymph node showing fragments of necrotic non small cell carcinoma consistent with previously diagnosed squamous cell of lung primary. 4. Started radiation therapy April 2018. Chemotherapy cisplatin/etoposide chemotherapy started 05/2018. HISTORY OF PRESENT ILLNESS: Mr. Wray started radiation therapy a week ago. He was here today to start chemotherapy. Mr. Wray reports a fair appetite. He has had a slight weight loss since his last visit here, but in general he feels well. No fevers. He has night sweats occasionally. He also has been feeling more tired, and he has quit one of his jobs. He reports headaches, for which he takes Tylenol. No dizziness. No vision changes. He did have an MRI of the brain last February, which did not show any evidence of metastatic disease. He reports that he has rib pains, particularly in his right lateral lower rib area, but otherwise has no chest pain. He has had mild shortness of breath depending on what he is doing, but he has been going to the gym and exercising regularly. He has had a cough with clear phlegm, which has not been very significant. No nausea. He had two episodes of vomiting last week. One was related to spicy food. The other seemed to be spontaneous but has not had any vomiting since that time. No abdominal pains. He has had joint achiness on his wrists and ankles since he had chemotherapy but has had no other bone pains. He had mild diarrhea last week but none now. No constipation. No urinary problems. No easy bruising. No rectal bleeding. No epistaxis. No mouth sores and no peripheral edema. On physical examination, he weighed 91.5 kg. Temperature 97.8. Heart rate 98 per minute. Blood pressure 139/93. O2 saturation 96% in room air. He had pinkish conjunctivae, anicteric sclerae. No oral mucosal lesions. No palpable cervical nodes. LUNGS: Were clear. No rales, no rhonchi, no wheeze. S1, S2 regular. ABDOMEN: Was soft, nontender, no guarding. Positive bowel sounds. EXTREMITIES -- No calf swelling, no calf tenderness, and no pedal edema. IMPRESSION AND PLAN: Mr. Wray is scheduled to start cisplatin/etoposide chemotherapy today. Risks of chemotherapy were discussed with him. He also continues on radiation therapy. I again discussed that he will receive four cycles of chemotherapy after which he will go on durvalumab maintenance treatment. Followup appointment in 2 weeks. Electronically Signed by Zara Bolanos MD, FACP 06/10/2018 02:35 P DD: Zara Bolanos MD, FACP 05/23/2018 11:26 A DT: [facility] 05/23/2018 11:44 A CC: MD Paulie Colón, DO [facility] Chad Muniz MD
[2018-05-24 08:16] VITALS: BP 145/89
[2018-05-25 08:00] VITALS: BP 138/77
[2018-05-26 07:50] VITALS: BP 145/87
[2018-05-26 08:19] LABS: HEMOGLOBIN 12.7 g/dl (13.5-17.5); LYMPH % 13.2 % (24.0-44.0); MEAN CORPUSCULAR HGB CONC 32.6 g/dl (32.0-36.5); MEAN CORPUSCULAR VOLUME 92.2 fl (80.0-96.0); NEUTROPHILS # 8.2 10^3/uL (1.8-7.7); NEUTROPHILS % 83.1 % (36.0-66.0); RED BLOOD COUNT 4.23 10^6/uL (4.30-6.10); WHITE BLOOD COUNT 9.9 10^3/uL (4.0-10.0)
[2018-05-26 08:38] LABS: ALBUMIN 4.1 GM/DL (3.5-5.2); BLOOD UREA NITROGEN 15 MG/DL (6-20); CALCIUM LEVEL 9.8 MG/DL (8.5-10.2); CARBON DIOXIDE LEVEL 26 MEQ/L (23-31); CHLORIDE LEVEL 102 MMOL/L (98-107); CREATININE FOR GFR 0.75 MG/DL (0.90-1.30); GLOMERULAR FILTRATION RATE > 60.0 (>49); GLUCOSE, FASTING 116 MG/DL (70-105); POTASSIUM SERUM 3.7 MMOL/L (3.5-5.1); SODIUM LEVEL 140 MMOL/L (136-145)
[2018-05-27 08:05] VITALS: BP 133/85
[2018-05-30 07:50] VITALS: BP 124/86
[2018-05-30 08:18] LABS: HEMATOCRIT 38.9 % (42.0-52.0); HEMOGLOBIN 12.7 g/dl (13.5-17.5); LYMPH % 17.1 % (24.0-44.0); MEAN CORPUSCULAR HEMOGLOBIN 29.7 pg (27.0-33.0); MEAN CORPUSCULAR HGB CONC 32.6 g/dl (32.0-36.5); MEAN CORPUSCULAR VOLUME 91.1 fl (80.0-96.0); NEUTROPHILS # 4.2 10^3/uL (1.8-7.7); RED BLOOD COUNT 4.27 10^6/uL (4.30-6.10); WHITE BLOOD COUNT 5.2 10^3/uL (4.0-10.0)
[2018-05-30 08:38] LABS: ALBUMIN 3.9 GM/DL (3.5-5.2); BLOOD UREA NITROGEN 21 MG/DL (6-20); CALCIUM LEVEL 9.6 MG/DL (8.5-10.2); CARBON DIOXIDE LEVEL 25 MEQ/L (23-31); CHLORIDE LEVEL 101 MMOL/L (98-107); CREATININE FOR GFR 0.89 MG/DL (0.90-1.30); GLOMERULAR FILTRATION RATE > 60.0 (>49); GLUCOSE, FASTING 238 MG/DL (70-105); POTASSIUM SERUM 3.6 MMOL/L (3.5-5.1); SODIUM LEVEL 135 MMOL/L (136-145); TOTAL PROTEIN 6.8 GM/DL (6.4-8.3)
[2018-06-08] MEDS: SODIUM CHLORIDE 0.9% INJ 10 ML SYR IV PRN ×2 (08:30→11:20)
[2018-06-08 08:45] LABS: HEMATOCRIT 35.5 % (42.0-52.0); HEMOGLOBIN 11.5 g/dl (13.5-17.5); LYMPH % 34.5 % (24.0-44.0); MEAN CORPUSCULAR HEMOGLOBIN 29.3 pg (27.0-33.0); MEAN CORPUSCULAR HGB CONC 32.4 g/dl (32.0-36.5); MEAN CORPUSCULAR VOLUME 90.6 fl (80.0-96.0); NEUTROPHILS % 53.1 % (36.0-66.0); RED BLOOD COUNT 3.92 10^6/uL (4.30-6.10); WHITE BLOOD COUNT 1.9 10^3/uL (4.0-10.0)
[2018-06-08 08:53] VITALS: BP 134/94
[2018-06-08 09:16] LABS: BLOOD UREA NITROGEN 16 MG/DL (6-20); CALCIUM LEVEL 9.8 MG/DL (8.5-10.2); CARBON DIOXIDE LEVEL 25 MEQ/L (23-31); CHLORIDE LEVEL 102 MMOL/L (98-107); CREATININE FOR GFR 0.75 MG/DL (0.90-1.30); GLOMERULAR FILTRATION RATE > 60.0 (>49); GLUCOSE, FASTING 141 MG/DL (70-105); POTASSIUM SERUM 3.8 MMOL/L (3.5-5.1); SODIUM LEVEL 138 MMOL/L (136-145); TOTAL PROTEIN 7.1 GM/DL (6.4-8.3)
[2018-06-08 11:06] VITALS: BP 130/83
--- NOTE | 2018-06-09 07:47 | MEDONC ---
REVIEW PATIENT FOLLOWUP: DATE OF SERVICE: 06/08/2018 DIAGNOSIS: Left lung squamous cell carcinoma. TREATMENT SUMMARY: 1. Left upper lobectomy 08/18/2017 with pathology showing a pT2aN0 moderate to poorly differentiated squamous cell carcinoma with extensive necrosis, 3.5 cm in largest dimension, 0/3 peribronchial lymph node, 0/1 anthracotic lymph node involved. Lymphovascular invasion not identified. 2. Started postoperative carboplatin/paclitaxel chemotherapy 09/2017.Completed November 2017. 3. PET scan from 03/2018 showing hypermetabolic mediastinal lymphadenopathy. FNA of mediastinal lymph node showing fragments of necrotic non small cell carcinoma consistent with previously diagnosed squamous cell carcinoma of lung primary. 4. Started radiation therapy April 2018. Chemotherapy cisplatin/etoposide chemotherapy started 05/2018. HISTORY OF PRESENT ILLNESS: Mr. Wray is currently on concurrent chemo RT and received his first cycle of chemotherapy 2 weeks ago. He reports that his appetite has been better than it used to be. He did lose weight initially when he started chemo and radiation but has gained about 1 pound back. He has had no fevers, but feels hot and cold at times. He reports increased ringing in his ears, slightly worse than previous but no additional hearing loss. He has no additional peripheral neuropathy symptoms but has achiness on the tips of his fingers sometimes. He reports night sweats. 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 He has had headaches all the time. He was referred to Dr. Boudreaux of neurology for this and an MRI has been ordered for him. He is currently on amitriptyline with the dose to be increased as tolerated and as needed. He reports that he has lightheadedness occasionally and he came in today slightly off balance. He reports eye achiness but no real vision changes. He also had a right lateral chest wall pain occasionally for which he takes Tylenol. He has had shortness of breath with exertion but none at rest and his oxygen saturation seems to be adequate. He has a very mild cough once in a while. He has had mild nausea post chemotherapy for which he has been taking antiemetics with relief. No vomiting. No abdominal pains. No bone pains. No diarrhea. He has been taking Maalox for mild constipation. He has also been taking bran flakes for constipation. No urinary problems. No easy bruising. No rectal bleeding. No urinary bleeding. No epistaxis. No mucositis and no pedal edema. On physical exam, he weighed 87.2 kg. Temperature 97.8, heart rate 85 per minute. Blood pressure 130/83. Pulse oximetry 98% in room air. He had pinkish conjunctivae, anicteric sclerae. No oral mucosal lesions. No palpable cervical lymph nodes. Lungs fair entry. No rales, rhonchi, or wheeze. S1, S2 regular. No oral mucositis. No murmur. No gallop. Abdomen was soft, nontender. No guarding. Extremities - no calf swelling, no calf tenderness, and no pedal edema. IMPRESSION AND PLAN: Mr. Wray is currently on concurrent chemo RT for lung cancer. Since he seemed to be a little bit lightheaded today, I have opted to given him intravenous fluids. His CBC showed mild pancytopenia with a low neutrophil count of 1, mild anemia with hemoglobin level of 10.5, mild thrombocytopenia with platelet count 109. He will be scheduled for his next cycle of chemotherapy in 2 weeks. We expect his blood counts to be adequate for chemotherapy by that time. Electronically Signed by Zara Bolanos MD, FACP 06/21/2018 08:24 P DD: Zara Bolanos MD, FACP 06/08/2018 05:34 P DT: christel 06/09/2018 07:33 A CC: MD Paulie Colón DO [facility] Cahd Muniz MD
[2018-06-20 07:45] VITALS: BP 117/76
[2018-06-20 08:04] LABS: HEMATOCRIT 31.9 % (42.0-52.0); HEMOGLOBIN 10.5 g/dl (13.5-17.5); LYMPH % 21.7 % (24.0-44.0); MEAN CORPUSCULAR HEMOGLOBIN 30.5 pg (27.0-33.0); MEAN CORPUSCULAR HGB CONC 32.9 g/dl (32.0-36.5); MEAN CORPUSCULAR VOLUME 92.6 fl (80.0-96.0); NEUTROPHILS # 2.5 10^3/uL (1.8-7.7); NEUTROPHILS % 68.1 % (36.0-66.0); RED BLOOD COUNT 3.44 10^6/uL (4.30-6.10); WHITE BLOOD COUNT 3.6 10^3/uL (4.0-10.0)
[2018-06-20 08:46] LABS: ALBUMIN 3.9 GM/DL (3.5-5.2); BLOOD UREA NITROGEN 15 MG/DL (6-20); CALCIUM LEVEL 9.7 MG/DL (8.5-10.2); CARBON DIOXIDE LEVEL 27 MEQ/L (23-31); CHLORIDE LEVEL 104 MMOL/L (98-107); CREATININE FOR GFR 0.78 MG/DL (0.90-1.30); GLUCOSE, FASTING 162 MG/DL (70-105); POTASSIUM SERUM 3.7 MMOL/L (3.5-5.1); SODIUM LEVEL 139 MMOL/L (136-145)
[2018-06-20 08:47] LABS: GLOMERULAR FILTRATION RATE > 60.0 (>49)
[2018-06-21 08:46] VITALS: BP 130/78
[2018-06-22 07:58] LABS: HEMATOCRIT 31.3 % (42.0-52.0); HEMOGLOBIN 10.5 g/dl (13.5-17.5); MEAN CORPUSCULAR HEMOGLOBIN 31.2 pg (27.0-33.0); MEAN CORPUSCULAR HGB CONC 33.5 g/dl (32.0-36.5); MEAN CORPUSCULAR VOLUME 92.8 fl (80.0-96.0); NEUTROPHILS # 3.8 10^3/uL (1.8-7.7); NEUTROPHILS % 76.4 % (36.0-66.0); RED BLOOD COUNT 3.37 10^6/uL (4.30-6.10)
[2018-06-22 09:15] VITALS: BP 124/83
[2018-06-23 08:55] VITALS: BP 123/80
[2018-06-23 08:58] LABS: ALBUMIN 3.9 GM/DL (3.5-5.2); BLOOD UREA NITROGEN 14 MG/DL (6-20); CALCIUM LEVEL 9.4 MG/DL (8.5-10.2); CARBON DIOXIDE LEVEL 27 MEQ/L (23-31); CHLORIDE LEVEL 100 MMOL/L (98-107); CREATININE FOR GFR 0.77 MG/DL (0.90-1.30); GLOMERULAR FILTRATION RATE > 60.0 (>49); GLUCOSE, FASTING 103 MG/DL (70-105); POTASSIUM SERUM 3.4 MMOL/L (3.5-5.1); SODIUM LEVEL 138 MMOL/L (136-145); TOTAL PROTEIN 6.9 GM/DL (6.4-8.3)
[2018-06-24 08:10] LABS: HEMATOCRIT 31.8 % (42.0-52.0); HEMOGLOBIN 10.8 g/dl (13.5-17.5); LYMPH % 19.7 % (24.0-44.0); MEAN CORPUSCULAR HEMOGLOBIN 31.1 pg (27.0-33.0); MEAN CORPUSCULAR VOLUME 91.7 fl (80.0-96.0); NEUTROPHILS # 2.9 10^3/uL (1.8-7.7); NEUTROPHILS % 76.5 % (36.0-66.0); RED BLOOD COUNT 3.47 10^6/uL (4.30-6.10); WHITE BLOOD COUNT 3.8 10^3/uL (4.0-10.0)
[2018-06-24 08:35] VITALS: BP 119/78
[2018-06-27 07:45] VITALS: BP 125/76
[2018-06-27 08:08] LABS: HEMATOCRIT 32.3 % (42.0-52.0); HEMOGLOBIN 10.7 g/dl (13.5-17.5); LYMPH % 19.1 % (24.0-44.0); MEAN CORPUSCULAR HGB CONC 33.1 g/dl (32.0-36.5); MEAN CORPUSCULAR VOLUME 90.5 fl (80.0-96.0); NEUTROPHILS # 2.8 10^3/uL (1.8-7.7); NEUTROPHILS % 76.7 % (36.0-66.0); RED BLOOD COUNT 3.57 10^6/uL (4.30-6.10); WHITE BLOOD COUNT 3.6 10^3/uL (4.0-10.0)
[2018-06-27 08:29] LABS: ALBUMIN 3.9 GM/DL (3.5-5.2); BLOOD UREA NITROGEN 16 MG/DL (6-20); CALCIUM LEVEL 9.6 MG/DL (8.5-10.2); CARBON DIOXIDE LEVEL 29 MEQ/L (23-31); CHLORIDE LEVEL 99 MMOL/L (98-107); CREATININE FOR GFR 0.69 MG/DL (0.90-1.30); GLOMERULAR FILTRATION RATE > 60.0 (>49); GLUCOSE, FASTING 129 MG/DL (70-105); POTASSIUM SERUM 3.5 MMOL/L (3.5-5.1); SODIUM LEVEL 137 MMOL/L (136-145); TOTAL PROTEIN 7.2 GM/DL (6.4-8.3)
[2018-07-02 00:07] LABS: ANCA-ATYPICAL <1:20 titer (Neg:<1:20); ANTINUCLEAR ANTIBODIES DIRECT Negative (Negative); CYTOPLASMIC NEUTROP AB ANCA-C <1:20 titer (Neg:<1:20); PERINUCLEAR AB ANCA-P <1:20 titer (Neg:<1:20)
[2018-07-05 08:13] VITALS: BP 136/93
[2018-07-05 08:25] LABS: HEMATOCRIT 30.6 % (42.0-52.0); HEMOGLOBIN 9.8 g/dl (13.5-17.5); LYMPH % 29.2 % (24.0-44.0); MEAN CORPUSCULAR VOLUME 90.5 fl (80.0-96.0); NEUTROPHILS % 57.6 % (36.0-66.0); RED BLOOD COUNT 3.38 10^6/uL (4.30-6.10); WHITE BLOOD COUNT 1.7 10^3/uL (4.0-10.0)
[2018-07-05 09:01] LABS: ALBUMIN 4.2 GM/DL (3.5-5.2); BLOOD UREA NITROGEN 18 MG/DL (6-20); CALCIUM LEVEL 9.6 MG/DL (8.5-10.2); CARBON DIOXIDE LEVEL 26 MEQ/L (23-31); CHLORIDE LEVEL 100 MMOL/L (98-107); CREATININE FOR GFR 0.88 MG/DL (0.90-1.30); GLUCOSE, FASTING 167 MG/DL (70-105); SODIUM LEVEL 136 MMOL/L (136-145); TOTAL PROTEIN 7.2 GM/DL (6.4-8.3)
[2018-07-05 09:02] LABS: GLOMERULAR FILTRATION RATE > 60.0 (>49)
[2018-07-05 11:27] LABS: FERRITIN 796 NG/ML (26-388); MAGNESIUM LEVEL 0.9 MG/DL (1.8-2.4); VITAMIN B12 LEVEL 503 PG/ML (247-911)
[2018-07-06 08:55] VITALS: BP 128/79
[2018-07-06] MEDS: MAG SULF 1GM/100ML (MAG RUN) X 2 DOSES (2GM TOTAL) IV SCH ×4 (09:17→10:26)
--- NOTE | 2018-07-07 08:57 | MEDONC ---
DATE OF SERVICE: 07/05/2018 PRIMARY PHYSICIAN: Dr. Chad Muniz RADIATION ONCOLOGIST: Dr. Gross REASON FOR VISIT: Followup of lung cancer. Patient was being followed by Dr. Zara Bolanos, last visit was June 08, 2018. This is the first time i am meeting and Mrs. Wray. 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 The pathology Stage was [id number], ? Stage IB. -------Patient initially received adjuvant chemotherapy with Carboplatin/Taxol September 2017 completing it November 2017. The first cycle of chemotherapy was September 22, 2017 and the last cycle was November 29, 2017. Patient received a total of four cycles of carbo/Taxol. ------March 2018 PET scan showed mediastinal adenopathy with FDG uptake and an FNA done of the mediastinal lymph node was consistent with necrotic nonsmall cell carcinoma, same as the previous squamous cell carcinoma of the lung. ------April 2018 patient started radiation therapy concomitant with cisplatinum/etoposide. The cisplatinum was day 1, the etoposide was 5 days in a row day 1-5. Patient received this from May 23 through May 27, 2018, that was his first cycle and he received part of his second cycle from June 13 through June 23 and then June 24 he recd the cisplatinum and the last dose of etoposide was June 23. Patient says he feels horrible, he is weak, he is tired, he is not eating. He has no appetite. He is losing weight. Everything hurts when he tries to swallow food in his chest. He is not vomiting. He does not have diarrhea, denies fevers or chills. No hemoptysis. No leg swelling. All other systems are negative. but he feels so poorly and then through all this he went to see the neurologist and Dr. Beba Boudreaux saw him because patient was having headaches and patient says what hurts is the front of his head and both temples, was quite sharp and shooting in nature like they were stapling a wooden board that's how much it hurt. Dr. Boudreaux ordered and MRI of the head and unfortunately it showed a large mass, it was done on the June, and it showed a destructive large soft tissue mass in the frontal sinuses destroying the anterior wall of the frontal sinus extending into the subcutaneous soft tissue in the midline. The posterior wall of the frontal sinus was intact. There was no evidence of thickening of the dura adjacent to the lesion. This is highly suspicious for a metastatic deposit. MRI of the cervical spine was also done and showed some spondylosis and osteoarthritic changes, but no malignancy. On examination Mr. Wray looks pale, that is the first thing noticeable as you walk in to the room. His is in the room with him and her color is nice and pink so the contrast is obvious. Performance status is 2 on a scale of 4 by ECOG criteria. Temperature 97.8. Heart rate 98 per minute. Respirations 18 per minute. Blood pressure 136/93. Oxygen saturation is 100% on room air. There is a mass that is noticeable, palpable at the top of the bridge of the nose more towards the left and also the left upper eyelid is all edematous. Pupils are central and equal, CCERL. The mass is tender to palpation and because of the bony destruction we really did not want to put too far inside, we did not want to break any cribriform plate or anything and cause CSF leak obviously. No adenopathy of the neck. Buccal mucosa was unremarkable. No jugular venous distention. Lungs clear to auscultation. Mild dorsal kyphosis is noted. Patient had a Mediport in the left upper anterior chest. Cardiovascular system with mild sinus tachycardia. No murmurs, gallops, or rubs. Abdomen soft, no guarding, rigidity, tenderness. No pedal edema. No cyanosis. Skin turgor is on the dry side. LABS: From today white count is only 1.7 with an ANC of 1.0. Platelets are only 65,000. The hemoglobin was 9.8 with a hematocrit of 30.6, MCV of 90.5. Chemistry panel - magnesium was 0.9. We did order a ferritin and a B12 because of the anemia and the ferritin was 796, the B12 503, CEA less than 0.5, LDH normal at 137. The sed rate was high at 17 mm in the first hour. Potassium was low at 3.0. Rest of the electrolytes were fine. Renal function was fine. Blood pressure was 167 nonfasting and liver enzymes were normal and surprisingly despite the patient's not eating and drinking much in the several weeks total protein was 7.2 with an albumin of 4.2. ALLERGIES: PENICILLIN. IMPRESSION: Mr. Wray clinically has progression of his squamous cell lung cancer, please see above for the details. Our major concerns at this time are: ----- the soft tissue mass destroying the frontal sinus. We did ask for an ENT appointment as soon as we got this report and patient sees the ENT specialist this . We would like a biopsy of this mass. If ENT is not planning to do it, then we would have to send the patient to interventional radiology to have the biopsy done to be certain that this is a metastatic lesion and no other pathology. Because of the white count and platelets and hemoglobin being low it is going to be a difficult task getting the patient through the biopsy. ------Severe neutropenia. Mild thrombocytopenia secondary to chemo and radiation. Mild anemia also secondary to chemo, radiation, ------Malnutrition and anorexia. ------Pain control. SUGGESTIONS MADE: 1. Neupogen SC 480 mcg daily for 4 days. 2. Neutropenic precautions given to the patient. 3. Patient to return next Wednesday for stat labs - CBC, diff, and a BMP. 4. Potassium elixir called in since the patient will not be able to swallow large potassium tablets. 5. For pain control Morphine sulfate liquid form called in to take 2 mL of the strength of 10 mg per 5 mL half a hour before eating every 8 hours. 6. Patient was given a six pack of Boost or Ensure and encouraged to buy more. 7. Megace oral suspension for appetite was called in. We wanted to call in 800 mg once daily in the morning, but the pharmacy now carries only 625 mg strength so that was done. 8. Patient and were frustrated and angry because they had somehow understood that taking the preventive chemo after his lobectomy would prevent the cancer from ever coming back so they were very upset that the cancer had come back and now was still progressing. We did explain and talked at length almost 40-45 minutes spent face to face time with patient and that nothing in medicine is absolute, no guarantees were given that the chemotherapy adjuvant would prevent the cancer 100% from coming back and we are doing the best we can to get an answer quickly on the mass destroying the frontal sinus. Patient wanted to know how fast it would grow whereas it was impossible to tell without a Ki-67 proliferative index, patient himself had noticed that the mass on his forehead had grown in the last 10 days so we explained it is very likely a rapidly growing tumor, but we could not put a number on a doubling time. Eventually the patient said that no he was not angry he was just tired and frustrated naturally and the said that she hopes we understand why she is upset naturally and we said we do understand and we do empathize. Electronically Signed by Lorrie Brian MD 07/31/2018 09:52 P DD: Lorrie Brian MD 07/05/2018 06:49 P DT: [email or web address] 07/07/2018 07:27 A CC: MD Jonatan Colón MD Ryan Tyler, MD
[2018-07-11 10:37] VITALS: BP 133/87
[2018-07-11 10:51] LABS: HEMATOCRIT 28.3 % (42.0-52.0); HEMOGLOBIN 9.1 g/dl (13.5-17.5); LYMPH % 13.4 % (24.0-44.0); MEAN CORPUSCULAR HEMOGLOBIN 30.2 pg (27.0-33.0); MEAN CORPUSCULAR HGB CONC 32.2 g/dl (32.0-36.5); MEAN CORPUSCULAR VOLUME 94.1 fl (80.0-96.0); NEUTROPHILS # 2.8 10^3/uL (1.8-7.7); NEUTROPHILS % 80.7 % (36.0-66.0); RED BLOOD COUNT 3.01 10^6/uL (4.30-6.10); WHITE BLOOD COUNT 3.5 10^3/uL (4.0-10.0)
[2018-07-11 10:55] LABS: BLOOD UREA NITROGEN 19 MG/DL (6-20); CALCIUM LEVEL 9.3 MG/DL (8.5-10.2); CARBON DIOXIDE LEVEL 26 MEQ/L (23-31); CHLORIDE LEVEL 100 MMOL/L (98-107); CREATININE FOR GFR 0.69 MG/DL (0.90-1.30); GLUCOSE, FASTING 166 MG/DL (70-105); POTASSIUM SERUM 3.8 MMOL/L (3.5-5.1); SODIUM LEVEL 136 MMOL/L (136-145)
[2018-07-11 10:56] LABS: GLOMERULAR FILTRATION RATE > 60.0 (>49)
--- NOTE | 2018-07-11 19:16 | MEDONC ---
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 Please see prior note from 07/05/2018 for details. PRIMARY PHYSICIAN: Dr. Chad Muniz. Dr. Gross is patient's radiation oncologist and we also have Dr. Bravo and Dr. Mir from ENT and from neurology we have Dr. Boudreaux from [facility], participating in Mr. Wray's care. 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 Pathology stage with [id number] Stage IB. The tumor size was 3.5 cm and 0/3 peribronchial nodes were involved 0/1 anthracotic lymph node and lymphovascular invasion was not seen. -----Patient received adjuvant chemotherapy with Carboplatin and Taxol from September 22 through November 29, 2017, four cycles done. -----PET scan done 03/2018 showed mediastinal adenopathy with FDG uptake, -----FNA showed consistent with necrotic nonsmall carcinoma same as the previous squamous cell carcinoma of the lung. Dr. Bolanos was following the patient and patient was offered radiation with chemotherapy as of 04/2018. Please see the chemotherapy details in the flow sheet. The chemotherapy was Cisplatin and Etoposide and the last treatment received was 06/27/2018, that was the Cisplatin. -----Patient developed significant cytopenias and had to receive Neupogen for several days last week for a very low ANC or 1000 and a white count of 1.7 and the platelets were as low as 65,000 hemoglobin. Patient also has anemia with a hemoglobin around 9.8 and hematocrits around 30.6. -----In the interim around 06/24/2018 patient was seen by Dr. Aly Boudreaux from Neurology for pain in the front of the head and both temples, like somebody was stapling his head and Dr. Boudreaux saw the local protrusion and deformity of the left eye and swelling of the left upper lid and ordered an MRI which showed a destructive lesion in the frontal sinus, anteriorly. The posterior wall of the sinus was still intact and what ever the mass was it was extending into the subcutaneous soft tissue in the midline, highly suspicious for a metastatic deposit. We did ANCA and a Sed rate and requested radiation evaluation for this area and asked for an ENT evaluation as soon as possible for a biopsy. When seen last week for the first time by me, patient had not yet had the biopsy done. Apparently patient is going to be seeing Dr. Mir from ENT and Dr. Mir wanted a CT scan done of the sinuses before the biopsy and a CT guided biopsy is what he would request. CURRENT TREATMENT: Right now all chemotherapy is on hold, one because Mr. Wray was extremely cytopenic last week and also if this is metastatic disease then patient is already progressed on this chemotherapy regimen and we would have to switch to another treatment. Patient and are eager to receive any form of immunotherapy rather than chemotherapy again. Patient's anemia was already evaluated and patient is not deficient on B12 or folate. He actually has an elevated ferritin in the 786 range, could be from chronic disease. Patient is on magnesium supplements for hypomagnesemia secondary to the Cisplatin drugs and the Carboplatin that she received before this regimen. Patient is on pain control medicines with liquid Morphine because he was having severe pain swallowing and of course the pain in the forehead and it has really helped much. For anorexia, patient was scripted Megace last week however insurance wanted a copay of $164 per month supply and patient and could not afford it so they did not get the Megace. Neupogen was given last week for 4 days to improve the white count. Past medical history, social history, family history, these have not changed in the last week. ALLERGIES: Codeine and penicillin. SYSTEMIC REVIEW: Patient says that his pain in the forehead is gone. He does not know if the mass shifted or whatever but the pressure like stapling of wooden board pain that he was getting the jags, that is all gone. The swallowing pain also has improved significantly, so he feels much better. The pain with swallowing we think was secondary to the radiation to the mediastinum and probably some esophagitis. Patient did not have kendell of the mouth or posterior pharynx last week. We specifically asked, there is no dripping of liquid from his nostrils. No fevers, no shaking chills, no nausea and no vomiting. No double vision. Other systems are stable. Fatigue is there and depression is there but less than last week because the patient feels like something is finally being done. PHYSICAL EXAMINATION: Mr. Wray is awake, alert, oriented. He is even smiling a little today. Last week both patient and his were very frustrated and rather annoyed. Patient is 5'9 inches and 83.3 kg. He has held his weight. He has not lost any in the last week. BMI is 27.1, BSA is 2.01, patient is afebrile, heart rate is 100 per minute. Respirations 22 per minute, blood pressure 133/87, Oxygen saturation 100% on room air. Patient has male pattern balding. When you look at Mr. Wray you can notice this protuberant mass about the bridge of his nose, more towards the left with a swollen left upper eyelid and naturally the left eye look smaller than the right. The pupils are still equal and reacting to light. Patient looks like he has early cataracts. Buccal mucosa, there is no stomatitis or candidiasis today. No adenopathy neck or axilla. Lungs are clear to auscultation. Cardiovascular system without murmurs, gallops, or rubs. No pedal edema and no cyanosis, skin turgor is good, better than last week. LABS: Labs from today were reviewed with the patient and . White count has improved. The ANC has definitely improved. Patient can go off his neutropenic precautions. The hemoglobin is stable between 9 and 10. The platelets have improved. They have gone from 65,000 last week to 70,000 this week but not up to normal yet. On the chemistries, the renal function is normal and the hypokalemia also has resolved. The magnesium from today is still pending. IMPRESSION: 1. Mr. 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 Doubtful that this is an abscess since the bony destruction is occurring, it probably is the same lung cancer in the sinus bone area, an area of new metastases but we still need a biopsy to be sure it is not a different malignancy. The Sed rate is 70 which is a little bit higher than we expected but the ANCA is negative. We are waiting on a CT guided biopsy of the frontal mass as soon as possible. Dr. Mir is on the case from ENT and his office is trying to see if [place] can give us a CT guided biopsy since we are told that the interventional radiology at [facility] in [place] has not done one of these CT guided frontal sinus biopsies before. Depends on when the biopsy is set up for, patient will need a STAT CBC diff the day before to decide on a platelet transfusion just before the procedure if the platelets are less than 90,000. Preferably if the platelets are less than 100,000 we will still get platelets just to be sure because this is in a dangerous area. We educated the patient that if he starts getting a dripping faucet coming out of his nostril to go to the emergency room right away. This is in case the cribriform plate gets destroyed. If the patient does need platelets we have explained how they are usually given and they are usually given with premedications and all of that was explained but if the patient gets the biopsy in [place] and the platelets in [place] we will not be able to write those orders since we are not on staff there. The hypokalemia has resolved. However we want the patient to finish his potassium course. Continue the Morphine for pain control since it is helping. Depending on today's magnesium the magnesium supplements will be addressed further, if he needs intravenous magnesium or not. We will also ask the nurse navigator to assist the patient for any kind of resources, whatever they have available to them. Patient and do not know much about what to expect whether the [employer] will help with the annual fixed amount for gas and transportation and monies, also the does not drive that much to [place], can they get some sort of help with the transportation to [place], all of these questions we will see if the nurse navigators can call the patient or the and assist them. It will be much appreciated. Electronically Signed by Lorrie Brian MD 08/02/2018 09:32 P DD: Lorrie Brian MD 07/11/2018 11:43 A DT: [email or web address] 07/11/2018 06:02 P CC: MD Trung Colón MD Ryan Tyler, MD
[2018-07-21 11:13] VITALS: BP 119/79
--- NOTE | 2018-07-21 14:08 | REP ---
RIGHT KNEE SERIES: Five views. HISTORY: Right knee pain. History lung cancer. No comparison study. FINDINGS: There is a lytic permeative lesion in the distal femur consistent with a metastasis. There is subcortical resorption and minimal periosteal reaction. The lesion is along the lateral cortex of the distal femur above the metaphysis. It measures approximately 3.6 cm in greatest diameter. There is some diffuse osteopenia. There is an old ossific body along the course of the medial collateral ligament adjacent to the medial femoral condyle consistent with an old medial collateral ligament injury. There is vascular calcification. Patellar spurring is seen. IMPRESSION: Posterolateral permeative pattern lytic destructive distal femoral lesion consistent with metastasis. The lesion measures approximately 3.6 cm in greatest diameter. Electronically Signed by Corey Mcwilliams MD 07/21/2018 02:58 P
--- NOTE | 2018-07-21 14:13 | REP ---
RIGHT FEMUR SERIES: Two views. HISTORY: Pain. History of lung carcinoma. FINDINGS: A permeative lytic lesion is seen in the distal femur posteriorly and medially consistent with a metastasis. This is described in detail in the knee radiograph series. No other bony destructive lesion is seen. There is degenerative change at the knee. IMPRESSION: Lytic lesion in the distal femur consistent with metastasis. Electronically Signed by Corey Mcwilliams MD 07/21/2018 02:59 P
--- NOTE | 2018-07-21 14:14 | REP ---
RIGHT HIP: Two views. HISTORY: Pain. History of lung cancer. FINDINGS: There is mild hip joint osteoarthritic spurring. There are surgical clips projecting in the pelvis. Small subcortical cysts are seen in the greater trochanter. No bony erosive changes seen. No fracture is noted. IMPRESSION: No acute bony destructive lesions seen. Mild osteoarthritis. Postoperative changes in the pelvis. Electronically Signed by Corey Mcwilliams MD 07/21/2018 02:58 P
--- NOTE | 2018-07-25 13:54 | MEDONC ---
OUTPATIENT [facility]CER CENTER PROGRESS NOTE DATE OF SERVICE: 07/21/2018 PRIMARY PHYSICIAN: Dr. Chad Muniz REASON FOR VISIT: The patient was just seen on 07/11/2018, and he was scheduled for a biopsy of a mass that was growing in his frontal sinus and in context of his lung cancer. We wanted a tissue biopsy. The patient was scheduled for the biopsy, and he is here with his today to go over the results of the same. 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 Please see the last note from 07/11/2018 for the pathology details. The patient did receive adjuvant Chemotherapy with Carboplatin and Taxol from 09/22/2017 to 11/29/2017, four cycles total. PET scan done March 2018 showed mediastinal adenopathy with FDG uptake. FNA was consistent with necrotic nonsmall carcinoma, same as the previous squamous cell carcinoma of the lung pathology. Dr. Bolanos was following the patient at the time, offered radiation with chemotherapy concurrent starting April 2018, and apparently the last chemo treatment was 06/27/2018 with significant cytopenias. The patient was seen by Dr. Boudreaux from neurology for headaches that he was complaining of, and Dr. Boudreaux ordered an MRI. This was around 06/24/[address] Beba Boudreaux saw the patient, and the MRI showed a destructive lesion in the left frontal sinus anteriorly. The bone was destroyed. The posterior wall was still intact of the sinus, but it was a big destructive mass extending into the subcutaneous soft tissue in the midline and was very suspicious for a malignant process. It could be a metastasis. The patient had a biopsy of this frontal sinus bone destructive mass 07/15/2018 under platelet support because his platelets had not yet recovered from the last chemotherapy, and the pathology came back poorly differentiated squamous cell carcinoma with extensive necrosis. Both tumors, the prior one from the lung and this tumor, had the same morphology suggesting a metastatic disease rather than new primary. SYSTEMIC REVIEW: The patient says he is feeling better. His pain in the head that felt like somebody was stapling a wooden board has gone away for the last several weeks. We believe the Decadron he received with the platelet transfusion also has helped because the patient feels the tumor has shifted a little in the forehead and feels smaller to him and his , and he is also able to open his left eye a lot more. Before, the left eye was totally squinted down. There is no morning nausea. No vomiting. No tremors. No seizures. No leaking of fluid from his nostril. The only other new symptom Mr. Wray today was, for the last couple of days he had some discomfort in his right leg and they were trying to self diagnose it as it probably from arthritis in the hip or arthritis in the knee, but the patient actually pointed out a distinct area of pain along the right lateral femur. It was too specific. The patient did not have any injury to that area. He had no swelling of his knee joint. He had no swelling of his hip joint or pain in the hip joint. No fevers. No chills. No bleeding episodes. On examination, Mr. Wray is awake, alert, oriented, looks much better. Both the patient and the are calmer and accepting the fact of what is going on with Mr. Wray's cancer. The patient is afebrile. Heart rate has always been rapid, around 103 per minute today, respirations 20 per minute, blood pressure 119/79, oxygen saturation 99% on room air. Interesting that even though the patient looks so calm, his heart rate has always been rapid for the last three times that I have seen Mr. Wray. Conjunctivae pallor. No icterus. Performance status 1 by ECOG criteria on a scale of 4. The mass at the top of the bridge of the nose in the middle of the forehead does look a little smaller and also feels a little softer. It is now the size for a [place], and the left eye is much more wider open today than it was before. No adenopathy neck. Buccal mucosa unremarkable. No masses seen in the posterior pharynx. Lungs: Emphysematous but clear. Cardiovascular system without murmurs, gallops, or rubs. Abdomen: Soft without guarding, rigidity, tenderness, or masses. No pedal edema. No cyanosis. Skin turgor overall is dry. IMPRESSION: Mr. Pratt, unfortunately, now has stage IV nonsmall-cell squamous subtype lung cancer originally starting in the left upper lung, status post left upper lobectomy. 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 We explained all this to Mr. Wray and asked him if he would kindly go STAT for x-rays of the femur so we could advise him if he has to stop weightbearing, see an orthopedic surgeon, etc.. The patient was agreeable to this. He has finally learned to have prakash in us or trust us. They were very upset when Dr. Bolanos left, and no one and can fill Dr. Bolanos's shoes, but we are trying to build a reasonable rapport with the patient and his . The patient has already begun palliative radiation evaluation with Dr. Gross for the frontal bone metastasis. We discussed systemic treatment with and Mrs. Wray, and they are not in favor of any chemotherapy since they felt that he took so much chemo almost half of last year, and the cancer still kept progressing obviously. They would rather try immunotherapy. Fortunately, the PD-L1 expression is more than 90%, so we are able to offer Keytruda if the insurance approves of it, and this was all explained to them. Keytruda's side effects and written profile from [employer] was given to them. How the Keytruda is administered every 3 weeks intravenously, does not take too long for the administration. All that was mentioned. We also talked about Xgeva and explained that this is not chemotherapy, but it is to prevent skeletal-related events SREs from bony metastasis, and its side effects were explained to the patient. We talked about ONJ, osteonecrosis of the jaw. The patient has dentures, so he says he is not worried, he is not going to a dentist to have anything poked or prodded to increase his risk of ONJ, but they would like to get started with everything as soon as insurance approves of it. RECOMMENDATIONS AND PLAN: 1. We will ask pathology department to also do EGFR, ALK, ROS1, BRAF testing on the malignancy specimens. Down the road if and when Keytruda stops working and since the patient and not keen on chemotherapy, we will have something perhaps to fall back on. We are thinking ahead. The gentleman has been through enough at present. 2. STAT x-rays of the right femur, right knee, and right hip were ordered. If it shows a large enough lytic lesion, then the patient will be referred promptly to Orthopedic surgery for evaluation to prevent a pathological fracture; and also Dr. Gross will be informed so that he can do his evaluation for any radiation therapy to that area after any Ortho palliation. Rest as above. The patient will return to see us 07/27/2018. They preferred to come after 3:00 p.m. appointment because they have something else planned already. We will try to accommodate the patient. Electronically Signed by Lorrie Brian MD 08/07/2018 11:40 A DD: Lorrie Brian MD 07/23/2018 10:04 A DT: [email or web address] 07/25/2018 12:22 P CC: MD Reinaldo Crowley MD Ryan Tyler, MD
[2018-07-27 15:56] VITALS: BP 139/91
[2018-07-28 12:14] VITALS: BP 148/91
--- NOTE | 2018-07-28 12:15 | MEDONC ---
OUTPATIENT CANCER CENTER PROGRESS NOTE: DATE OF SERVICE: 07/27/2018 PRIMARY CARE PHYSICIAN: Dr. Chad Muniz and Dr. Gross is the patient's radiation oncologist. REASON FOR VISIT: The patient is here to go over the results of his bone scan in context of his metastatic lung CA to the bone and also to see if we got approval for Xgeva and Keytruda and to see what the tumor conference suggested as recommended treatments for him and also to see why he had not yet heard from the orthopedic surgeons. Orthopaedic as a.s.a.p. consult had been placed July 21, 2018 to prevent a fracture of a large lytic lesion in the right distal femur. Patient came today using a single prong cane. He has a walker at home and his came with him very supportive. The patient has several steps to climb in his house. PRIMARY DIAGNOSIS: -----Moderate to poorly differentiated squamous cell carcinoma left upper lung with extensive necrosis within the tumor for which the patient had a left upper lobectomy August 2017. Pathological stage [id number] stage I B. Please see note from July 11, 2018 for the further details on the pathology. -----Adjuvant chemotherapy given four cycles with Carboplatin and Taxol from September 22, 2017 through November 29, [address] Bolanos. -----PET CT fusion March 2018 showed mediastinal adenopathy FDG-avid. -----FNA of the mediastinal lymph nodes came back positive for malignancy and consistent with necrotic non-small cell carcinoma same as the previous squamous cell carcinoma lung pathology. The FNA biopsy was done April 14, 2018. The Pn63 immunostain was strongly positive on the tumor cells. -----Concurrent chemoradiation was offered by Dr. Bolanos and Dr. Gross to Mr. Wray starting April 2018, completing treatment June 27, 2018. The patient had significant cytopenias and esophagitis and tolerated the treatments rather poorly. -----June 24, 2018 the patient seen by Dr. Beba Boudreaux for headaches and Dr. Boudreaux ordered an MRI of the head and found a large lytic destructive lesion in the left frontal sinus. Anterior wall was destroyed, posterior wall was intact and it was entering the soft tissue subcutaneous area also. -----July 15, 2018 biopsy done of this mass under platelet support because the patient's platelets had not recovered from the prior chemoradiation. Biopsy went well and the results came back again poorly differentiated squamous cell carcinoma with extensive necrosis consistent with the same original lung primary. The patient's tumor has a high expression for PD-L1 90%. -----July 21, 2018 visit, the patient complained of pain in his right femur lateral knee area concern was for bony metastasis and so promptly patient was set up for x-rays, which confirmed a lytic lesion in the distal femur. The size of the lesion was at least 3.1 cm. This was discussed with Dr. Gross briefly and the patient had already been set up for a bone scan by Dr. Gross. The patient was discussed at tumor board this afternoon. Patient is aware of the results of the x-ray of the right femur. He is not bearing much weight on that leg. He is ambulating with a single prong cane and we have encouraged that he better use a walker. Orthopedic referral was made right away on 07/21/2018. The patient has not of heard, so we will try and get that appointment made. CONCURRENT DIAGNOSES: History of nicotine habit from June 2003. Osteoarthritis in the knees. History of hepatitis C status post treatment December 2005 with undetectable HCV level. Depression. Impaired fasting glucose. Migraine headaches. History of colon polyps. Retinal vascular changes [place] 2001. One artery was worse than the other. Gastritis, H pylori positive small hiatal hernia treated [address] Lujan Double hernia repair. ALLERGIES: CODEINE - it gives him cramps in his stomach and PENICILLIN which makes him swell up. SYSTEMIC REVIEW: The patient says he is tired. He is in pain but he does not want to take any narcotics take anymore. He still has the morphine if he needs it and the Tylenol is basically what he just wants to take right now. No codeine. Other than that the patient is having pain now in his right rib cage posterolaterally also, which is another site of bony metastasis. The patient is a little frustrated and so is the that they have not heard from orthopedics see we are working on it to try and get the patient in to see them sooner. The patient was eager to hear of the bone scan report, which was gone over with him and the . At this time, the patient does not have any more headaches and does not have any new vision changes. No seizure activity. No focal weakness of any arm or leg. No hoarseness of voice. No leg swelling and the patient understands, so does the , that you just have to wait till all the results and tests and consultants all get together and come up on a plan. We believe this is the patient's second because the first from a chronic illness in October 2012. On examination Mr. Wray is awake, alert, oriented, looks pale, looks tired and is not cachectic, afebrile, heart rate 107 per minute, respirations 24 per minute, blood pressure 139/91, O2 saturations 100% on room air, ECOG performance 2 / 4. Protuberant mass seen and just above the nasal bridge in the frontal sinus area. It does not look any worse. There is no erythema over it and today it is not tender. Conjunctiva show pallor. The patient's left eye still continues to be smaller than the right but it is much better than what it was 2 weeks ago. No dripping or drainage of any fluid from the nostrils Buccal mucosa and tongue is coated but normal. The patient has dentures. Does not have his own teeth at all. No adenopathy neck. No jugular venous distension. Lungs: Clear to auscultation. Cardiovascular system without any gallops or rubs. Rhythm was regular just sinus tachycardia. Abdomen: Soft. No guarding rigidity or tenderness. No distinct masses. No fluid abdomen. No pedal edema. No cyanosis. Skin: Turgor is dry and the patient is being quite careful not to put too much weight on the right leg. The patient does have some tenderness to palpation and actually today the tenderness is more in the Mays's cyst area. Speech and gait are normal. Bone scan which was just done July 25, 2018, 2 days ago, shows a focal uptake in the posterior arch of the right 8th rib approximately. This could be an expansile lesion. Focal increased uptake in the distal right femur. No uptake was mentioned in the frontal sinus area suggesting that it might be purely a lytic lesion without any osteoblastic activity. IMPRESSION: Mr. 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 And this is despite a lot of chemotherapy and radiation. It is natural that the patient and the are leary about any more chemotherapy since it has not seemed to have helped him so far, they feel. We had already talked about palliative radiation after getting palliative surgery to the right leg. Last visit last week we also talked about Xgeva to prevent SREs. We also talked about and discussed Keytruda since the patient's TPS score was more than 90%. Verbally Dr. Gross feels that the tumor conference was agreeable with the Keytruda and the office staff has worked diligently and already got authorization from insurance for both Keytruda and Xgeva. It is really commendable, the patient and are very pleased about that. Nurse Mr. Mesa spent 15-25 minutes on the phone, which was the end of the day today on Wednesday and he was successful in getting us an Orthopedic appointment finally for Tuesday, August 01 at 08:30 in the morning with [facility]. PLAN 1. CBC diff, CMP tomorrow a.m. then the patient can go over to radiation for his simulation or planning and then come back to the medical oncology office to receive his first Keytruda and Xgeva. The patient and acknowledged understanding and are agreeable and want to get started on the treatment as soon as possible. 2. The patient will have labs, CBC diff, CMP and a TSH with each next cycle of Keytruda which is every 3 weeks IV and the patient will also get a STAT CMP with calcium for every Xgeva. We did not get a dental clearance because the patient does not have any teeth of his own. Dr. Gross is aware of the lytic lesion in the right femur and will be adding palliative radiation to the right femur and to the metastatic rib which is painful also besides the frontal bone. Electronically Signed by Lorrie Brian MD 08/07/2018 02:24 P DD: Lorrie Brian MD 07/27/2018 05:56 P DT: [email or web address] 07/28/2018 11:42 A CC: MD Chad Colón MD
[2018-07-28 12:36] LABS: HEMATOCRIT 30.7 % (42.0-52.0); HEMOGLOBIN 9.6 g/dl (13.5-17.5); MEAN CORPUSCULAR HEMOGLOBIN 29.7 pg (27.0-33.0); MEAN CORPUSCULAR HGB CONC 31.3 g/dl (32.0-36.5); NEUTROPHILS # 4.6 10^3/uL (1.8-7.7); NEUTROPHILS % 71.4 % (36.0-66.0); RED BLOOD COUNT 3.23 10^6/uL (4.30-6.10); WHITE BLOOD COUNT 6.4 10^3/uL (4.0-10.0)
[2018-07-28 12:53] LABS: BLOOD UREA NITROGEN 18 MG/DL (6-20); CARBON DIOXIDE LEVEL 26 MEQ/L (23-31); CHLORIDE LEVEL 101 MMOL/L (98-107); CREATININE FOR GFR 0.61 MG/DL (0.90-1.30); GLUCOSE, FASTING 116 MG/DL (70-105); POTASSIUM SERUM 3.3 MMOL/L (3.5-5.1); SODIUM LEVEL 139 MMOL/L (136-145); TOTAL PROTEIN 7.6 GM/DL (6.4-8.3)
[2018-07-28 12:59] LABS: CALCIUM LEVEL 10.3 MG/DL (8.5-10.2); GLOMERULAR FILTRATION RATE > 60.0 (>49)
[2018-08-18 11:56] LABS: HEMATOCRIT 30.8 % (42.0-52.0); HEMOGLOBIN 9.6 g/dl (13.5-17.5); LYMPH % 9.8 % (24.0-44.0); MEAN CORPUSCULAR HEMOGLOBIN 28.7 pg (27.0-33.0); MEAN CORPUSCULAR HGB CONC 31.2 g/dl (32.0-36.5); MEAN CORPUSCULAR VOLUME 92.2 fl (80.0-96.0); NEUTROPHILS # 6.6 10^3/uL (1.8-7.7); NEUTROPHILS % 83.1 % (36.0-66.0); RED BLOOD COUNT 3.34 10^6/uL (4.30-6.10); WHITE BLOOD COUNT 7.9 10^3/uL (4.0-10.0)
[2018-08-18 12:14] LABS: ALBUMIN 3.6 GM/DL (3.5-5.2); BLOOD UREA NITROGEN 18 MG/DL (6-20); CALCIUM LEVEL 10.2 MG/DL (8.5-10.2); CARBON DIOXIDE LEVEL 26 MEQ/L (23-31); CHLORIDE LEVEL 102 MMOL/L (98-107); CREATININE FOR GFR 0.69 MG/DL (0.90-1.30); GLOMERULAR FILTRATION RATE > 60.0 (>49); GLUCOSE, FASTING 119 MG/DL (70-105); POTASSIUM SERUM 3.6 MMOL/L (3.5-5.1); SODIUM LEVEL 136 MMOL/L (135-145); TOTAL PROTEIN 7.2 GM/DL (6.4-8.3)
[2018-08-18 13:12] VITALS: BP 127/86
--- NOTE | 2018-08-18 13:32 | MEDONCENPD ---
Date/Time of Encounter Date of Encounter: Aug 18, 2018 Time of Encounter: 13:30 Encounter The patietn is here on evluation of Keytruda therapy In the interval since his last OV he has been to the ER and was started on antibiotic therapy . He is completing the course of treatment . He has darcie on it the 4th day /7 day course of treatment . PE LEft periorbicular swelling Frontal bone expasion Ok for keytruda therapy Alla Moore MD Aug 18, 2018 13:32
--- NOTE | 2018-08-19 08:55 | MEDONC ---
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 The patient had undergone a left lobectomy and August 2017 with a T2N0M0 stage 1B carcinoma. The patient was given adjuvant TC times four and completed that in November 2017. Restaging PET scan had been shown a mediastinal adenopathy and a fine needle aspiration of the mediastinal nodes came back positive for malignancy. The patient was given combined modality chemotherapy and radiation and the patient suffered a great grade 3 mucositis. The patient then in June 2018 of this year started to develop headaches and was found to have a large lytic lesion in the left frontal sinus. Patient had the anterior wall destroyed. Posterior wall was intact with no cranial involvement. The patient had a high PD-L1 expression of 90%. He was then been started on the Keytruda therapy. Patient also had radiation therapy to the right femur. is also had radiation therapy to the right femur and has had some relief of pain since that time. The patient is on the pembrolizumab and has a single agent alone. The patient's performance status is about a 2-4 over the ECOG scale and he also has a great deal of periorbital edema. He has recently been to the emergency room and was started on antibiotic therapy for an upper respiratory tract infection. He is on day four out of a 7-day course of treatment. He feels better. He has had no fever, shaking chills. PAST MEDICAL HISTORY: His other past medical history includes the above noted stage IV squamous cell carcinoma with osseous mets. He is status post double hernia repair. He has had a history of osteoarthritis, hepatitis C status post treatment in December 2005, depression, migraine headaches history of colon polyps in 1998 adenomatous polyps in October 2010. Hiatal hernia and family history is otherwise noncontributory. SOCIAL HISTORY: He currently lives by himself. He is a former smoker. The last time he smoked was approximately 6 months ago. REVIEW OF SYSTEMS: The patient suffers some chronic pain in the frontal area currently well controlled. The patient takes Tylenol for this at this time as well as morphine sulfate, he takes the liquid and this seems to be holding him as well as with the Xanax on an as needed basis. He does have some visual impairment due to the swelling on the left eye and he also has occasional ear pain on the left side as well. He has had no problems swallowing. The right eye is without any problem or any visual impairment. His chest is otherwise clear. He has had no cough since taking the antibiotic therapy. No chest pain. No nausea vomiting diarrhea or constipation. He does have pain in the right leg area where he has a site of metastatic disease where he is currently receiving radiation. He relates that he is tolerating the radiation well but he has not putting full weight on it yet. He has no signs of any lower leg swelling. PHYSICAL EXAMINATION: His ECOG is 2-3/4. His temperature is 97.8, pulse is 101, respiratory rate is 22, BP is 127/86, pulse oximetry is 99. His HEENT shows increasing frontal bossing with extension of the tumor mass in the frontal area most lobe localized centrally. The patient has artur orbicular edema. Most notably on the left you are able to visualize the globe however, most of this is soft tissue swelling around the area. His oropharynx is otherwise clear. Neck is supple. Chest is clear to auscultation percussion. Cardiovascular: S1-S2 are appreciated with no murmurs. His abdomen is otherwise soft, nontender. His extremities show no cyanosis, clubbing, just trace 1+ pitting edema. On his scan done on 07/25/2018 shows a right distal femur lesion. The patient has bilateral functioning kidneys as well as two areas on the ribs. He has a focal uptake in the posterior arch of the right rib likely representing an expansile lesion. There is also a focal increased uptake in the posterior arch of the 8th rib. And on her maxillofacial CT the patient shows a destructive lesion in the frontal sinuses with extension into the sub galeal soft tissue and anterior cranial fossa medial plascencia of the orbits and ethmoid sinus. The CT scan of the chest done on 08/04/2018 shows a right posterior rib lesion as noted on the bone scan destruction of the segment of the posterior right eighth rib corresponding to the bone scan as well. An expansile mass is seen in the area of rib destruction measuring at least 7 cm and length x 4.2 cm anterior by posterior x 4.4 cm. There is stable right upper lobe pulmonary nodule and there is a large mass with destruction and an elongate segment of the right posterior rib. In reviewing the patient's CT scan of the chest his disease appears to be predominantly osseous. IMPRESSION: 1. Stage IV squamous cell carcinoma with expansile lesions in the frontal sinus area casing periorbital edema. 2. Expansile lesion in the posterior 8th rib. 3. Right distal femur lesion currently undergoing radiation therapy. PLAN: Continue with the PD-L1 with Keytruda. The patient started his first dose of pembrolizumab on 07/28/2018. So far he has been tolerating the therapy. Plan will be to monitor the TSH free T4 and assess for disease response. If the patient does not respond to the pembrolizumab and, and if there seemed to be any increase growth in the frontal sinus area discussions with radiation. My concern is that this is near the orbits and the patient may need to have radiation therapy that is more directed. Electronically Signed by Alla Moore MD 08/22/2018 10:14 A DD: Alla Moore MD 08/19/2018 07:50 A DT: [email or web address] 08/19/2018 08:22 A CC:
[2018-08-25 11:41] LABS: ALBUMIN 3.5 GM/DL (3.5-5.2); BLOOD UREA NITROGEN 14 MG/DL (6-20); CARBON DIOXIDE LEVEL 27 MEQ/L (23-31); CHLORIDE LEVEL 103 MMOL/L (98-107); CREATININE FOR GFR 0.62 MG/DL (0.90-1.30); GLOMERULAR FILTRATION RATE > 60.0 (>49); GLUCOSE, FASTING 123 MG/DL (70-105); POTASSIUM SERUM 3.3 MMOL/L (3.5-5.1); SODIUM LEVEL 140 MMOL/L (135-145); TOTAL PROTEIN 7.2 GM/DL (6.4-8.3)
[2018-08-25 11:44] VITALS: BP 136/78
[2018-09-08] MEDS: SODIUM CHLORIDE 0.9% INJ 10 ML SYR IV PRN ×2 (12:40→15:03)
[2018-09-08 12:49] VITALS: BP 129/81
[2018-09-08 12:55] LABS: HEMATOCRIT 29.4 % (42.0-52.0); HEMOGLOBIN 9.4 g/dl (13.5-17.5); LYMPH % 9.6 % (24.0-44.0); MEAN CORPUSCULAR HEMOGLOBIN 29.1 pg (27.0-33.0); NEUTROPHILS # 6.1 10^3/uL (1.8-7.7); NEUTROPHILS % 85.4 % (36.0-66.0); RED BLOOD COUNT 3.23 10^6/uL (4.30-6.10); WHITE BLOOD COUNT 7.1 10^3/uL (4.0-10.0)
[2018-09-08 13:03] LABS: ALBUMIN 3.5 GM/DL (3.5-5.2); BLOOD UREA NITROGEN 18 MG/DL (6-20); CALCIUM LEVEL 9.9 MG/DL (8.5-10.2); CARBON DIOXIDE LEVEL 26 MEQ/L (23-31); CHLORIDE LEVEL 103 MMOL/L (98-107); CREATININE FOR GFR 0.66 MG/DL (0.90-1.30); GLOMERULAR FILTRATION RATE > 60.0 (>49); GLUCOSE, FASTING 151 MG/DL (70-105); POTASSIUM SERUM 3.5 MMOL/L (3.5-5.1); SODIUM LEVEL 138 MMOL/L (135-145)
[2018-09-09] MEDS: MAG SULF 1GM/100ML (MAG RUN) X 2 DOSES (2GM TOTAL) IV SCH ×4 (12:29→13:35)
[2018-09-09 13:30] VITALS: BP 106/96
[2018-09-13 10:11] LABS: APPEARANCE, URINE CLEAR (CLEAR); BACTERIA, URINE AUTO NEGATIVE (NEGATIVE); BILIRUBIN, URINE AUTO NEGATIVE (NEGATIVE); BLOOD, URINE BLOOD NEGATIVE (NEGATIVE); COLOR, URINE YELLOW (YELLOW); GLUCOSE, URINE (UA) AUTO NEGATIVE (NEGATIVE); KETONE, URINE AUTO NEGATIVE (NEGATIVE); LEUKOCYTE ESTERASE, URINE AUTO NEGATIVE (NEGATIVE); MUCUS, URINE SMALL (NEGATIVE); NITRITE, URINE AUTO NEGATIVE (NEGATIVE); PROTEIN, URINE AUTO NEGATIVE (NEGATIVE); RBC, URINE AUTO 3 /HPF (0-3); SPECIFIC GRAVITY URINE AUTO 1.016 (1.002-1.035); SQUAMOUS EPITHELIAL CELL UR AU 0 /HPF (0-6); UROBILINOGEN, URINE AUTO 0.2 mg/dL (0.0-2.0); WBC, URINE AUTO 1 /HPF (0-3)
--- NOTE | 2018-09-13 11:19 | MEDONC ---
OUTPATIENT CANCER CENTER PROGRESS NOTE: AGE: 68 DATE OF SERVICE: September 08, 2018 PRIMARY CARE PHYSICIAN: Dr. Chad Muniz. Dr. Gross is the patient's radiation oncologist. REASON FOR VISIT: Continuing treatment for metastatic non-small cell lung cancer. The patient came alone today. 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 PRIMARY DIAGNOSIS: Moderate to poorly differentiated non-small cell lung cancer, squamous cell subtype of the left upper lung with extensive necrosis within the tumor status post left upper lobectomy August 2017. Pathology Stage pT2a, pN0, Mx Stage I B. -----Adjuvant chemotherapy with Carboplatin and Taxol received from 12/23/2017 through November 29, 2017, four cycles total -----PET scan March 2018 showed progression as mediastinal adenopathy with FDG uptake. -----FNA of the mediastinal node consistent with necrotic non-small cell lung cancer same as the previous squamous cell cancer. PD-L1 was 90% TPS. ALK, EGFR, BRAF all mutations negative. ROS1 was very weak signals and it could not be interpreted or read as per [facility] pathology. Radiation with chemotherapy Cis-yuhaaviatam, Etoposide begun [address] Zara Bolanos, the last treatment was June 27, 2018. The patient had significant cytopenias. Now the patient has destructive bony metastasis one of them is in the frontal sinus almost encroaching and destroying one of the plascencia of the sinuses with the swelling of the left eye, a protuberant mass in the middle of the forehead just above the nose bridge. The patient has another lesion destructive in the right lateral distal femur, for which the patient is receiving radiation therapy. The patient has already received radiation therapy for the frontal sinus mass and then the patient also has received radiation therapy just recently for the right rib metastasis on the right. Keytruda was begun July 28, 2018 along with Denosumab and the patient has received two cycles of Keytruda July 28 and August 18, 2018 and two injections of denosumab July 28 and August 25, 2018. [facility] pathology. CURRENT TREATMENT: Keytruda/pembrolizumab 200 mg IV over 30 minutes in 100 mL of normal saline every 21 days. Denosumab 120 mg subcu. At present we are giving it every 4 weeks. We plan to switch it to every 6 weeks so that the patient's Keytruda and Denosumab can coincide and the patient does not have to make an extra trip. The patient was on pain medications with morphine sulfate liquid form when he was receiving radiation therapy and he had severe esophagitis and stomatitis, etc. in June. But now all that has resolved and the patient says he is really not taking any more of the liquid morphine. If he gets pain in his right leg, which sometimes he does, an extra strength Tylenol takes care of it. RADIATION HISTORY: For the palliation that the patient has received to the ribs, please see Dr. Gross is note from August 24, 2018. The right ribs were treated from August 09, 2018 to August 15, 2018 for a dose of 2000 cGy. The right distal femur was treated for a dose of 3000 cGy from August 04 through August 17, 2018. The anterior skull and frontal sinus were treated for 3500 cGy in 14 fractions from August 05, 2018 through August 24, 2018. CONCURRENT DIAGNOSIS: Ex-smoker. 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 History of cholecystectomy. Double hernia and abdominal wall repair in [facility] at [facility]. Hepatitis C for which he was cleared in 1989. History of pneumonia in the past. History of arthritis. ALLERGIES: Allergies to PENICILLIN - causes swelling of his face and gives him a high temperature and CODEINE causes severe pain in the stomach. SOCIAL HISTORY: The patient is . 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 Never been an alcohol abuse. Smoked a pack a day for 50 years, quit smoking in April 2017. He used to enjoy coffee, three to four cups a day. Now he says he drinks hardly one cup per day maybe. FAMILY HISTORY: Not applicable since the patient was adopted. Thank you sorry about that and in that SYSTEMIC REVIEW: Mr. Wray says he feels okay. He is walking around with a cane. He has a folding cane with him but they put him in a wheelchair when he came in so he would not have to walk a lot in the corridors. His appetite is fair. The pain in the sinus in the frontal bone is decreasing. The pain in the right lower leg. just above the knee laterally. is also decreasing. The rib pain on the right is almost gone, so the radiation has definitely helped him. The mass on the frontal sinus he thinks is getting smaller in size. He said before the radiation it was so huge both eyes were swollen and puffy and covered up and now the swelling is going down a little so he can at least see through his right eye and from time to time he can seek a peak out of the left eye. The patient says his taste buds have all changed. He really does not like any of the things he is to like, for example, the coffee or sweet things. He used to crave sweets before and now he does not even care if he has a desert even once a week. The patient denies any fevers, any chills, any nausea, any vomiting any more dysphagia. No leg swelling. No calf pain. All other systems are stable. On examination Mr. Wray is awake, alert, oriented. A very pleasant gentleman who does not like to complain much. Vital signs are all normal. The patient's vital signs today 97.9, temperature 90 per minute, heart rate 24 per minute, respirations blood pressure 129/81. The patient is 5 feet 9 inches tall, 80.9 kg with a body surface area of 1.98 meters square. PS by ECOG 2/4. Conjunctivae pale. Sclera do not appear icteric. Buccal mucosa shows pallor. No stomatitis or glossitis. Performance status is 2 on a scale of 4 by ECOG criteria. No adenopathy neck no jugular venous distension. No new adenopathy in the axilla. Lungs quite emphysematous but clear to auscultation. Cardiovascular system without gallops or rubs. Rhythm was regular. Abdomen is soft. There is no guarding rigidity or tenderness. No hepatosplenomegaly. No ascites. No pedal edema. No cyanosis. Skin turgor is on the dry side. MediPort area looks fine, does not look infected. There is good blood return. LABORATORY DATA: Lab data from today white count 7.1, platelets 171,000, hemoglobin 9.4. Chemistries from today: Potassium 3.5, blood sugar fasting 151, the GFR was normal. The rest of the chemistries were normal. The magnesium level was still pending and the TSH was 0.848. Calcium was 9.9 IMPRESSION: 1. Mr. Wray is a very pleasant 68-year-old gentleman with metastatic poorly differentiated squamous cell lung cancer status post left upper lobectomy in August 2017 followed by adjuvant chemo. Despite that the patient's showed progression of disease within a matter of 4 months after completing the adjuvant chemotherapy and now has multiple areas of bony metastasis also. Fortunately, there is no brain metastasis despite very aggressive active lesion in the left frontal sinus. The patient has only received two cycles of Keytruda, not enough time to see if he is getting a response to it or not. Patient's PD-L1 score was 90% so we expect the patient to respond to the Keytruda, but the frontal sinus mass is not reflecting any dramatic improvement yet. 2. Hypokalemia: It could be another side effect of the prior chemotherapy the patient received and the patient may have renal wasting of potassium and magnesium. We are still waiting on today's magnesium level. Chemotherapy drugs especially cis-yuhaaviatam have been known to cause these issues. 3. Mild anemia with nothing really correctable as far as B12 or folate or iron supplements or hematinic flow. We believe the anemia is secondary to the malignancy and the chemo and the radiation that the patient has been through. The patient is not badly symptomatic it from his anemia and his hemoglobin is running between 9 and 10 so we have not has found it necessary to give the patient a transfusion of packed red cells at this time. The patient's GFR is also more than 60 and normal at this time. 4. For the lytic lesion right lower lateral femur, patient has recd palliative RT, pain is much improved, and we are waiting to hear from Dr. Edward to see if any pinning is going to be necessary. PLAN: -----Proceed with Keytruda today. -----We adjusted denosumab to every 6 weeks as stated above, so it can coincide with the Keytruda treatment and the patient does not have to make an extra trip -----If today's magnesium comes back low, the patient will have to be called in for IV magnesium supplementation if it is really low. And if it is just slightly low, then the patient will take oral magnesium supplements. -----The patient will return otherwise in 3 weeks for his next visit and have CBC diff, CMP, LDH, TSH, magnesium done at that time. -----The patient will keep his appointment with Dr. Edward from orthopedics to see if there is any possibility that this surgery is going to be done on the right femur. This patient was a very active person and now we have got him in a wheelchair half the time and then walking with a cane without weightbearing. If the pathological lesion in the right femur can be pinned, perhaps the patient can have more activity again. -----A small course of 5 days of Decadron id being given at 2 mg every 12 hours see if that decreases the huge swelling on his eye and forehead. -----The patient will increase potassium in his diet. A list of potassium rich foods given. -----The patient will continue Boost or Ensure. -----Os-Chester D 500 one a day at least if not two a day. The patient has been encouraged to call us p.r.n. if he has any questions. ADDENDUM: Mr. Wray's magnesium came back after the patient was gone late in the evening as 1.2, rather low. So we called Mr. Wray back to come in the following day for IV magnesium supplementation and we will ask him to come again next week for rechecking the magnesium and potassium levels. Electronically Signed by Lorrie Brian MD 09/17/2018 05:46 P DD: Lorrie Brian MD 09/09/2018 04:20 P DT: [email or web address] 09/13/2018 10:37 A CC:
[2018-09-28 11:02] VITALS: BP 128/81
[2018-09-28 11:21] LABS: HEMATOCRIT 30.2 % (42.0-52.0); HEMOGLOBIN 9.7 g/dl (13.5-17.5); LYMPH % 10.5 % (24.0-44.0); MEAN CORPUSCULAR HEMOGLOBIN 28.1 pg (27.0-33.0); MEAN CORPUSCULAR HGB CONC 32.1 g/dl (32.0-36.5); MEAN CORPUSCULAR VOLUME 87.4 fl (80.0-96.0); NEUTROPHILS # 4.3 10^3/uL (1.8-7.7); NEUTROPHILS % 82.5 % (36.0-66.0); RED BLOOD COUNT 3.45 10^6/uL (4.30-6.10); WHITE BLOOD COUNT 5.2 10^3/uL (4.0-10.0)
[2018-09-28 11:34] LABS: ALBUMIN 3.4 GM/DL (3.5-5.2); BLOOD UREA NITROGEN 10 MG/DL (6-20); CALCIUM LEVEL 10.1 MG/DL (8.5-10.2); CARBON DIOXIDE LEVEL 25 MEQ/L (23-31); CHLORIDE LEVEL 99 MMOL/L (98-107); CREATININE FOR GFR 0.71 MG/DL (0.90-1.30); GLUCOSE, FASTING 131 MG/DL (70-105); POTASSIUM SERUM 3.3 MMOL/L (3.5-5.1); SODIUM LEVEL 135 MMOL/L (135-145); TOTAL PROTEIN 7.1 GM/DL (6.4-8.3)
[2018-09-28 11:35] LABS: GLOMERULAR FILTRATION RATE > 60.0 (>49)
[2018-09-28 12:07] VITALS: BP 125/88
[2018-09-28 13:08] LABS: FREE T4 1.15 NG/DL (0.76-1.46); MAGNESIUM LEVEL 1.5 MG/DL (1.8-2.4); THYROID STIMULATING HORMONE 1.23 uIU/ML (0.358-3.740)
[2018-09-29 09:00] VITALS: BP 138/85
--- NOTE | 2018-09-29 20:53 | MEDONC ---
OUTPATIENT CANCER CENTER PROGRESS NOTE DATE OF SERVICE: 09/28/2018 AGE: 68 PRIMARY PHYSICIAN: Dr. Chad Gross is the patient's radiation oncologist. REASON FOR VISIT: The patient is here for continuing his immunotherapy and Xgeva for his metastatic non-small cell lung cancer. The patient was just recently here on September 08, 2018. The patient came alone today again. 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 The patient is thrilled about it. He enjoys the children so much. He says he cannot wait to run around and play ball with his grandson who is 10 years old and always asking him "when are we going to play ball [place]?" and then his other grandchild has made a friend with another [id number] in the daycare, and they are best buds, and he just loves watching them. The patient says he admits he is a little forgetful, gets mixed up with so many doctors' appointments. He knows he has to go to [place] some time this week. He thought it was tomorrow. Then, later on after about 4 or 5 hours, he called back to say that no he is going on Wednesday to [place]. We also wonder if he is taking his medications on a regular basis, which is one of the other reasons we wanted to talk to the because we cannot seem to keep up with the patient's magnesium and potassium requirements despite his being on supplements, which is not very unusual with prior buckland therapy, yet we want to be sure he is taking what he is supposed to be taking. Then, he would not have to stay here for 1 and 2 hours at a time receiving IV supplementation. PRIMARY DIAGNOSIS: Non-small cell lung cancer, moderate to poorly differentiated squamous cell subtype, left upper lung with extensive necrosis within the tumor. The patient is status post left upper lobectomy August of 2017. Pathology stage pT2a, pN0, Mx stage IB at that time, supposedly. Adjuvant chemotherapy with carboplatin and Taxol given from December 23, 2017, through November 29, 2017, four complete cycles through Dr. Zara Bolanos. PET scan March 2018 showed progression and mediastinal adenopathy with avid FDG uptake. Mediastinal node FNA consistent with necrotic non-small cell lung cancer, same as the previous squamous cell cancer. PD-L1 90% TPS. ALK, EGFR, BRAF, all mutations negative. ROS1 very weak signal could not be interpreted or read as per [facility]. Radiation concomitant with chemotherapy, cisplatinum, etoposide begun April [address] Zara Bolanos. Last treatment June 27, 2018. The patient developed significant cytopenias. June 23 was the patient's last dose of etoposide, and June 24 was the patient's last dose of cisplatinum. Then in June, the patient started develop feeling very weak, tired, not eating, losing weight terribly so, and started getting these headaches. It was like somebody was pounding a nail into a board on his frontal head, literally stapling into his forehead. So, the patient was referred to Dr. Boudreaux from neurology, and Dr. Boudreaux immediately did an MRI of the head, and it showed large bony metastasis destroying the part of the frontal sinus. I had the pleasure of meeting the patient for the first time in June after he had come back from his appointment with Dr. Boudreaux; and it is impressive the bony metastasis that the patient had. Eventually, it was a biopsied, and it confirmed that this is same cancer as the lung cancer. So, the cisplatinum etoposide did not work. The carboplatin and Taxol did not work. The patient and were extremely frustrated. We did further scanning and found that the patient also had right distal femoral metastasis, large lytic lesion in that area. We were concerned about an impending fracture there. The patient was sent to orthopedic surgery in [place], and the final opinion now is that they sent the patient to [place], and [place] is planning to operate, put a nail and cement to hold the bone together. The patient also had rib metastasis. So, in the interim, Dr. Gross has palliated the patient's pain in the rib cage on the right, the patient's pain in the right distal femur, and the patient's pain in the forehead frontal sinus mass. There has been a dramatic improvement. Besides, the patient has also been started on Keytruda and Xgeva. So, something is working, whether it is the Keytruda, the combination of radiation with Keytruda. Whatever it is, the patient is a happy camper. His lump in the forehead is almost completely gone. He can open his left eye. His pain in the right knee is better. He is able to hobble around without too much weightbearing with single-prong cane. At home, he does use a walker. So, he is following everything we try to tell him, and he is hoping he can go to play ball with his 10-year-old grandson. CURRENT TREATMENT: The patient is on Keytruda every 3 weeks. Xgeva 120 mg subcu every 6 weeks now, so that he does not have to make an extra trip in between the Keytruda treatments. The Keytruda dose is 200 mg IV over 30 minutes and 100 mL of normal saline every 21 days. The patient says now all he takes is Tylenol for pain. He no longer needs the morphine liquid, which he had required when he had severe esophagitis tracheitis from the prior radiation around March, April, May. We are waiting on the fixing of the right femoral lytic lesion through [facility] now. The patient goes to see them again this Wednesday. For the radiation history, please see the last note from September 08, 2018, for all the details of the radiation received. CONCURRENT DIAGNOSES: History of hepatitis C, cleared in 1989, unknown whether the patient took interferon, Pegasys, or other antiviral agents because at that time they did not have the present medications which we do now for hepatitis C, but the patient says he was cleared. History of pneumonia in the past. Arthritis. Centriacinar emphysema. Status post cholecystectomy, double hernia, abdominal wall repair, appendectomy, and as above the numerous biopsies and left upper lobectomy, etc. ALLERGIES: To PENICILLIN and CODEINE. PENICILLIN makes his face swell up, gives him a very high temperature. CODEINE gives him severe abdominal pains. SOCIAL HISTORY, FAMILY HISTORY: These have not changed. SYSTEMIC REVIEW: The patient says he feels much better, except that he is more tired now. He just feels tired. He is not able to do much. His capacity to do things is decreased, and that bothers him. The patient also on inquiry admits that yes he does get some chest pain, and the chest pain is described almost in the precordial area. The patient cannot tell whether it comes with exertion or at rest. He is just not sure. It does not last too long. He feels these sharp jags in the area, and then they go away in a few minutes. There is no radiation of the pain to the left arm or the jaw. There is no sweating associated with it. No leg swelling or ankle swelling. No hemoptysis. No epistaxis. The patient says he has a lot of watering from his left eye, and he constantly has to carry like a box of tissues with him. Even during the interview, the patient finished half a box of tissues literally. There is no pain in the left eye. He is able to open it a lot more, and the frontal sinus pain also is much much improved, almost gone. Appetite is good. On examination, Mr. Wray looks pale but is awake, alert, oriented. Vital signs are normal except for resting tachycardia at 103 per minute, and this was rechecked at two different times, almost an hour apart. 110 and 103 continued. Oxygen saturation was good. No fever. Respiratory rate was normal. Conjunctivae pale. Skin pallor. No icterus. Left eye is still swollen compared to the right, but it is much less swollen compared to how it was 2 or 3 weeks ago, and there is a cruddy discharge at the medial canthus. So, this was sent for C and S. Buccal mucosa shows pallor. Tongue did not have any candidiasis or stomatitis. No adenopathy neck. No jugular venous distention. Lungs are emphysematous but clear. Cardiovascular system without any gallops or rubs. Rhythm is regular. Abdomen is soft. No guarding, rigidity, tenderness. No masses. No pedal edema. No calf swelling or tenderness. Skin turgor is dry. Labs from today: Hemoglobin is at 9.7 and is quite stable actually. Hematocrit is 30.2, also stable. White count normal. Platelet count normal. 82.5% neutrophils, 10.5% lymphocytes. The chemistries: Potassium is low at 3.3. Magnesium is low at 1.5. Fasting glucose was 131. LFTs, SGOT, SGPT slightly elevated, 38 and 48, respectively. Albumin slightly low at 3.4 with a normal total protein of 7.1. LDH normal at 185. TSH normal at 1.2.. IMPRESSION: 1. From the [id number] squamous subtype, moderate to poorly differentiated lung cancer with metastatic disease., Mr. Wray seems to be doing well with the Keytruda and palliative radiation combination for now. Our only concern today was twofold. One is the liver enzymes are just ever so slightly increased, the SGOT, SGPT, and we sure hope this is not Keytruda-induced immune hepatitis coming on. The other thing that concerned us was these chest pains that the patient has been having for the last few weeks. He did not call us about them. He just decided to diagnose it himself athat they were the residue of his recent bronchitis. He is certain, this is the residual pain from the bronchitis. So, we have asked Mr. Wray that, pleasant as he is, we do not wish that he had self-diagnosed himself. The patient is agreeable to this. We have asked him to take a nitroglycerin trial, explained how it works, how to take it, what to do if it does not work, everything literally described word by word to the patient, and he has agreed to give it a try. If the pain is relieved by nitroglycerin, we will have to send the patient for cardiology evaluation, especially since we are planning to do orthopedic surgery in the upcoming future. 2. The patient is still anemic, but it is not any worse, it is not much better, but we can get away without transfusing the patient at least for another 2 weeks, we think. We already checked the patient's ferritin, B12, folate. There is nothing correctable on the anemia. This is anemia from malignancy, chemo, and radiation. The patient's ferritin was quite high at 796. So, we have asked the patient to be sure and not take any iron supplements. It is a reflex thing. As soon as patients realize they are anemic, they all want to start taking iron. The patient's B12 and folate also have been normal, and the patient does not have CKD yet. His GFR is more than 60. PLAN: Correction of low magnesium and low potassium, IV supplements. Proceed with Keytruda and Xgeva. Return to see us in 3 weeks. Discharge from the left eye sent for C and S. Sulamyd ophthalmic solution scripted. Nitroglycerin scripted for p.r.n. use, full instructions given and the patient to call us if the nitro helps his chest pain. Call p.r.n. The patient was encouraged again to keep us aware of any new symptoms. Let us know when he has his surgery set up with Orthopedics in [place]. edited: 09/30/2018 [id number] cc: Dr. Chad Muniz. Dr. Reinaldo Gross. Electronically Signed by Lorrie Brian MD 10/01/2018 12:27 P DD: Lorrie Brian MD 09/28/2018 08:33 P DT: aml 09/29/2018 09:00 A CC: MD Reinaldo Yadav MD Ryan Tyler, MD
[2018-10-19 11:24] LABS: HEMATOCRIT 28.9 % (42.0-52.0); HEMOGLOBIN 9.1 g/dl (13.5-17.5); LYMPH % 10.1 % (24.0-44.0); MEAN CORPUSCULAR HEMOGLOBIN 26.5 pg (27.0-33.0); MEAN CORPUSCULAR HGB CONC 31.5 g/dl (32.0-36.5); NEUTROPHILS # 6.8 10^3/uL (1.8-7.7); NEUTROPHILS % 83.2 % (36.0-66.0); RED BLOOD COUNT 3.44 10^6/uL (4.30-6.10); WHITE BLOOD COUNT 8.2 10^3/uL (4.0-10.0)
[2018-10-19 11:35] LABS: ALBUMIN 3.5 GM/DL (3.5-5.2); BLOOD UREA NITROGEN 16 MG/DL (6-20); CARBON DIOXIDE LEVEL 23 MEQ/L (23-31); CHLORIDE LEVEL 101 MMOL/L (98-107); CREATININE FOR GFR 0.74 MG/DL (0.90-1.30); GLOMERULAR FILTRATION RATE > 60.0 (>49); GLUCOSE, FASTING 157 MG/DL (70-105); POTASSIUM SERUM 3.6 MMOL/L (3.5-5.1); SODIUM LEVEL 135 MMOL/L (135-145); TOTAL PROTEIN 7.3 GM/DL (6.4-8.3)
[2018-10-19 12:12] VITALS: BP 125/82
[2018-10-19 13:05] LABS: FREE T4 1.27 NG/DL (0.76-1.46); MAGNESIUM LEVEL 1.4 MG/DL (1.8-2.4); THYROID STIMULATING HORMONE 1.15 uIU/ML (0.358-3.740)
--- NOTE | 2018-10-24 08:33 | MEDONC ---
DATE OF SERVICE: 10/19/2018 IDENTIFICATION: The patient is a 68-year-old man with metastatic squamous cell cancer of the lung to bone and lymph nodes. PREVIOUS TREATMENT: 1. Left upper lobe lobectomy August 2017. 2. Adjuvant Taxol and carboplatin chemotherapy times four cycles completed in December 2017. 3. Radiation therapy and concurrent chemotherapy with WELLNESS TRAINER-16 and cisplatin from April 27, 2018 to June 2018. 4. Palliative radiation therapy to the ribs and femur completed in approximately July 2018. CURRENT TREATMENT: 1. Xgeva, last dose on 09/29/2018. 2. Pembrolizumab started on 07/28/2018 status post four doses, last on 09/28/2018. INTERVAL HISTORY: Patient reports that about 2 weeks ago he underwent surgery with internal fixation prophylactically to the right femur. He has done fairly well as far as the surgery goes. He reports however that over the last couple of weeks he has been he has been noting progressive shortness of breath, even at rest, and also he has been having regular chills. He denies any cough or sputum production. He is not aware if he is having fevers along with the chills. PHYSICAL EXAMINATION: GENERAL: The patient appears somewhat acute and chronically ill and mildly dyspneic at rest. VITAL SIGNS: Weight 76 kg, temperature 97.9, pulse 99, respiration 18, blood pressure 125/82, pulse ox 100% on room air. HEENT: Pupils equal, round, reactive. Sclera anicteric. Oral without lesions. LYMPH NODES: No palpable cervical or supraclavicular lymphadenopathy. CHEST: Coarse rales heard over the left upper lung field. ABDOMEN: Nontender without mass or hepatosplenomegaly. EXTREMITIES: Without cyanosis or edema. LABORATORY: CBC WBC 8.2, hemoglobin 9.1, hematocrit 28.9, ANC 6.8. CMP is unremarkable with the exception of random glucose of 157. RADIOLOGY: A stat CT angiogram of the chest was done and the patient returned to the clinic for the report. The CT angiogram of the chest shows a new dense patchy infiltrate in the left upper lobe with a small pleural effusion. ASSESSMENT: 1. Most likely acute radiation pneumonitis as this is in the area where he received radiation therapy and the time course would fit. He does not have any symptoms or laboratory data that suggests acute pneumonia, although this is also possible. There is no evidence of pulmonary embolus which was a concern because of his recent orthopedic surgery. PLAN: 1. Pembrolizumab was held today. 2. The patient was started on methylprednisolone at a dose of 32 mg daily. 3. A prescription for his azithromycin dose pack was given. 4. Return visit in 1 week to reassess his symptoms. The patient was advised to call in the interim if he starts feeling worse in any way. Electronically Signed by Reece Dietrich MD 10/24/2018 01:03 P DD: Reece Dietrich MD 10/22/2018 04:01 P DT: brandon 10/24/2018 08:25 A CC:
[2018-10-26 08:24] VITALS: BP 130/85
--- NOTE | 2018-10-27 10:12 | MEDONC ---
FOLLOW-UP VISIT DATE OF SERVICE: 10/26/2018 IDENTIFICATION: The patient is a 68-year-old man with metastatic squamous cell carcinoma of the lung to bone and lymph nodes. PREVIOUS TREATMENT: 1. Left upper lobe lobectomy, August 2017. 2. Adjuvant Taxol and carboplatinum chemotherapy times four cycles completed in December 2017. 3. Radiation therapy and concurrent chemotherapy with INTERSTATE PLANNER-16 and cisplatin from April 2018 to June 2018. 4. Palliative radiation therapy to the ribs and femur completed approximately July 2018. CURRENT TREATMENT: 1. Xgeva, last dose on 09/29/2018. 2. Pembrolizumab started on 07/28/2018 status post four doses, last on 09/28/2018. INTERVAL HISTORY: Patient returns for one week follow-up after his presentation here with weakness, chills, shortness of breath and finding of a left upper lobe lung infiltrate consistent with possible pneumonia or possible radiation pneumonitis. He has completed his course of methylprednisolone and azithromycin yesterday. He reports that he began feeling better by the next day after he started this treatment and that over the next several days his breathing recovered to normal. He is no longer having the rigors that he had been having. He denies any cough or sputum production. PHYSICAL EXAMINATION: GENERAL: The patient appears well-developed, well-nourished and in no distress. VITAL SIGNS: Weight 75 kg, temperature 96.8, pulse 110, respiration 18, blood pressure 130/85, pulse ox 100% on room air. HEENT: Pupils equal, round, reactive. Sclera anicteric. Oral without lesions. CHEST: A few left upper lobe wheezes but otherwise clear. ABDOMEN: Nontender without mass or past splenomegaly. LABORATORY: None today. ASSESSMENT: Excellent clinical response to the steroids and antibiotic last week and the patient reports his breathing is back to normal. PLAN: 1. The patient will remain off of antibiotic and steroids. 2. He will return in 1 week for his next Keytruda and Xgeva doses. 3. Return visit to see and also for infusion in 4 weeks. Electronically Signed by Reece Dietrich MD 10/27/2018 11:18 A DD: Reece Dietrich MD 10/26/2018 08:07 P DT: brandon 10/27/2018 09:57 A CC:
[2018-11-02 10:45] VITALS: BP 117/74
[2018-11-02 10:54] LABS: HEMOGLOBIN 9.2 g/dl (13.5-17.5); LYMPH % 7.9 % (24.0-44.0); MEAN CORPUSCULAR HEMOGLOBIN 25.5 pg (27.0-33.0); MEAN CORPUSCULAR HGB CONC 30.7 g/dl (32.0-36.5); NEUTROPHILS # 7.1 10^3/uL (1.8-7.7); NEUTROPHILS % 87.8 % (36.0-66.0); RED BLOOD COUNT 3.61 10^6/uL (4.30-6.10); WHITE BLOOD COUNT 8.1 10^3/uL (4.0-10.0)
[2018-11-02 11:06] LABS: ALBUMIN 3.4 GM/DL (3.5-5.2); BLOOD UREA NITROGEN 19 MG/DL (6-20); CALCIUM LEVEL 10.1 MG/DL (8.5-10.2); CARBON DIOXIDE LEVEL 24 MEQ/L (23-31); CHLORIDE LEVEL 99 MMOL/L (98-107); CREATININE FOR GFR 0.81 MG/DL (0.90-1.30); GLUCOSE, FASTING 168 MG/DL (70-105); POTASSIUM SERUM 3.4 MMOL/L (3.5-5.1); TOTAL PROTEIN 7.5 GM/DL (6.4-8.3)
[2018-11-02 11:07] LABS: GLOMERULAR FILTRATION RATE > 60.0 (>49)
[2018-11-02 11:08] LABS: SODIUM LEVEL 135 MMOL/L (135-145)
--- NOTE | 2018-11-02 11:20 | ONC.PHACK ---
CHEMO ADMIN CHECKLIST Order Contains Pt ID: Name, Order on Chemo Order Form?: Yes Order Form Includes ALL: Correct Tx Day, Correct Date, Correct Cycle Number Pt ID on Order form Matches: Pt ID on PHA Label Med on Chemo OrderForm Matches: PHA Label, Med Used for Preparation [facility] Nov 02, 2018 11:19
[2018-11-10 15:19] VITALS: BP 132/90
--- NOTE | 2018-11-12 15:01 | MEDONC ---
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 PREVIOUS TREATMENT 1. Left upper lobectomy August 2017. 2. Adjuvant Taxol and carboplatin times four cycles completed in December 2017. 3. Radiation concurrent chemotherapy with PROVIDER RELATIONS CONSULTANT-16 and cisplatin from April 2018 to June 2018. 4. Palliative radiation to the ribs and femur in July 2018. CURRENT THERAPY: 1. Xgeva, last dose 09/29/2018. 2. Pembrolizumab started on 07/28/2018 status post four doses noted in the prior dictation that the last dose was on 09/28/2018. INTERVAL HISTORY: Patient returned after hospitalization for pneumonia. The patient currently on antibiotic with Levaquin. He reports shortness of breath and weakness and he currently is with a walker. He reports that he has been on the tapering steroid and he is scheduled to see pulmonary. Past surgical/social/medical, reconciled meds reviewed, updated. PHYSICAL EXAMINATION: Awake, alert, oriented, not in acute distress. Vital signs: Temperature 97.7, heart rate 110, respiratory rate 18, blood pressure 132/90, room air pulse oximetry 99. Lungs: Bilateral diffuse rales. Cardiac: S1, S2, tachycardic. No murmur. Abdomen: Soft, nontender. Organomegaly not noted. Extremities: No edema. Skin: Pale. No rashes. No lesions. LABORATORY DATA: On 11/02/2018, CBC unremarkable except for hemoglobin of 9.2. Chemistry on 11/02/2018 unremarkable except for creatinine 0.181, potassium 3.4. ASSESSMENT AND PLAN: This is a 68-year-old male with a history of metastatic squamous cell to the lung. It is noted that the patient had undergone abdominal CT angiography that revealed no evidence of pulmonary embolism. There was left superior mediastinal mass measuring 5.2 cm that was unchanged, hyperdense mass in right hepatic lobe now slightly increased in size compared to 10/19/2018 measuring 3.7 cm. There was evidence of mass in the body of the pancreas 4.7 cm also slightly increased on 10/19/2018, 4.6 cm left adrenal mass slightly increased from prior CT 3.2 cm of the left upper quadrant of the abdomen unchanged from prior CT 10.5 cm lytic lesion right posterior and 1.2 cm of right pericardiac lymph nodes. ASSESSMENT AND PLAN: So this is a 68-year-old, male with metastatic squamous cell carcinoma of the lung to the bone, lymph nodes, liver. The patient current performance status decreased to 2-3. He is currently on antibiotic regimen and tapering steroids for his recent admission of pneumonia. The patient at this point is not candidate to receive further treatment with the pembrolizumab. PLAN: 1. Continue the course of antibiotics and steroids. 2. Patient to be evaluated by pulmonary for pneumonitis or other underlying lung disorders. 3. Patient will return the clinic in 1 week for re-evaluation for consideration of treatment. However, at this point, the patient is not cleared to receive further radiation. 4. Due to the patient's decreased cognition, CT of the brain will be ordered to rule out brain metastasis. 5. Consultation with radiation oncology to explore whether the patient is a candidate for further palliative radiation especially that he continues to report right sagittal costal rib pain between 6-11/23. The patient was seen and examined. The plan was formulated as above. Electronically Signed by Yordy Anderson MD 11/15/2018 08:43 A DD: Yordy Anderson MD 11/11/2018 08:43 A DT: [email or web address] 11/11/2018 08:57 A CC:
[2018-11-16 11:08] VITALS: BP 125/81
[2018-11-16 11:18] LABS: HEMATOCRIT 31.4 % (42.0-52.0); MEAN CORPUSCULAR HEMOGLOBIN 25.9 pg (27.0-33.0); MEAN CORPUSCULAR HGB CONC 31.8 g/dl (32.0-36.5); MEAN CORPUSCULAR VOLUME 81.3 fl (80.0-96.0); RED BLOOD COUNT 3.86 10^6/uL (4.30-6.10); WHITE BLOOD COUNT 9.3 10^3/uL (4.0-10.0)
[2018-11-16 11:31] LABS: ALBUMIN 3.3 GM/DL (3.5-5.2); BLOOD UREA NITROGEN 18 MG/DL (6-20); CARBON DIOXIDE LEVEL 26 MEQ/L (23-31); CHLORIDE LEVEL 100 MMOL/L (98-107); CREATININE FOR GFR 0.72 MG/DL (0.90-1.30); GLUCOSE, FASTING 212 MG/DL (70-105); SODIUM LEVEL 134 MMOL/L (135-145); TOTAL PROTEIN 7.4 GM/DL (6.4-8.3)
[2018-11-16 11:32] LABS: GLOMERULAR FILTRATION RATE > 60.0 (>49)
--- NOTE | 2018-11-19 13:53 | MEDONC ---
DATE OF SERVICE: 11/16/2018 REASON FOR VISIT: Followup on a patient with history of metastatic squamous cell seroma of the lungs. Treatment with pembrolizumab on hold due to questionable pneumonia/pneumonitis. PREVIOUS TREATMENT: Left upper lobectomy 08/2017. Adjuvant taxol and Carboplatin four time cycles ended in 12/2017. Radiation concurrent chemo RT On cisplatin 04/2018-06/2018. Palliative radiation to the ribs and femur in 10/2018. CURRENT THERAPY: Xgeva last dose as per record. Pembrolizumab has been on hold with latest on 09/28/2018. INTERVAL HISTORY/REVIEW OF SYSTEMS: The patient continues to reports to be deconditioned with poor performance status. ECOG performance status 2. Unfortunately the patient has not seen radiation therapy for his palliative radiation to his rib pain and his pain continues to be 7/10. Controlled with Tylenol. The patient unfortunately has not been able to schedule an appointment with pulmonary. He continues on taking dexamethasone at 2 mg which he has taken 3 days out of 5 days and another 1 mg that he has to take for 5 days. Therefore the patient has another week of course of steroids. Other review of systems unremarkable. PAST SURGICAL, SOCIAL, AND MEDICAL HISTORY, reconciled. MEDICATIONS: Reviewed and updated. PHYSICAL EXAMINATION: Awake, alert and oriented not in distress. Patient is accompanied by his spouse and he walks with a walker. Temperature 97.8, heart rate 105 sinus. Respiratory rate 18, blood pressure 125/81, room air oxygen sat 99. LUNGS: Diffuse well bilaterally. EXTREMITIES: Trace edema. CARDIAC: S1, S2 mild sinus tachycardia. ABDOMEN: Soft and organomegaly noted. LYMPHATICS: No supraclavicular lymph node. LAB DATA: On 11/16/2018 CBC unremarkable except for hemoglobin 10. Potassium 3.4, albumin 3.3, and ALT 39, fasting glucose 212. ASSESSMENT AND PLAN: This is a 68-year-old male with a history of metastatic squamous cell carcinoma of the lung. The patient's pembrolizumab has been on hold since 09/28/2018 due to recent cause of pneumonia and he continues to be on a course of steroids. However pneumonitis has not been ruled out. PLAN: 1. Questionable pneumonitis. Continue dexamethasone and contact pulmonary with an appointment as soon as possible. 2. Radiation therapy referral to radiation oncology for palliative radiation to the ribs. 3. Therapy. Pembrolizumab continues to be on hold until the pneumonitis is ruled out. 4. Pain control. The patient mentioned they would contact Dr. Cherry for prescription of prednisone. The patient was seen and examined. I spent 35 minutes during this encounter with more than 50% of the time counseling the patient and his spouse about the above plan of care, prognosis and need for evaluation by pulmonary spouse and patient voiced understanding and agreed with the above plan of care. Electronically Signed by Yordy Anderson MD 11/23/2018 01:07 P DD: Yordy Anderson MD 11/18/2018 04:22 P DT: [email or web address] 11/19/2018 01:14 P CC:
[2018-11-23 09:32] VITALS: BP 122/73
[2018-11-23 09:43] LABS: HEMATOCRIT 31.3 % (42.0-52.0); HEMOGLOBIN 9.7 g/dl (13.5-17.5); LYMPH % 9.5 % (24.0-44.0); MEAN CORPUSCULAR HEMOGLOBIN 25.3 pg (27.0-33.0); MEAN CORPUSCULAR VOLUME 81.6 fl (80.0-96.0); NEUTROPHILS # 6.8 10^3/uL (1.8-7.7); NEUTROPHILS % 86.5 % (36.0-66.0); RED BLOOD COUNT 3.83 10^6/uL (4.30-6.10); WHITE BLOOD COUNT 7.9 10^3/uL (4.0-10.0)
[2018-11-23 09:50] LABS: ALBUMIN 3.1 GM/DL (3.5-5.2); BLOOD UREA NITROGEN 20 MG/DL (6-20); CARBON DIOXIDE LEVEL 23 MEQ/L (23-31); CHLORIDE LEVEL 100 MMOL/L (98-107); GLUCOSE, FASTING 278 MG/DL (70-105); SODIUM LEVEL 133 MMOL/L (135-145); TOTAL PROTEIN 7.5 GM/DL (6.4-8.3)
[2018-11-23 09:57] LABS: GLOMERULAR FILTRATION RATE > 60.0 (>49)
[2018-11-29] MEDS: SODIUM CHLORIDE 0.9% INJ 10 ML SYR IV PRN ×2 (09:10→13:34)
[2018-11-29 09:17] LABS: HEMOGLOBIN 8.6 g/dl (13.5-17.5); LYMPH % 8.5 % (24.0-44.0); MEAN CORPUSCULAR HEMOGLOBIN 24.7 pg (27.0-33.0); MEAN CORPUSCULAR HGB CONC 30.7 g/dl (32.0-36.5); MEAN CORPUSCULAR VOLUME 80.4 fl (80.0-96.0); NEUTROPHILS # 6.1 10^3/uL (1.8-7.7); NEUTROPHILS % 86.5 % (36.0-66.0); RED BLOOD COUNT 3.48 10^6/uL (4.30-6.10)
[2018-11-29 09:46] LABS: BLOOD UREA NITROGEN 16 MG/DL (6-20); CARBON DIOXIDE LEVEL 24 MEQ/L (23-31); CHLORIDE LEVEL 98 MMOL/L (98-107); CREATININE FOR GFR 0.81 MG/DL (0.90-1.30); GLUCOSE, FASTING 272 MG/DL (70-105); SODIUM LEVEL 131 MMOL/L (135-145); TOTAL PROTEIN 7.3 GM/DL (6.4-8.3)
[2018-11-29 09:47] LABS: GLOMERULAR FILTRATION RATE > 60.0 (>49)
[2018-11-29 09:58] VITALS: BP 127/83
[2018-11-29 13:26] LABS: FREE T3 2.1 PG/ML (2.2-4.0); FREE T4 1.17 NG/DL (0.76-1.46); THYROID STIMULATING HORMONE 1.31 uIU/ML (0.358-3.740)
[2018-11-29 13:35] VITALS: BP 130/82
[2018-12-08 11:20] VITALS: BP 126/91
[2018-12-08 12:49] LABS: HEMOGLOBIN 10.3 g/dl (13.5-17.5); LYMPH % 7.4 % (24.0-44.0); MEAN CORPUSCULAR HEMOGLOBIN 25.7 pg (27.0-33.0); MEAN CORPUSCULAR HGB CONC 31.2 g/dl (32.0-36.5); MEAN CORPUSCULAR VOLUME 82.4 fl (80.0-96.0); NEUTROPHILS # 7.5 10^3/uL (1.8-7.7); NEUTROPHILS % 88.1 % (36.0-66.0); RED BLOOD COUNT 4.01 10^6/uL (4.30-6.10); WHITE BLOOD COUNT 8.5 10^3/uL (4.0-10.0)
[2018-12-08 13:05] LABS: ALBUMIN 3.2 GM/DL (3.5-5.2); BLOOD UREA NITROGEN 17 MG/DL (6-20); CARBON DIOXIDE LEVEL 26 MEQ/L (23-31); CHLORIDE LEVEL 95 MMOL/L (98-107); CREATININE FOR GFR 0.63 MG/DL (0.90-1.30); GLUCOSE, FASTING 188 MG/DL (70-105); SODIUM LEVEL 130 MMOL/L (135-145); TOTAL PROTEIN 7.6 GM/DL (6.4-8.3)
[2018-12-08 13:06] LABS: GLOMERULAR FILTRATION RATE > 60.0 (>49)
--- NOTE | 2018-12-09 15:49 | MEDONCTEEN ---
Date/Time of Encounter Date of Encounter: Dec 09, 2018 Time of Encounter: 03:33 Telephone Encounter Called patient to see how he made out after the Keytruda Rx yesterday and to remind him to drink more fluids, since his calcium was still a little elevated. Patient promised to drink more water, said he was tired and sleeps a lot. Explained that the Morphine he is on, can make him tired and sleepy, the anemia he has can do the same, besides make him feel cold all the time. Patient said he understood. it sounded today like the "fight" was going out of him. Will make sure patient recd his XGEVA last week. Apparently when the Keytruda got held, so did the XGEVA. (Doe HUTTON) Locums. cc: Dr. Chad Muniz. RIGOEBRTO MAGAÑA MD Dec 09, 2018 15:49
--- NOTE | 2018-12-12 10:01 | MEDONC ---
OUTPATIENT CANCER CENTER PROGRESS NOTE DATE OF : 1950 AGE: 68 DATE OF SERVICE: 12/08/2018 PRIMARY PHYSICIAN: Dr. Chad Muniz RADIATION ONCOLOGIST: Dr. Gross REASON FOR VISIT: Continuing management of metastatic non small cell lung cancer. The patient's was able to accompany him today. The patient was here last week and the patient does not remember much. He is on heavy doses of pain medications and so we had specifically asked that if Mrs. Wray could find somebody to sit for her day care then she could come here with the patient to hear what was going on because Mr. Wray is not doing well lately and we are very concerned. Mrs. Wray runs a day care center at home and is very busy with new children being added on all the time, but somehow the patient's managed today to come with difficulty, she even had to bring one of the children with her to the office. The patient says he did have his PET scan done and he is here today wanting to know what next. 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 Dr. Bolanos gave the patient adjuvant chemotherapy with four cycles of carboplatin with Taxol September 22, 2017 through November 29, 2017. PET scan March 2018 showed progression of disease with mediastinal adenopathy, FDG uptake, FNA of a mediastinal node was consistent with necrotic non small cell lung cancer, same as the previous cancer. Molecular studies were as follows. PD-L1 was 90% TPS. ALK, EGFR, BRAF, all mutations negative. ROS1 was a very weak signal. Could not be interpreted or read well as per [facility] pathology. Radiation concomitant with chemotherapy Cisplatinum, etoposide, begun April [address] Bolanos with the patient's treatment held since because of significant cytopenias. Progressive bony metastasis noted including one huge lesion in the frontal bone eroding the frontal sinus as of July 2018. Keytruda begun 07/28/2018 and the patient has received only two cycles looks, it look like July 28 and August 18. Denosumab also begun every 4 weeks because of the bony metastasis. The patient has several bony lesions, some of them requiring surgical prophylaxis also. For example, the right femur for which the patient just had surgery done. Rib metastases were noted. The patient has been receiving palliative radiation to all these areas. The patient is managing as well as he can. Please see the note from 09/08/2018 for more details. The patient's Keytruda was withheld because of possible pneumonitis and the patient was started on prednisone by Dr. Mata. According to the , even with the first treatment Keytruda, the protruding mass in the forehead completely shrank down to flat baseline, so she was impressed with it, but because there was pneumonia and there was concern it was Keytruda induced, they held all the treatment. The patient was even admitted to the hospital as possible pneumonia. The patient just had a PET scan done so today the patient and are here to go over the results of the PET scan to see if it still shows any kind of pneumonia or all just tumor and if they can go back on the Keytruda. The patient's present dose of oral prednisone unfortunately is not listed in the reconcile to medications. PET CT done 12/06/2018 shows hypermetabolic and borderline enlarged node in the thoracic inlet with a SUV of 3.08 which originally was a SUV of 11.2. Small hypermetabolic foci seen in enlarged anterior mediastinal nodes. Today most of these show no uptake, suggesting central necrosis. The maximum SUV today was 2.96, borderline hypermetabolic, previously it was 10.9. There is however a new large hypermetabolic focus in the right eighth rib which was not present previously, but we are comparing to a PET scan from March 2018. We have known of the liver mets for some time now based on other studies though, so that is not a very new thing, and the patient has already received radiation to the right eighth rib. There was no pneumonia at all mentioned on the PET CT of the chest. Abdomen and pelvis, however, do show multiple hepatic hypermetabolic foci, left adrenal mass with uptake and central necrosis in the mass, and a new focus anterior to the lateral margin of the spleen. It could be in a mesenteric node. This has a SUV of 5.1. There was another area of uptake in the head of the pancreas with a SUV of 6.4 and new uptake and enlarged mesenteric nodes anterior to the vena cava, new uptake in internally iliac nodes bilaterally and in the left femoral nodes. We discussed all of this with the patient and Mrs. Wray and we suggested that the patient should give Keytruda another try since he only had like two treatments and then it was withheld and all this tumor progression occurred since then probably. We will give it another try, give another 3-4 cycles if possible, do more CAT scans and see if there is any kind of response. We offered the option if this does not work then we would have to go on different chemotherapy regimens. There is another option also that more genetic studies could be done and sent out, it was all up to the pathology department. Then the last option is the patient could just say that he is tired and he wants no more treatments. It looks like to me that Mr. Wray is giving up the fight. But the patient and the today say no they will try and fight to the last ounce. They are not ready for hospice yet. We even used the word hospice today. In fact, the patient is so independent. He is weak. He is anemic. He has a single prong cane, but he refuses even to use a wheelchair. He prefers to walk and keep moving. We respected the patient's and 's wishes. We cleared the patient for another trial of Keytruda, at least three treatments every 3 weeks apart and follow up with another CAT scan or a PET scan and see if there is any improvement at all. The liver metastases are worrisome unfortunately, such a aspen gentleman with a bad disease. We will also touch base with the patient's because no one seems to know what prednisone dose now the patient is finally on. All the knows is that he is taking 1 pill of prednisone a day, but what strength is unknown. Maybe it is mentioned in the hospital discharge note. It just says medroxyprogesterone tapering. will check the bottle and call us back. Prognosis: Gaurded to Grave. Electronically Signed by Lorrie Brian MD 12/15/2018 10:08 P DD: Lorrie Brian MD 12/08/2018 06:24 P DT: nicole 12/12/2018 09:38 A CC: MD Chad Colón MD
[2018-12-15 11:51] LABS: HEMOGLOBIN 9.3 g/dl (13.5-17.5); LYMPH % 5.6 % (24.0-44.0); MEAN CORPUSCULAR HEMOGLOBIN 25.2 pg (27.0-33.0); MEAN CORPUSCULAR VOLUME 81.4 fl (80.0-96.0); NEUTROPHILS # 9.7 10^3/uL (1.8-7.7); NEUTROPHILS % 88.7 % (36.0-66.0); RED BLOOD COUNT 3.69 10^6/uL (4.30-6.10); WHITE BLOOD COUNT 10.9 10^3/uL (4.0-10.0)
[2018-12-15 12:07] LABS: BLOOD UREA NITROGEN 18 MG/DL (6-20); CARBON DIOXIDE LEVEL 26 MEQ/L (23-31); CHLORIDE LEVEL 96 MMOL/L (98-107); CREATININE FOR GFR 0.66 MG/DL (0.90-1.30); GLUCOSE, FASTING 202 MG/DL (70-105); SODIUM LEVEL 129 MMOL/L (135-145)
[2018-12-15 12:13] LABS: CALCIUM LEVEL 11.1 MG/DL (8.5-10.2); GLOMERULAR FILTRATION RATE > 60.0 (>49)
[2018-12-15 12:35] VITALS: BP 107/67
[2018-12-22 10:22] LABS: HEMATOCRIT 35.7 % (42.0-52.0); HEMOGLOBIN 11.3 g/dl (13.5-17.5); LYMPH % 7.4 % (24.0-44.0); MEAN CORPUSCULAR HEMOGLOBIN 26.4 pg (27.0-33.0); MEAN CORPUSCULAR HGB CONC 31.7 g/dl (32.0-36.5); MEAN CORPUSCULAR VOLUME 83.5 fl (80.0-96.0); NEUTROPHILS # 7.3 10^3/uL (1.8-7.7); RED BLOOD COUNT 4.28 10^6/uL (4.30-6.10); WHITE BLOOD COUNT 8.4 10^3/uL (4.0-10.0)
[2018-12-22 10:23] VITALS: BP 118/81
[2018-12-22 10:42] LABS: BLOOD UREA NITROGEN 16 MG/DL (7-18); CALCIUM LEVEL 11.2 MG/DL (8.8-10.2); CARBON DIOXIDE LEVEL 29 MEQ/L (21-32); CHLORIDE LEVEL 97 MEQ/L (98-107); CREATININE FOR GFR 0.57 MG/DL (0.70-1.30); GLOMERULAR FILTRATION RATE > 60.0 (>49); GLUCOSE, FASTING 266 MG/DL (70-100); SODIUM LEVEL 133 MEQ/L (136-145)
--- NOTE | 2018-12-28 07:10 | MEDONC ---
MEDICAL ONCOLOGY/HEMATOLOGY NOTE: DATE OF SERVICE: 12/22/2018 REASON FOR VISIT: Followup the patient with history of metastatic squamous cell CA of the lung. He is here for his treatment of pembrolizumab, which was on hold due to questionable pneumonitis. INTERVAL HISTORY/REVIEW OF SYSTEMS: This is a 68-year-old male with the above diagnosis. The patient has left upper lobectomy in August 2017 with adjuvant carboplatin four cycles given in December 2017. The concurrent chemo RT on cisplatin from April 2018 to June 2017. Palliative radiation to the ribs and femur in October 2017. The patient has been on pembrolizumab and Xgeva. The pembrolizumab was on hold. The patient has recently been hospitalized and he was discharged. The patient's performance status was 2 and now has further declined from 3 to 4. Unfortunately, this patient seems to decline with elevated calcium. On today's assessment, the patient it not coherent or able to understand the medical explanation. As well, his vital signs have been unstable. The patient currently denies nausea and vomiting. No cough or phlegm, however, all other review of system is not accurate as the patient is not understanding medical questionnaire. Past surgical, medical and social history and medications reconciled, reviewed, unchanged. PHYSICAL EXAMINATION: Awake, alert today. No in acute distress. Vital Signs: Temperature 96.5, heart rate 137, respiratory rate 18, blood pressure 118/31 and his pulse ox was 95. The patient's heart rate after placing the patient on repeat monitors, the patient had a heart rate of around 145. HEENT: Shows evidence of metastasis of the skin above both eyes. Face is pale. Right eye appears to decrease in opening due to the skin mass above the right eye. Lungs: Diffuse rhonchi. Cardiac: S1, S2, tachycardic. No added other sounds. Abdomen: Organomegaly not noted. Extremities: No cyanosis, clubbing, or edema. Lab data on 12/22/2018 reviewed. CBC unremarkable. Hemoglobin 11.8, JAIL 83%. RDW 17.2, neutrophils 87%. Chemistries: Unremarkable except for sodium 33, chloride 97, BUN of 16, creatinine 0.57, GFR of more than 60 and calcium 11.2. Urine was not done today. Imaging of the neck was done. PET scan was done on 12/06/2018 that revealed progression of a new uptake in the chest, right 8th rib. Mediastinal node anterior to the heart, multiple new hypermetabolic findings of the left adrenal, head of the pancreas, adjacent to the spleen, pre-caval mesenteric node, as well as internal iliac nodes bilaterally. 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 There is now metastasis to the lymphs, adrenal glands, liver. Because of the rapidly progressive disease, the patient was in last seen on 11/18/2018 prior to his admission. 1. Treatment: At that time, Dr. Brian re-evaluated the patient and advised to continue pembrolizumab for additional four cycles as usual and to order studies. 2. Clinical condition. The patient's ECOG performance scale is 4 and he was advised that he is medically unstable. He was referred to the emergency room for evaluation. 3. Counseling. Patient at this point would be appropriate to consider referral to hospice in view of his advanced and rapidly deteriorating condition. The was not ready to have this conversation and insisted to have her spouse continue the treatment. 4. Acute management. At this visit, patient was hemodynamically with altered mental status and he was rushed to the ER for management and admission. I spent 45 minutes in this encounter with more than 50% of the time counseling the about the above plan of the care and explaining the physical condition of the patient and prognosis. The appeared to not accepting the situation and requested to try pembrolizumab. The was then advised, that should the patient performance status improve, he would be considered for another treatment with pembrolizumab. <<1:47>> . <<5:25>> <<5:50>> Electronically Signed by Yordy Anderson MD 12/28/2018 01:14 P DD: Yordy Anderson MD 12/22/2018 01:19 P DT: christel 12/26/2018 07:59 A CC:
[2019-01-02 10:38] VITALS: BP 109/73
[2019-01-02 10:53] LABS: HEMATOCRIT 31.1 % (42.0-52.0); HEMOGLOBIN 9.7 g/dl (13.5-17.5); LYMPH % 5.1 % (24.0-44.0); MEAN CORPUSCULAR HEMOGLOBIN 26.1 pg (27.0-33.0); MEAN CORPUSCULAR HGB CONC 31.2 g/dl (32.0-36.5); MEAN CORPUSCULAR VOLUME 83.9 fl (80.0-96.0); NEUTROPHILS # 9.8 10^3/uL (1.8-7.7); RED BLOOD COUNT 3.71 10^6/uL (4.30-6.10); WHITE BLOOD COUNT 10.8 10^3/uL (4.0-10.0)
[2019-01-02 11:05] LABS: ALBUMIN 2.8 GM/DL (3.5-5.2); BLOOD UREA NITROGEN 21 MG/DL (6-20); CARBON DIOXIDE LEVEL 23 MEQ/L (23-31); CHLORIDE LEVEL 96 MMOL/L (98-107); CREATININE FOR GFR 0.65 MG/DL (0.90-1.30); GLUCOSE, FASTING 257 MG/DL (70-105); SODIUM LEVEL 127 MMOL/L (135-145); TOTAL PROTEIN 7.1 GM/DL (6.4-8.3)
[2019-01-02 11:06] LABS: GLOMERULAR FILTRATION RATE > 60.0 (>49)
[~2019-01-06] VITALS: Ht 175.3 cm; Wt 68.2 kg
[~2019-01-06 12:22] MED LIST changes: +BUDE0.5S6 INH; +CISPLATIN IV ONE; +COLA100C5 PO; +D5W IV ONE; +DENOSUMAB (XGEVA) 120MG/1.7ML VIAL (J0897 PER 1MG) (FOR ONCOLOGY) SC ONE; +ETOPOSIDE IV ONE; +FILGRASTIM 480 MCG/0.8 ML SYRINGE (J1442) SC ONE; +FOSAPREPITANT PERIPHERAL LINE 30 MIN INFUSION (PREMIX) IV ONE; +FOSAPREPITANT PERIPHERAL LINE 30 MIN INFUSION IV ONE; +KCL IV ONE; +MAG SULF IV ONE; +MAG400TA PO; +MANNITOL IV ONE; -METH4TAB28 PO; +METH4TAB8 PO; +NS 1,000 ML IV ONE; +NS 500 ML IV ONE; +NS IV ONE; +OLANZapine 10 MG TAB PO ONE; +ONDA8TAB10 PO; -ONDA8TAB7 PO; +PALONOSETRON 250 MCG IV IV ONE; +PEMBROLIZUMAB OVER 30 MINUTES IV ONE; -POTASSIUM CHLORIDE 10 MEQ SR TABLET PO SCH; +PROCHLORPERAZINE 5 MG TAB (S0183) PO ONE; +SODIUM CHLORIDE 0.9% INJ 10 ML SYR IV PRN; +SODIUM CHLORIDE 0.9% INJ 10 ML SYR IV SCH; +SODIUM CHLORIDE IV ONE; +dexameTHASONE 10 MG IV IV ONE
[2019-01-06] MEDS ORDERED: PEMBROLIZUMAB OVER 30 MINUTES IV ONE ×2 (13:00)
[2019-01-06] MEDS ORDERED: POTA20EL PO (13:22)
[2019-01-06 13:23] VITALS: BP 113/76
[2019-01-06] MEDS ORDERED: DENOSUMAB (XGEVA) 120MG/1.7ML VIAL (J0897 PER 1MG) (FOR ONCOLOGY) SC ONE (14:45)
--- NOTE | 2019-01-06 15:14 | ONC.PHACK ---
CHEMO ADMIN CHECKLIST Order Contains Pt ID: Name, Order on Chemo Order Form?: Yes Order Form Includes ALL: Correct Tx Day, Correct Date, Correct Cycle Number Pt ID on Order form Matches: Pt ID on PHA Label Med on Chemo OrderForm Matches: PHA Label, Med Used for Preparation [facility] Jan 06, 2019 15:14
--- NOTE | 2019-01-10 12:21 | MEDONC ---
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 The patient's treatment history is as follows: 1. He had a left upper lobectomy in August 2017, underwent adjuvant carboplatinum times four cycles completed this in December of 2017. He had concurrent chemotherapy and radiation with cisplatin May 03 to July 04, 2017 2.palliative radiation to the ribs and femur in October 2017 and has been on pembrolizumab and Xgeva since that time. 3. The pembrolizumab was on hold and the patient had recently been discharged from the hospital due to electrolyte imbalance hypercalcemia, hypokalemia, and hypomagnesemia. HPI The patient's PET scan and the films had been reviewed with him on a prior office visit. He had shown a progressive tumor mass in the frontal area of the skull. The patient has not had any visual impairment from that to date. He has had some general weakness and fatigue and a decline in his performance status. The patient has been hospitalized and was readmitted within a month due to the same above complaints. CURRENT MEDICATIONS INCLUDE: - acetaminophen with codeine 1 tablet p.o. q4h as needed - albuterol 2.5 mg p.o. q.i.d. - Colace 100 mg p.o. b.i.d. - EES OD t.i.d. for 10 days - magnesium oxide 400 mg, he takes 800 mg p.o. b.i.d. - Ketruda 200 mg IV q. 3 weeks - potassium chloride 20 mEq. He takes 15 mL p.o. b.i.d. It is 20 mEq per 15 mL, - prednisone 10 mg p.o. daily. REVIEW OF SYSTEMS: He is generally tired, fatigue. Needs assistance with the wheelchair for long distances. His helps him in assists him in about half, if not more, of his activities of daily living. Patient is able to eat on his own and toilet on his own. PHYSICAL EXAMINATION: He appears tired, fatigued, lethargic to some degree. Is able to make his needs known however. Temperature is 96.8, pulse is 100, respiratory rate is 20, BP is 113/76 and pulse oximetry is 99. HEENT: The patient has a large tumor with no signs of any ulceration bossing the frontal area. Chest: Decreased breath sounds at the bases. Abdomen: Soft. Cardiovascular: S1, S2. Extremities: About +1 pitting edema. LABORATORY DATA: WBC count 10.8, hemoglobin and hematocrit 9.7/31.1, MCV 83.9, RDW 17.3, platelets 241, neutrophils 91, lymphocytes of 5.1. Chemistries show a sodium of 127, potassium 4.1, chloride 96, CO2 23, BUN 21, creatinine 0.65, calcium 10.9, AST 46, ALT 40, alkaline phosphatase 131 and an albumin 2.8. Imaging studies show a CT scan of the abdomen and pelvis on 01/02 showing a 3.1 cm mesenteric mass extending along the peritoneum posterior to the right pole the kidney. There is a 4.2 cm mesenteric mass on the right, a 5.7 subcutaneous mass in the right gluteal area, 2.7cm mass lateral to this rectosigmoid colon not present previously and there is a confluent left inguinal adenopathy measuring up from 4.7 cm previously measured 2.8. Hyperdense densities in L4-L5 and multiple masses and lymphadenopathy compatible with progressive metastatic disease. Going onto the CT scan of the head done on 12/22/2018, the patient shows small vessel ischemic disease and mid volume loss. He has a mass present in the frontal sinuses. There is no extra cerebral collection here. There is destruction of the anterior posterior cortex of the frontal sinuses. There is posterior extension into the ethmoid sinuses in the anterior cranial fossa. There is a lateral extension into the medial aspects of the orbits and the mass appears unchanged when it was compared to the prior study. ASSESSMENT: Stage IV squamous cell carcinoma with hypocalcemia, hypokalemia, hypomagnesemia and decreasing performance status with progressive disease due to interruption of Keytruda therapy. PLAN: Plan is to try to reinitiate the Keytruda today. Reassess to see whether not the patient will get any benefit from this and have discussions regarding palliative care again with the . Electronically Signed by Alla Moore MD 01/12/2019 12:11 P DD: Alla Moore MD 01/06/2019 03:19 P DT: [email or web address] 01/10/2019 12:08 P CC:
--- NOTE | 2019-01-12 20:16 | MEDONC ---
DATE OF SERVICE: 12/22/2018 REASON FOR VISIT: Short-term followup visit in a patient with metastatic squamous cell carcinoma. The patient is on pembrolizumab that was on hold for concern of pneumonitis. INTERVAL HISTORY/REVIEW OF SYSTEMS: This is a 68-year-old male with declining performance status. He underwent left upper lobectomy in August 2017 with adjuvant Carboplatin four cycles given in December 2017. Patient concurrent chemo RT with cisplatin from April 2018 to June 2017. Palliative radiation to the ribs and femur in October 2017. The patient was on pembrolizumab and Xgeva. Due to the suspicion of increased shortness of breath and a dry cough, the patient was suspected to have pneumonitis. Additionally, the patient's performance status was noticed to have a decline from 2 to 3 and 4. The patient during the visit appeared incoherent . PAST MEDICAL, SURGICAL, SOCIAL HISTORY, MEDICATIONS: Reviewed, reconciled, updated, in EMR. PHYSICAL EXAMINATION: Awake, alert. Orientation is at times 2. Lungs: Bilateral diffuse rales, rhonchi. Cardiac: S1, S2, tachycardic. Heart rate 137. Vital Signs: Temperature 96.5, pulse 137, respiratory rate 18, blood pressure 118/81. Pulse ox not recorded. Extremities: Trace edema. No cyanosis, clubbing, or edema. Neurologic: Not performed. LABORATORY DATA: 12/22/2018 CBC: Hemoglobin 9.3, platelets 267, white blood cell count 10.9, neutrophil percent 88.7%. Chemistry 12/22/2018: Sodium 133, calcium 11.2. IMAGING STUDIES: CT of the head done on 12/22/2018 in comparison with 12/15/2018 revealed small vessel ischemic disease, mild volume loss, no change in size of the destructive lesion present in the frontal sinuses. ASSESSMENT AND PLAN: This is a 68-year-old male with metastatic squamous cell carcinoma of the lung. Pembrolizumab has been on hold due to questionable pneumonitis. The patient shows evidence of disease progression. Plan: 1. Due to the fact that the patient that he is hemodynamically unstable, the patient was advised to be transferred to the ER for evaluation especially given that his vitals are unstable. 2. Performance status declining. Monitor risks versus benefits of continuation to treatment versus considering supportive care. This visit was dictated and it available under entered service date of 12/28/2018. Please refer to dictation from transcript 12/28/2018 for the visit reported. This visit was previously dictated and entered on 12/28/2018. It is also available in the dictated records under the date of visit 12/22/2018. There has not been a date of service for 12/20/2018. Electronically Signed by Yordy Anderson MD 01/16/2019 02:03 A DD: Yordy Anderson MD 01/12/2019 02:24 P DT: royce 01/12/2019 03:50 P CC:
--- NOTE | 2019-01-17 09:24 | MEDONC ---
HEMATOLOGY/ONCOLOGY PROGRESS NOTE: DATE OF SERVICE: 01/02/2019 The patient is here today on further evaluation of Keytruda therapy pembrolizumab for advanced squamous cell carcinoma. Patient has had concerns with hypokalemia hypercalcemia during his course of treatment and appears to have very rapidly progressive disease. There have been discussions with him and his regarding therapy. They have seen at least three different physicians here during his course of care and this has been of concern. The relates that she does not want palliative care that she wants to continue with active treatment. REVIEW OF SYSTEMS: He spends almost 50% of his time in bed. He currently has no pain despite the fact that he has an expanding frontal bone mass. PHYSICAL EXAMINATION: His temperature is 97, pulse is 55, respiratory rate is 20, BP is 109/73 and pulse oximetry is 91. His physical examination shows approximately a 5 cm x 4 cm expanding frontal bone mass. The patient has no infringement or encroachment on the globes. Oropharynx is clear. No buccal lesions were noted. His chest shows some wasting, is otherwise clear to auscultation percussion. Cardiovascular: S1, S2, rhythm is regularly irregular. Abdomen is otherwise soft. Extremities show a minimum +1 pitting edema of the lower extremities. LABORATORIES: WBC count 10.8, hemoglobin and hematocrit 9.7/31.1, RDW 17.3, neutrophils 91, lymphocytes 5.1. Serum chemistries show a sodium 127, potassium 4.1, chloride 96, BUN 21, creatinine 0.65, fasting glucose 257, calcium of 10.9, AST 46, ALT 40, alkaline phosphatase 131, total protein 7.1, albumin of 2.8. ASSESSMENT: Hyponatremia I have had discussions with the patient's regarding therapy. She has expressed concerns that she would like to continue with treatment. The patient himself would also like to continue his treatment and feel that part of the reason why he has had disease progression is due to treatment interruptions. I have advised the patient we certainly can try, although he is now approaching an ECOG of almost 3/4 and that we will schedule his visit to see if we can arrange for him to get Keytruda next week. Electronically Signed by Alla Moore MD 01/19/2019 07:51 A DD: Alla Moore MD 01/12/2019 05:00 P DT: christel 01/14/2019 10:21 A CC:
--- NOTE | 2019-01-18 17:52 | IPNPDOC ---
Date Seen The patient was seen on 01/18/19. 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 The has not agreed to comfort measures only but agrees to DNR WIll consult hospice and allow some sedation for palliation Alla Moore MD Jan 18, 2019 17:52
[2019-01-18] MEDS ORDERED: LORazepam 2 MG/ML VIAL (J2060) IV PRN (18:00)
== END 2019-01-06 15:11 | disposition home or self-care (01) ==
LOC: M ONCM 12:22
PROVIDERS: ATTEND Internal Medicine Hematology & Oncology
DX: C34.92 Malignant neoplasm of unspecified part of left bronchus or lung (principal); D61.810 Antineoplastic chemotherapy induced pancytopenia; Z79.899 Other long term (current) drug therapy; R93.7 Abnormal findings on diagnostic imaging of other parts of musculoskeletal system; C79.51 Secondary malignant neoplasm of bone; C78.1 Secondary malignant neoplasm of mediastinum; C31.2 Malignant neoplasm of frontal sinus
CPT/HCPCS: 36415; 36591; 71275; 73502; 73552; 73564; 80048; 80053; 81001; 82378; 82607; 82728; 82746; 82784; 83036; 83550; 83615; 83735; 84439; 84443; 84481; 85027; 85046; 85610; 85652; 85730; 86038; 86256; 86677; 86850; 86870; 86900; 86901; 87070; 87086; 87205; 96360; 96365; 96366; 96367; 96372; 96375; 96413; 96417; G0463; J0897; J1100; J1442; J1453; J1642; J2150; J2469; J3475; J9060; J9181; J9271; Q9967

== ENCOUNTER 2019-01-08 15:22 | Emergency (ER) | payer MEDICARE ==
[~2019-01-08] VITALS: Ht 175.3 cm; Wt 66.8 kg
[~2019-01-08 15:22] MED LIST changes: -CISPLATIN IV ONE; -D5W IV ONE; -DENOSUMAB (XGEVA) 120MG/1.7ML VIAL (J0897 PER 1MG) (FOR ONCOLOGY) SC ONE; -ETOPOSIDE IV ONE; -FILGRASTIM 480 MCG/0.8 ML SYRINGE (J1442) SC ONE; -FOSAPREPITANT PERIPHERAL LINE 30 MIN INFUSION (PREMIX) IV ONE; -FOSAPREPITANT PERIPHERAL LINE 30 MIN INFUSION IV ONE; -KCL IV ONE; -MAG SULF IV ONE; -MANNITOL IV ONE; -NS 1,000 ML IV ONE; -NS 500 ML IV ONE; -NS IV ONE; -OLANZapine 10 MG TAB PO ONE; -PALONOSETRON 250 MCG IV IV ONE; -PEMBROLIZUMAB OVER 30 MINUTES IV ONE; -PROCHLORPERAZINE 5 MG TAB (S0183) PO ONE; -SODIUM CHLORIDE 0.9% INJ 10 ML SYR IV PRN; -SODIUM CHLORIDE 0.9% INJ 10 ML SYR IV SCH; -SODIUM CHLORIDE IV ONE; -dexameTHASONE 10 MG IV IV ONE
[2019-01-08] MEDS ORDERED: NS 500 ML IV ONE (16:15)
[2019-01-08] MEDS ORDERED: ACETAMINOPH W/CODEINE #3 TAB UD PO ONE (16:15)
[2019-01-08 16:45] LABS: BASO % 0.1 % (0.0-1.0); HEMATOCRIT 33.6 % (42.0-52.0); HEMOGLOBIN 10.5 g/dl (13.5-17.5); LYMPH % 2.1 % (24.0-44.0); MEAN CORPUSCULAR HEMOGLOBIN 27.6 pg (27.0-33.0); MEAN CORPUSCULAR HGB CONC 31.3 g/dl (32.0-36.5); MEAN CORPUSCULAR VOLUME 88.2 fl (80.0-96.0); MONO # 0.8 10^3/uL (0.0-0.8); MONO % 9.1 % (0.0-5.0); NEUTROPHILS # 7.5 10^3/uL (1.8-7.7); NEUTROPHILS % 88.1 % (36.0-66.0); PLATELET COUNT, AUTOMATED 125 10^3/uL (150-450); RED BLOOD COUNT 3.81 10^6/uL (4.30-6.10); WHITE BLOOD COUNT 8.6 10^3/uL (4.0-10.0)
[2019-01-08 17:17] LABS: LYMPH # 0.2 10^3/uL (1.5-4.5)
[2019-01-08 17:28] LABS: BLOOD UREA NITROGEN 11 MG/DL (7-18); CARBON DIOXIDE LEVEL 27 MEQ/L (21-32); CHLORIDE LEVEL 99 MEQ/L (98-107); CREATININE FOR GFR 0.44 MG/DL (0.70-1.30); GLOMERULAR FILTRATION RATE > 60.0 (>49); GLUCOSE, FASTING 130 MG/DL (70-100); POTASSIUM SERUM 4.1 MEQ/L (3.5-5.1); SODIUM LEVEL 132 MEQ/L (136-145)
[2019-01-08] MEDS ORDERED: ISOVUE-370 76% 100ML VIAL (Q9967) As Ordered ONE (17:56)
--- NOTE | 2019-01-08 18:33 | REPVR ---
EXAM: CT Chest With Contrast EXAM DATE/TIME: 01/08/2019 6:06 PM CLINICAL HISTORY: 68 years old, male; Injury or trauma; Fall; Initial encounter; Blunt trauma (contusions or hematomas) TECHNIQUE: Imaging protocol: Computed tomography images of the chest with intravenous contrast. Radiation optimization: All CT scans at this facility use at least one of these dose optimization techniques: automated exposure control; mA and/or kV adjustment per patient size (includes targeted exams where dose is matched to clinical indication); or iterative reconstruction. Contrast material: [id number]; Contrast volume: 100 ml; Contrast route: IV COMPARISON: CT ANGIO CHEST 01/02/2019 2:14 PM FINDINGS: Tunneled vascular catheter with subcutaneous infusion port, left subclavian. No mediastinal hematoma. Thoracic aorta shows no evidence of acute traumatic injury or dissection. No pneumothorax or hemothorax. No evidence of lung contusion, aspiration or concerning lung mass. No acute displaced fractures involving ribs, thoracic spine or shoulder girdle. Large prevascular left anterior mediastinal mass measuring 5.3 x 3.4 cm, similar to the prior CT. Large left pleural effusion with consolidative or infiltrative changes of the apical lung. Destructive posterior right seventh and eighth rib lesion similar to the prior CT. Extrathoracic right chest wall lymph node, image 64, similar to prior CT. Multiple hepatic masses, bilateral adrenal masses, and massive upper abdominal lymphadenopathy. IMPRESSION: No CT evidence of acute thoracic trauma. Extensive thoracic and upper abdominal metastatic disease. Similar pattern to the CT 5 days ago Electronically signed by: Nikko Rutherford On 01/08/2019 18:32:41 PM
--- NOTE | 2019-01-08 18:47 | REPVR ---
EXAM: CT Abdomen and Pelvis With Contrast EXAM DATE/TIME: 01/08/2019 6:06 PM CLINICAL HISTORY: 68 years old, male; Injury or trauma; Fall; Initial encounter; Blunt; Generalized TECHNIQUE: Imaging protocol: Computed tomography images of the abdomen and pelvis with intravenous contrast. Radiation optimization: All CT scans at this facility use at least one of these dose optimization techniques: automated exposure control; mA and/or kV adjustment per patient size (includes targeted exams where dose is matched to clinical indication); or iterative reconstruction. Contrast material: [id number]; Contrast volume: 100 ml; Contrast route: IV COMPARISON: CT ABD PELVIS WITH CONTRAST 01/02/2019 2:24 PM FINDINGS: ABDOMEN: No intra-abdominal hematoma. Multiple metastatic lesions in the liver similar to the recent prior CT. Pancreatic calcifications, and enlarged peripancreatic lymph node mass. Bilateral adrenal metastases and probable metastasis anterior to the spleen. Gallbladder is surgically absent. Kidneys demonstrate bilateral simple fluid cysts, and there is an indeterminate density posterior midpole left renal lesion measuring 2 cm, with indeterminate Hounsfield density. There is worsening right hydronephrosis with soft tissue density in the anterior right renal pelvis, measuring 4 x 3 cm, extending into the proximal ureter. Peritoneal metastases are present. No evidence of bowel obstruction or pneumoperitoneum. PELVIS: No pelvic hematoma. No acute pelvic fracture or malalignment. No acute lumbar spine fracture. Soft tissue metastases are seen, anterior left thigh, right gluteal and posterior to the right acetabulum and there are extensive pelvic soft tissue metastases similar to the CT from 5 days ago. No colonic obstruction or bladder obstruction. Colonic diverticular changes are present IMPRESSION: No acute intra-abdominal or pelvic trauma. Extensive abdominal and pelvic metastatic disease, similar to the CT 5 days ago Electronically signed by: Nikko Rutherford On 01/08/2019 18:46:22 PM
[2019-01-08 19:20] VITALS: BP 118/72
== END 2019-01-08 19:25 | disposition home or self-care (01) ==
LOC: M ED 15:22
DX: S30.1XXA Contusion of abdominal wall, initial encounter (principal); W18.39XA Other fall on same level, initial encounter; Y92.89 Other specified places as the place of occurrence of the external cause; J44.9 Chronic obstructive pulmonary disease, unspecified; C34.90 Malignant neoplasm of unspecified part of unspecified bronchus or lung; Z79.899 Other long term (current) drug therapy; Z88.0 Allergy status to penicillin; Z87.891 Personal history of nicotine dependence
CPT/HCPCS: 36415; 71260; 74177; 80048; 85025; 99284; Q9967

== ENCOUNTER 2019-01-14 10:29 | Inpatient (IN) | payer MEDICARE ==
[~2019-01-14] VITALS: Ht 175.3 cm; Wt 72.1 kg
[~2019-01-14 10:29] MED LIST changes: +METH4TAB28 PO; -METH4TAB8 PO; -ONDA8TAB10 PO; +ONDA8TAB7 PO
[2019-01-14] MEDS ORDERED: ADENOSINE 6MG/2ML INJECTION (J0153) As Ordered ONE (11:01)
[2019-01-14] MEDS ORDERED: ADENOSINE 6MG/2ML INJECTION (J0153) IV STA ×2 (11:01→11:08)
[2019-01-14 11:15] LABS: INR 1.39; PROTHROMBIN TIME 16.8 SECONDS (11.8-14.0)
[2019-01-14] MEDS: NS 1,000 ML IV SCH ×2 (11:15→17:46)
[2019-01-14 11:16] LABS: BASO % 0.1 % (0.0-1.0); HEMATOCRIT 32.5 % (42.0-52.0); HEMOGLOBIN 9.9 g/dl (13.5-17.5); LYMPH % 2.1 % (24.0-44.0); MEAN CORPUSCULAR HEMOGLOBIN 27.5 pg (27.0-33.0); MEAN CORPUSCULAR HGB CONC 30.5 g/dl (32.0-36.5); MEAN CORPUSCULAR VOLUME 90.3 fl (80.0-96.0); MONO # 0.9 10^3/uL (0.0-0.8); MONO % 7.8 % (0.0-5.0); NEUTROPHILS # 9.8 10^3/uL (1.8-7.7); NEUTROPHILS % 89.5 % (36.0-66.0); PARTIAL THROMBOPLASTIN TIME 36.8 SECONDS (25.0-38.4); PLATELET COUNT, AUTOMATED 119 10^3/uL (150-450)
[2019-01-14] MEDS ORDERED: METOPROLOL 5 MG/5 ML VIAL As Ordered ONE (11:20)
[2019-01-14] MEDS: METOPROLOL 5 MG/5 ML VIAL IV SCH ×3 (11:24→11:40)
[2019-01-14 11:33] LABS: ALBUMIN 1.6 GM/DL (3.2-5.2); ALT/SGPT 87 U/L (12-78); BILIRUBIN,DIRECT 1.1 MG/DL (0.0-0.2); BILIRUBIN,TOTAL 1.7 MG/DL (0.2-1.0); BLOOD UREA NITROGEN 22 MG/DL (7-18); CALCIUM LEVEL 10.8 MG/DL (8.8-10.2); CARBON DIOXIDE LEVEL 23 MEQ/L (21-32); CHLORIDE LEVEL 101 MEQ/L (98-107); CK-MB VALUE MASS < 1.0 NG/ML (<3.6); CPK CREATINE PHOSPHOKINASE 7 U/L (39-308); FREE T4 1.21 NG/DL (0.76-1.46); GLOMERULAR FILTRATION RATE > 60.0 (>49); GLUCOSE, FASTING 209 MG/DL (70-100); LIPASE 69 U/L (73-393); MAGNESIUM LEVEL 1.6 MG/DL (1.8-2.4); MB/CK RELATIVE INDEX 14.29 (< OR =4); PHOSPHORUS LEVEL 2.4 MG/DL (2.5-4.9); POTASSIUM SERUM 4.6 MEQ/L (3.5-5.1); SODIUM LEVEL 136 MEQ/L (136-145); TOTAL PROTEIN 6.5 GM/DL (6.4-8.2); TROPONIN I < 0.02 NG/ML (< 0.10)
[2019-01-14] MEDS ORDERED: NEUTRA-PHOS 1.5 GM PACKET PO ONE (11:45)
[2019-01-14] MEDS ORDERED: MAG SULF 1GM/100ML (MAG RUN) 1 GM in APPROPRIATE DILUENT 1 EA IV ONE (11:45)
[2019-01-14] MEDS ORDERED: ISOVUE-370 76% 100ML VIAL (Q9967) As Ordered ONE (11:46)
[2019-01-14 11:48] LABS: LYMPH # 0.2 10^3/uL (1.5-4.5)
--- NOTE | 2019-01-14 12:48 | REP ---
Clinical: Metastatic lung cancer with shortness of breath. Technique: Axial contrast enhanced images from the thoracic inlet to the upper abdomen with multiplanar re-formations using 100 ml Isovue 370 intravenous contrast material. Comparison: 01/08/2019. Findings: Satisfactory enhancement of the pulmonary vasculature is achieved and no obvious filling defects are identified to suggest pulmonary embolus. Postsurgical changes involving the left hemithorax along with area of consolidation and pleural thickening involving the left upper lung zone as well as left basilar atelectasis and moderate left pleural effusion remain essentially unchanged. A 5.6 cm mass in the anteromedial left upper lung zone possibly representing conglomerate adenopathy within the prevascular portion of the adjacent mediastinum remains unchanged. Right pericardial lymph node measuring 2.4 cm again identified. A large metastatic lesion along the right posterior chest wall involving right seventh and eighth ribs is unchanged along with adjacent passive atelectasis to the right lower lobe. Further evaluation of the mediastinum demonstrates atherosclerotic changes to the thoracic aorta and coronary arteries without aortic aneurysm or cardiomegaly. No significant pericardial effusion. Limited upper abdomen demonstrates metastatic mass anterior to the spleen measuring 6.0 cm maximal diameter along with left adrenal mass measuring 6.2 cm maximal diameter and conglomerate adenopathy at the celiac axis level measuring 6.4 cm maximal diameter. Hepatic metastases also noted and similar to prior examination. Impression: 1. No obvious pulmonary embolus. Thoracic aorta without aneurysm or dissection. 2. Neoplastic and metastatic changes within the chest and visualized upper abdomen as detailed above remain unchanged as compared to 01/08/2019. Electronically Signed by Mark Su MD 01/14/2019 12:40 P
--- NOTE | 2019-01-14 12:58 | REP ---
Clinical: Generalized abdominal pain. History of metastatic lung cancer. Technique: Axial contrast enhanced images from the lung bases to the pubic symphysis with coronal and sagittal re-formations using 100 ml Isovue 370 intravenous contrast material. Findings: Lung bases demonstrate left pleural effusion and metastatic lesion along the right posterior lower chest wall with destructive changes to the adjacent ribs. Metastatic foci anterior to the spleen, involving the celiac axis, left adrenal mass, small right adrenal mass, hepatic metastatic foci, as well as suspected lesion involving the posterior aspect of the left kidney as well as within the right renal hilum again noted. There are also innumerable metastatic mass lesions within the abdomen and pelvis and the subcutaneous fat posterior to the right iliac wing as well as anterior to the left femoral head. The above mentioned lesions are essentially unchanged when compared to prior examination. No ascites. No free air. Diffuse pancreatic calcifications suggest chronic pancreatitis. No evidence for bowel obstruction. No ascites. No free air. Atherosclerotic changes to the aorta and vasculature without aneurysm or dissection. Impression: 1. Extensive metastatic disease throughout the visualized lower chest and abdomen/pelvis which remains essentially stable as compared to 01/08/2019. 2. No ascites. No bowel obstruction. No free air. Electronically Signed by Mark Su MD 01/14/2019 12:50 P
[2019-01-14] MEDS ORDERED: NS 500 ML IV ONE (13:30)
[2019-01-14] MEDS ORDERED: DIGOXIN INJ 0.5 MG/2 ML AMP (J1160) IV ONE (13:45)
[2019-01-14] MEDS ORDERED: ALBUTEROL SULFATE 2.5 MG/0.5 ML INH NEB SOLN INH PRN (15:15)
[2019-01-14] MEDS ORDERED: ACETAMINOPH W/CODEINE #3 TAB UD PO PRN (15:15)
[2019-01-14] MEDS ORDERED: DIGOXIN INJ 0.5 MG/2 ML AMP (J1160) IV STA ×2 (15:45→18:32)
--- NOTE | 2019-01-14 15:51 | HPEPDOC ---
[facility] Medical History & Physical Date of Admission Jan 14, 2019 Date of Service: Jan 14, 2019 History and Physical CHIEF COMPLAINT: SOB HISTORY OF PRESENT ILLNESS: Patient's a 68-year-old male past medical history of COPD/Emphysema? and metastatic lung cancer who follows with Dr. Moore for immunotherapy treatment last treatment Wednesday presented to the ER for complaints of worsening shortness of breath with some abdominal pain. Patient was found to be tachycardic up to 180-190s with narrow complex in ER and slowed down to about 150s showing AFib/flutter. Was treated with BB and digoxin with some improvement in heart rate. He has had several recent admissions for similar episodes and was treated for dehydration with improvement. He currently states that he feel slightly better than when he came in but still does not feel that well yet, still inquire when he'll be able to go home. Denies any other specific complaints. CT Chest/abdomen showed multiple metastatic mass but no acute thromboembolism. PAST MEDICAL HISTORY: Refer to HPI PAST SURGICAL HISTORY: L upper lobe lobectomy, cholecystectomy, R. femur erika placement SOCIAL HISTORY: Former smoker. Denies tobacco or illicit drug use. FAMILY HISTORY: None noted ALLERGIES: Please see below. REVIEW OF SYSTEMS: 10 point review of system negative except as stated in HPI HOME MEDICATIONS: Please see below. PHYSICAL EXAMINATION: General: Alert, lethargic Eyes: Normal sclera, EOMI, DAMARIS HENT: Atraumatic, neck supple, dry mucous membranes Cardiovascular: Tachycardic. Pulmonary: Clear to auscultation b/l, no wheezing GI: Soft, nontender, nondistended Skin: Warm and dry. Large mass in mid forehead with discolored lump over the L. eye with scab and blood ozzing from site. Neuro: CN grossly intact. No focal deficits. Lethargic. Psych: oriented x 3 LABORATORY DATA: See below. IMAGING: CT Chest Angio- Impression: 1. No obvious pulmonary embolus. Thoracic aorta without aneurysm or dissection. 2. Neoplastic and metastatic changes within the chest and visualized upper abdomen as detailed above remain unchanged as compared to 01/08/2019. CT Abdomen/pelvis- Impression: 1. Extensive metastatic disease throughout the visualized lower chest and abdomen/pelvis which remains essentially stable as compared to 01/08/2019. 2. No ascites. No bowel obstruction. No free air. MICROBIOLOGY: Please see below. ASSESSMENT AND PLAN: 1. Tachycarida - paroxysmal Afib/flutter RVR - Treated with BB x2 in ER with improvement now 130s at rest, digoxin .25 x1 so far, giving one more. - ER had spoke to Dr. Quinn, to treat like Afib with BB/CBB and Digoxin. - Monitor HR after Digoxin. May need cardizem IV or drip. - Cardiology consulted. Admit to ICU. - Obtain ECHO, TSH WNL. Consider AC for Afib once bleeding from facial lesions stop. 2. Metastatic lung cancer - Follows with Dr. Moore and receiving treatment currently, last treatment last wednesday. - can likely continue treatment once stabelized and discharged. 3. ?COPD/Emphysema - questionable history as patient stated briefly diagnosed with that at one point but unsure of actual diagnosis. - Duonebs PRN. No significant wheezing on exam, low suspicion for exacerbation. 4. SOB - COPD vs. Afib - Uncertain of volume status, no significant edema noted. May be dehydration but will be cautious about fluid resuscitation. - Pleural effusion noted on CT chest but unchanged? may be malignant effusion. - Will continue to treat afib, hopeful symptoms will improve. If patient becomes hypervolemic, would consider giving Lasix at that time. Lungs clear currently. - Otherwise gentle fluid resuscitation for likely dehydration. Endorsed to Dr. Simmons, physician production line welder for [facility]. Vital Signs Vital Signs Date Time Temp Pulse Resp B/P (MAP) Pulse Ox O2 Delivery O2 Flow Rate FiO2 01/14/19 15:40 118/74 (89) 01/14/19 15:30 160 01/14/19 15:05 Room Air 01/14/19 14:39 97 01/14/19 13:39 28 2.0 01/14/19 10:29 97.2 Laboratory Data Labs 24H Laboratory Tests 2 01/14/19 10:42: Immature Granulocyte % (Auto) 0.5, White Blood Count 11.0H, Red Blood Count 3.60L, Hemoglobin 9.9L, Hematocrit 32.5L, Mean Corpuscular Volume 90.3, Mean Corpuscular Hemoglobin 27.5, Mean Corpuscular Hemoglobin Concent 30.5L, Red Cell Distribution Width 17.5H, Platelet Count 119L, Neutrophils (%) (Auto) 89.5H, Lymphocytes (%) (Auto) 2.1L, Monocytes (%) (Auto) 7.8H, Eosinophils (%) (Auto) 0.0, Basophils (%) (Auto) 0.1, Neutrophils # (Auto) 9.8H, Lymphocytes # (Auto) 0.2L, Monocytes # (Auto) 0.9H, Eosinophils # (Auto) 0.0, Basophils # (Auto) 0.0, Nucleated Red Blood Cells % (auto) 0.0, Prothrombin Time 16.8H, Prothromb Time International Ratio 1.39, Activated Partial Thromboplast Time 36.8, Anion Gap 12, Glomerular Filtration Rate > 60.0, Calcium Level 10.8H, Phosphorus Level 2.4L, Magnesium Level 1.6L, Aspartate Amino Transf (AST/SGOT) 76H, Alanine Aminotransferase (ALT/SGPT) 87H, Alkaline Phosphatase 165H, Total Bilirubin 1.7H, Direct Bilirubin 1.1H, Total Creatine Kinase 7L, Creatine Kinase MB < 1.0, Creatine Kinase MB Relative Index 14.29H, Troponin I < 0.02, Total Protein 6.5, Albumin 1.6L, Albumin/Globulin Ratio 0.33L, Lipase 69L, Thyroid Stimulating Hormone (TSH) 2.130, Free Thyroxine 1.21 CBC/BMP Laboratory Tests 01/14/19 10:42 Red Blood Count 3.60 L, Mean Corpuscular Volume 90.3, Mean Corpuscular Hemoglobin 27.5, Mean Corpuscular Hemoglobin Concent 30.5 L, Red Cell Distribution Width 17.5 H, Neutrophils (%) (Auto) 89.5 H, Lymphocytes (%) (Auto) 2.1 L, Monocytes (%) (Auto) 7.8 H, Eosinophils (%) (Auto) 0.0, Basophils (%) (Auto) 0.1, Neutrophils # (Auto) 9.8 H, Lymphocytes # (Auto) 0.2 L, Monocytes # (Auto) 0.9 H, Eosinophils # (Auto) 0.0, Basophils # (Auto) 0.0 Home Medications Scheduled Budesonide (Budesonide) 0.5 Mg/2 Ml Ampul.neb, 0.5 MG INH RBID Docusate Sodium (Colace) 100 Mg Capsule, 100 MG PO BID Magnesium Oxide (Magnesium Oxide) 400 Mg Tablet, 800 MG PO BID Pembrolizumab (Keytruda) 100 Mg/4 Ml Vial, 200 MG IV [id number] PT RECEIVED TREATMENT ON 01/06. Potassium Chloride (Potassium Chloride) 20 Meq/15 Ml Liquid, 15 ML PO BID Prednisone (Prednisone) 10 Mg Tablet, 10 MG PO DAILY Scheduled PRN Acetaminophen with Codeine (Acetaminophen-Cod #3 Tablet) 1 Each Tablet, 1 TAB PO Q4H PRN for PAIN Albuterol Sulf (Albuterol Sulfate) 2.5 Mg/3 Ml Vial.neb, 2.5 MG INH QID PRN for SHORTNESS OF BREATH Allergies Coded Allergies: Penicillins (Verified Allergy, Intermediate, swelling, 08/10/18) A-FIB/CHADSVASC A-FIB History Current/History of A-Fib/PAF?: Yes Current PO Anticoag Therapy: No NANCI REYNOLDS MD Jan 14, 2019 15:51
[2019-01-14] MEDS ORDERED: IPRATROPIUM 0.5MG/ALBUTEROL 2.5MG INH SOL UD 3ML (DUONEB)(J7620) NEB PRN (16:00)
[2019-01-14 20:06] VITALS: BP 111/62
[2019-01-14] MEDS: POTASSIUM CHLORIDE 10% LIQ 20 MEQ/15 ML UDC PO SCH (20:21)
[2019-01-14] MEDS: DOCUSATE SODIUM 100 MG CAP PO SCH (20:21)
[2019-01-14] MEDS: MAGNESIUM OXIDE 400 MG TAB (MAG-OX) PO SCH (20:21)
[2019-01-14 20:36] VITALS: BP 111/61
[2019-01-14 21:06] VITALS: BP 116/66
[2019-01-14 21:36] VITALS: BP 115/64
[2019-01-14 22:06] VITALS: BP 114/64
[2019-01-14 22:36] VITALS: BP 116/64
[2019-01-15] VITALS (23 sets, daily range): BP systolic 107–141; BP diastolic 61–80
[2019-01-15] MEDS: NS 1,000 ML IV SCH ×2 (00:34→06:42)
[2019-01-15 05:29] LABS: HEMATOCRIT 25.5 % (42.0-52.0); MEAN CORPUSCULAR HEMOGLOBIN 26.7 pg (27.0-33.0); MEAN CORPUSCULAR HGB CONC 29.8 g/dl (32.0-36.5); MEAN CORPUSCULAR VOLUME 89.5 fl (80.0-96.0); RED BLOOD COUNT 2.85 10^6/uL (4.30-6.10); WHITE BLOOD COUNT 7.6 10^3/uL (4.0-10.0)
[2019-01-15 05:51] LABS: PLATELET COUNT, AUTOMATED 82 10^3/uL (150-450)
[2019-01-15 05:52] LABS: HEMOGLOBIN 7.6 g/dl (13.5-17.5)
[2019-01-15 06:15] LABS: BLOOD UREA NITROGEN 13 MG/DL (7-18); CALCIUM LEVEL 9.2 MG/DL (8.8-10.2); CARBON DIOXIDE LEVEL 22 MEQ/L (21-32); CHLORIDE LEVEL 105 MEQ/L (98-107); CREATININE FOR GFR 0.33 MG/DL (0.70-1.30); GLOMERULAR FILTRATION RATE > 60.0 (>49); GLUCOSE, FASTING 101 MG/DL (70-100); POTASSIUM SERUM 3.2 MEQ/L (3.5-5.1); SODIUM LEVEL 133 MEQ/L (136-145)
[2019-01-15] MEDS ORDERED: POTASSIUM CHLORIDE 10 MEQ SR TABLET PO ONE (07:00)
--- NOTE | 2019-01-15 07:12 | ECGEPIP ---
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
[2019-01-15] MEDS ORDERED: MAGNESIUM CHLORIDE 64 MG TABCR (SLO MAG) PO ONE (08:00)
[2019-01-15] MEDS ORDERED: METOPROLOL SUCC *XL* 12.5MG PER 1/2 TAB (TopROL *XL*) PO SCH (09:00)
[2019-01-15] MEDS ORDERED: ENOXAPARIN 40 MG/0.4 ML SYRINGE (J1650) SC SCH (09:00)
[2019-01-15] MEDS: DOCUSATE SODIUM 100 MG CAP PO SCH ×2 (09:00→19:37)
[2019-01-15] MEDS: predniSONE 10 MG TAB PO SCH (10:15)
[2019-01-15] MEDS: POTASSIUM CHLORIDE 10% LIQ 20 MEQ/15 ML UDC PO SCH ×2 (12:05→20:16)
[2019-01-15] MEDS: MAGNESIUM OXIDE 400 MG TAB (MAG-OX) PO SCH ×2 (12:06→20:16)
--- NOTE | 2019-01-15 13:29 | IPNPDOC ---
Subjective Date Seen The patient was seen on 01/15/19. Subjective Chief Complaint/HPI dyspnea at baseline Constitutional: Denies: Chills Eyes: Denies: Pain ENT: Denies: Head Aches Skin: Denies: Rash, Lesions Pulmonary: Denies: Dyspnea, Cough Cardiovascular: Denies: Chest Pain Gastrointestinal: Denies: Nausea, Vomiting Objective Physical Examination General Exam: Positive: Alert Eye Exam: Positive: PERRLA Neck Exam: Negative: JVD Chest Exam: Positive: Diminished Heart Exam: Positive: Rate Normal Telemetry: Positive: No significant arrhythmia Abdomen Exam: Positive: Normal bowel sounds Extremity Exam: Negative: Edema Skin Exam: Negative: Rash Neuro Exam: Positive: Normal Speech Psych Exam: Positive: Mental status NL Assessment /Plan Problems (1) Metastatic lung carcinoma Status: Chronic Problem Text: 01/15/19 long d/w patient and -both favoring DNR/DNI, but not ready to sign MOLST-will readdress in AM 01/14/[address] CAP (no PE) 01/06/19 Dr. Moore restarted pembro given response in past (2) Anemia Status: Chronic Problem Text: 01/15 down to 7.6 (01/14 9.9)-but + 2.8 L since admission; therefore, SLIV no AC for DVT px/AF baseline mid 9s (3) Atrial flutter Status: Acute Problem Text: No recurrence p 01/14 dig load, met succ 12.5 QD no AC given pancytopenia c 01/15 plt down to 82K, hgb 7.6 (favor pembro and chronic disease effect) 01/16 dig level-plan + maintenance dose 01/15 TTE P 01/14/19 [facility] visit for palpitations-found to be NCT at 190, p BB slowed to 150s and cw AF; loaded c dig IV total 0.75 01/14 TSH/FT4 /1.2 01/14 T-I <0.3 (4) Physical deconditioning Status: Chronic Problem Text: 01/15 + PT (5) Hypercalcemia of malignancy Status: Resolved Problem Text: 01/15 down to 9.2 (6) COPD (chronic obstructive pulmonary disease) Status: Chronic Problem Text: stable on baseline pred 10 (7) Hypokalemia Status: Acute Problem Text: partially 2 pembro (chronic HD K 20 BID, MOX 800 BID) 01/15 3.2-continue HD and replaced extra (8) Hypomagnesemia Status: Acute Problem Text: as per hypoK (9) Congestive heart failure Status: Chronic Problem Text: as per AF 01/15 SLIV 01/02 BNP 707 Plan/VTE VTE Prophylaxis Ordered?: No VTE Exclusion Pharmacological: Thrombocytopenia VS, I&O, 24H, Fishbone Vital Signs/I&O Vital Signs Date Time Temp Pulse Resp B/P (MAP) Pulse Ox O2 Delivery O2 Flow Rate FiO2 01/15/19 12:00 98.1 129 18 137/75 (95) 97 01/14/19 15:05 Room Air 01/14/19 13:39 2.0 I&O- Last 24 Hours up to 6 AM 01/15/19 06:00 Intake Total 3760 ml Output Total 1315 ml Balance 2445 ml Laboratory Data 24H LABS Laboratory Tests 2 01/15/19 05:07: Nucleated Red Blood Cells % (auto) 0.0, Immature Platelet Fraction 7.0, Anion Gap 6L, Glomerular Filtration Rate > 60.0, Blood Urea Nitrogen 13, Creatinine 0.33#L, Sodium Level 133L, Potassium Level 3.2#L, Chloride Level 105, Carbon Dioxide Level 22, Calcium Level 9.2 CBC/BMP Laboratory Tests 01/15/19 05:07 Red Blood Count 2.85 L, Mean Corpuscular Volume 89.5, Mean Corpuscular Hemoglobin 26.7 L, Mean Corpuscular Hemoglobin Concent 29.8 L, Red Cell Distribution Width 17.5 H, Calcium Level 9.2 Chad Muniz M.D. Jan 15, 2019 13:29
[2019-01-15 15:58] LABS: ALBUMIN 1.3 GM/DL (3.2-5.2); BLOOD UREA NITROGEN 10 MG/DL (7-18); CALCIUM LEVEL 8.9 MG/DL (8.8-10.2); CARBON DIOXIDE LEVEL 24 MEQ/L (21-32); CHLORIDE LEVEL 104 MEQ/L (98-107); GLOMERULAR FILTRATION RATE > 60.0 (>49); GLUCOSE, FASTING 123 MG/DL (70-100); IRON (FE) 13 UG/DL (65-175); NT-PRO BNP 2685 PG/ML (<125); PERCENT SATURATION 11.7 % (19.7-50.0); PHOSPHORUS LEVEL 1.8 MG/DL (2.5-4.9); POTASSIUM SERUM 3.2 MEQ/L (3.5-5.1); SODIUM LEVEL 137 MEQ/L (136-145); TOTAL IRON BINDING CAPACITY 111 UG/DL (250-450)
[2019-01-15 16:17] LABS: MAGNESIUM LEVEL 1.3 MG/DL (1.8-2.4)
[2019-01-15] MEDS ORDERED: MAG SULF 1GM/100ML (MAG RUN) 1 GM in APPROPRIATE DILUENT 1 EA IV ONE (17:00)
[2019-01-15] MEDS ORDERED: POTASSIUM CHLORIDE 10% LIQ 20 MEQ/15 ML UDC PO ONE (18:00)
[2019-01-16] VITALS (34 sets, daily range): BP systolic 83–138; BP diastolic 44–84
[2019-01-16] MEDS ORDERED: METOPROLOL 5 MG/5 ML VIAL IV STA ×2 (00:45→00:55)
[2019-01-16] MEDS ORDERED: METOPROLOL 5 MG/5 ML VIAL As Ordered ONE (00:48)
[2019-01-16] MEDS ORDERED: DIGOXIN INJ 0.5 MG/2 ML AMP (J1160) IV STA ×2 (01:07→08:12)
[2019-01-16] MEDS ORDERED: METOPROLOL TART 12.5 MG PER 1/2 TAB PO ONE ×2 (05:00→07:00)
[2019-01-16 05:19] LABS: BASO % 0.1 % (0.0-1.0); HEMOGLOBIN 8.5 g/dl (13.5-17.5); LYMPH % 1.8 % (24.0-44.0); MEAN CORPUSCULAR HEMOGLOBIN 27.6 pg (27.0-33.0); MEAN CORPUSCULAR HGB CONC 31.5 g/dl (32.0-36.5); MEAN CORPUSCULAR VOLUME 87.7 fl (80.0-96.0); MONO # 0.8 10^3/uL (0.0-0.8); MONO % 8.3 % (0.0-5.0); NEUTROPHILS # 8.4 10^3/uL (1.5-8.5); NEUTROPHILS % 88.8 % (36.0-66.0); RED BLOOD COUNT 3.08 10^6/uL (4.30-6.10); WHITE BLOOD COUNT 9.4 10^3/uL (4.0-10.0)
[2019-01-16 05:29] LABS: LYMPH # 0.2 10^3/uL (1.5-5.0); PLATELET COUNT, AUTOMATED 89 10^3/uL (150-450)
[2019-01-16 05:53] LABS: ALBUMIN 1.4 GM/DL (3.2-5.2); ALT/SGPT 73 U/L (12-78); BILIRUBIN,TOTAL 1.1 MG/DL (0.2-1.0); BLOOD UREA NITROGEN 9 MG/DL (7-18); CALCIUM LEVEL 9.7 MG/DL (8.8-10.2); CARBON DIOXIDE LEVEL 23 MEQ/L (21-32); CHLORIDE LEVEL 102 MEQ/L (98-107); CREATININE FOR GFR 0.38 MG/DL (0.70-1.30); GLOMERULAR FILTRATION RATE > 60.0 (>49); GLUCOSE, FASTING 111 MG/DL (70-100); MAGNESIUM LEVEL 1.5 MG/DL (1.8-2.4); POTASSIUM SERUM 3.4 MEQ/L (3.5-5.1); SODIUM LEVEL 134 MEQ/L (136-145); TOTAL PROTEIN 6.1 GM/DL (6.4-8.2)
--- NOTE | 2019-01-16 07:16 | ECHO ---
DATE OF PROCEDURE: 01/15/2019 REFERRING PHYSICIAN: Dr. Chad Muniz INDICATION: Abnormal ECG, atrial flutter. HEIGHT: 69 inches. WEIGHT: 149 pounds. 2D MEASUREMENTS: Aortic root: 3.3 cm Left atrium: 3.5 cm Ventricular septum: 1.21 cm Posterior wall: 1.24 cm Left ventricle diastole: 4.6 cm Left ventricle systole: 3.4 cm Proximal ascending aorta: 3.5 cm Right ventricle: 3.7 cm Inferior vena cava: 2.0 cm DOPPLER MEASUREMENTS: Aortic valve velocity: 194 cm/s LVOT velocity: 132 cm/s LVOT VTI: 19.6 cm Mitral E velocity: 102 cm/s Mitral A velocity: 125 cm/s Trace tricuspid regurgitation. Pulmonary artery systolic pressure: 42 mmHg. MITRAL ANNULAR TISSUE DOPPLER: E prime lateral: 6.64 cm/s E prime septal: 7.3 cm/s DESCRIPTION: Rhythm was sinus tachycardia. Image quality was fair. No pericardial effusion. This was a 2D, M-mode, color flow Doppler, and pulse wave Doppler examination including mitral annular tissue Doppler. CONCLUSIONS: 1. Very mild concentric left ventricular hypertrophy, normal region LV wall motion and wall thickening. Normal LV systolic function. LVEF 60% by visual estimate. Grade 1 LV diastolic dysfunction. 2. Normal right ventricle internal dimensions. Mild hypertrophy of the right ventricle free wall. Normal right ventricle systolic function. Suggestive of moderate elevation of pulmonary artery systolic pressure. 3. Otherwise Normal appearing echocardiogram Doppler findings.
--- NOTE | 2019-01-16 08:39 | IPNPDOC ---
Subjective Date Seen The patient was seen on 01/16/19. Subjective Chief Complaint/HPI Atrial flutter Events since last encounter Received phone call at [phone] with report that patient was in afib with RVR 110- 160s. Patient had converted to NSR after loading dose of digoxin, then reverted back to afib and seems to be paroxysmal based on telemetry readings. Patient is at rest, and denies CP. + MICHAUD. Constitutional: Reports: Malaise, Weakness, Fatigue, Weight Loss Pulmonary: Reports: Dyspnea Cardiovascular: Denies: Chest Pain, Palpitations, Orthopnea, Paroxysmal Noc. Dyspnea, Lt Headedness Gastrointestinal: Denies: Nausea, Vomiting, Abdominal Pain, Diarrhea, Constipation Genitourinary: Denies: Dysuria, Frequency, Incontinence, Retention Psych: Reports: Mood Normal; Denies: Depression, Memory Issues Objective Physical Examination General Exam: Positive: Alert, Cooperative Eye Exam: Positive: PERRLA Neck Exam: Negative: JVD Chest Exam: Positive: Diminished Heart Exam: Positive: Tachycardic Telemetry: Positive: Atrial fibrillation Abdomen Exam: Positive: Normal bowel sounds, Soft; Negative: Tenderness Extremity Exam: Negative: Edema Skin Exam: Negative: Rash Neuro Exam: Positive: Normal Speech Psych Exam: Positive: Mental status NL Assessment /Plan Problems (1) Metastatic lung carcinoma Status: Chronic Problem Text: will discuss functional status for repeat pembro at 21D cycle c primary Oncologist Dr. Moore-obvious concern is new pancytopenia and AF c RVR 01/14/[address] CAP (no PE) 01/06/19 Dr. Moore restarted pembro given response in past (2) DNR (do not resuscitate) Status: Chronic Problem Text: 01/16/19 given patient has verbalized to myself and to 2 other nursing staff his wishes for DNR/DNI; MOLST was completed to this effect. During private discussion with , agreed c MOLST. (3) Atrial fibrillation Status: Acute Problem Text: digoxin 0.25 mg IV x 1. Dig level 1.0 this am (p 0.75 IV load 01/15) Increase beta dianelys until HR controlled. Current dosing ordered: metoprolol 50 mg po q6hrs. Will replace electrolytes accordingly. Patient is not anti-coagulated due to hx of bleeding, thrombocytopenia and anemia. Echo CONCLUSIONS: 1. Very mild concentric left ventricular hypertrophy, normal region LV wall motion and wall thickening. Normal LV systolic function. LVEF 60% by visual estimate. Grade 1 LV diastolic dysfunction. 2. Normal right ventricle internal dimensions. Mild hypertrophy of the right ventricle free wall. Normal right ventricle systolic function. Suggestive of moderate elevation of pulmonary artery systolic pressure. 3. Otherwise Normal appearing echocardiogram Doppler findings. DD: Lloyd Quinn MD [facility] 01/15/190 07 DS: (4) Anemia Status: Chronic Problem Text: 01/16/19: Hgb 8.5 today 01/15 down to 7.6 (01/14 9.9)-but + 2.8 L since admission; therefore, SLIV no AC for DVT px/AF baseline mid 9s (5) Atrial flutter Status: Acute Problem Text: 01/16/19: No recurrence p 01/14 dig load, met succ 12.5 QD no AC given pancytopenia c 01/15 plt down to 82K, hgb 7.6 (favor pembro and chronic disease effect) 01/16 dig level-plan + maintenance dose 01/15 TTE P 01/14/19 [facility] visit for palpitations-found to be NCT at 190, p BB slowed to 150s and cw AF; loaded c dig IV total 0.75 01/14 TSH/FT4 06/06.2 01/14 T-I <0.3 (6) Physical deconditioning Status: Chronic Problem Text: 01/15 + PT (7) COPD (chronic obstructive pulmonary disease) Status: Chronic Problem Text: stable on baseline pred 10 (8) Hypokalemia Status: Acute Problem Text: partially 2 pembro (chronic HD K 20 BID, MOX 800 BID) 01/15 3.2-continue HD and replaced extra (9) Hypomagnesemia Status: Acute Problem Text: 01/16/19: Mag level 1.5. replace today as per hypoK (10) Congestive heart failure Status: Chronic Problem Text: as per AF 01/15 SLIV 01/02 BNP 707 (11) Hypercalcemia of malignancy Status: Resolved Problem Text: 01/15 down to 9.2 Plan/VTE VTE Prophylaxis Ordered?: No VTE Exclusion Pharmacological: Thrombocytopenia VS, I&O, 24H, Fishbone Vital Signs/I&O Vital Signs Date Time Temp Pulse Resp B/P (MAP) Pulse Ox O2 Delivery O2 Flow Rate FiO2 01/16/19 07:16 168 117/70 01/16/19 04:00 99.3 22 97 01/14/19 15:05 Room Air 01/14/19 13:39 2.0 I&O- Last 24 Hours up to 6 AM 01/16/19 06:00 Intake Total 1935 ml Output Total 1625 ml Balance 310 ml Laboratory Data 24H LABS Laboratory Tests 2 01/15/19 14:56: Blood Urea Nitrogen 10, Creatinine 0.30L, Sodium Level 137, Potassium Level 3.2L, Chloride Level 104, Carbon Dioxide Level 24, Anion Gap 9, Glomerular Filtration Rate > 60.0, Calcium Level 8.9, Phosphorus Level 1.8#L, Magnesium Level 1.3L, Iron Level 13L, Total Iron Binding Capacity 111L, Transferrin % Saturation 11.7L, MZ-Row-U-Type Natriuretic Peptide 2685H, Albumin 1.3L 01/16/19 04:54: Blood Urea Nitrogen 9, Creatinine 0.38L, Sodium Level 134L, Potassium Level 3.4L, Chloride Level 102, Carbon Dioxide Level 23, Anion Gap 9, Glomerular Filtration Rate > 60.0, Calcium Level 9.7, Magnesium Level 1.5L, Albumin 1.4L, Immature Granulocyte % (Auto) 1.0, White Blood Count 9.4, Red Blood Count 3.08L, Hemoglobin 8.5L, Hematocrit 27.0L, Mean Corpuscular Volume 87.7, Mean Corpu scular Hemoglobin 27.6, Mean Corpuscular Hemoglobin Concent 31.5L, Red Cell Distribution Width 17.5H, Platelet Count 89L, Neutrophils (%) (Auto) 88.8H, Lymphocytes (%) (Auto) 1.8L, Monocytes (%) (Auto) 8.3H, Eosinophils (%) (Auto) 0.0, Basophils (%) (Auto) 0.1, Neutrophils # (Auto) 8.4, Lymphocytes # (Auto) 0.2L, Monocytes # (Auto) 0.8, Eosinophils # (Auto) 0.0, Basophils # (Auto) 0.0, Nucleated Red Blood Cells % (auto) 0.2H, Aspartate Amino Transf (AST/SGOT) 51H, Alanine Aminotransferase (ALT/SGPT) 73, Alkaline Phosphatase 126H, Total Bilirubin 1.1H, Total Protein 6.1L, Albumin/Globulin Ratio 0.30L, Digoxin Level 1.0 CBC/BMP Laboratory Tests 01/15/19 14:56 Anion Gap 9 01/16/19 04:54 Red Blood Count 3.08 L, Mean Corpuscular Volume 87.7, Mean Corpuscular Hemoglobin 27.6, Mean Corpuscular Hemoglobin Concent 31.5 L, Red Cell Distribution Width 17.5 H, Neutrophils (%) (Auto) 88.8 H, Lymphocytes (%) (Auto) 1.8 L, Monocytes (%) (Auto) 8.3 H, Eosinophils (%) (Auto) 0.0, Basophils (%) (Auto) 0.1, Neutrophils # (Auto) 8.4, Lymphocytes # (Auto) 0.2 L, Monocytes # (Auto) 0.8, Eosinophils # (Auto) 0.0, Basophils # (Auto) 0.0, Calcium Level 9.7, Aspartate Amino Transf (AST/SGOT) 51 H, Alanine Aminotransferase (ALT/SGPT) 73, Alkaline Phosphatase 126 H, Total Bilirubin 1.1 H, Total Protein 6.1 L, Albumin 1.4 L Tricia Wolfe Jan 16, 2019 08:39 Chad Muniz M.D. Jan 16, 2019 15:37
[2019-01-16] MEDS ORDERED: METOPROLOL TART 25 MG TABLET PO ONE (08:45)
[2019-01-16] MEDS: MAG SULF 1GM/100ML (MAG RUN) 1 GM in APPROPRIATE DILUENT 1 EA IV SCH ×2 (08:50→09:00)
[2019-01-16] MEDS: DOCUSATE SODIUM 100 MG CAP PO SCH ×2 (08:51→20:36)
[2019-01-16] MEDS: POTASSIUM CHLORIDE 10% LIQ 20 MEQ/15 ML UDC PO SCH ×2 (08:51→20:37)
[2019-01-16] MEDS: predniSONE 10 MG TAB PO SCH (08:51)
[2019-01-16] MEDS: MAGNESIUM OXIDE 400 MG TAB (MAG-OX) PO SCH ×2 (08:51→20:37)
[2019-01-16] MEDS ORDERED: METOPROLOL TART 12.5 MG PER 1/2 TAB PO SCH ×2 (12:00)
[2019-01-16] MEDS: METOPROLOL TART 50 MG TAB PO SCH ×3 (12:12→23:39)
[2019-01-16 12:24] LABS: BLOOD UREA NITROGEN 10 MG/DL (7-18); CALCIUM LEVEL 9.6 MG/DL (8.8-10.2); CARBON DIOXIDE LEVEL 24 MEQ/L (21-32); CHLORIDE LEVEL 101 MEQ/L (98-107); CREATININE FOR GFR 0.43 MG/DL (0.70-1.30); GLOMERULAR FILTRATION RATE > 60.0 (>49); GLUCOSE, FASTING 140 MG/DL (70-100); POTASSIUM SERUM 3.5 MEQ/L (3.5-5.1); SODIUM LEVEL 132 MEQ/L (136-145)
[2019-01-17] VITALS (7 sets, daily range): BP systolic 108–135; BP diastolic 63–74
[2019-01-17 05:11] LABS: HEMATOCRIT 26.5 % (42.0-52.0); HEMOGLOBIN 8.2 g/dl (13.5-17.5); MEAN CORPUSCULAR HEMOGLOBIN 27.3 pg (27.0-33.0); MEAN CORPUSCULAR HGB CONC 30.9 g/dl (32.0-36.5); MEAN CORPUSCULAR VOLUME 88.3 fl (80.0-96.0); MONO # 0.8 10^3/uL (0.0-0.8); MONO % 8.6 % (0.0-5.0); NEUTROPHILS # 7.9 10^3/uL (1.5-8.5); NEUTROPHILS % 88.2 % (36.0-66.0)
[2019-01-17 05:14] LABS: LYMPH # 0.2 10^3/uL (1.5-5.0); PLATELET COUNT, AUTOMATED 85 10^3/uL (150-450)
[2019-01-17 05:37] LABS: ALBUMIN 1.3 GM/DL (3.2-5.2); ALT/SGPT 57 U/L (12-78); BILIRUBIN,TOTAL 1.3 MG/DL (0.2-1.0); BLOOD UREA NITROGEN 12 MG/DL (7-18); CARBON DIOXIDE LEVEL 25 MEQ/L (21-32); CHLORIDE LEVEL 101 MEQ/L (98-107); GLOMERULAR FILTRATION RATE > 60.0 (>49); GLUCOSE, FASTING 108 MG/DL (70-100); MAGNESIUM LEVEL 1.7 MG/DL (1.8-2.4); POTASSIUM SERUM 3.5 MEQ/L (3.5-5.1); SODIUM LEVEL 134 MEQ/L (136-145); TOTAL PROTEIN 6.2 GM/DL (6.4-8.2)
[2019-01-17] MEDS: METOPROLOL TART 50 MG TAB PO SCH ×2 (06:18→11:46)
--- NOTE | 2019-01-17 07:35 | IPNPDOC ---
Subjective Date Seen The patient was seen on 01/17/19. Subjective Chief Complaint/HPI atrial flutter Events since last encounter patient remains in afib. Rate is controlled 90-120 on average. Patient denies c/o. Constitutional: Denies: Chills, Fever, Night Sweats ENT: Denies: Head Aches, Ear Pain, Dysphagia Skin: Denies: Rash, Lesions, Breakdown Pulmonary: Denies: Dyspnea, Cough Cardiovascular: Denies: Chest Pain, Palpitations, Orthopnea, Paroxysmal Noc. Dyspnea, Lt Headedness Psych: Reports: Mood Normal; Denies: Depression, Memory Issues Objective Physical Examination General Exam: Positive: Alert, Cooperative Eye Exam: Positive: PERRLA Neck Exam: Negative: JVD Chest Exam: Positive: Diminished Heart Exam: Positive: Tachycardic Telemetry: Positive: Atrial fibrillation Abdomen Exam: Positive: Normal bowel sounds, Soft; Negative: Tenderness Extremity Exam: Negative: Edema Skin Exam: Negative: Rash Neuro Exam: Positive: Normal Speech Psych Exam: Positive: Mental status NL Assessment /Plan Problems (1) Diastolic congestive heart failure Response to Treatment: Stable Problem Text: Euvolemic on current regimen 01/15 2685; therefore, SLIV 01/02 BNP 707 (2) Metastatic lung carcinoma Status: Chronic Problem Text: will discuss functional status for repeat pembro at 21D cycle c primary Oncologist Dr. Moore-obvious concern is new pancytopenia and AF c RVR 01/14/[address] CAP (no PE) 01/06/19 Dr. Moore restarted pembro given response in past (3) DNR (do not resuscitate) Status: Chronic Problem Text: 01/16/19 given patient has verbalized to myself and to 2 other nursing staff his wishes for DNR/DNI; MOLST was completed to this effect. During private discussion with , agreed c MOLST. (4) Atrial fibrillation Status: Acute Response to Treatment: Stable, Improving Problem Text: no AC given pancytopenia c 01/15 plt down to 82K, hgb 7.6 (favor pembro and chronic disease effect) and intermittent bleeding of sinus metastasis Contingency: amio 01/17 + dig 250, increased met tar 50 q6H to 75 q6H digoxin 0.25 mg IV x 1. Dig level 1.0 this am (p 0.75 IV load 01/15) Increase beta dianelys until HR controlled. Current dosing ordered: metoprolol 50 mg po q6hrs. Will replace electrolytes accordingly. Patient is not anti-coagulated due to hx of bleeding, thrombocytopenia and anemia. 01/14/19 [facility] visit for palpitations-found to be NCT at 190, p BB slowed to 150s and cw AF; loaded c dig IV total 1.0 mg 01/14 TSH/FT4 21/1.2 01/14 T-I <0.3 01/15 TTE: CONCLUSIONS: 1. Very mild concentric left ventricular hypertrophy, normal region LV wall motion and wall thickening. Normal LV systolic function. LVEF 60% by visual estimate. Grade 1 LV diastolic dysfunction. 2. Normal right ventricle internal dimensions. Mild hypertrophy of the right ventricle free wall. Normal right ventricle systolic function. Suggestive of moderate elevation of pulmonary artery systolic pressure. 3. Otherwise Normal appearing echocardiogram Doppler findings. DD: Lloyd Quinn MD [facility] 01/15/192139 6 DS: (5) Anemia Status: Chronic Problem Text: 01/17 8.2 (8.5) 01/15 down to 7.6 (01/14 9.9)-but + 2.8 L since admission; therefore, SLIV no AC for DVT px/AF baseline mid 9s (6) Atrial flutter Status: Acute Problem Text: as per AFl (7) Physical deconditioning Status: Chronic Problem Text: 01/15 + PT (8) COPD (chronic obstructive pulmonary disease) Status: Chronic Problem Text: stable on baseline pred 10 (9) Hypokalemia Status: Acute Problem Text: partially 2 pembro (chronic HD K 20 BID, MOX 800 BID) 01/17 3.5/1.7; therefore, K 20 BID to 40 BID/ + Mg 1 IV and to 1600 BID 01/15 3.2-continue HD and replaced extra (10) Hypomagnesemia Status: Acute Problem Text: as per hypoK (11) Hypercalcemia of malignancy Status: Resolved Problem Text: 01/15 down to 9.2 Plan/VTE VTE Prophylaxis Ordered?: No VTE Exclusion Pharmacological: Thrombocytopenia VS, I&O, 24H, Fishbone Vital Signs/I&O Vital Signs Date Time Temp Pulse Resp B/P (MAP) Pulse Ox O2 Delivery O2 Flow Rate FiO2 01/17/19 06:18 130 133/74 01/17/19 04:00 98.0 20 95 01/14/19 15:05 Room Air 01/14/19 13:39 2.0 I&O- Last 24 Hours up to 6 AM 01/17/19 06:00 Intake Total 1100 ml Output Total 1450 ml Balance -350 ml Laboratory Data 24H LABS Laboratory Tests 2 01/16/19 11:47: Anion Gap 7L, Glomerular Filtration Rate > 60.0, Blood Urea Nitrogen 10, Creatinine 0.43L, Sodium Level 132L, Potassium Level 3.5, Chloride Level 101, Carbon Dioxide Level 24, Calcium Level 9.6 01/17/19 04:53: Anion Gap 8, Glomerular Filtration Rate > 60.0, Blood Urea Nitrogen 12, Creatinine 0.40L, Sodium Level 134L, Potassium Level 3.5, Chloride Level 101, Carbon Dioxide Level 25, Calcium Level 10.0, Immature Granulocyte % (Auto) 1.2, White Blood Count 9.0, Red Blood Count 3.00L, Hemoglobin 8.2L, Hematocrit 26.5L, Mean Corpuscular Volume 88.3, Mean Corpuscular Hemoglobin 27.3, Mean Corpuscular Hemoglobin Concent 30.9L, Red Cell Distribution Width 17.2H, Platelet Count 85L, Neutrophils (%) (Auto) 88.2H, Lymphocytes (%) (Auto) 2.0L, Monocytes (%) (Auto) 8.6H, Eosinophils (%) (Auto) 0.0, Basophils (%) (Auto) 0.0, Neutrophils # (Auto) 7.9, Lymphocytes # (Auto) 0.2L, Monocytes # (Auto) 0.8, Eosinophils # (Auto) 0.0, Basophils # (Auto) 0.0, Nucleated Red Blood Cells % (auto) 0.0, Immature Platelet Fraction 6.9, Aspartate Amino Transf (AST/SGOT) 46H, Alanine Aminotransferase (ALT/SGPT) 57, Alkaline Phosphatase 120H, Total Bilirubin 1.3H, Total Protein 6.2L, Albumin 1.3L, Magnesium Level 1.7L, Albumin/Globulin Ratio 0 .27L CBC/BMP Laboratory Tests 01/16/19 11:47 Calcium Level 9.6 01/17/19 04:53 Calcium Level 10.0, Red Blood Count 3.00 L, Mean Corpuscular Volume 88.3, Mean Corpuscular Hemoglobin 27.3, Mean Corpuscular Hemoglobin Concent 30.9 L, Red Cell Distribution Width 17.2 H, Neutrophils (%) (Auto) 88.2 H, Lymphocytes (%) (Auto) 2.0 L, Monocytes (%) (Auto) 8.6 H, Eosinophils (%) (Auto) 0.0, Basophils (%) (Auto) 0.0, Neutrophils # (Auto) 7.9, Lymphocytes # (Auto) 0.2 L, Monocytes # (Auto) 0.8, Eosinophils # (Auto) 0.0, Basophils # (Auto) 0.0, Aspartate Amino Transf (AST/SGOT) 46 H, Alanine Aminotransferase (ALT/SGPT) 57, Alkaline Phosphatase 120 H, Total Bilirubin 1.3 H, Total Protein 6.2 L, Albumin 1.3 L Tricia Wolfe Jan 17, 2019 07:35 Chad Muniz M.D. Jan 17, 2019 14:23
[2019-01-17] MEDS ORDERED: MAG SULF 1GM/100ML (MAG RUN) 1 GM in APPROPRIATE DILUENT 1 EA IV ONE (07:45)
[2019-01-17] MEDS: DOCUSATE SODIUM 100 MG CAP PO SCH ×2 (08:04→21:32)
[2019-01-17] MEDS: POTASSIUM CHLORIDE 10% LIQ 20 MEQ/15 ML UDC PO SCH ×2 (08:05→21:33)
[2019-01-17] MEDS: MAGNESIUM OXIDE 400 MG TAB (MAG-OX) PO SCH ×2 (08:05→21:33)
[2019-01-17] MEDS: predniSONE 10 MG TAB PO SCH (08:05)
[2019-01-17] MEDS ORDERED: DIGOXIN 0.25 MG TAB PO ONE (14:45)
[2019-01-17] MEDS ORDERED: METOPROLOL TART 25 MG TABLET PO ONE (14:45)
[2019-01-17] MEDS: DIGOXIN 0.25 MG TAB PO SCH (15:12)
[2019-01-17] MEDS: METOPROLOL TART 25 MG TABLET PO SCH (17:15)
[2019-01-18] VITALS: BP 117/66
[2019-01-18] MEDS: METOPROLOL TART 25 MG TABLET PO SCH ×5 (00:17→21:42)
[2019-01-18 04:00] VITALS: BP 114/70
[2019-01-18 05:09] LABS: BASO % 0.1 % (0.0-1.0); HEMATOCRIT 26.6 % (42.0-52.0); HEMOGLOBIN 8.3 g/dl (13.5-17.5); LYMPH # 0.3 10^3/uL (1.5-5.0); LYMPH % 3.4 % (24.0-44.0); MEAN CORPUSCULAR HEMOGLOBIN 27.2 pg (27.0-33.0); MEAN CORPUSCULAR HGB CONC 31.2 g/dl (32.0-36.5); MEAN CORPUSCULAR VOLUME 87.2 fl (80.0-96.0); MONO # 0.7 10^3/uL (0.0-0.8); MONO % 7.4 % (0.0-5.0); NEUTROPHILS % 88.4 % (36.0-66.0); RED BLOOD COUNT 3.05 10^6/uL (4.30-6.10)
[2019-01-18 05:11] LABS: PLATELET COUNT, AUTOMATED 82 10^3/uL (150-450)
[2019-01-18 05:28] LABS: ALBUMIN 1.3 GM/DL (3.2-5.2); ALT/SGPT 64 U/L (12-78); BILIRUBIN,TOTAL 1.3 MG/DL (0.2-1.0); BLOOD UREA NITROGEN 17 MG/DL (7-18); CALCIUM LEVEL 10.2 MG/DL (8.8-10.2); CARBON DIOXIDE LEVEL 27 MEQ/L (21-32); CHLORIDE LEVEL 99 MEQ/L (98-107); CREATININE FOR GFR 0.38 MG/DL (0.70-1.30); GLOMERULAR FILTRATION RATE > 60.0 (>49); GLUCOSE, FASTING 109 MG/DL (70-100); MAGNESIUM LEVEL 1.7 MG/DL (1.8-2.4); POTASSIUM SERUM 3.6 MEQ/L (3.5-5.1); SODIUM LEVEL 133 MEQ/L (136-145); TOTAL PROTEIN 6.3 GM/DL (6.4-8.2)
[2019-01-18 08:00] VITALS: BP 113/57
[2019-01-18] MEDS: POTASSIUM CHLORIDE 10% LIQ 20 MEQ/15 ML UDC PO SCH ×2 (08:54→20:35)
[2019-01-18] MEDS: predniSONE 10 MG TAB PO SCH (08:55)
[2019-01-18] MEDS: MAGNESIUM OXIDE 400 MG TAB (MAG-OX) PO SCH ×2 (08:55→20:35)
[2019-01-18] MEDS: DIGOXIN 0.25 MG TAB PO SCH (08:55)
[2019-01-18] MEDS: DOCUSATE SODIUM 100 MG CAP PO SCH ×2 (08:56→20:35)
--- NOTE | 2019-01-18 09:17 | IPNPDOC ---
Subjective Date Seen The patient was seen on 01/18/19. Subjective Chief Complaint/HPI afib with RVR Events since last encounter Received report from nursing staff that patient's wants to take patient home to continue treatment. Patient with HR up to 170s with exertion. BP is soft and Anti-hypertensives are unsafe to be escalated at this time. When I entered room to address 's concerns, she refused to review her concerns with me, asking where the physician was. Nursing reports coughing with thin liquids. has hx of dysphagia and has been previously evaluated by ST. Constitutional: Reports: Malaise, Weakness, Weight Loss, Lethargy; Denies: Chills, Fever Pulmonary: Reports: Dyspnea Cardiovascular: Reports: Palpitations; Denies: Chest Pain Gastrointestinal: Denies: Nausea, Vomiting, Abdominal Pain, Diarrhea Psych: Reports: Depression Objective Physical Examination General Exam: Positive: Alert, Cooperative Eye Exam: Positive: PERRLA Neck Exam: Negative: JVD Chest Exam: Positive: Diminished Heart Exam: Positive: Tachycardic Telemetry: Positive: Atrial fibrillation Abdomen Exam: Positive: Normal bowel sounds, Soft; Negative: Tenderness Extremity Exam: Negative: Edema Skin Exam: Negative: Rash Neuro Exam: Positive: Normal Speech Psych Exam: Negative: Mental status NL (flat affect, minimal verbalization) Assessment /Plan Problems (1) Diastolic congestive heart failure Response to Treatment: Stable Problem Text: Euvolemic on current regimen 01/15 2685; therefore, SLIV 01/02 BNP 707 (2) Metastatic lung carcinoma Status: Chronic Problem Text: 01/18/19: Oncology consult with Dr. Aburto called to her office. aware. Will have physician see patient and today. will discuss functional status for repeat pembro at 21D cycle c primary Oncologist Dr. Aburto-obvious concern is new pancytopenia and AF c RVR 01/14/[address] CAP (no PE) 01/06/19 Dr. Aburto restarted pembro given response in past (3) DNR (do not resuscitate) Status: Chronic Problem Text: 01/16/19 given patient has verbalized to myself and to 2 other nursing staff his wishes for DNR/DNI; MOLST was completed to this effect. During private discussion with , agreed c MOLST. (4) Atrial fibrillation Status: Acute Response to Treatment: Stable, Improving Problem Text: no AC given pancytopenia c 01/15 plt down to 82K, hgb 7.6 (favor pembro and chronic disease effect) and intermittent bleeding of sinus metastasis Contingency: amio 01/17 + dig 250, increased met tar 50 q6H to 75 q6H digoxin 0.25 mg IV x 1. Dig level 1.0 this am (p 0.75 IV load 01/15) Increase beta dianelys until HR controlled. Current dosing ordered: metoprolol 50 mg po q6hrs. Will replace electrolytes accordingly. Patient is not anti-coagulated due to hx of bleeding, thrombocytopenia and anemia. 01/14/19 [facility] visit for palpitations-found to be NCT at 190, p BB slowed to 150s and cw AF; loaded c dig IV total 1.0 mg 01/14 TSH/FT4 06/06.2 01/14 T-I <0.3 01/15 TTE: CONCLUSIONS: 1. Very mild concentric left ventricular hypertrophy, normal region LV wall motion and wall thickening. Normal LV systolic function. LVEF 60% by visual estimate. Grade 1 LV diastolic dysfunction. 2. Normal right ventricle internal dimensions. Mild hypertrophy of the right ventricle free wall. Normal right ventricle systolic function. Suggestive of moderate elevation of pulmonary artery systolic pressure. 3. Otherwise Normal appearing echocardiogram Doppler findings. DD: Lloyd Quinn MD [facility] 01/15/192139 6 DS: (5) Anemia Status: Chronic Problem Text: 01/17 8.2 (8.5) 01/15 down to 7.6 (01/14 9.9)-but + 2.8 L since admission; therefore, SLIV no AC for DVT px/AF baseline mid 9s (6) Atrial flutter Status: Acute Problem Text: as per AFl (7) Physical deconditioning Status: Chronic Problem Text: 01/15 + PT (8) COPD (chronic obstructive pulmonary disease) Status: Chronic Problem Text: stable on baseline pred 10 (9) Hypokalemia Status: Acute Problem Text: partially 2 pembro (chronic HD K 20 BID, MOX 800 BID) 01/17 3.5/1.7; therefore, K 20 BID to 40 BID/ + Mg 1 IV and to 1600 BID 01/15 3.2-continue HD and replaced extra (10) Hypomagnesemia Status: Acute Problem Text: as per hypoK (11) Hypercalcemia of malignancy Status: Resolved Problem Text: 01/15 down to 9.2 (12) Dysphagia Status: Acute Problem Text: swallow eval today. Plan/VTE VTE Prophylaxis Ordered?: No VTE Exclusion Pharmacological: Thrombocytopenia Plan Pt and Family Services: Other PFS Advance Directives: DNR VS, I&O, 24H, Fishbone Vital Signs/I&O Vital Signs Date Time Temp Pulse Resp B/P (MAP) Pulse Ox O2 Delivery O2 Flow Rate FiO2 01/18/19 05:09 111 114/70 01/18/19 04:00 98.6 20 96 01/14/19 15:05 Room Air 01/14/19 13:39 2.0 I&O- Last 24 Hours up to 6 AM 01/18/19 05:59 Intake Total 1080 ml Output Total 1100 ml Balance -20 ml Laboratory Data 24H LABS Laboratory Tests 2 01/18/19 04:47: Immature Granulocyte % (Auto) 0.7, White Blood Count 9.0, Red Blood Count 3.05L, Hemoglobin 8.3L, Hematocrit 26.6L, Mean Corpuscular Volume 87.2, Mean Bennie uscular Hemoglobin 27.2, Mean Corpuscular Hemoglobin Concent 31.2L, Red Cell Distribution Width 17.4H, Platelet Count 82L, Neutrophils (%) (Auto) 88.4H, Lymphocytes (%) (Auto) 3.4L, Monocytes (%) (Auto) 7.4H, Eosinophils (%) (Auto) 0.0, Basophils (%) (Auto) 0.1, Neutrophils # (Auto) 8.0, Lymphocytes # (Auto) 0.3L, Monocytes # (Auto) 0.7, Eosinophils # (Auto) 0.0, Basophils # (Auto) 0.0, Nucleated Red Blood Cells % (auto) 0.0, Anion Gap 7L, Glomerular Filtration Rate > 60.0, Blood Urea Nitrogen 17, Creatinine 0.38L, Sodium Level 133L, Potassium Level 3.6, Chloride Level 99, Carbon Dioxide Level 27, Calcium Level 10.2, Aspartate Amino Transf (AST/SGOT) 64H, Alanine Aminotransferase (ALT/SGPT) 64, Alkaline Phosphatase 124H, Total Bilirubin 1.3H, Total Protein 6.3L, Albumin 1.3L, Magnesium Level 1.7L, Albumin/Globulin Ratio 0.26L CBC/BMP Laboratory Tests 01/18/19 04:47 Red Blood Count 3.05 L, Mean Corpuscular Volume 87.2, Mean Corpuscular Hemoglobin 27.2, Mean Corpuscular Hemoglobin Concent 31.2 L, Red Cell Distribution Width 17.4 H, Neutrophils (%) (Auto) 88.4 H, Lymphocytes (%) (Auto) 3.4 L, Monocytes (%) (Auto) 7.4 H, Eosinophils (%) (Auto) 0.0, Basophils (%) (A uto) 0.1, Neutrophils # (Auto) 8.0, Lymphocytes # (Auto) 0.3 L, Monocytes # (Auto) 0.7, Eosinophils # (Auto) 0.0, Basophils # (Auto) 0.0, Calcium Level 10.2, Aspartate Amino Transf (AST/SGOT) 64 H, Alanine Aminotransferase (ALT/SGPT) 64, Alkaline Phosphatase 124 H, Total Bilirubin 1.3 H, Total Protein 6.3 L, Albumin 1.3 L Tricia Wolfe Jan 18, 2019 09:17
[2019-01-18 11:00] VITALS: BP 101/59
[2019-01-18 12:00] VITALS: BP 118/74
[2019-01-18 16:00] VITALS: BP 130/66
[2019-01-18] MEDS: LORazepam 0.5 MG TAB PO PRN ×2 (16:44→21:41)
[2019-01-19 04:00] VITALS: BP 110/71
[2019-01-19 05:47] LABS: HEMATOCRIT 25.2 % (42.0-52.0); HEMOGLOBIN 7.6 g/dl (13.5-17.5); LYMPH % 2.5 % (24.0-44.0); MEAN CORPUSCULAR HEMOGLOBIN 26.3 pg (27.0-33.0); MEAN CORPUSCULAR HGB CONC 30.2 g/dl (32.0-36.5); MEAN CORPUSCULAR VOLUME 87.2 fl (80.0-96.0); MONO # 0.7 10^3/uL (0.0-0.8); MONO % 8.5 % (0.0-5.0); NEUTROPHILS # 7.6 10^3/uL (1.5-8.5); RED BLOOD COUNT 2.89 10^6/uL (4.30-6.10); WHITE BLOOD COUNT 8.7 10^3/uL (4.0-10.0)
[2019-01-19 06:00] LABS: LYMPH # 0.2 10^3/uL (1.5-5.0); PLATELET COUNT, AUTOMATED 84 10^3/uL (150-450)
[2019-01-19 06:09] LABS: ALBUMIN 1.4 GM/DL (3.2-5.2); ALT/SGPT 66 U/L (12-78); BILIRUBIN,TOTAL 1.2 MG/DL (0.2-1.0); BLOOD UREA NITROGEN 17 MG/DL (7-18); CALCIUM LEVEL 10.5 MG/DL (8.8-10.2); CARBON DIOXIDE LEVEL 29 MEQ/L (21-32); CHLORIDE LEVEL 101 MEQ/L (98-107); CREATININE FOR GFR 0.38 MG/DL (0.70-1.30); GLOMERULAR FILTRATION RATE > 60.0 (>49); GLUCOSE, FASTING 108 MG/DL (70-100); MAGNESIUM LEVEL 1.7 MG/DL (1.8-2.4); SODIUM LEVEL 137 MEQ/L (136-145); TOTAL PROTEIN 6.1 GM/DL (6.4-8.2)
[2019-01-19] MEDS: METOPROLOL TART 25 MG TABLET PO SCH ×3 (06:51→18:14)
[2019-01-19 08:21] VITALS: BP 114/65
--- NOTE | 2019-01-19 08:42 | IPNPDOC ---
Subjective Date Seen The patient was seen on 01/19/19. Subjective Chief Complaint/HPI Afib with RVR Events since last encounter at bedside and answers for patient. States he has been more comfortable today. Sitter was added overnight as he was attempting to get OOB on his own. Dr. Moore, Oncology came to see patient and advised his disease is progressing and prognosis is poor. states patient declines hospice and she'd like to keep him in the hospital and search for other options for cancer treatment, if possible. understands patient may not be stable enough to trial other treatments, but she's hopeful. During discussion, patient was sleeping. General: Reports: ROS Unobtainable Objective Physical Examination General Exam: Positive: Alert (sleeping, wakes easily, grimacing from being cold on examination), Cooperative Eye Exam: Positive: Other Eye Symptoms (unabel to open eyes due to tumor on face. ) Neck Exam: Negative: JVD Chest Exam: Positive: Diminished Heart Exam: Positive: Tachycardic (with exertion to 170, comes down to 100 with rest. ) Telemetry: Positive: Atrial fibrillation Abdomen Exam: Positive: Normal bowel sounds, Soft; Negative: Tenderness Extremity Exam: Negative: Edema Skin Exam: Negative: Rash Neuro Exam: Positive: Normal Speech Psych Exam: Negative: Mental status NL (flat affect, minimal verbalization) Assessment /Plan Problems (1) Diastolic congestive heart failure Response to Treatment: Stable Problem Text: Euvolemic on current regimen 01/15 2685; therefore, SLIV 01/02 BNP 707 (2) Metastatic lung carcinoma Status: Chronic Problem Text: 01/19/19: continue to provide treatment. offered family meeting to discuss course of treatment and declines. She is agreeable to continuing with conversations with PFS for DC planning. 01/18/19: Oncology consult with Dr. Moore called to her office. aware. Will have physician see patient and today. will discuss functional status for repeat pembro at 21D cycle c primary Oncologist Dr. Moore-obvious concern is new pancytopenia and AF c RVR 01/14/[address] CAP (no PE) 01/06/19 Dr. Moore restarted pembro given response in past (3) DNR (do not resuscitate) Status: Chronic Problem Text: 01/16/19 given patient has verbalized to myself and to 2 other nursing staff his wishes for DNR/DNI; MOLST was completed to this effect. During private discussion with , agreed c MOLST. (4) Atrial fibrillation Status: Acute Response to Treatment: Stable, Improving Problem Text: no AC given pancytopenia c 01/15 plt down to 82K, hgb 7.6 (favor pembro and chronic disease effect) and intermittent bleeding of sinus metastasis Contingency: amio 01/17 + dig 250, increased met tar 50 q6H to 75 q6H digoxin 0.25 mg IV x 1. Dig level 1.0 this am (p 0.75 IV load 01/15) Increase beta dianelys until HR controlled. Current dosing ordered: metoprolol 50 mg po q6hrs. Will replace electrolytes accordingly. Patient is not anti-coagulated due to hx of bleeding, thrombocytopenia and anemia. 01/14/19 [facility] visit for palpitations-found to be NCT at 190, p BB slowed to 150s and cw AF; loaded c dig IV total 1.0 mg 01/14 TSH/FT4 06/06.2 01/14 T-I <0.3 01/15 TTE: CONCLUSIONS: 1. Very mild concentric left ventricular hypertrophy, normal region LV wall motion and wall thickening. Normal LV systolic function. LVEF 60% by visual estimate. Grade 1 LV diastolic dysfunction. 2. Normal right ventricle internal dimensions. Mild hypertrophy of the right ventricle free wall. Normal right ventricle systolic function. Suggestive of moderate elevation of pulmonary artery systolic pressure. 3. Otherwise Normal appearing echocardiogram Doppler findings. DD: Lloyd Quinn MD [facility] 01/15/192139 0707 DS: (5) Anemia Status: Chronic Problem Text: 01/19 7.6; therefore, 2u; then 10.3 01/17 8.2 (8.5) 01/15 down to 7.6 (01/14 9.9)-but + 2.8 L since admission; therefore, SLIV no AC for DVT px/AF baseline mid 9s (6) Atrial flutter Status: Acute Problem Text: as per AFl (7) Physical deconditioning Status: Chronic Problem Text: 01/18 PT NS for dc home (8) COPD (chronic obstructive pulmonary disease) Status: Chronic Problem Text: stable on baseline pred 10 (9) Hypokalemia Status: Acute Problem Text: partially 2 pembro (chronic HD K 20 BID, MOX 800 BID) 01/17 3.5/1.7; therefore, K 20 BID to 40 BID/ + Mg 1 IV and to 1600 BID 01/15 3.2-continue HD and replaced extra (10) Hypomagnesemia Status: Acute Problem Text: as per hypoK (11) Hypercalcemia of malignancy Status: Resolved Problem Text: 01/15 down to 9.2 (12) Dysphagia Status: Acute Problem Text: swallow eval today. (13) Severe protein-calorie malnutrition Status: Acute Problem Text: declines dietary consult. encouraged high calorie foods. + dysphagia and now with thickened liquids. Plan/VTE VTE Prophylaxis Ordered?: No VTE Exclusion Pharmacological: Thrombocytopenia Plan Pt and Family Services: Other PFS Advance Directives: DNR VS, I&O, 24H, Fishbone Vital Signs/I&O Vital Signs Date Time Temp Pulse Resp B/P (MAP) Pulse Ox O2 Delivery O2 Flow Rate FiO2 01/19/19 08:21 97.2 86 18 114/65 (81) 99 01/14/19 15:05 Room Air 01/14/19 13:39 2.0 I&O- Last 24 Hours up to 6 AM 01/19/19 05:59 Intake Total 930 ml Output Total 600 ml Balance 330 ml Laboratory Data 24H LABS Laboratory Tests 2 01/19/19 05:29: Immature Granulocyte % (Auto) 1.0, White Blood Count 8.7, Red Blood Count 2.89L, Hemoglobin 7.6L, Hematocrit 25.2L, Mean Corpuscular Volume 87.2, Mean Corpuscul ar Hemoglobin 26.3L, Mean Corpuscular Hemoglobin Concent 30.2L, Red Cell Distribution Width 17.2H, Platelet Count 84L, Neutrophils (%) (Auto) 88.0H, Lymphocytes (%) (Auto) 2.5L, Monocytes (%) (Auto) 8.5H, Eosinophils (%) (Auto) 0.0, Basophils (%) (Auto) 0.0, Neutrophils # (Auto) 7.6, Lymphocytes # (Auto) 0.2L, Monocytes # (Auto) 0.7, Eosinophils # (Auto) 0.0, Basophils # (Auto) 0.0, Nucleated Red Blood Cells % (auto) 0.0, Immature Platelet Fraction 7.8, Anion Gap 7L, Glomerular Filtration Rate > 60.0, Blood Urea Nitrogen 17, Creatinine 0.38L, Sodium Level 137, Potassium Level 4.0, Chloride Level 101, Carbon Dioxide Level 29, Calcium Level 10.5H, Aspartate Amino Transf (AST/SGOT) 59H, Alanine Aminotransferase (ALT/SGPT) 66, Alkaline Phosphatase 119H, Total Bilirubin 1.2H, Total Protein 6.1L, Albumin 1.4L, Magnesium Level 1.7L, Albumin/Globulin Ratio 0.30L CBC/BMP Laboratory Tests 01/19/19 05:29 Red Blood Count 2.89 L, Mean Corpuscular Volume 87.2, Mean Corpuscular H emoglobin 26.3 L, Mean Corpuscular Hemoglobin Concent 30.2 L, Red Cell Distribution Width 17.2 H, Neutrophils (%) (Auto) 88.0 H, Lymphocytes (%) (Auto) 2.5 L, Monocytes (%) (Auto) 8.5 H, Eosinophils (%) (Auto) 0.0, Basophils (%) (Auto) 0.0, Neutrophils # (Auto) 7.6, Lymphocytes # (Auto) 0.2 L, Monocytes # (Auto) 0.7, Eosinophils # (Auto) 0.0, Basophils # (Auto) 0.0, Calcium Level 10.5 H, Aspartate Amino Transf (AST/SGOT) 59 H, Alanine Aminotransferase (ALT/SGPT) 66, Alkaline Phosphatase 119 H, Total Bilirubin 1.2 H, Total Protein 6.1 L, Albumin 1.4 L Tricia Wolfe Jan 19, 2019 08:42 Chad Muniz M.D. Jan 19, 2019 17:09
[2019-01-19] MEDS: DOCUSATE SODIUM 100 MG CAP PO SCH ×2 (11:15→20:54)
[2019-01-19] MEDS: DIGOXIN 0.25 MG TAB PO SCH (11:17)
[2019-01-19] MEDS: predniSONE 10 MG TAB PO SCH (11:18)
[2019-01-19] MEDS: MAGNESIUM OXIDE 400 MG TAB (MAG-OX) PO SCH ×2 (11:23→20:55)
[2019-01-19] MEDS: POTASSIUM CHLORIDE 10% LIQ 20 MEQ/15 ML UDC PO SCH ×2 (11:31→20:54)
[2019-01-19 12:00] VITALS: BP 108/72
[2019-01-19 16:00] VITALS: BP 119/71
[2019-01-19 16:51] LABS: HEMATOCRIT 32.7 % (42.0-52.0)
[2019-01-19 16:55] LABS: HEMOGLOBIN 10.3 g/dl (13.5-17.5)
[2019-01-19 20:00] VITALS: BP 112/72
[2019-01-19 23:59] VITALS: BP 118/72
[2019-01-20] MEDS: METOPROLOL TART 25 MG TABLET PO SCH ×5 (00:29→23:10)
[2019-01-20] MEDS: ACETAMINOPHEN TAB 650MG DOSE (2X325MG) PO PRN ×2 (00:31→10:45)
[2019-01-20 05:55] LABS: BASO % 0.1 % (0.0-1.0); HEMATOCRIT 32.5 % (42.0-52.0); HEMOGLOBIN 10.2 g/dl (13.5-17.5); LYMPH % 2.1 % (24.0-44.0); MEAN CORPUSCULAR HEMOGLOBIN 26.8 pg (27.0-33.0); MEAN CORPUSCULAR HGB CONC 31.4 g/dl (32.0-36.5); MEAN CORPUSCULAR VOLUME 85.3 fl (80.0-96.0); MONO # 0.8 10^3/uL (0.0-0.8); NEUTROPHILS # 8.6 10^3/uL (1.5-8.5); NEUTROPHILS % 89.2 % (36.0-66.0); RED BLOOD COUNT 3.81 10^6/uL (4.30-6.10); WHITE BLOOD COUNT 9.7 10^3/uL (4.0-10.0)
[2019-01-20 06:25] LABS: ALBUMIN 1.3 GM/DL (3.2-5.2); ALT/SGPT 49 U/L (12-78); BILIRUBIN,TOTAL 1.5 MG/DL (0.2-1.0); BLOOD UREA NITROGEN 23 MG/DL (7-18); CALCIUM LEVEL 10.7 MG/DL (8.8-10.2); CARBON DIOXIDE LEVEL 24 MEQ/L (21-32); CHLORIDE LEVEL 106 MEQ/L (98-107); DIGOXIN LEVEL 1.1 NG/ML (0.5-2.0); GLOMERULAR FILTRATION RATE > 60.0 (>49); GLUCOSE, FASTING 113 MG/DL (70-100); POTASSIUM SERUM 4.5 MEQ/L (3.5-5.1); SODIUM LEVEL 137 MEQ/L (136-145); TOTAL PROTEIN 6.3 GM/DL (6.4-8.2)
[2019-01-20 06:30] LABS: LYMPH # 0.2 10^3/uL (1.5-5.0); PLATELET COUNT, AUTOMATED 82 10^3/uL (150-450)
[2019-01-20 08:00] VITALS: BP 113/55
[2019-01-20] MEDS: DOCUSATE SODIUM 100 MG CAP PO SCH ×2 (08:31→21:37)
[2019-01-20] MEDS: MAGNESIUM OXIDE 400 MG TAB (MAG-OX) PO SCH ×2 (08:32→21:36)
[2019-01-20] MEDS: predniSONE 10 MG TAB PO SCH (08:32)
[2019-01-20] MEDS: DIGOXIN 0.25 MG TAB PO SCH (08:33)
[2019-01-20] MEDS: POTASSIUM CHLORIDE 10% LIQ 20 MEQ/15 ML UDC PO SCH ×2 (08:33→21:44)
[2019-01-20 12:00] VITALS: BP 123/73
--- NOTE | 2019-01-20 12:00 | IPNPDOC ---
Subjective Date Seen The patient was seen on 01/20/19. Subjective Chief Complaint/HPI Pt this morning sitting in bedside chair, he has just been helped to the chair by PT. He is c/o dizziness but starts to feel better once the chair is reclined. General: Reports: ROS Unobtainable, Fatigue Objective Physical Examination General Exam: Positive: Alert (pt doesn't always respond to questions, difficulty vocalizing when he does, diffisulty understanding what he is saying as wlel. ), Cooperative Eye Exam: Positive: Other Eye Symptoms (unabel to open eyes due to tumor on face. ) Neck Exam: Negative: JVD Chest Exam: Positive: Diminished Heart Exam: Positive: Rate Normal Telemetry: Positive: Atrial fibrillation Abdomen Exam: Positive: Normal bowel sounds, Soft; Negative: Tenderness Extremity Exam: Negative: Edema Skin Exam: Negative: Rash Neuro Exam: Negative: Normal Speech Psych Exam: Negative: Mental status NL (flat affect, minimal verbalization) Assessment /Plan Problems (1) Metastatic lung carcinoma Status: Chronic Problem Text: 01/20 family friend at bedside, is not, pt not able to converse appropriately. 01/19/19: continue to provide treatment. offered family meeting to discuss course of treatment and declines. She is agreeable to continuing with conversations with PFS for DC planning. 01/18/19: Oncology consult with Dr. Aburto called to her office. aware. Will have physician see patient and today. will discuss functional status for repeat pembro at 21D cycle c primary Oncologist Dr. Aburto-obvious concern is new pancytopenia and AF c RVR 01/14/[address] CAP (no PE) 01/06/19 Dr. Aburto restarted pembro given response in past (2) Diastolic congestive heart failure Response to Treatment: Stable Problem Text: Euvolemic on current regimen 01/15 2685; therefore, SLIV 01/02 BNP 707 (3) DNR (do not resuscitate) Status: Chronic Problem Text: 01/16/19 given patient has verbalized to myself and to 2 other nursing staff his wishes for DNR/DNI; MOLST was completed to this effect. During private discussion with , agreed c MOLST. (4) Atrial fibrillation Status: Acute Response to Treatment: Stable, Improving Problem Text: no AC given pancytopenia c 01/15 plt down to 82K, hgb 7.6 (favor pembro and chronic disease effect) and intermittent bleeding of sinus metastasis Contingency: amio 01/17 + dig 250, increased met tar 50 q6H to 75 q6H digoxin 0.25 mg IV x 1. Dig level 1.0 this am (p 0.75 IV load 01/15) Increase beta dianelys until HR controlled. Current dosing ordered: metoprolol 50 mg po q6hrs. Will replace electrolytes accordingly. Patient is not anti-coagulated due to hx of bleeding, thrombocytopenia and anemia. 01/14/19 [facility] visit for palpitations-found to be NCT at 190, p BB slowed to 150s and cw AF; loaded c dig IV total 1.0 mg 01/14 TSH/FT4 06/06.2 01/14 T-I <0.3 01/15 TTE: CONCLUSIONS: 1. Very mild concentric left ventricular hypertrophy, normal region LV wall motion and wall thickening. Normal LV systolic function. LVEF 60% by visual estimate. Grade 1 LV diastolic dysfunction. 2. Normal right ventricle internal dimensions. Mild hypertrophy of the right ventricle free wall. Normal right ventricle systolic function. Suggestive of moderate elevation of pulmonary artery systolic pressure. 3. Otherwise Normal appearing echocardiogram Doppler findings. DD: Lloyd Quinn MD [facility] 01/15/192139 0707 DS: (5) Anemia Status: Chronic Problem Text: 01/19 7.6; therefore, 2u; then 10.3 01/17 8.2 (8.5) 01/15 down to 7.6 (01/14 9.9)-but + 2.8 L since admission; therefore, SLIV no AC for DVT px/AF baseline mid (6) Atrial flutter Status: Acute Problem Text: as per AFl (7) Physical deconditioning Status: Chronic Problem Text: 01/18 PT NS for dc home (8) COPD (chronic obstructive pulmonary disease) Status: Chronic Problem Text: stable on baseline pred 10 (9) Hypokalemia Status: Acute Problem Text: partially 2 pembro (chronic HD K 20 BID, MOX 800 BID) 01/17 3.5/1.7; therefore, K 20 BID to 40 BID/ + Mg 1 IV and to 1600 BID 01/15 3.2-continue HD and replaced extra (10) Hypomagnesemia Status: Acute Problem Text: as per hypoK (11) Hypercalcemia of malignancy Status: Resolved Problem Text: 01/15 down to 9.2 (12) Dysphagia Status: Acute Problem Text: swallow eval today. (13) Severe protein-calorie malnutrition Status: Acute Problem Text: declines dietary consult. encouraged high calorie foods. + dysphagia and now with thickened liquids. Plan/VTE VTE Prophylaxis Ordered?: No VTE Exclusion Pharmacological: Thrombocytopenia Plan Pt and Family Services: Other PFS Advance Directives: DNR VS, I&O, 24H, Fishbone Vital Signs/I&O Vital Signs Date Time Temp Pulse Resp B/P (MAP) Pulse Ox O2 Delivery O2 Flow Rate FiO2 01/20/19 08:33 77 01/20/19 08:00 96.8 17 113/55 (74) 98 01/14/19 15:05 Room Air 01/14/19 13:39 2.0 I&O- Last 24 Hours up to 6 AM 01/20/19 06:00 Intake Total 500 ml Output Total 345 ml Balance 155 ml Laboratory Data 24H LABS Laboratory Tests 2 01/20/19 05:16: Immature Granulocyte % (Auto) 0.6, White Blood Count 9.7, Red Blood Count 3.81L, Hemoglobin 10.2L, Hematocrit 32.5L, Mean Corpuscular Volume 85.3, Mean Corpuscular Hemoglobin 26.8L, Mean Corpuscular Hemoglobin Concent 31.4L, Red Cell Distribution Width 17.2H, Platelet Count 82L, Neutrophils (%) (Auto) 89.2H, Lymphocytes (%) (Auto) 2.1L, Monocytes (%) (Auto) 8.0H, Eosinophils (%) (Auto) 0.0, Basophils (%) (Auto) 0.1, Neutrophils # (Auto) 8.6H, Lymphocytes # (Auto) 0.2L, Monocytes # (Auto) 0.8, Eosinophils # (Auto) 0.0, Basophils # (Auto) 0.0, Nucleated Red Blood Cells % (auto) 0.0, Anion Gap 7L, Glomerular Filtration Rate > 60.0, Blood Urea Nitrogen 23H, Creatinine 0.40L, Sodium Level 137, Potassium Level 4.5, Chloride Level 106, Carbon Dioxide Level 24, Calcium Level 10.7H, Aspartate Amino Transf (AST/SGOT) 32, Alanine Aminotransferase (ALT/SGPT) 49, Alkaline Phosphatase 110, Total Bilirubin 1.5H, Total Protein 6.3L, Albumin 1.3L, Magnesium Level 2.0, Albumin/Globulin Ratio 0.26L, Digoxin Level 1.1 CBC/BMP Laboratory Tests 01/19/19 16:25 01/20/19 05:16 Red Blood Count 3.81 L, Mean Corpuscular Volume 85.3, Mean Corpuscular Hemoglobin 26.8 L, Mean Corpuscular Hemoglobin Concent 31.4 L, Red Cell Distribution Width 17.2 H, Neutrophils (%) (Auto) 89.2 H, Lymphocytes (%) (Auto) 2.1 L, Monocytes (%) (Auto) 8.0 H, Eosinophils (%) (Auto) 0.0, Basophils (%) (Auto) 0.1, Neutrophils # (Auto) 8.6 H, Lymphocytes # (Auto) 0.2 L, Monocytes # (Auto) 0.8, Eosinophils # (Auto) 0.0, Basophils # (Auto) 0.0, Calcium Level 10.7 H, Aspartate Amino Transf (AST/SGOT) 32, Alanine Aminotransferase (ALT/SGPT) 49, Alkaline Phosphatase 110, Total Bilirubin 1.5 H, Total Protein 6.3 L, Albumin 1.3 L MARCIO GABRIEL PA-C Jan 20, 2019 12:00
[2019-01-20 16:00] VITALS: BP 127/72
[2019-01-20 20:00] VITALS: BP 132/76
[2019-01-20] MEDS: LORazepam 0.5 MG TAB PO PRN (23:08)
[2019-01-20 23:59] VITALS: BP 105/65
[2019-01-21 04:00] VITALS: BP 137/69
[2019-01-21] MEDS: METOPROLOL TART 25 MG TABLET PO SCH ×3 (05:31→18:06)
[2019-01-21 08:00] VITALS: BP 117/70
[2019-01-21] MEDS: LORazepam 0.5 MG TAB PO PRN ×2 (09:26→16:39)
[2019-01-21] MEDS: POTASSIUM CHLORIDE 10% LIQ 20 MEQ/15 ML UDC PO SCH ×2 (09:26→22:01)
[2019-01-21] MEDS: DOCUSATE SODIUM 100 MG CAP PO SCH ×2 (09:27→21:45)
[2019-01-21] MEDS: MAGNESIUM OXIDE 400 MG TAB (MAG-OX) PO SCH ×2 (09:27→21:45)
[2019-01-21] MEDS: predniSONE 10 MG TAB PO SCH (09:28)
[2019-01-21] MEDS: DIGOXIN 0.25 MG TAB PO SCH (09:28)
[2019-01-21 12:00] VITALS: BP 116/56
--- NOTE | 2019-01-21 14:02 | IPNPDOC ---
Subjective Date Seen The patient was seen on 01/21/19. Subjective Chief Complaint/HPI unresponsive today verbally , shakes head when asked bout pain General: Reports: ROS Unobtainable Objective Physical Examination General Exam: Positive: Alert (pt doesn't always respond to questions, difficulty vocalizing when he does, diffisulty understanding what he is saying as wlel. ), Cooperative Eye Exam: Positive: Other Eye Symptoms (unabel to open eyes due to tumor on face. purple swelling left medial eyebrow and nasal bridge.) Neck Exam: Negative: JVD Chest Exam: Positive: Diminished Heart Exam: Positive: Rate Normal Telemetry: Positive: Atrial fibrillation Abdomen Exam: Positive: Normal bowel sounds, Soft; Negative: Tenderness Extremity Exam: Negative: Edema Skin Exam: Negative: Rash Neuro Exam: Negative: Normal Speech Psych Exam: Negative: Mental status NL (flat affect, minimal verbalization) Assessment /Plan Problems (1) Metastatic lung carcinoma Status: Chronic Problem Text: 01/21: remains averbal. really a candidate for [employer]/Palliative care only. 01/20 family friend at bedside, is not, pt not able to converse appropriately. 01/19/19: continue to provide treatment. offered family meeting to discuss course of treatment and declines. She is agreeable to continuing with conversations with PFS for DC planning. 01/18/19: Oncology consult with Dr. Aburto called to her office. aware. Will have physician see patient and today. will discuss functional status for repeat pembro at 21D cycle c primary Oncologist Dr. Aburto-obvious concern is new pancytopenia and AF c RVR 01/14/[address] CAP (no PE) 01/06/19 Dr. Aburto restarted pembro given response in past (2) Diastolic congestive heart failure Response to Treatment: Stable Problem Text: Euvolemic on current regimen 01/15 2685; therefore, SLIV 01/02 BNP 707 (3) DNR (do not resuscitate) Status: Chronic Problem Text: 01/16/19 given patient has verbalized to myself and to 2 other nursing staff his wishes for DNR/DNI; MOLST was completed to this effect. During private discussion with , agreed c MOLST. (4) Atrial fibrillation Status: Acute Response to Treatment: Stable, Improving Problem Text: no AC given pancytopenia c 01/15 plt down to 82K, hgb 7.6 (favor pembro and chronic disease effect) and intermittent bleeding of sinus metastasis Contingency: amio 01/17 + dig 250, increased met tar 50 q6H to 75 q6H digoxin 0.25 mg IV x 1. Dig level 1.0 this am (p 0.75 IV load 01/15) Increase beta dianelys until HR controlled. Current dosing ordered: metoprolol 50 mg po q6hrs. Will replace electrolytes accordingly. Patient is not anti-coagulated due to hx of bleeding, thrombocytopenia and anemia. 01/14/19 [facility] visit for palpitations-found to be NCT at 190, p BB slowed to 150s and cw AF; loaded c dig IV total 1.0 mg 01/14 TSH/FT4 06/06.2 01/14 T-I <0.3 01/15 TTE: CONCLUSIONS: 1. Very mild concentric left ventricular hypertrophy, normal region LV wall motion and wall thickening. Normal LV systolic function. LVEF 60% by visual estimate. Grade 1 LV diastolic dysfunction. 2. Normal right ventricle internal dimensions. Mild hypertrophy of the right ventricle free wall. Normal right ventricle systolic function. Suggestive of moderate elevation of pulmonary artery systolic pressure. 3. Otherwise Normal appearing echocardiogram Doppler findings. DD: Lloyd Quinn MD [facility] 01/15/192139 0707 DS: (5) Anemia Status: Chronic Problem Text: 01/19 7.6; therefore, 2u; then 10.3 01/17 8.2 (8.5) 01/15 down to 7.6 (01/14 9.9)-but + 2.8 L since admission; therefore, SLIV no AC for DVT px/AF baseline mid (6) Atrial flutter Status: Acute Problem Text: as per AFl (7) Physical deconditioning Status: Chronic Problem Text: 01/18 PT NS for dc home (8) COPD (chronic obstructive pulmonary disease) Status: Chronic Problem Text: stable on baseline pred 10 (9) Hypokalemia Status: Resolved Problem Text: partially 2 pembro (chronic HD K 20 BID, MOX 800 BID) 01/17 3.5/1.7; therefore, K 20 BID to 40 BID/ + Mg 1 IV and to 1600 BID 01/15 3.2-continue HD and replaced extra (10) Hypomagnesemia Status: Acute Problem Text: as per hypoK (11) Hypercalcemia of malignancy Status: Resolved Problem Text: 01/21: received reclast IV at recent hospital stay. 01/15 down to 9.2 (12) Dysphagia Status: Acute Problem Text: swallow eval today. (13) Severe protein-calorie malnutrition Status: Chronic Problem Text: po intake is minimal declines dietary consult. encouraged high calorie foods. + dysphagia and now with thickened liquids. Plan/VTE VTE Prophylaxis Ordered?: No VTE Exclusion Pharmacological: Thrombocytopenia Plan Pt and Family Services: Other PFS Advance Directives: DNR VS, I&O, 24H, Fishbone Vital Signs/I&O Vital Signs Date Time Temp Pulse Resp B/P (MAP) Pulse Ox O2 Delivery O2 Flow Rate FiO2 01/21/19 13:03 96 116/56 01/21/19 12:00 97.5 16 98 I&O- Last 24 Hours up to 6 AM 01/21/19 06:00 Intake Total 120 ml Output Total 325 ml Balance -205 ml Chalo Simmons MD Jan 21, 2019 14:02
[2019-01-21 16:00] VITALS: BP 135/82
[2019-01-21 20:00] VITALS: BP 131/74
[2019-01-21 23:59] VITALS: BP_SYST 119; BP_SYST 135; BP_DIAS 75; BP_DIAS 78
[2019-01-22] MEDS: METOPROLOL TART 25 MG TABLET PO SCH ×4 (00:49→17:37)
[2019-01-22 04:00] VITALS: BP 129/70
[2019-01-22 08:00] VITALS: BP 125/72
[2019-01-22 09:17] LABS: HEMATOCRIT 36.5 % (42.0-52.0); HEMOGLOBIN 11.2 g/dl (13.5-17.5); MEAN CORPUSCULAR HEMOGLOBIN 27.1 pg (27.0-33.0); MEAN CORPUSCULAR HGB CONC 30.7 g/dl (32.0-36.5); MEAN CORPUSCULAR VOLUME 88.4 fl (80.0-96.0); RED BLOOD COUNT 4.13 10^6/uL (4.30-6.10); WHITE BLOOD COUNT 10.6 10^3/uL (4.0-10.0)
[2019-01-22 09:20] LABS: PLATELET COUNT, AUTOMATED 73 10^3/uL (150-450)
[2019-01-22] MEDS: DOCUSATE SODIUM 100 MG CAP PO SCH ×2 (09:52→21:00)
[2019-01-22] MEDS: DIGOXIN 0.25 MG TAB PO SCH (09:52)
[2019-01-22] MEDS: MAGNESIUM OXIDE 400 MG TAB (MAG-OX) PO SCH ×2 (09:52→21:00)
[2019-01-22] MEDS: predniSONE 10 MG TAB PO SCH (09:52)
[2019-01-22] MEDS: POTASSIUM CHLORIDE 10% LIQ 20 MEQ/15 ML UDC PO SCH ×2 (09:53→21:00)
--- NOTE | 2019-01-22 10:29 | IPNPDOC ---
Subjective Date Seen The patient was seen on 01/22/19. Subjective Chief Complaint/HPI no voiced requests/complaints. General: Reports: ROS Unobtainable Objective Physical Examination General Exam: Positive: Alert (minmal verbal communication today. orients to voice. seems aware of surrounding and not distressed.), Cooperative Eye Exam: Positive: Other Eye Symptoms (significant swelling of brow ridge with violaceous, vascular looking mass protruding from left medial eyebrow.) Neck Exam: Negative: JVD Chest Exam: Positive: Diminished Heart Exam: Positive: Rate Normal, Regular Rhythm Telemetry: Positive: No significant arrhythmia Abdomen Exam: Positive: Normal bowel sounds, Soft; Negative: Tenderness Extremity Exam: Negative: Edema Skin Exam: Negative: Rash Neuro Exam: Negative: Normal Speech Psych Exam: Negative: Mental status NL (flat affect, minimal verbalization) Assessment /Plan Problems (1) Metastatic lung carcinoma Status: Chronic Problem Text: 01/22: spouse continues with what seems unrealistic pursuit of "just one more" opinion. his performance status is so poor that I don't think he would be a candidate for any treatment. and that Hospice is fully appropriate at this point. Spouse indicates that Dr. Moore had seen him earlier in the week, but no note is available from that interaction. Spouse seems at one moment to wishing to pursue aggressive additional treatment and at another considering Hospice since she says that Bk had expressed to her that he wanted to go home. 01/21: remains averbal. really a candidate for PROVIDER NETWORK MANAGER/Palliative care only. 01/20 family friend at bedside, is not, pt not able to converse approp riately. 01/19/19: continue to provide treatment. offered family meeting to discuss course of treatment and declines. She is agreeable to continuing with conversations with PFS for DC planning. 01/18/19: Oncology consult with Dr. Moore called to her office. aware. Will have physician see patient and today. will discuss functional status for repeat pembro at 21D cycle c primary Onc ologist Dr. Moore-obvious concern is new pancytopenia and AF c RVR 01/14/[address] CAP (no PE) 01/06/19 Dr. Moore restarted pembro given response in past (2) Diastolic congestive heart failure Response to Treatment: Stable Problem Text: Euvolemic on current regimen 01/15 2685; therefore, SLIV 01/02 BNP 707 (3) DNR (do not resuscitate) Status: Chronic Problem Text: 01/16/19 given patient has verbalized to myself and to 2 other nursing staff his wishes for DNR/DNI; MOLST was completed to this effect. During private discussion with , agreed c MOLST. (4) Atrial fibrillation Status: Acute Response to Treatment: Stable, Improving Problem Text: no AC given pancytopenia c 01/15 plt down to 82K, hgb 7.6 (favor pembro and chronic disease effect) and intermittent bleeding of sinus metastasis Contingency: amio 01/17 + dig 250, increased met tar 50 q6H to 75 q6H digoxin 0.25 mg IV x 1. Dig level 1.0 this am (p 0.75 IV load 01/15) Increase beta dianelys until HR controlled. Current dosing ordered: metoprolol 50 mg po q6hrs. Will replace electrolytes accordingly. Patient is not anti-coagulated due to hx of bleeding, thrombocytopenia and anemia. 01/14/19 [facility] visit for palpitations-found to be NCT at 190, p BB slowed to 150s and cw AF; loaded c dig IV total 1.0 mg 01/14 TSH/FT4 06/06.2 01/14 T-I <0.3 01/15 TTE: CONCLUSIONS: 1. Very mild concentric left ventricular hypertrophy, normal region LV wall motion and wall thickening. Normal LV systolic function. LVEF 60% by visual estimate. Grade 1 LV diastolic dysfunction. 2. Normal right ventricle internal dimensions. Mild hypertrophy of the right ventricle free wall. Normal right ventricle systolic function. Suggestive of moderate elevation of pulmonary artery systolic pressure. 3. Otherwise Normal appearing echocardiogram Doppler findings. DD: Lloyd Quinn MD [facility] 01/15/192139 [id number] DS: (5) Anemia Status: Chronic Problem Text: 01/19 7.6; therefore, 2u; then 10.3 01/17 8.2 (8.5) 01/15 down to 7.6 (01/14 9.9)-but + 2.8 L since admission; therefore, SLIV no AC for DVT px/AF baseline mid 9s (6) Atrial flutter Status: Resolved Response to Treatment: Stable Problem Specific Plan: Monitor Clinically Problem Text: as per AFl (7) Physical deconditioning Status: Chronic Problem Text: 01/18 PT NS for dc home (8) COPD (chronic obstructive pulmonary disease) Status: Chronic Response to Treatment: Stable Problem Text: stable on baseline pred 10 (9) Hypokalemia Status: Resolved Problem Text: partially 2 pembro (chronic HD K 20 BID, MOX 800 BID) 01/17 3.5/1.7; therefore, K 20 BID to 40 BID/ + Mg 1 IV and to 1600 BID 01/15 3.2-continue HD and replaced extra (10) Hypomagnesemia Status: Acute Problem Text: as per hypoK (11) Hypercalcemia of malignancy Status: Resolved Problem Text: 01/21: received reclast IV at recent hospital stay. 01/15 down to 9.2 (12) Dysphagia Status: Acute Problem Text: swallow eval today. (13) Severe protein-calorie malnutrition Status: Chronic Problem Text: po intake is minimal declines dietary consult. encouraged high calorie foods. + dysphagia and now with thickened liquids. Plan/VTE VTE Prophylaxis Ordered?: No VTE Exclusion Pharmacological: Thrombocytopenia Plan Pt and Family Services: Other PFS Anticipated Discharge: Hospice (Hospice is his best option and fulfills stated wish to go home. ) Advance Directives: DNR VS, I&O, 24H, Fishbone Vital Signs/I&O Vital Signs Date Time Temp Pulse Resp B/P (MAP) Pulse Ox O2 Delivery O2 Flow Rate FiO2 01/22/19 09:52 90 01/22/19 08:00 97.5 17 125/72 (89) 97 I&O- Last 24 Hours up to 6 AM 01/22/19 06:00 Intake Total 220 ml Output Total 250 ml Balance -30 ml Laboratory Data 24H LABS Laboratory Tests 2 01/22/19 09:00: Nucleated Red Blood Cells % (auto) 0.0, Immature Platelet Fraction 6.8 CBC/BMP Laboratory Tests 01/22/19 09:00 Red Blood Count 4.13 L, Mean Corpuscular Volume 88.4, Mean Corpuscular Hemoglobin 27.1, Mean Corpuscular Hemoglobin Concent 30.7 L, Red Cell Distribution Width 17.5 H Chalo Simmons MD Jan 22, 2019 10:29
[2019-01-22 11:22] LABS: BLOOD UREA NITROGEN 26 MG/DL (7-18); CALCIUM LEVEL 10.7 MG/DL (8.8-10.2); CARBON DIOXIDE LEVEL 24 MEQ/L (21-32); CHLORIDE LEVEL 109 MEQ/L (98-107); CREATININE FOR GFR 0.48 MG/DL (0.70-1.30); GLOMERULAR FILTRATION RATE > 60.0 (>49); GLUCOSE, FASTING 105 MG/DL (70-100); POTASSIUM SERUM 3.9 MEQ/L (3.5-5.1); SODIUM LEVEL 143 MEQ/L (136-145)
[2019-01-22 12:00] VITALS: BP 126/78
[2019-01-22] MEDS: LORazepam 0.5 MG TAB PO PRN (12:18)
[2019-01-22] MEDS: ACETAMINOPHEN TAB 650MG DOSE (2X325MG) PO PRN (13:55)
[2019-01-22 16:00] VITALS: BP 120/70
[2019-01-22 20:00] VITALS: BP 102/51
[2019-01-22 23:59] VITALS: BP 132/77
[2019-01-23] MEDS: LORazepam 0.5 MG TAB PO PRN ×2 (00:03→20:16)
[2019-01-23] MEDS: METOPROLOL TART 25 MG TABLET PO SCH ×4 (00:06→18:17)
[2019-01-23 04:00] VITALS: BP 128/77
[2019-01-23 05:50] LABS: HEMOGLOBIN 11.2 g/dl (13.5-17.5); MEAN CORPUSCULAR HEMOGLOBIN 26.9 pg (27.0-33.0); MEAN CORPUSCULAR HGB CONC 30.3 g/dl (32.0-36.5); MEAN CORPUSCULAR VOLUME 88.7 fl (80.0-96.0); PLATELET COUNT, AUTOMATED 64 10^3/uL (150-450); RED BLOOD COUNT 4.17 10^6/uL (4.30-6.10); WHITE BLOOD COUNT 10.2 10^3/uL (4.0-10.0)
[2019-01-23 06:11] LABS: ALBUMIN 1.5 GM/DL (3.2-5.2); ALT/SGPT 26 U/L (12-78); BILIRUBIN,TOTAL 1.1 MG/DL (0.2-1.0); BLOOD UREA NITROGEN 30 MG/DL (7-18); CALCIUM LEVEL 11.4 MG/DL (8.8-10.2); CARBON DIOXIDE LEVEL 23 MEQ/L (21-32); CHLORIDE LEVEL 114 MEQ/L (98-107); CREATININE FOR GFR 0.52 MG/DL (0.70-1.30); GLOMERULAR FILTRATION RATE > 60.0 (>49); GLUCOSE, FASTING 125 MG/DL (70-100); POTASSIUM SERUM 3.8 MEQ/L (3.5-5.1); SODIUM LEVEL 146 MEQ/L (136-145)
[2019-01-23 08:00] VITALS: BP 124/70
[2019-01-23] MEDS: POTASSIUM CHLORIDE 10% LIQ 20 MEQ/15 ML UDC PO SCH ×2 (09:00→20:16)
[2019-01-23] MEDS: DIGOXIN 0.25 MG TAB PO SCH (09:28)
[2019-01-23] MEDS: DOCUSATE SODIUM 100 MG CAP PO SCH ×2 (09:28→20:16)
[2019-01-23] MEDS: predniSONE 10 MG TAB PO SCH (09:28)
[2019-01-23] MEDS: MAGNESIUM OXIDE 400 MG TAB (MAG-OX) PO SCH ×2 (09:29→20:16)
[2019-01-23 12:00] VITALS: BP 121/71
--- NOTE | 2019-01-23 13:48 | IPNPDOC ---
Subjective Date Seen The patient was seen on 01/23/19. Subjective Chief Complaint/HPI Unfortunately when I saw him this early afternoon his was not present at the bedside. The patient was resting and nursing reports he's been sleeping most of the day. Speech therapy did see him and recommended a change in the consistency of his diet. We've accepted this change. General: Reports: ROS Unobtainable Objective Physical Examination General Exam: Positive: No Acute Distress; Negative: Alert (somnolent) Eye Exam: Positive: Other Eye Symptoms (significant swelling of brow ridge with violaceous, vascular looking mass protruding from left medial eyebrow.) Neck Exam: Negative: JVD Chest Exam: Positive: Diminished Heart Exam: Positive: Rate Normal, Regular Rhythm Abdomen Exam: Positive: Normal bowel sounds, Soft; Negative: Tenderness Extremity Exam: Negative: Edema Skin Exam: Negative: Rash Neuro Exam: Negative: Normal Speech Psych Exam: Negative: Mental status NL, Oriented x 3 Assessment /Plan Problems (1) Metastatic lung carcinoma Status: Chronic Problem Text: 01/23: Initially I was only able to meet with the patient, but later in the day his spouse was here and I did meet with her too. I let her know that he is getting dehydrated because he can't eat or drink and that his body is starting the vehicle care specialist shutdown process that happens when someone is dying. This starts with dehydration and rises in sodium levels. I explained that he could be hydrated, but that may mean that he suffers more as he dies since we will be bypassing the natural process that starts with dehydration after not being able to eat and drink. She stated that she has discussed this with him and that he wants to keep fighting. She states that she will know when it is too much for hi m b/c she spends so much time with him. We will start a trial of IV hydration. 01/22: spouse continues with what seems unrealistic pursuit of "just one more" opinion. his performance status is so poor that I don't think he would be a candidate for any treatment. and that Hospice is fully appropriate at this point. Spouse indicates that Dr. Moore had seen him earlier in the week, but no note is available from that interaction. Spouse seems at one moment to wishing to pursue aggressive additional treatment and at another considering Hospice since she says that Bk had expressed to her that he wanted to go home. 01/21: remains averbal. really a candidate for K 9 POLICE OFFICER/Palliative care only. 01/20 family friend at bedside, is not, pt not able to converse appropriately. 01/19/19: continue to provide treatment. offered family meeting to discuss course of treatment and declines. She is agreeable to continuing with conversations with PFS for DC planning. 01/18/19: Oncology consult with Dr. Moore called to her office. aware. Will have physician see patient and today. will discuss functional status for repeat pembro at 21D cycle c primary Oncologist Dr. Moore-obvious concern is new pancytopenia and AF c RVR 01/14/[address] CAP (no PE) 01/06/19 Dr. Moore restarted pembro given response in past (2) Hypernatremia Status: Acute Problem Text: This is from volume contraction; he is likely has normal total body sodium. We will adjust his diet and fluids to nectar thick per SP recommendations. I will also start him on gentle hydration per his 's request. (3) Severe protein-calorie malnutrition Status: Chronic Problem Text: 01/23: I suspect that the gentle hydration that was started at his 's request today will lead to 3rd spacing because of his malnutrition. I explained this to her in non-medical terms. She understands that this is a possibility, but wants to see how he responds. We discussed the possibility of a feeding tube, but she wasn't sure that he would want that. po intake is minimal declines dietary consult. encouraged high calorie foods. + dysphagia and now with thickened liquids. (4) Dysphagia Status: Acute Problem Text: 01/23: If his continues to execute his wishes as "doing all we can to keep him alive" this will need to be addressed in more detail. Right now he has a modified diet, but he is not eating nearly enough. He will need either a PEG or possibly some sort of central access for TPN. I briefly discussed this with his and she wasn't sure he would want to go that far, especially if there is risk involved with the procedures, but she will think more about it. swallow eval today. (5) Diastolic congestive heart failure Response to Treatment: Stable Problem Text: 01/23: I started very gentle hydration given the fact that he is clearly dehydrated from poor oral intake. I did so to not overwhelm his heart and exacerbate an acute congestive heart failure. Monitor closely. Euvolemic on current regimen 01/15 2685; therefore, SLIV 01/02 BNP 707 (6) DNR (do not resuscitate) Status: Chronic Problem Text: 01/16/19 given patient has verbalized to myself and to 2 other nursing staff his wishes for DNR/DNI; MOLST was completed to this effect. During private discussion with , agreed c MOLST. (7) Anemia Status: Chronic Problem Text: 01/23: His Hb looks good today, but I suspect this is a hemoconcentrated value. Since we have started hydration today we should monitor his H/H carefully. 01/19 7.6; therefore, 2u; then 10.3 01/17 8.2 (8.5) 01/15 down to 7.6 (01/14 9.9)-but + 2.8 L since admission; therefore, SLIV no AC for DVT px/AF baseline mid 9s (8) Atrial fibrillation Status: Acute Response to Treatment: Stable, Improving Problem Text: no AC given pancytopenia c 01/15 plt down to 82K, hgb 7.6 (favor pembro and chronic disease effect) and intermittent bleeding of sinus metastasis Contingency: amio 01/17 + dig 250, increased met tar 50 q6H to 75 q6H digoxin 0.25 mg IV x 1. Dig level 1.0 this am (p 0.75 IV load 01/15) Increase beta dianelys until HR controlled. Current dosing ordered: metoprolol 50 mg po q6hrs. Will replace electrolytes accordingly. Patient is not anti-coagulated due to hx of bleeding, thrombocytopenia and anemia. 01/14/19 [facility] visit for palpitations-found to be NCT at 190, p BB slowed to 150s and cw AF; loaded c dig IV total 1.0 mg 01/14 TSH/FT4 06/06.2 01/14 T-I <0.3 01/15 TTE: CONCLUSIONS: 1. Very mild concentric left ventricular hypertrophy, normal region LV wall motion and wall thickening. Normal LV systolic function. LVEF 60% by visual estimate. Grade 1 LV diastolic dysfunction. 2. Normal right ventricle internal dimensions. Mild hypertrophy of the right ventricle free wall. Normal right ventricle systolic function. Suggestive of moderate elevation of pulmonary artery systolic pressure. 3. Otherwise Normal appearing echocardiogram Doppler findings. DD: Lloyd Quinn MD [facility] 01/15/190 6 DS: (9) Atrial flutter Status: Resolved Response to Treatment: Stable Problem Specific Plan: Monitor Clinically Problem Text: as per AFl (10) Physical deconditioning Status: Chronic Problem Text: 01/18 PT NS for dc home (11) COPD (chronic obstructive pulmonary disease) Status: Chronic Response to Treatment: Stable Problem Text: stable on baseline pred 10 (12) Hypokalemia Status: Resolved Problem Text: partially 2 pembro (chronic HD K 20 BID, MOX 800 BID) 01/17 3.5/1.7; therefore, K 20 BID to 40 BID/ + Mg 1 IV and to 1600 BID 01/15 3.2-continue HD and replaced extra (13) Hypomagnesemia Status: Acute Problem Text: as per hypoK (14) Hypercalcemia of malignancy Status: Resolved Problem Text: 01/21: received reclast IV at recent hospital stay. 01/15 down to 9.2 Plan/VTE VTE Prophylaxis Ordered?: No VTE Exclusion Pharmacological: Thrombocytopenia Plan Pt and Family Services: Other PFS Advance Directives: DNR Disposition I moved him to the floor, as he is not requiring intense nursing assistance. His disposition is unclear at this time. His would like a consultation from "the new oncologist". When I asked who this was she said she wasn't sure but she saw it on Facebook. She doesn't really want to see the oncologists that are here again including Dr. Moore who has seen him most recently because "they have all given up on him." Dr. Moore is on today, so I didn't reconsult. VS, I&O, 24H, Fishbone Vital Signs/I&O Vital Signs Date Time Temp Pulse Resp B/P (MAP) Pulse Ox O2 Delivery O2 Flow Rate FiO2 01/23/19 12:48 108 121/71 01/23/19 12:00 97.8 18 97 I&O- Last 24 Hours up to 6 AM 01/23/19 05:59 Intake Total 300 ml Output Total 150 ml Balance 150 ml Laboratory Data 24H LABS Laboratory Tests 2 01/23/19 05:32: Nucleated Red Blood Cells % (auto) 0.0, Anion Gap 9, Glomerular Filtration Rate > 60.0, Blood Urea Nitrogen 30H, Creatinine 0.52L, Sodium Level 146H, Potassium Level 3.8, Chloride Level 114H, Carbon Dioxide Level 23, Calcium Level 11.4H, Aspartate Amino Transf (AST/SGOT) 25, Alanine Aminotransferase (ALT/SGPT) 26, Alkaline Phosphatase 122H, Total Bilirubin 1.1H, Total Protein 7.0, Albumin 1.5L, Albumin/Globulin Ratio 0.27L CBC/BMP Laboratory Tests 01/23/19 05:32 Red Blood Count 4.17 L, Mean Corpuscular Volume 88.7, Mean Corpuscular Hemoglobin 26.9 L, Mean Corpuscular Hemoglobin Concent 30.3 L, Red Cell Distribution Width 17.6 H, Calcium Level 11.4 H, Aspartate Amino Transf (AST/SGOT) 25, Alanine Aminotransferase (ALT/SGPT) 26, Alkaline Phosphatase 122 H, Total Bilirubin 1.1 H, Total Protein 7.0, Albumin 1.5 L Ankur Talbert MD Jan 23, 2019 13:48
[2019-01-23 20:00] VITALS: BP 133/78
[2019-01-23] MEDS: KCL 20MEQ IN D5/0.2%NS 1000ML 1,000 ML IV SCH (20:16)
[2019-01-23] MEDS: ACETAMINOPHEN TAB 650MG DOSE (2X325MG) PO PRN (20:17)
[2019-01-24] VITALS: BP 121/73
[2019-01-24] MEDS: METOPROLOL TART 25 MG TABLET PO SCH ×4 (00:49→18:07)
[2019-01-24 04:00] VITALS: BP 121/74
[2019-01-24 05:45] LABS: HEMATOCRIT 37.1 % (42.0-52.0); HEMOGLOBIN 11.1 g/dl (13.5-17.5); MEAN CORPUSCULAR HEMOGLOBIN 26.9 pg (27.0-33.0); MEAN CORPUSCULAR HGB CONC 29.9 g/dl (32.0-36.5); RED BLOOD COUNT 4.12 10^6/uL (4.30-6.10); WHITE BLOOD COUNT 8.6 10^3/uL (4.0-10.0)
[2019-01-24 05:48] LABS: PLATELET COUNT, AUTOMATED 56 10^3/uL (150-450)
[2019-01-24 06:11] LABS: ALBUMIN 1.5 GM/DL (3.2-5.2); ALT/SGPT 25 U/L (12-78); BILIRUBIN,TOTAL 1.1 MG/DL (0.2-1.0); BLOOD UREA NITROGEN 30 MG/DL (7-18); CALCIUM LEVEL 10.9 MG/DL (8.8-10.2); CARBON DIOXIDE LEVEL 27 MEQ/L (21-32); CHLORIDE LEVEL 111 MEQ/L (98-107); CHOLESTEROL LEVEL 90 MG/DL (< 200); CREATININE FOR GFR 0.58 MG/DL (0.70-1.30); GLOMERULAR FILTRATION RATE > 60.0 (>49); GLUCOSE, FASTING 157 MG/DL (70-100); MAGNESIUM LEVEL 2.2 MG/DL (1.8-2.4); POTASSIUM SERUM 3.6 MEQ/L (3.5-5.1); SODIUM LEVEL 146 MEQ/L (136-145); TOTAL PROTEIN 6.8 GM/DL (6.4-8.2)
--- NOTE | 2019-01-24 07:54 | IPNPDOC ---
Subjective Date Seen The patient was seen on 01/24/19. Subjective Chief Complaint/HPI at bed side. Patient lying in bed. Per nursing tumor on forehead with bloody drainage overnight General: Reports: ROS Unobtainable Objective Physical Examination General Exam: Positive: Alert (somnolent ), No Acute Distress Eye Exam: Positive: Other Eye Symptoms (significant swelling of brow ridge with violaceous, vascular looking mass protruding from left medial eyebrow. Dried blood noted.) Neck Exam: Negative: JVD Chest Exam: Positive: Diminished Heart Exam: Positive: Rate Normal, Regular Rhythm Abdomen Exam: Positive: Normal bowel sounds, Soft; Negative: Tenderness Extremity Exam: Negative: Edema Skin Exam: Negative: Rash Neuro Exam: Negative: Normal Speech Psych Exam: Negative: Mental status NL, Oriented x 3 Assessment /Plan Problems (1) Metastatic lung carcinoma Status: Chronic Problem Text: 01/24:Patient appears to be tolerating gentle hydration. No edema noted this morning. Patient remains a candidate for [facility]/Palliative care 01/23: Initially I was only able to meet with the patient, but later in the day his spouse was here and I did meet with her too. I let her know that he is getting dehydrated because he can't eat or drink and that his body is starting the grants and contracts assistant shutdown process that happens when someone is dying. This starts with dehydration and rises in sodium levels. I explained that he could be hydrated, but that may mean that he suffers more as he dies since we will be bypassing the natural process that starts with dehydration after not being able to eat and drink. She stated that she has discussed this with him and that he wants to keep fighting. She states that she will know when it is too much for him b/c she spends so much time with him. We will start a trial of IV hydration. 01/22: spouse continues with what seems unrealistic pursuit of "just one more" opinion. his performance status is so poor that I don't think he would be a can didate for any treatment. and that Hospice is fully appropriate at this point. Spouse indicates that Dr. Moore had seen him earlier in the week, but no note is available from that interaction. Spouse seems at one moment to wishing to pursue aggressive additional treatment and at another considering Hospice since she says that Bk had expressed to her that he wanted to go home. 01/21: remains averbal. really a candidate for [facility]/Palliative care only. 01/20 family friend at bedside, is not, pt not able to converse appropriately. 01/19/19: continue to provide treatment. offered family meeting to discuss course of treatment and declines. She is agreeable to continuing with conversati ons with PFS for DC planning. 01/18/19: Oncology consult with Dr. Moore called to her office. aware. Will have physician see patient and today. will discuss functional status for repeat pembro at 21D cycle c primary Oncologist Dr. Moore-obvious concern is new pancytopenia and AF c RVR 01/14/[address] CAP (no PE) 01/06/19 Dr. Moore restarted pembro given response in past (2) Hypernatremia Status: Acute Problem Text: 01/24/19: Na+ 146 This is from volume contraction; he is likely has normal total body sodium. We will adjust his diet and fluids to nectar thick per SP recommendations. I will also start him on gentle hydration per his 's request. (3) Severe protein-calorie malnutrition Status: Chronic Problem Text: 01/24/19: Patient with minimal oral intake at this point. We will continue with gentle hydration 01/23: I suspect that the gentle hydration that was started at his 's request today will lead to 3rd spacing because of his malnutrition. I explained this to her in non-medical terms. She understands that this is a possibility, but wants to see how he responds. We discussed the possibility of a feeding tube, but she wasn't sure that he would want that. po intake is minimal declines dietary consult. encouraged high calorie foods. + dysphagia and now with thickened liquids. (4) Dysphagia Status: Acute Problem Text: 01/23: If his continues to execute his wishes as "doing all we can to keep him alive" this will need to be addressed in more detail. Right now he has a modified diet, but he is not eating nearly enough. He will need either a PEG or possibly some sort of central access for TPN. I briefly discussed this with his and she wasn't sure he would want to go that far, especially if there is risk involved with the procedures, but she will think more about it. swallow eval today. (5) Diastolic congestive heart failure Response to Treatment: Stable Problem Text: 01/23: I started very gentle hydration given the fact that he is clearly dehydrated from poor oral intake. I did so to not overwhelm his heart and exacerbate an acute congestive heart failure. Monitor closely. Euvolemic on current regimen 01/15 2685; therefore, SLIV 01/02 BNP 707 (6) DNR (do not resuscitate) Status: Chronic Problem Text: 01/16/19 given patient has verbalized to myself and to 2 other nursing staff his wishes for DNR/DNI; MOLST was completed to this effect. During private discussion with , agreed c MOLST. (7) Anemia Status: Chronic Problem Text: 01/23: His Hb looks good today, but I suspect this is a hemoconcentrated value. Since we have started hydration today we should monitor his H/H carefully. 01/19 7.6; therefore, 2u; then 10.3 01/17 8.2 (8.5) 01/15 down to 7.6 (01/14 9.9)-but + 2.8 L since admission; therefore, SLIV no AC for DVT px/AF baseline mid 9s (8) Atrial fibrillation Status: Acute Response to Treatment: Stable, Improving Problem Text: no AC given pancytopenia c 01/15 plt down to 82K, hgb 7.6 (favor pembro and chronic disease effect) and intermittent bleeding of sinus metastasis Contingency: amio 01/17 + dig 250, increased met tar 50 q6H to 75 q6H digoxin 0.25 mg IV x 1. Dig level 1.0 this am (p 0.75 IV load 01/15) Increase beta dianelys until HR controlled. Current dosing ordered: metoprolol 50 mg po q6hrs. Will replace electrolytes accordingly. Patient is not anti-coagulated due to hx of bleeding, thrombocytopenia and anemia. [facility]-found to be NCT at 190, p BB slowed to 150s and cw AF; loaded c dig IV total 1.0 mg 01/14 TSH/FT4 21/1.2 01/14 T-I <0.3 01/15 TTE: CONCLUSIONS: 1. Very mild concentric left ventricular hypertrophy, normal region LV wall motion and wall thickening. Normal LV systolic function. LVEF 60% by visual estimate. Grade 1 LV diastolic dysfunction. 2. Normal right ventricle internal dimensions. Mild hypertrophy of the right ventricle free wall. Normal right ventricle systolic function. Suggestive of moderate elevation of pulmonary artery systolic pressure. 3. Otherwise Normal appearing echocardiogram Doppler findings. DD: Lloyd Quinn MD [facility] 01/15/192139 6 DS: (9) Atrial flutter Status: Resolved Response to Treatment: Stable Problem Specific Plan: Monitor Clinically Problem Text: as per AFl (10) Physical deconditioning Status: Chronic Problem Text: 01/18 PT NS for dc home (11) COPD (chronic obstructive pulmonary disease) Status: Chronic Response to Treatment: Stable Problem Text: stable on baseline pred 10 (12) Hypokalemia Status: Resolved Problem Text: partially 2 pembro (chronic HD K 20 BID, MOX 800 BID) 01/17 3.5/1.7; therefore, K 20 BID to 40 BID/ + Mg 1 IV and to 1600 BID 01/15 3.2-continue HD and replaced extra (13) Hypomagnesemia Status: Acute Problem Text: as per hypoK (14) Hypercalcemia of malignancy Status: Resolved Problem Text: 01/21: received reclast IV at recent hospital stay. 01/15 down to 9.2 Plan/VTE VTE Prophylaxis Ordered?: No VTE Exclusion Pharmacological: Thrombocytopenia Plan Pt and Family Services: Other PFS Advance Directives: DNR VS, I&O, 24H, Fishbone Vital Signs/I&O Vital Signs Date Time Temp Pulse Resp B/P (MAP) Pulse Ox O2 Delivery O2 Flow Rate FiO2 01/24/19 05:49 100 121/74 01/24/19 04:00 96.5 34 92 I&O- Last 24 Hours up to 6 AM 01/24/19 06:00 Intake Total 720 ml Output Total 125 ml Balance 595 ml Laboratory Data 24H LABS Laboratory Tests 2 01/24/19 05:30: Nucleated Red Blood Cells % (auto) 0.0, Immature Platelet Fraction 8.4, Anion Gap 8, Glomerular Filtration Rate > 60.0, Blood Urea Nitrogen 30H, Creatinine 0.58L, Sodium Level 146H, Potassium Level 3.6, Chloride Level 111H, Carbon Dioxide Level 27, Calcium Level 10.9H, Aspartate Amino Transf (AST/SGOT) 28, Alanine Aminotransferase (ALT/SGPT) 25, Alkaline Phosphatase 129H, Total Bilirub in 1.1H, Cholesterol Level 90, Total Protein 6.8, Albumin 1.5L, Magnesium Level 2.2, Albumin/Globulin Ratio 0.28L CBC/BMP Laboratory Tests 01/24/19 05:30 Red Blood Count 4.12 L, Mean Corpuscular Volume 90.0, Mean Corpuscular Hemoglobin 26.9 L, Mean Corpuscular Hemoglobin Concent 29.9 L, Red Cell Distribution Width 17.6 H, Calcium Level 10.9 H, Aspartate Amino Transf (AST/SGOT) 28, Alanine Aminotransferase (ALT/SGPT) 25, Alkaline Phosphatase 129 H, Total Bilirubin 1.1 H, Cholesterol Level 90, Total Protein 6.8, Albumin 1.5 L STEPHANIE REHMAN [facility] Jan 24, 2019 07:54
[2019-01-24 08:00] VITALS: BP 135/78
[2019-01-24] MEDS: predniSONE 10 MG TAB PO SCH (08:25)
[2019-01-24] MEDS: DIGOXIN 0.25 MG TAB PO SCH (08:25)
[2019-01-24] MEDS: MAGNESIUM OXIDE 400 MG TAB (MAG-OX) PO SCH ×2 (08:25→21:39)
[2019-01-24] MEDS: POTASSIUM CHLORIDE 10% LIQ 20 MEQ/15 ML UDC PO SCH ×2 (08:26→21:00)
[2019-01-24] MEDS: DOCUSATE SODIUM 100 MG CAP PO SCH ×2 (08:26→19:41)
[2019-01-24] MEDS: KCL 20MEQ IN D5/0.2%NS 1000ML 1,000 ML IV SCH ×2 (09:34→19:00)
[2019-01-24 12:00] VITALS: BP 133/79
[2019-01-24 16:00] VITALS: BP 132/74
[2019-01-24 20:00] VITALS: BP 114/66
[2019-01-25] VITALS (7 sets, daily range): BP systolic 100–183; BP diastolic 57–87
[2019-01-25] MEDS: METOPROLOL TART 25 MG TABLET PO SCH ×4 (00:19→17:13)
[2019-01-25 05:51] LABS: HEMATOCRIT 32.4 % (42.0-52.0); MEAN CORPUSCULAR HGB CONC 30.9 g/dl (32.0-36.5); MEAN CORPUSCULAR VOLUME 87.6 fl (80.0-96.0); WHITE BLOOD COUNT 8.1 10^3/uL (4.0-10.0)
[2019-01-25 05:53] LABS: PLATELET COUNT, AUTOMATED 47 10^3/uL (150-450)
[2019-01-25 06:13] LABS: ALBUMIN 1.4 GM/DL (3.2-5.2); ALT/SGPT 33 U/L (12-78); BILIRUBIN,TOTAL 1.2 MG/DL (0.2-1.0); BLOOD UREA NITROGEN 26 MG/DL (7-18); CALCIUM LEVEL 10.6 MG/DL (8.8-10.2); CARBON DIOXIDE LEVEL 22 MEQ/L (21-32); CHLORIDE LEVEL 112 MEQ/L (98-107); CREATININE FOR GFR 0.52 MG/DL (0.70-1.30); GLOMERULAR FILTRATION RATE > 60.0 (>49); GLUCOSE, FASTING 144 MG/DL (70-100); POTASSIUM SERUM 3.8 MEQ/L (3.5-5.1); SODIUM LEVEL 145 MEQ/L (136-145); TOTAL PROTEIN 6.2 GM/DL (6.4-8.2)
[2019-01-25] MEDS: MAGNESIUM OXIDE 400 MG TAB (MAG-OX) PO SCH ×2 (08:54→21:11)
[2019-01-25] MEDS: POTASSIUM CHLORIDE 10% LIQ 20 MEQ/15 ML UDC PO SCH ×2 (08:54→21:11)
[2019-01-25] MEDS: DIGOXIN 0.25 MG TAB PO SCH (08:55)
[2019-01-25] MEDS: DOCUSATE SODIUM 100 MG CAP PO SCH ×2 (08:55→21:11)
[2019-01-25] MEDS: predniSONE 10 MG TAB PO SCH (08:55)
--- NOTE | 2019-01-25 10:07 | IPNPDOC ---
Subjective Date Seen The patient was seen on 01/25/19. Subjective Chief Complaint/HPI Taking some fluids. Awake and alert, but confused - only mumbles short answers - unintelligible at bedside -states he was comfortable overnight and states he does not seem to be in pain Pulmonary: Denies: Dyspnea Cardiovascular: Denies: Chest Pain Gastrointestinal: Denies: Nausea, Vomiting, Abdominal Pain, Diarrhea, Constipation Objective Physical Examination General Exam: Positive: Alert (Trying to reach out and grab something - speech unintelligable. ), No Acute Distress, Other (Thin, cachectic) Eye Exam: Positive: Other Eye Symptoms (significant swelling of brow ridge with violaceous, vascular looking mass protruding from left medial eyebrow. Dried blood noted.) Neck Exam: Negative: JVD Chest Exam: Positive: Diminished Heart Exam: Positive: Rate Normal, Regular Rhythm Abdomen Exam: Positive: Normal bowel sounds, Soft; Negative: Tenderness Extremity Exam: Negative: Edema Skin Exam: Negative: Rash Neuro Exam: Negative: Normal Speech Psych Exam: Negative: Mental status NL, Oriented x 3 Assessment /Plan Problems (1) Metastatic lung carcinoma Status: Chronic Problem Text: 01/25 - Cont IVF for now. Appears comfortable. has been communicating with PFS and is leaning toward [facility], but not ready for hospice. SHe wants to talk to Dr. Duff about this further today. JFW: returned to floor x 2 to meet with , not in room either time. Staff to page me on her arrival 01/24:Patient appears to be tolerating gentle hydration. No edema noted this morning. Patient remains a candidate for [facility] [employer]/Palliative care 01/23: Initially I was only able to meet with the patient, but later in the day h is spouse was here and I did meet with her too. I let her know that he is getting dehydrated because he can't eat or drink and that his body is starting the suspect artist shutdown process that happens when someone is dying. This starts with dehydration and rises in sodium levels. I explained that he could be hydrated, but that may mean that he suffers more as he dies since we will be bypassing the natural process that starts with dehydration after not being able to eat and drink. She stated that she has discussed this with him and that he wants to keep fighting. She states that she will know when it is too much for him b/c she spends so much time with him. We will start a trial of IV hydration. 01/22: spouse continues with what seems unrealistic pursuit of "just one more" opinion. his performance status is so poor that I don't think he would be a candidate for any treatment. and that Hospice is fully appropriate at this point. Spouse indicates that Dr. Moore had seen him earlier in the week, but no note is available from that interaction. Spouse seems at one moment to wishing to pursue aggressive additional treatment and at another considering Hospice since she says that Bk had expressed to her that he wanted to go home. 01/21: remains averbal. really a candidate for [facility] [employer]/Palliative care only. 01/20 family friend at bedside, is not, pt not able to converse appropriately. 01/19/19: continue to provide treatment. offered family meeting to discuss course of treatment and declines. She is agreeable to continuing with conversations with PFS for DC planning. 01/18/19: Oncology consult with Dr. Moore called to her office. aware. Will have physician see patient and today. will discuss functional status for repeat pembro at 21D cycle c primary Oncologist Dr. Moore-obvious concern is new pancytopenia and AF c RVR 01/14/[address] CAP (no PE) 01/06/19 Dr. Moore restarted pembro given response in past (2) Hypernatremia Status: Acute Problem Text: 01/24/19: Na+ 146 This is from volume contraction; he is likely has normal total body sodium. We will adjust his diet and fluids to nectar thick per SP recommendations. I will also start him on gentle hydration per his 's request. (3) Severe protein-calorie malnutrition Status: Chronic Problem Text: 01/24/19: Patient with minimal oral intake at this point. We will continue with gentle hydration 01/23: I suspect that the gentle hydration that was started at his 's request today will lead to 3rd spacing because of his malnutrition. I explained this to her in non-medical terms. She understands that this is a possibility, but wants to see how he responds. We discussed the possibility of a feeding tube, but she wasn't sure that he would want that. po intake is minimal declines dietary consult. encouraged high calorie foods. + dysphagia and now with thickened liquids. (4) Dysphagia Status: Acute Problem Text: 01/23: If his continues to execute his wishes as "doing all we can to keep him alive" this will need to be addressed in more detail. Right now he has a modified diet, but he is not eating nearly enough. He will need either a PEG or possibly some sort of central access for TPN. I briefly discussed this with his and she wasn't sure he would want to go that far, especially if there is risk involved with the procedures, but she will think more about it. swallow eval today. (5) Diastolic congestive heart failure Response to Treatment: Stable Problem Text: 01/23: I started very gentle hydration given the fact that he is clearly dehydrated from poor oral intake. I did so to not overwhelm his heart and exacerbate an acute congestive heart failure. Monitor closely. Euvolemic on current regimen 01/15 2685; therefore, SLIV 01/02 BNP 707 (6) DNR (do not resuscitate) Status: Chronic Problem Text: 01/16/19 given patient has verbalized to myself and to 2 other nursing staff his wishes for DNR/DNI; MOLST was completed to this effect. During private discussion with , agreed c MOLST. (7) Anemia Status: Chronic Problem Text: 01/23: His Hb looks good today, but I suspect this is a hemoconcentrated value. Since we have started hydration today we should monitor his H/H carefully. 01/19 7.6; therefore, 2u; then 10.3 01/17 8.2 (8.5) 01/15 down to 7.6 (01/14 9.9)-but + 2.8 L since admission; therefore, SLIV no AC for DVT px/AF baseline mid (8) Atrial fibrillation Status: Acute Response to Treatment: Stable, Improving Problem Text: no AC given pancytopenia c 01/15 plt down to 82K, hgb 7.6 (favor pembro and chronic disease effect) and intermittent bleeding of sinus metastasis Contingency: amio 01/17 + dig 250, increased met tar 50 q6H to 75 q6H digoxin 0.25 mg IV x 1. Dig level 1.0 this am (p 0.75 IV load 01/15) Increase beta dianelys until HR controlled. Current dosing ordered: metoprolol 50 mg po q6hrs. Will replace electrolytes accordingly. Patient is not anti-coagulated due to hx of bleeding, thrombocytopenia and anemia. 01/14/19 [facility] visit for palpitations-found to be NCT at 190, p BB slowed to 150s and cw AF; loaded c dig IV total 1.0 mg 01/14 TSH/FT4 21/1.2 01/14 T-I <0.3 01/15 TTE: CONCLUSIONS: 1. Very mild concentric left ventricular hypertrophy, normal region LV wall motion and wall thickening. Normal LV systolic function. LVEF 60% by visual estimate. Grade 1 LV diastolic dysfunction. 2. Normal right ventricle internal dimensions. Mild hypertrophy of the right ventricle free wall. Normal right ventricle systolic function. Suggestive of moderate elevation of pulmonary artery systolic pressure. 3. Otherwise Normal appearing echocardiogram Doppler findings. DD: Lloyd Quinn MD [facility] 01/15/192139 0707 DS: (9) Atrial flutter Status: Resolved Response to Treatment: Stable Problem Specific Plan: Monitor Clinically Problem Text: as per AFl (10) Physical deconditioning Status: Chronic Problem Text: 01/18 PT NS for dc home (11) COPD (chronic obstructive pulmonary disease) Status: Chronic Response to Treatment: Stable Problem Text: stable on baseline pred 10 (12) Hypokalemia Status: Resolved Problem Text: partially 2 pembro (chronic HD K 20 BID, MOX 800 BID) 01/17 3.5/1.7; therefore, K 20 BID to 40 BID/ + Mg 1 IV and to 1600 BID 01/15 3.2-continue HD and replaced extra (13) Hypomagnesemia Status: Acute Problem Text: as per hypoK (14) Hypercalcemia of malignancy Status: Resolved Problem Text: 01/21: received reclast IV at recent hospital stay. 01/15 down to 9.2 Plan/VTE VTE Prophylaxis Ordered?: No VTE Exclusion Pharmacological: Thrombocytopenia Plan Pt and Family Services: Other PFS Advance Directives: DNR VS, I&O, 24H, Fishbone Vital Signs/I&O Vital Signs Date Time Temp Pulse Resp B/P (MAP) Pulse Ox O2 Delivery O2 Flow Rate FiO2 01/25/19 08:55 109 01/25/19 08:00 97.8 20 100/63 (75) 97 I&O- Last 24 Hours up to 6 AM 01/25/19 06:00 Intake Total 2138 ml Output Total 380 ml Balance 1758 ml Laboratory Data 24H LABS Laboratory Tests 2 01/25/19 05:29: Nucleated Red Blood Cells % (auto) 0.0, Anion Gap 11, Glomerular Filtration Rate > 60.0, Blood Urea Nitrogen 26H, Creatinine 0.52L, Sodium Level 145, Potassium Level 3.8, Chloride Level 112H, Carbon Dioxide Level 22, Calcium Level 10.6H, Aspartate Amino Transf (AST/SGOT) 52H, Alanine Aminotransferase (ALT/SGPT) 33, Alkaline Phosphatase 132H, Total Bilirubin 1.2H, Total Protein 6.2L, Albumin 1.4L, Albumin/Globulin Ratio 0.29L CBC/BMP Laboratory Tests 01/25/19 05:29 Red Blood Count 3.70 L, Mean Corpuscular Volume 87.6, Mean Corpuscular Hemoglobin 27.0, Mean Corpuscular Hemoglobin Concent 30.9 L, Red Cell Distribution Width 17.7 H, Calcium Level 10.6 H, Aspartate Amino Transf (AST/SGOT) 52 H, Alanine Aminotransferase (ALT/SGPT) 33, Alkaline Phosphatase 132 H, Total Bilirubin 1.2 H, Total Protein 6.2 L, Albumin 1.4 L FRANCIA DUFF PA-C Jan 25, 2019 10:07 Michel Duff MD Jan 25, 2019 16:13
[2019-01-25] MEDS: KCL 20MEQ IN D5/0.2%NS 1000ML 1,000 ML IV SCH ×2 (11:01→21:11)
[2019-01-25] MEDS ORDERED: E-Z-PAQUE 96% w/w SUSP 176GM BTL As Ordered ONE (12:24)
[2019-01-25] MEDS ORDERED: BARIUM SULFATE 700 MG TABLET (E-Z-DISK) As Ordered ONE (12:24)
[2019-01-25] MEDS ORDERED: VARIBAR NECTAR 40% w/v 240ML SUSP BTL As Ordered ONE (12:24)
[2019-01-25] MEDS ORDERED: VARIBAR PUDDING 40% w/v 230ML TUBE As Ordered ONE (12:24)
--- NOTE | 2019-01-25 16:43 | REP ---
MAGGIE SWALLOW The procedure was performed under the direct supervision of Dr. Mcwilliams. The procedure was performed with Rupinder Cosme from speech pathology present. A 5 ml aliquot of honey consistency barium was administered however the patient would not swallow the barium and also would not hold still. The examination was unable to be performed. 0.3 minutes of fluoroscopy time was utilized for this procedure. Reviewed by ZARA Deal 01/25/2019 03:58 P Electronically Signed by Corey Mcwilliams MD 01/25/2019 04:34 P
--- NOTE | 2019-01-25 18:29 | IPN ---
DATE: 01/25/2019 Long conversation with Efra's , Aleisha. Patient aspirated, and today at the bedside she was advised against any oral feedings because of the risk of aspiration. Patient has cardiac medications that are required to be taken by mouth. I had a long discussion with Aleisha, who unfortunately still refuses to allow him to be treated through a palliative care approach. She is still "holding out for a miracle," and while I cannot discount the possibility this might happen, at this point it looks increasingly unlikely. I told her that the nursing staff were in a tough position here; they are giving somebody cardiac medications by mouth when we have proven that taking anything orally leads to the aspiration. If the patient were on comfort measures, we could do this with good conscience, as we would be providing him the comfort of oral feedings but acknowledging that the aspiration will contribute to his decline; however, he currently he is not on comfort measures, and Aleisha does not want him put on comfort measures. I agreed with Aleisha that we would continue oral feedings tonight, but if the patient is not made comfort measures tomorrow, we will have to re-evaluate the safety of any kind of oral feeding, including his cardiac medications. I do not think this patient is a candidate for a percutaneous endoscopic gastrostomy (PEG) tube with his advanced cancer, but with her insistence on aggressive medical care, it might actually come to that.
[2019-01-26] MEDS: METOPROLOL TART 25 MG TABLET PO SCH ×4 (00:42→17:01)
[2019-01-26 04:00] VITALS: BP 129/77
[2019-01-26 06:07] VITALS: BP 109/64
[2019-01-26 08:00] VITALS: BP 103/55
[2019-01-26 08:35] LABS: HEMATOCRIT 30.7 % (42.0-52.0); HEMOGLOBIN 9.4 g/dl (13.5-17.5); MEAN CORPUSCULAR HEMOGLOBIN 27.5 pg (27.0-33.0); MEAN CORPUSCULAR HGB CONC 30.6 g/dl (32.0-36.5); MEAN CORPUSCULAR VOLUME 89.8 fl (80.0-96.0); RED BLOOD COUNT 3.42 10^6/uL (4.30-6.10); WHITE BLOOD COUNT 8.4 10^3/uL (4.0-10.0)
[2019-01-26 08:52] LABS: PLATELET COUNT, AUTOMATED 35 10^3/uL (150-450)
[2019-01-26 09:00] LABS: ALBUMIN 1.3 GM/DL (3.2-5.2); ALT/SGPT 39 U/L (12-78); BILIRUBIN,TOTAL 1.6 MG/DL (0.2-1.0); BLOOD UREA NITROGEN 23 MG/DL (7-18); CALCIUM LEVEL 10.1 MG/DL (8.8-10.2); CARBON DIOXIDE LEVEL 21 MEQ/L (21-32); CHLORIDE LEVEL 111 MEQ/L (98-107); CREATININE FOR GFR 0.49 MG/DL (0.70-1.30); GLOMERULAR FILTRATION RATE > 60.0 (>49); GLUCOSE, FASTING 135 MG/DL (70-100); POTASSIUM SERUM 3.8 MEQ/L (3.5-5.1); SODIUM LEVEL 143 MEQ/L (136-145); TOTAL PROTEIN 6.1 GM/DL (6.4-8.2)
[2019-01-26] MEDS: POTASSIUM CHLORIDE 10% LIQ 20 MEQ/15 ML UDC PO SCH ×2 (09:00→21:00)
[2019-01-26] MEDS: DOCUSATE SODIUM 100 MG CAP PO SCH ×2 (09:00→21:00)
[2019-01-26] MEDS: MAGNESIUM OXIDE 400 MG TAB (MAG-OX) PO SCH ×2 (09:00→21:00)
[2019-01-26] MEDS: predniSONE 10 MG TAB PO SCH (09:00)
[2019-01-26] MEDS: DIGOXIN 0.25 MG TAB PO SCH (09:30)
--- NOTE | 2019-01-26 10:02 | IPNPDOC ---
Subjective Date Seen The patient was seen on 01/26/19. Subjective Chief Complaint/HPI Pt asleep this morning, groans when aroused. Spoke with nursing, PFS and Case Mgmt. Requesting consult from Ethics committee if pts doesn't consent to DIRECTOR WORKERS COMPENSATION today. General: Reports: ROS Unobtainable Objective Physical Examination General Exam: Positive: No Acute Distress, Other (Thin, cachectic, asleep, groans when arounds to touch, asleep at bedside snoring loudly); Negative: Alert (Trying to reach out and grab something - speech unintelligable. ) Eye Exam: Positive: Other Eye Symptoms (significant swelling of brow ridge with violaceous, vascular looking mass protruding from left medial eyebrow. Dried blood noted.) Neck Exam: Negative: JVD Chest Exam: Positive: Diminished Heart Exam: Positive: Rate Normal, Regular Rhythm Abdomen Exam: Positive: Normal bowel sounds, Soft; Negative: Tenderness Extremity Exam: Negative: Edema Skin Exam: Negative: Rash Neuro Exam: Negative: Normal Speech Psych Exam: Negative: Mental status NL, Oriented x 3 Assessment /Plan Problems (1) Metastatic lung carcinoma Status: Chronic Problem Text: 01/26 Pts cont to decline [employer] WORKERS COMPENSATION as of yesterday. She met with JW yesterday, nursing, CM and PFS request consult from Ethics committee, will address with attending. 01/25 - Cont IVF for now. Appears comfortable. has been communicating with PFS and is leaning toward DIRECT[employer] WORKERS COMPENSATION, but not ready for hospice. SHe wants to talk to Dr. Nielson about this further today. JFW: returned to floor x 2 to meet with , not in room either time. Staff to page me on her arrival 01/24:Patient appears to be tolerating gentle hydration. No edema noted this morning. Patient remains a candidate for DIRECT[employer] WORKERS COMPENSATION/Palliative care 01/23: Initially I was only able to meet with the patient, but later in the day his spouse was here and I did meet with her too. I let her know that he is getting dehydrated because he can't eat or drink and that his body is starting the applied computer science professor shutdown process that happens when someone is dying. This starts with dehydration and rises in sodium levels. I explained that he could be hydrated, but that may mean that he suffers more as he dies since we will be bypassing the natural process that starts with dehydration after not being able to eat and drink. She stated that she has discussed this with him and that he wants to keep fighting. She states that she will know when it is too much for h im b/c she spends so much time with him. We will start a trial of IV hydration. 01/22: spouse continues with what seems unrealistic pursuit of "just one more" opinion. his performance status is so poor that I don't think he would be a candidate for any treatment. and that Hospice is fully appropriate at this point. Spouse indicates that Dr. Moore had seen him earlier in the week, but no note is available from that interaction. Spouse seems at one moment to wishing to pursue aggressive additional treatment and at another considering Hospice since she says that Bk had expressed to her that he wanted to go home. 01/21: remains averbal. really a candidate for DIRECT[employer] WORKERS COMPENSATION/Palliative care only. 01/20 family friend at bedside, is not, pt not able to converse appropriately. 01/19/19: continue to provide treatment. offered family meeting to discuss course of treatment and declines. She is agreeable to continuing with conversations with PFS for DC planning. 01/18/19: Oncology consult with Dr. Moore called to her office. aware. Will have physician see patient and today. will discuss functional status for repeat pembro at 21D cycle c primary Oncologist Dr. Moore-obvious concern is new pancytopenia and AF c RVR 01/14/[address] CAP (no PE) 01/06/19 Dr. Moore restarted pembro given response in past (2) Hypernatremia Status: Acute Problem Text: 01/26 Na 143 01/24/19: Na+ 146 This is from volume contraction; he is likely has normal total body sodium. We will adjust his diet and fluids to nectar thick per SP recommendations. I will also start him on gentle hydration per his 's request. (3) Severe protein-calorie malnutrition Status: Chronic Problem Text: 01/24/19: Patient with minimal oral intake at this point. We will continue with gentle hydration 01/23: I suspect that the gentle hydration that was started at his 's request today will lead to 3rd spacing because of his malnutrition. I explained this to her in non-medical terms. She understands that this is a possibility, but wants to see how he responds. We discussed the possibility of a feeding tube, but she wasn't sure that he would want that. po intake is minimal declines dietary consult. encouraged high calorie foods. + dysphagia and now with thickened liquids. (4) Dysphagia Status: Acute Problem Text: 01/26 - Currently is really wanting everything done despite repeatedly being advised against this. He really isn't a good candidate for a PEG. 01/23: If his continues to execute his wishes as "doing all we can to keep him alive" this will need to be addressed in more detail. Right now he has a modified diet, but he is not eating nearly enough. He will need either a PEG or possibly some sort of central access for TPN. I briefly discussed this with his and she wasn't sure he would want to go that far, especially if there is risk involved with the procedures, but she will think more about it. swallow eval today. (5) Diastolic congestive heart failure Response to Treatment: Stable Problem Text: 01/23: I started very gentle hydration given the fact that he is clearly dehydrated from poor oral intake. I did so to not overwhelm his heart and exacerbate an acute congestive heart failure. Monitor closely. Euvolemic on current regimen 01/15 2685; therefore, SLIV 01/02 BNP 707 (6) DNR (do not resuscitate) Status: Chronic Problem Text: 01/16/19 given patient has verbalized to myself and to 2 other nursing staff his wishes for DNR/DNI; MOLST was completed to this effect. During private discussion with , agreed c MOLST. (7) Anemia Status: Chronic Problem Text: 01/23: His Hb looks good today, but I suspect this is a hemoconcentrated value. Since we have started hydration today we should monitor his H/H carefully. 01/19 7.6; therefore, 2u; then 10.3 01/17 8.2 (8.5) 01/15 down to 7.6 (01/14 9.9)-but + 2.8 L since admission; therefore, SLIV no AC for DVT px/AF baseline mid 9s (8) Atrial fibrillation Status: Acute Response to Treatment: Stable, Improving Problem Text: no AC given pancytopenia c 01/15 plt down to 82K, hgb 7.6 (favor pembro and chronic disease effect) and intermittent bleeding of sinus metastasis Contingency: amio 01/17 + dig 250, increased met tar 50 q6H to 75 q6H digoxin 0.25 mg IV x 1. Dig level 1.0 this am (p 0.75 IV load 01/15) Increase beta dianelys until HR controlled. Current dosing ordered: metoprolol 50 mg po q6hrs. Will replace electrolytes accordingly. Patient is not anti-coagulated due to hx of bleeding, thrombocytopenia and anemia. 01/14/19 [facility] visit for palpitations-found to be NCT at 190, p BB slowed to 150s and cw AF; loaded c dig IV total 1.0 mg 01/14 TSH/FT4 06/06.2 01/14 T-I <0.3 01/15 TTE: CONCLUSIONS: 1. Very mild concentric left ventricular hypertrophy, normal region LV wall motion and wall thickening. Normal LV systolic function. LVEF 60% by visual estimate. Grade 1 LV diastolic dysfunction. 2. Normal right ventricle internal dimensions. Mild hypertrophy of the right ventricle free wall. Normal right ventricle systolic function. Suggestive of moderate elevation of pulmonary artery systolic pressure. 3. Otherwise Normal appearing echocardiogram Doppler findings. DD: Lloyd Quinn MD [facility] 01/15/192139 [id number] DS: (9) Atrial flutter Status: Resolved Response to Treatment: Stable Problem Specific Plan: Monitor Clinically Problem Text: as per AFl (10) Physical deconditioning Status: Chronic Problem Text: 01/18 PT NS for dc home (11) COPD (chronic obstructive pulmonary disease) Status: Chronic Response to Treatment: Stable Problem Text: stable on baseline pred 10 (12) Hypokalemia Status: Resolved Problem Text: partially 2 pembro (chronic HD K 20 BID, MOX 800 BID) 01/17 3.5/1.7; therefore, K 20 BID to 40 BID/ + Mg 1 IV and to 1600 BID 01/15 3.2-continue HD and replaced extra (13) Hypomagnesemia Status: Acute Problem Text: as per hypoK (14) Hypercalcemia of malignancy Status: Resolved Problem Text: 01/21: received reclast IV at recent hospital stay. 01/15 down to 9.2 Plan/VTE VTE Prophylaxis Ordered?: No VTE Exclusion Pharmacological: Thrombocytopenia Plan Pt and Family Services: Other PFS Advance Directives: DNR VS, I&O, 24H, Fishbone Vital Signs/I&O Vital Signs Date Time Temp Pulse Resp B/P (MAP) Pulse Ox O2 Delivery O2 Flow Rate FiO2 01/26/19 09:30 98 01/26/19 08:00 97.4 20 103/55 (71) 99 I&O- Last 24 Hours up to 6 AM 01/26/19 06:00 Intake Total 960 ml Output Total 250 ml Balance 710 ml Laboratory Data 24H LABS Laboratory Tests 2 01/26/19 08:07: Nucleated Red Blood Cells % (auto) 0.0, Immature Platelet Fraction 12.4H, Anion Gap 11, Glomerular Filtration Rate > 60.0, Blood Urea Nitrogen 23H, Creatinine 0.49L, Sodium Level 143, Potassium Level 3.8, Chloride Level 111H, Carbon Dioxide Level 21, Calcium Level 10.1, Aspartate Amino Transf (AST/SGOT) 54H, Alanine Aminotransferase (ALT/SGPT) 39, Alkaline Phosphatase 129H, Total B ilirubin 1.6H, Total Protein 6.1L, Albumin 1.3L, Albumin/Globulin Ratio 0.27L CBC/BMP Laboratory Tests 01/26/19 08:07 Red Blood Count 3.42 L, Mean Corpuscular Volume 89.8, Mean Corpuscular Hemoglobin 27.5, Mean Corpuscular Hemoglobin Concent 30.6 L, Red Cell Distribution Width 17.6 H, Calcium Level 10.1, Aspartate Amino Transf (AST/SGOT) 54 H, Alanine Aminotransferase (ALT/SGPT) 39, Alkaline Phosphatase 129 H, Total Bilirubin 1.6 H, Total Protein 6.1 L, Albumin 1.3 L MARCIO GABRIEL PA-C Jan 26, 2019 10:02
[2019-01-26] MEDS: KCL 20MEQ IN D5/0.2%NS 1000ML 1,000 ML IV SCH (10:39)
[2019-01-26 12:00] VITALS: BP 107/71
[2019-01-26] MEDS ORDERED: HYDROmorphone 2 MG TAB PO PRN (12:45)
--- NOTE | 2019-01-26 13:16 | IPN ---
DATE: 01/26/2019 I admit with Efra's , Aleisha, together with Caryn Tavarez from [employer]. Aleisha has agreed to comfort measures. She agrees to discontinuation of IV fluids. She agrees to a hospice referral, though she is leaning towards having the patient stay in hospital for terminal care, though I encouraged her to keep an open mind to hospice care. She has an aversion to him receiving morphine for comfort measures, but is agreeable to other medications, so we will use some Dilaudid for now. Will transfer up to the medical floor. The would like him to be in a setting where they have more room for family. I will also discontinue the sitter.
[2019-01-26 16:00] VITALS: BP 102/73
[2019-01-26] MEDS ORDERED: fentaNYL 25 MCG/HR PATCH TOP SCH (21:00)
[2019-01-26] MEDS ORDERED: FENTANYL REMOVAL DOCUMENTATION MISC XX SCH (21:00)
[2019-01-26] MEDS: LORazepam 2 MG/ML VIAL (J2060) IV PRN (22:13)
[2019-01-27] MEDS: LORazepam 2 MG/ML VIAL (J2060) IV PRN ×2 (02:21→08:03)
[2019-01-27] MEDS: METOPROLOL TART 25 MG TABLET PO SCH ×4 (04:14→11:39)
[2019-01-27] MEDS: DOCUSATE SODIUM 100 MG CAP PO SCH (07:32)
[2019-01-27] MEDS: DIGOXIN 0.25 MG TAB PO SCH (07:33)
[2019-01-27] MEDS: predniSONE 10 MG TAB PO SCH (07:33)
[2019-01-27] MEDS: MAGNESIUM OXIDE 400 MG TAB (MAG-OX) PO SCH (07:33)
[2019-01-27] MEDS: POTASSIUM CHLORIDE 10% LIQ 20 MEQ/15 ML UDC PO SCH (07:34)
--- NOTE | 2019-01-27 08:56 | IPNPDOC ---
Subjective Date Seen The patient was seen on 01/27/19. Subjective Chief Complaint/HPI Pt this morning asleep. His is at bedside. SHe is concerned about his rapid breathing and would like to have his sent to the Hospice house. General: Reports: ROS Unobtainable Objective Physical Examination General Exam: Positive: Mild Distress, Other (Thin, cachectic, asleep, groans when arounds to touch, asleep at bedside snoring loudly); Negative: Alert (Trying to reach out and grab something - speech unintelligable. ) Eye Exam: Positive: Other Eye Symptoms (significant swelling of brow ridge with violaceous, vascular looking mass protruding from left medial eyebrow. Dried blood noted.) Neck Exam: Negative: JVD Chest Exam: Positive: Diminished Heart Exam: Positive: Rate Normal, Regular Rhythm Abdomen Exam: Negative: Tenderness Extremity Exam: Negative: Edema Skin Exam: Negative: Rash Neuro Exam: Negative: Normal Speech Psych Exam: Negative: Mental status NL, Oriented x 3 Assessment /Plan Problems (1) Metastatic lung carcinoma Status: Chronic Problem Text: 01/27 [employer] CLEANER status as of yest afternoon. Pts this morning agrees to treatment with Roxanol, will start, nursing aware. She also resquests referral to Hospice, she would like him transferred to the Hospice House 01/26 Pts cont to decline [employer] CLE[employer]ER as of yesterday. She met with JW yesterday, nursing, CM and PFS request consult from Ethics committee, will address with attending. 01/25 - Cont IVF for now. Appears comfortable. has been communicating with PFS and is leaning toward AC[employer] T[employer] CLEANER, but not ready for hospice. SHe wants to talk to Dr. Nielson about this further today. JFW: returned to floor x 2 to meet with , not in room either time. Staff to page me on her arrival 01/24:Patient appears to be tolerating gentle hydration. No edema noted this morning. Patient remains a candidate for AC[employer] T[employer] CLEANER/Palliative care 01/23: Initially I was only able to meet with the patient, but later in the day his spouse was here and I did meet with her too. I let her know that he is getting dehydrated because he can't eat or drink and that his body is starting the product handler shutdown process that happens when someone is dying. This starts with dehydration and rises in sodium levels. I explained that he could be hydrated, but that may mean that he suffers more as he dies since we will be b ypassing the natural process that starts with dehydration after not being able to eat and drink. She stated that she has discussed this with him and that he wants to keep fighting. She states that she will know when it is too much for him b/c she spends so much time with him. We will start a trial of IV hydration. 01/22: spouse continues with what seems unrealistic pursuit of "just one more" opinion. his performance status is so poor that I don't think he would be a candidate for any treatment. and that Hospice is fully appropriate at this point. Spouse indicates that Dr. Moore had seen him earlier in the week, but no note is available from that interaction. Spouse seems at one moment to wishing to pursue aggressive additional treatment and at another considering Hospice since she says that Bk had expressed to her that he wanted to go home. 01/21: remains averbal. really a candidate for [employer] T[employer] CLEANER/Palliative care only. 01/20 family friend at bedside, is not, pt not able to converse appropriately. 01/19/19: continue to provide treatment. offered family meeting to discuss course of treatment and declines. She is agreeable to continuing with conversations with PFS for DC planning. 01/18/19: Oncology consult with Dr. Moore called to her office. aware. Will have physician see patient and today. will discuss functional status for repeat pembro at 21D cycle c primary Oncolog ist Dr. Moore-obvious concern is new pancytopenia and AF c RVR 01/14/[address] CAP (no PE) 01/06/19 Dr. Moore restarted pembro given response in past (2) Hypernatremia Status: Acute Problem Text: 01/26 Na 143 01/24/19: Na+ 146 This is from volume contraction; he is likely has normal total body sodium. We will adjust his diet and fluids to nectar thick per SP recommendations. I will also start him on gentle hydration per his 's request. (3) Severe protein-calorie malnutrition Status: Chronic Problem Text: 01/24/19: Patient with minimal oral intake at this point. We will continue with gentle hydration 01/23: I suspect that the gentle hydration that was started at his 's request today will lead to 3rd spacing because of his malnutrition. I explained this to her in non-medical terms. She understands that this is a possibility, but wants to see how he responds. We discussed the possibility of a feeding tube, but she wasn't sure that he would want that. po intake is minimal declines dietary consult. encouraged high calorie foods. + dysphagia and now with thickened liquids. (4) Dysphagia Status: Acute Problem Text: 01/26 - Currently is really wanting everything done despite r epeatedly being advised against this. He really isn't a good candidate for a PEG. 01/23: If his continues to execute his wishes as "doing all we can to keep him alive" this will need to be addressed in more detail. Right now he has a modified diet, but he is not eating nearly enough. He will need either a PEG or possibly some sort of central access for TPN. I briefly discussed this with his and she wasn't sure he would want to go that far, especially if there is risk involved with the procedures, but she will think more about it. swallow eval today. (5) Diastolic congestive heart failure Response to Treatment: Stable Problem Text: 01/23: I started very gentle hydration given the fact that he is clearly dehydrated from poor oral intake. I did so to not overwhelm his heart and exacerbate an acute congestive heart failure. Monitor closely. Euvolemic on current regimen 01/15 2685; therefore, SLIV 01/02 BNP 707 (6) DNR (do not resuscitate) Status: Chronic Problem Text: 01/16/19 given patient has verbalized to myself and to 2 other nursing staff his wishes for DNR/DNI; MOLST was completed to this effect. During private di scussion with , agreed c MOLST. (7) Anemia Status: Chronic Problem Text: 01/23: His Hb looks good today, but I suspect this is a hemoconcentrated value. Since we have started hydration today we should monitor his H/H carefully. 01/19 7.6; therefore, 2u; then 10.3 01/17 8.2 (8.5) 01/15 down to 7.6 (01/14 9.9)-but + 2.8 L since admission; therefore, SLIV no AC for DVT px/AF baseline mid 9s (8) Atrial fibrillation Status: Acute Response to Treatment: Stable, Improving Problem Text: no AC given pancytopenia c 01/15 plt down to 82K, hgb 7.6 (favor pembro and chronic disease effect) and intermittent bleeding of sinus metastasis Contingency: amio 01/17 + dig 250, increased met tar 50 q6H to 75 q6H digoxin 0.25 mg IV x 1. Dig level 1.0 this am (p 0.75 IV load 01/15) Increase beta dianelys until HR controlled. Current dosing ordered: metoprolol 50 mg po q6hrs. Will replace electrolytes accordingly. Patient is not anti-coagulated due to hx of bleeding, thrombocytopenia and anemia. 01/14/19 [facility] visit for palpitations-found to be NCT at 190, p BB slowed to 150s and cw AF; loaded c dig IV total 1.0 mg 01/14 TSH/FT4 21/1.2 01/14 T-I <0.3 01/15 TTE: CONCLUSIONS: 1. Very mild concentric left ventricular hypertrophy, normal region LV wall motion and wall thickening. Normal LV systolic function. LVEF 60% by visual estimate. Grade 1 LV diastolic dysfunction. 2. Normal right ventricle internal dimensions. Mild hypertrophy of the right ventricle free wall. Normal right ventricle systolic function. Suggestive of moderate elevation of pulmonary artery systolic pressure. 3. Otherwise Normal appearing echocardiogram Doppler findings. DD: Lloyd Quinn MD [facility] 01/15/192139 [id number] DS: (9) Atrial flutter Status: Resolved Response to Treatment: Stable Problem Specific Plan: Monitor Clinically Problem Text: as per AFl (10) Physical deconditioning Status: Chronic Problem Text: 01/18 PT NS for dc home (11) COPD (chronic obstructive pulmonary disease) Status: Chronic Response to Treatment: Stable Problem Text: stable on baseline pred 10 (12) Hypokalemia Status: Resolved Problem Text: partially 2 pembro (chronic HD K 20 BID, MOX 800 BID) 01/17 3.5/1.7; therefore, K 20 BID to 40 BID/ + Mg 1 IV and to 1600 BID 01/15 3.2-continue HD and replaced extra (13) Hypomagnesemia Status: Acute Problem Text: as per hypoK (14) Hypercalcemia of malignancy Status: Resolved Problem Text: 01/21: received reclast IV at recent hospital stay. 01/15 down to 9.2 Plan/VTE VTE Prophylaxis Ordered?: No VTE Exclusion Pharmacological: Thrombocytopenia Plan Pt and Family Services: Other PFS Advance Directives: DNR VS, I&O, 24H, Fishbone Vital Signs/I&O Vital Signs Date Time Temp Pulse Resp B/P (MAP) Pulse Ox O2 Delivery O2 Flow Rate FiO2 01/27/19 08:26 44 01/26/19 16:00 97.1 73 102/73 (83) 94 I&O- Last 24 Hours up to 6 AM 01/27/19 06:00 Intake Total 320 ml Output Total 100 ml Balance 220 ml MARCIO GABRIEL PA-C Jan 27, 2019 08:56
[2019-01-27] MEDS ORDERED: SCOPOLAMINE 1MG TRANSDERMAL PATCH TOP PRN (09:00)
[2019-01-27] MEDS ORDERED: MORPHINE 10MG/0.5ML ORAL CONCENTRATE SOLUTION U/D SL PRN (09:00)
[2019-01-27] MEDS: MORPHINE 4 MG/ML 1ML VIAL/SYRINGE (J2270) IV PRN ×2 (11:57→14:59)
== END 2019-01-27 23:19 | disposition expired | DRG 308 ==
LOC: M ED 10:29 → M ED INP 14:58 → M ICU 16:01 → M PCU 01-18 19:37
PROVIDERS: ADMIT Student in an Organized Health Care Education/Training Program; ATTEND Family Medicine
DX: I48.92 Unspecified atrial flutter (principal); E43 Unspecified severe protein-calorie malnutrition; C34.90 Malignant neoplasm of unspecified part of unspecified bronchus or lung; I50.32 Chronic diastolic (congestive) heart failure; J44.0 Chronic obstructive pulmonary disease with (acute) lower respiratory infection; C78.39 Secondary malignant neoplasm of other respiratory organs; D64.9 Anemia, unspecified; I48.91 Unspecified atrial fibrillation; E87.6 Hypokalemia; E83.52 Hypercalcemia; D69.6 Thrombocytopenia, unspecified